=== PATIENT | female | born 1995 | race Caucasian/White ===

== ENCOUNTER 2018-02-01 21:25 | Inpatient (IN) | payer MEDICAID ==
[2018-02-01] MEDS ORDERED: SODIUM CHLORIDE 0.9% 1,000 ML IV ONE (21:48)
--- NOTE | 2018-02-01 22:15 | XRAY Report ---
EXAM: CHEST RADIOGRAPHY EXAM DATE: 02/01/2018 10:04 PM. CLINICAL HISTORY: Short of breath. COMPARISON: 05/05/2011. TECHNIQUE: 1 view. FINDINGS: Lungs/Pleura: Clear. No effusion or pneumothorax. Mediastinum: Within exam limitations, the cardiomediastinal contour is normal. Upper lobe vessels not distended. Other: Mild scoliosis. IMPRESSION: No acute disease. [facility] Referring Provider Line: [phone] SITE ID: [id number]
[2018-02-01] MEDS ORDERED: ELECTROLYTE-A SOLUTION 1,000 ML IV ONE (22:22)
[2018-02-01 22:26] LABS: ALBUMIN 5.6 g/dL (3.2-5.5); ALBUMIN/GLOBULIN RATIO 1.4 (1.0-2.2); ALKALINE PHOSPHATASE 99 IU/L (42-121); ALT ALANINE AMINOTRANSFERASE 18 IU/L (10-60); AST ASPARTATE AMINOTRANSFERASE 17 IU/L (10-42); BILIRUBIN,TOTAL 1.8 mg/dL (0.2-1.0); BUN - BLOOD UREA NITROGEN 11 mg/dL (6-20); CALCIUM 8.9 mg/dL (8.5-10.3); CARBON DIOXIDE - CO2 < 6 mmol/L (21-32); CHLORIDE 101 mmol/L (101-111); CK- CREATINE KINASE 25 IU/L (22-269); CREATININE 1.1 mg/dL (0.4-1.0); GFR - MDRD 62 (>89); GLUCOSE 490 mg/dL (70-100); LIPASE 11 U/L (22-51); MAGNESIUM 2.4 mg/dL (1.7-2.8); PHOSPHORUS 5.9 mg/dL (2.5-4.6); SODIUM 135 mmol/L (135-145); TOTAL PROTEIN 9.5 g/dL (6.7-8.2)
[2018-02-01] MEDS ORDERED: INSULIN REGULAR HUMAN 100 UNIT in SODIUM CHLORIDE 0.9% 100ML 99 ML IV STA (22:33)
[2018-02-01] MEDS ORDERED: POTASSIUM CHLOR 10 MEQ/100 ML 10 MEQ/100 ML BAG IV ONE (22:33)
[2018-02-01 22:34] LABS: KETONES, SERUM (ACETEST) SMALL (NEGATIVE)
[2018-02-01] MEDS ORDERED: ONDANSETRON 4 MG/2 ML VIAL IVP PRN (22:43)
[2018-02-01 22:44] LABS: MUDS CUTOFF CONCENTRATIONS CUTOFF CONC BELOW:
[2018-02-01 22:47] LABS: BILIRUBIN,URINE NEGATIVE (NEGATIVE); GLUCOSE, URINE (UA) 500 mg/dL (NEGATIVE); KETONES,URINE (UA) >=80 mg/dL (NEGATIVE); LEUKOCYTE ESTERASE, URINE NEGATIVE (NEGATIVE); NITRITE,URINE NEGATIVE (NEGATIVE); OCCULT BLOOD,URINE TRACE-INTA (NEGATIVE); PH,URINE 5.5 PH (5.0-7.5); PROTEIN,URINE 100 mg/dL (NEGATIVE); UROBILINOGEN,URINE 0.2 (NORMAL) E.U./dL (NORMAL)
[2018-02-01 22:48] LABS: CLARITY,URINE CLEAR (CLEAR)
[2018-02-01] MEDS ORDERED: INSULIN REGULAR HUMAN 100 UNIT in SODIUM CHLORIDE 0.9% 100ML 99 ML IV SCH (22:49)
--- NOTE | 2018-02-01 22:52 | ED Physician Documentation ---
History of Present Illness - Stated complaint Stated Complaint: SLURRING/RAPID HB ABD PX - Chief complaint Chief Complaint: General - History obtained from History obtained from: Patient, Family - Additonal information Additional information: Patient is a 22 year old female with a history of anxiety and depression who is presenting to the emergency department for elevated heart rate, dizziness and dry mouth. Patient and family report that is has been going on for the last couple of days and it getting progressively worse. Mother states that she has been noticing that the patient is always thirst and always has a dry mouth but denies any history of diabetes. Upon initial evaluation in the emergency department patient is ill appearing tachypneanic and smelled of ketones. Review of Systems Unable to obtain: Confused, Other (clinical condition) PD PAST MEDICAL HISTORY - Past Medical History Psych: Anxiety - Past Surgical History Past Surgical History: No - Present Medications Home Medications: Ambulatory Orders Medication Instructions Recorded Confirmed Sertraline [Zoloft] 25 mg PO DAILY 02/01/18 - Allergies Allergies/Adverse Reactions: Allergies Allergy/AdvReac Type Severity Reaction Status Date / Time No Known Drug Allergies Allergy Verified 02/01/18 21:42 - Social History Does the pt smoke?: No Smoking Status: Never smoker Does the pt drink ETOH?: No Does the pt have substance abuse?: No - Immunizations Immunizations are current?: Yes PD ED PE NORMAL - Vitals Vital signs reviewed: Yes - Neck Neck: No JVD - Abdomen Abdomen: Soft, Non distended - Derm Derm: Normal color, No rash - Extremities Extremities: No deformity - Neuro Eye Opening: Spontaneous Motor: Obeys Commands Verbal: Confused GCS Score: 14 PD ED PE EXPANDED - General General: Disheveled, poorly kept, Lethargic, Other (ill appearing, smelled of ketones ) - Cardiac Cardiac: Tachy - Respiratory Respiratory: Other (tachypeanic, kussmal) Results - Vitals Vitals: Vital Signs - 24 hr 02/01/18 02/01/18 21:38 22:31 Temperature 36.0 C L Heart Rate 132 H 125 H Respiratory 25 H 27 H Rate Blood Pressure 138/101 H 132/85 H O2 Saturation 100 99 Oxygen O2 Source Room air - Labs Labs: Laboratory Tests 02/01/18 02/01/18 02/01/18 21:53 21:55 21:55 Sodium 135 Potassium 4.0 Chloride 101 Carbon Dioxide < 6 L* Anion Gap 28.0 H BUN 11 Creatinine 1.1 H Estimated GFR (MDRD) 62 L Glucose 494 H 490 H Glycated Hemoglobin Estim Average Glucose Calcium 8.9 Phosphorus 5.9 H Magnesium 2.4 Total Bilirubin 1.8 H AST 17 ALT 18 Alkaline Phosphatase 99 Total Creatine Kinase 25 Troponin I < 0.04 Total Protein 9.5 H Albumin 5.6 H Globulin 3.9 Albumin/Globulin Ratio 1.4 Lipase 11 L TSH Urine Color Urine Clarity Urine pH Ur Specific Slater Urine Protein Urine Glucose (UA) Urine Ketones Urine Occult Blood Urine Nitrite Urine Bilirubin Urine Urobilinogen Ur Leukocyte Esterase Urine RBC Urine WBC Ur Epithelial Cells Ur Squamous Epith Cells Amorphous Sediment Urine Bacteria Urine Casts Ur Microscopic Review Urine Culture Comments Urine HCG, Qual Salicylates Urine Opiates Screen Ur Oxycodone Screen Urine Methadone Screen Ur Propoxyphene Screen Acetaminophen Ur Barbiturates Screen Ur Tricyclics Screen Ur Phencyclidine Scrn Ur Amphetamine Screen U Methamphetamines Scrn U Benzodiazepines Scrn Urine Cocaine Screen U Cannabinoids Screen Ethyl Alcohol < 5.0 Serum Ketones SMALL H 02/01/18 02/01/18 02/01/18 21:55 21:55 21:55 Sodium Potassium Chloride Carbon Dioxide Anion Gap BUN Creatinine Estimated GFR (MDRD) Glucose Glycated Hemoglobin 17.0 H Estim Average Glucose 441 H Calcium Phosphorus Magnesium Total Bilirubin AST ALT Alkaline Phosphatase Total Creatine Kinase Troponin I Total Protein Albumin Globulin Albumin/Globulin Ratio Lipase TSH 0.88 Urine Color Urine Clarity Urine pH Ur Specific Slater Urine Protein Urine Glucose (UA) Urine Ketones Urine Occult Blood Urine Nitrite Urine Bilirubin Urine Urobilinogen Ur Leukocyte Esterase Urine RBC Urine WBC Ur Epithelial Cells Ur Squamous Epith Cells Amorphous Sediment Urine Bacteria Urine Casts Ur Microscopic Review Urine Culture Comments Urine HCG, Qual Salicylates < 6.0 Urine Opiates Screen Ur Oxycodone Screen Urine Methadone Screen Ur Propoxyphene Screen Acetaminophen < 10 L Ur Barbiturates Screen Ur Tricyclics Screen Ur Phencyclidine Scrn Ur Amphetamine Screen U Methamphetamines Scrn U Benzodiazepines Scrn Urine Cocaine Screen U Cannabinoids Screen Ethyl Alcohol Serum Ketones 02/01/18 02/01/18 22:35 22:35 Sodium Potassium Chloride Carbon Dioxide Anion Gap BUN Creatinine Estimated GFR (MDRD) Glucose Glycated Hemoglobin Estim Average Glucose Calcium Phosphorus Magnesium Total Bilirubin AST ALT Alkaline Phosphatase Total Creatine Kinase Troponin I Total Protein Albumin Globulin Albumin/Globulin Ratio Lipase TSH Urine Color YELLOW Urine Clarity CLEAR Urine pH 5.5 Ur Specific Slater >=1.030 H >=1.030 H Urine Protein 100 H Urine Glucose (UA) 500 H Urine Ketones >=80 H Urine Occult Blood TRACE-INTA Urine Nitrite NEGATIVE Urine Bilirubin NEGATIVE Urine Urobilinogen 0.2 (NORMAL) Ur Leukocyte Esterase NEGATIVE Urine RBC 0-5 Urine WBC 0-3 Ur Epithelial Cells MOD Transitional H Ur Squamous Epith Cells FEW Squamous Amorphous Sediment Moderate Urine Bacteria None Seen Urine Casts 3-5 Hyaline Casts Ur Microscopic Review INDICATED Urine Culture Comments NOT INDICATED Urine HCG, Qual NEGATIVE Salicylates Urine Opiates Screen NEGATIVE Ur Oxycodone Screen NEGATIVE Urine Methadone Screen NEGATIVE Ur Propoxyphene Screen NEGATIVE Acetaminophen Ur Barbiturates Screen NEGATIVE Ur Tricyclics Screen NEGATIVE Ur Phencyclidine Scrn NEGATIVE Ur Amphetamine Screen NEGATIVE U Methamphetamines Scrn NEGATIVE U Benzodiazepines Scrn NEGATIVE Urine Cocaine Screen NEGATIVE U Cannabinoids Screen NEGATIVE Ethyl Alcohol Serum Ketones PD MEDICAL DECISION MAKING - ED course Complexity details: reviewed old records, reviewed results, re-evaluated patient , considered differential, d/w patient, d/w family, d/w it 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 ekg was performed and showed tachycardia with a lot of artifact. Patient was placed on a monitor. Bedside blood glucose was 475. IV access was gained and labs were drawn. Patient was started on a fluid bolus. When patient's labs came back dka was confirmed. patient treated with additional fluids and insulin drip at 4 units with supplemental potassium. Hospitalist was contacted and the case was discussed with her. patient was admitted to the icu for further evaluation and care. - Critical Care Time(min): 30 Time Includes: Direct patient care, Review records, Reassess patient, Document care Data interpretation: Labs, CXR, Cardiac output Departure - Departure Disposition: 66 [facility] DC/Xfer Clinical Impression: DKA (diabetic ketoacidoses) Condition: Critical Discharge Date/Time: 02/01/18 23:53
[2018-02-01 22:57] LABS: RBC,URINE 0-5 /HPF (0-5); SQUAMOUS EPITHELIAL CELL,UR FEW Squamous (<= Few)
[2018-02-01 22:58] LABS: AMORPHOUS SEDIMENT,UR Moderate /LPF; BACTERIA,URINE None Seen /HPF (None Seen); CASTS, URINE 3-5 Hyaline Casts /LPF; EPITHELIAL CELLS,UR MOD Transitional /HPF (<= Few)
[2018-02-01 22:59] LABS: AMPHETAMINE SCREEN,URINE NEGATIVE (NEGATIVE); BENZODIAZEPINES SCREEN, URINE NEGATIVE (NEGATIVE); COCAINE SCREEN URINE NEGATIVE (NEGATIVE); METHADONE SCREEN, URINE NEGATIVE (NEGATIVE); METHAMPHETAMINES SCREEN, URINE NEGATIVE (NEGATIVE); OPIATE SCREEN, URINE NEGATIVE (NEGATIVE); OXYCODONE SCREEN, URINE NEGATIVE (NEGATIVE); PROPOXYPHENE SCREEN, URINE NEGATIVE (NEGATIVE); TRICYCLIC ANTIDEPRESSANT,URINE NEGATIVE (NEGATIVE)
[2018-02-01] MEDS ORDERED: SODIUM CHLORIDE 0.9% 1,000 ML IV SCH ×2 (23:00→23:24)
[2018-02-01 23:01] LABS: ACETAMINOPHEN < 10 ug/mL (10-30); SALICYLATE < 6.0 mg/dL
[2018-02-01 23:06] LABS: HEMOGLOBIN A1C 2.92 g/dL
[2018-02-01] MEDS ORDERED: KETOROLAC 15 MG/ML VIAL IVP PRN (23:24)
[2018-02-01] MEDS ORDERED: MORPHINE 2 MG/ML SYRINGE IVP PRN (23:25)
[2018-02-01 23:47] LABS: HCG UR QUAL NEGATIVE
[2018-02-02] MEDS: AMPICILLIN/SULBACTAM 1.5 GM in SODIUM CHLORIDE 0.9% MINIBAG 100 ML IV SCH ×5 (00:25→17:44)
--- NOTE | 2018-02-02 00:47 | HISTORY & PHYSICAL EXAMINATION ---
DATE OF SERVICE: 02/01/2018 Physician: Oralia Jarvis MD CHIEF COMPLAINT: Altered mental status, nausea, vomiting and dizziness. SOURCE OF HISTORY: Most of the history was provided by the patient's mother at the bedside, the patient was somnolent and acutely ill, could not provide history. HISTORY OF PRESENT ILLNESS: The patient is a pleasant 22-year-old female with past medical history of anxiety and depression. No other prior medical problem. She saw the primary care physician, Dr. Villa remotely, but recently had no primary care followup. Sees a psychologist, Dr. Castillo, and takes Zoloft. No other medication. The patient has poor dentition and developed dental pain about a week ago; she was seen in a dental office during the daytime on 02/01/2018 at which time she was told that she had a complicated situation with the root of her tooth and required oral surgery. In addition, tooth infection was suspected and she was given penicillin. She also took some ibuprofen. Beside the tooth problem, her family noticed that she became somnolent and ill in general, about 4 days ago. She was nauseous and vomited a few times. She developed dry mouth, became anorexic, was not able to take much oral intake. After she went home from the dentist's office, patient became somnolent and confused, she appeared acutely ill, therefore her mother brought her to the ER. Family also noticed increased heart rate and the patient complained of generalized aches and pains including abdominal discomfort and pain at her ribcage. The patient's mother attributed most of the symptoms to the tooth problem/tooth infection. Notably, the patient or the family does not report any prior history of diabetes. Reviewing the medical record; however, the patient did have an ER visit in 2015, at which time she was seen for dizziness and she reported "blood sugar issues." When I asked the mother about this, she mentioned that several people in their family, in particular second degree relatives and grandparents, had diabetes. They felt dizzy and lightheaded in the setting of uncontrolled blood glucose and when the patient developed similar symptoms, she thought she had blood sugar issues. However, patient does not have prior history of diabetes and back then a few years ago, her symptoms of dizziness and lightheadedness were attributed to anxiety. Upon presentation to the ER, the patient was found acutely ill and confused. Her vital signs showed tachycardia with heart rate of 130, temperature was 36 Celsius, blood pressure 130/100, respiration rate 27, oxygen saturation 99% on room air. Laboratory workup showed severe anion gap metabolic acidosis, most consistent with diabetic ketoacidosis. CBC was not sent or not yet returned. There are several pending labs including venous pH; serum ketones returned as small. Urinalysis was negative. Toxicology screen was negative as well including salicylate and Tylenol level. Troponin was negative. Blood glucose was around 500. Sodium and potassium unremarkable. BUN was 11, creatinine 1.1. Notably, on prior lab work baseline creatinine was 0.7. At the ER, the patient was started on insulin drip and received 2 liters IV fluid. REVIEW OF SYMPTOMS: Please see pertinent positives listed above at history of present illness. On further review, patient and the mother denied excessive Tylenol or salicylate intake. They also denied prior history of diabetes. There was no fever. However, there was weight loss, about 5-10 pounds during the past week. Patient denied urinary complaints. I completed 12-point review, which was negative other than the positives dictated at history of present illness. FAMILY HISTORY: Negative for diabetes in first degree relatives, however, positive for diabetes in second degree relatives. Patient or mother could not provide further details. SOCIAL HISTORY: Patient does not smoke. She does not drink alcohol or use substances. PHYSICAL EXAMINATION VITAL SIGNS: See listed above at history of present illness. GENERAL: The patient is a well-developed, thin, acutely ill-appearing young female. Had acetone like smell. SKIN: With pallor, Dry skin. No jaundice. HEENT: Oral mucosa dry with cracked lips. Multiple teeth with decay, poor dentition. No abscess or fluid packet/collection. LYMPHATIC: No lymphedema. MUSCULOSKELETAL: Atraumatic, thin, decreased muscle mass. CARDIOVASCULAR: S1, S2. Regular tachycardia. I could not hear murmur, rub or gallop. RESPIRATORY: Increased work of breathing, but good air entry throughout. ABDOMEN: Nontender. Bowel tones hypoactive. NEUROLOGIC: The patient was somnolent, but easily arousable. She was confused , neurologically nonfocal. Appeared with global encephalopathy. PSYCHIATRIC: Cooperative. No agitation. PAST MEDICAL HISTORY: Anxiety and depression. No other chronic illness. OUTPATIENT MEDICATIONS: Included 1. Zoloft. 2. Recently the patient took some aspirin, penicillin, and ibuprofen for a tooth infection. ASSESSMENT AND PLAN ACTIVE ISSUES/DIAGNOSES 1. Diabetic ketoacidosis/severe. Other etiology for anion gap metabolic acidosis is unlikely and most possibilities were ruled out per history and initial lab work. 2. New diagnosis of diabetes, likely type 1. 3. Acute renal failure. Creatinine increasing by more than 30% from 0.7 to 1.1. This is in the setting of dehydration and diabetic ketoacidosis. 4. Tooth infection. Patient could have systemic infection. Currently lactic acid and CBC are pending. 5. Metabolic encephalopathy. Severe DKA. PLAN/ORDERS 1. Patient is getting admitted to the ICU and managed per DKA protocol. She is receiving deep venous thrombosis prophylaxis and gastrointestinal prophylaxis as well. 2. We will start antibiotics for tooth infection, I ordered Unasyn. We will use bowel prophylaxis with acidophilus/lactobacillus. 3. Check blood cultures and I am awaiting CBC. 4. Diabetic education and dietitian consult, given the new diagnosis of diabetes. 5. Patient will need outpatient followup and I discussed that with her mother and with the patient as well. Requested social work to facilitate close outpatient follow up , obtaining an appointment following discharge. Patient's primary care physician was Dr. Villa and we will refer her back to the PCP. 6. Regarding tooth infection, the patient already saw a dentist and was recommended to have oral surgery. However, prior to the procedure, she will need to take antibiotics. Currently, we are giving antibiotics IV and then we will refer her back to the dentist for further outpatient followup. 7. Regarding sinus tachycardia, TSH was checked, it was unremarkable. Most likely the reason for the tachycardia is DKA and dehydration. 8. Regarding the encephalopathy, it is most likely metabolic encephalopathy in the setting of acute illness and DKA. The patient is neurologically nonfocal. CODE STATUS: FULL CODE, which I discussed with the patient and with her mother at the bedside. ATTESTATION: I certify that this patient requires inpatient admission due to acute illness and diabetic ketoacidosis, requires IV drips and close monitoring in the ICU. She is getting admitted as inpatient and most likely will remain hospitalized for more than 48 hours; however, likely get discharged within 96 hours. CRITICAL CARE TIME: 55 minutes. cc: Osmany Villa MD TD: 02/02/2018 00:45 MTDD
[2018-02-02] MEDS: SODIUM CHLORIDE FLUSH 0.9% 10 ML SYRINGE IVP SCH ×3 (01:25→17:31)
[2018-02-02] MEDS: SACCHAROMYCES BOULARDII 250 MG CAPSULE PO SCH ×3 (02:30→17:31)
[2018-02-02] MEDS ORDERED: SODIUM CHLORIDE 0.9% 500 ML IV SCH (03:32)
[2018-02-02 04:11] LABS: BUN - BLOOD UREA NITROGEN 10 mg/dL (6-20); CALCIUM 8.2 mg/dL (8.5-10.3); CHLORIDE 112 mmol/L (101-111); CREATININE 0.9 mg/dL (0.4-1.0); GFR - MDRD 78 (>89); GLUCOSE 190 mg/dL (70-100); MAGNESIUM 1.7 mg/dL (1.7-2.8); SODIUM 136 mmol/L (135-145)
[2018-02-02 04:12] LABS: CARBON DIOXIDE - CO2 < 6 mmol/L (21-32)
[2018-02-02] MEDS: D5.45NS W/20 MEQ KCL 1,000 ML IV SCH ×2 (04:30→15:14)
[2018-02-02 05:57] LABS: BASOPHILS % (AUTO) 0.3 %; HGB - HEMOGLOBIN 12.8 g/dL (12.0-16.0); LYMPHOCYTES # (AUTO) 1.8 10^3/uL (1.5-3.5); LYMPHOCYTES % (AUTO) 12.6 %; MEAN CORPUSCULAR HEMOGLOBIN 30.7 pg (27.0-31.0); MEAN CORPUSCULAR HGB CONC 32.9 g/dL (32.0-36.0); MEAN CORPUSCULAR VOLUME 93.4 fL (81.0-99.0); MEAN PLATELET VOLUME 11.4 fL (7.9-10.8); MONOCYTES # (AUTO) 1.4 10^3/uL (0.0-1.0); MONOCYTES % (AUTO) 9.7 %; NEUTROPHILS % (AUTO) 77.4 %; PLT - PLATELET COUNT 118 10^3/uL (130-450); RED BLOOD COUNT 4.16 10^6/uL (4.20-5.40); RED CELL DISTRIBUTION WIDTH 13.7 % (12.0-15.0); WHITE BLOOD COUNT 14.2 x10^3/uL (4.8-10.8)
[2018-02-02 06:10] LABS: CALCIUM 7.4 mg/dL (8.5-10.3); CREATININE 0.8 mg/dL (0.4-1.0)
[2018-02-02] MEDS ORDERED: CALCIUM GLUCONATE 1,000 MG in SODIUM CHLORIDE 0.9% 50 ML IV SCH (06:13)
[2018-02-02] MEDS ORDERED: POTASSIUM CHLOR 20 MEQ/100 ML 20 MEQ/100 ML BAG IV SCH (07:00)
[2018-02-02] MEDS ORDERED: PANTOPRAZOLE 40 MG TABLET PO SCH (07:00)
[2018-02-02] MEDS ORDERED: MAGNESIUM SULFATE 2 GRAM 2 GM/50 ML BAG IV SCH (07:00)
[2018-02-02] MEDS: POLYETHYLENE GLYCOL 3350 17 GM PACKET PO SCH (10:27)
[2018-02-02 10:34] LABS: BASOPHILS % (AUTO) 0.4 %; LYMPHOCYTES # (AUTO) 1.2 10^3/uL (1.5-3.5); LYMPHOCYTES % (AUTO) 10.9 %; MEAN CORPUSCULAR HEMOGLOBIN 31.7 pg (27.0-31.0); MEAN CORPUSCULAR HGB CONC 34.9 g/dL (32.0-36.0); MEAN PLATELET VOLUME 11.4 fL (7.9-10.8); MONOCYTES # (AUTO) 1.4 10^3/uL (0.0-1.0); NEUTROPHILS # (AUTO) 8.2 10^3/uL (1.5-6.6); NEUTROPHILS % (AUTO) 75.7 %; PLT - PLATELET COUNT 111 10^3/uL (130-450); RED CELL DISTRIBUTION WIDTH 13.7 % (12.0-15.0); WHITE BLOOD COUNT 10.8 x10^3/uL (4.8-10.8)
[2018-02-02 10:56] LABS: KETONES, SERUM (ACETEST) SMALL (NEGATIVE)
[2018-02-02 11:05] LABS: MAGNESIUM 2.4 mg/dL (1.7-2.8)
[2018-02-02 11:16] LABS: VBG PCO2 16.1 mmHg (41-51); VBG PH 7.029 (7.31-7.41)
[2018-02-02 11:17] LABS: VBG BASE EXCESS -24.8 mmol/L (-2 - +2); VBG PO2 74.7 mmHg (25-47); VBG TOTAL CO2 4.6 mmol/L (24-29)
[2018-02-02] MEDS: PANTOPRAZOLE 40 MG VIAL IVP SCH (11:31)
[2018-02-02] MEDS: POTASSIUM CHLOR 10 MEQ/100 ML 10 MEQ/100 ML BAG IV SCH ×4 (11:32→17:18)
[2018-02-02] MEDS: SODIUM CHLORIDE FLUSH 0.9% 10 ML SYRINGE IVP PRN (11:32)
[2018-02-02] MEDS ORDERED: diphenhydrAMINE 25 MG CAPSULE PO STA (12:03)
[2018-02-02 12:14] LABS: ALBUMIN 3.5 g/dL (3.2-5.5); ALBUMIN/GLOBULIN RATIO 1.3 (1.0-2.2); ALKALINE PHOSPHATASE 53 IU/L (42-121); ALT ALANINE AMINOTRANSFERASE 12 IU/L (10-60); AST ASPARTATE AMINOTRANSFERASE 14 IU/L (10-42); BILIRUBIN,TOTAL 0.8 mg/dL (0.2-1.0); BUN - BLOOD UREA NITROGEN 9 mg/dL (6-20); CARBON DIOXIDE - CO2 13 mmol/L (21-32); CHLORIDE 117 mmol/L (101-111); CREATININE 0.5 mg/dL (0.4-1.0); GFR - MDRD 154 (>89); GLUCOSE 153 mg/dL (70-100); SODIUM 137 mmol/L (135-145); TOTAL PROTEIN 6.2 g/dL (6.7-8.2)
[2018-02-02] MEDS: MULTIVITAMIN 10 ML in SODIUM CHLORIDE 0.9% 1,000 ML IV SCH (12:15)
[2018-02-02] MEDS: THIAMINE INJ 100 MG, FOLIC ACID INJ 1 MG in SODIUM CHLORIDE 0.9% 100ML 100 ML IV SCH (12:16)
[2018-02-02 12:58] LABS: VBG PH 7.247 (7.31-7.41)
[2018-02-02] MEDS: INSULIN GLARGINE 300 UNIT/3 ML PEN SUBQ SCH (13:10)
[2018-02-02] MEDS ORDERED: POTASSIUM PHOSPHATE 21 MMOL in SODIUM CHLORIDE 0.9% 250 ML IV ONE (14:15)
--- NOTE | 2018-02-02 14:44 | PROVIDER PROGRESS NOTE ---
Assessment/Plan - Problem List (1) DKA (diabetic ketoacidoses) Qualifiers: Diabetes mellitus type: type 1 Diabetes mellitus complication detail: without coma Qualified Code(s): E10.10 - Type 1 diabetes mellitus with ketoacidosis without coma Assessment/Plan: Patient presented with DKA and new onset diabetes her pH was 7.02 with an anion gap of 26 She was recently diagnosed with a tooth infection which may have precipitated the event She was admitted to the ICU and is on an insulin drip Plan: Continue insulin drip till anion gap is closed and bicarb is greater than 10 Then start SubQ insulin 0.3 U/kg/day of lantus and SS insulin Nutrition consult Diabetic teaching for patient and her family (2) Tooth infection Assessment/Plan: Patient saw dentist and was told she has a tooth infection Patient has very poor dentation She was on penicillin Placed on IV unasyn will continue (3) Metabolic encephalopathy Assessment/Plan: Secondary to DKA Resolved (4) Hypokalemia Assessment/Plan: Replace K Monitor K (5) Hypophosphatemia Assessment/Plan: Replace Phos Monitor Phos (6) Protein calorie malnutrition Qualifiers: Protein-calorie malnutrition severity: mild Qualified Code(s): E44.1 - Mild protein-calorie malnutrition Assessment/Plan: Total protein is 6.2 and patient has a BMI of 13.5 Maybe secondary to diabetes but could also be due to anorexia Patient will be given a banana bag IV Will start daily MV Nutrition consult (7) NIKHIL (acute kidney injury) Assessment/Plan: Psychology Tech was 1.1 on presentation likely secondary to dehydration from DKA Psychology Tech improving with IVF Resolving (8) Thrombocytopenia Assessment/Plan: Plt count is 118 Etiology is not clear Monitor Only takes zoloft which does not cause thrombocytopenia - Current Meds Current Meds: Current Medications Generic Name Dose Route Start Last Admin Trade Name Freq PRN Reason Stop Dose Admin Ampicillin Sodium/Sulbactam 100 mls @ 200 mls/hr 02/01/18 23:45 02/02/18 13: 01 Sodium 1.5 gm/ Sodium Chloride IV Infused Q6HR SUZANNA Infusion Potassium Chloride/Dextrose/Sod Cl 1,000 mls @ 83.333 mls/hr 02/02/18 04:00 02/02/18 05:00 D5.45ns W/20 Meq Kcl IV 83.333 mls/hr .Q12H SUZANNA Infusion Potassium Chloride 10 meq in 100 mls @ 100 mls/hr 02/02/18 11:00 02/02/18 13: 33 Potassium Chloride IV 02/02/18 14:59 50 mls/hr Q1H SUZANNA Infusion Multivitamins 10 ml/ Sodium 1,010 mls @ 100 mls/hr 02/02/18 11:00 02/02/18 12 :15 Chloride IV 100 mls/hr DAILY SUZANNA Administration Thiamine HCl 100 mg/ Folic 101.2 mls @ 50.6 mls/hr 02/02/18 11:00 02/02/18 14 :16 Acid 1 mg/ Sodium Chloride IV Infused DAILY SUZANNA Infusion Insulin Glargine 14 unit 02/02/18 13:00 02/02/18 13:10 Lantus Solostar SUBQ 14 unit DAILY SUZANNA Administration Ondansetron HCl 4 mg 02/01/18 22:43 02/02/18 09:27 Zofran Inj IVP 4 mg Q6HR PRN Administration Nausea / Vomiting Pantoprazole Sodium 40 mg 02/02/18 11:00 02/02/18 11:31 Protonix IVP 40 mg QDAC SUZANNA Administration Polyethylene Glycol 17 gm 02/02/18 09:00 02/02/18 10:27 Miralax PO Not Given DAILY SUZANNA Saccharomyces Boulardii 250 mg 02/02/18 01:00 02/02/18 08:43 Florastor PO 250 mg BIDWM SUZANNA Administration Sodium Chloride 10 ml 02/01/18 22:43 02/02/18 11:32 Normal Saline Flush 0.9% IVP 20 ml PRN PRN Administration NEEDED PER PROVIDER ORDERS Sodium Chloride 10 ml 02/02/18 01:00 02/02/18 11:43 Normal Saline Flush 0.9% IVP Not Given 0100,0900,1700 SUZANNA - Lab Result Fish Bone Diagrams: 02/02/18 10:21 02/02/18 11:21 - Diagnostic Imaging Results Diagnostic Imaging Results: Final report reviewed - Additional Planning Condition/Complexity: Guarded My Orders: My Active Orders 02/02/18 11:00 Multivitamin [Infuvite] 10 ml Sodium Chloride 0.9% [Normal Saline 0.9%] 1,000 ml IV DAILY Pantoprazole [Protonix] 40 mg IVP QDAC Potassium Chlor 10 Meq/100 ml [Potassium Chloride] 10 meq in 100 ml IV Q1H Thiamine Inj [Vitamin B-1 Inj] 100 mg Folic Acid Inj 1 mg Sodium Chloride 0.9 % 100Ml [Normal Saline 0.9% 100Ml] 100 ml IV DAILY 02/02/18 11:51 Initiate ICU Electrolyte Prot. [RC] QSHIFT 02/02/18 12:24 Blood Glucose Checks - Eating [RC] 0800,1200,1700,2100 Initiate Hypoglycemia Protocol [RC] .protocol 02/02/18 13:00 Insulin Glargine [Lantus Solostar] 14 unit SUBQ DAILY 02/02/18 14:15 Potassium Phosphate 21 mmol Sodium Chloride 0.9% [Normal Saline 0.9%] 250 ml IV ONCE 02/02/18 17:00 Insulin Aspart [NovoLOG] 1 - 5 unit SUBQ 0800,1200,1700,2100 02/03/18 05:00 CBC - COMP BLD CT W/AUTO DIFF [HEME] DAILYLAB CMP, RFLX TO IONIZED CA IF [CHEM] DAILYLAB KETONES, SERUM (ACETEST) [CHEM] DAILYLAB MAGNESIUM [CHEM] DAILYLAB PHOSPHORUS [CHEM] DAILYLAB 02/04/18 05:00 CBC - COMP BLD CT W/AUTO DIFF [HEME] DAILYLAB CMP, RFLX TO IONIZED CA IF [CHEM] DAILYLAB KETONES, SERUM (ACETEST) [CHEM] DAILYLAB MAGNESIUM [CHEM] DAILYLAB PHOSPHORUS [CHEM] DAILYLAB Plan Discussed with:: Patient, Family Time Spent: 31-60 minutes Subjective - Subjective Patient Reports: Abdominal Pain (States she has burning in her abdomen and poor appetite), Fatigue, Other (Feels weak) Nursing Reports: No Complaints Objective Vital Signs: Vital Signs - 24 hr 02/01/18 02/02/18 02/02/18 23:39 00:00 01:00 Temperature Heart Rate 121 H Heart Rate [ 127 H 132 H Apical] Heart Rate [ Monitoring electrodes] Respiratory 27 H 27 H 26 H Rate Blood Pressure 137/89 H Blood Pressure 131/79 H 128/81 H [Right Brachial artery] O2 Saturation 100 100 100 02/02/18 02/02/18 02/02/18 02:00 03:00 04:00 Temperature 36.7 C Heart Rate Heart Rate [ 126 H Apical] Heart Rate [ 126 H 125 H 124 H Monitoring electrodes] Respiratory 20 27 H 24 Rate Blood Pressure Blood Pressure 123/86 H 125/83 H 120/77 [Right Brachial artery] O2 Saturation 100 100 100 02/02/18 02/02/18 02/02/18 05:00 06:00 07:59 Temperature 37.6 C H Heart Rate Heart Rate [ Apical] Heart Rate [ 116 H 114 H 109 H Monitoring electrodes] Respiratory 21 18 18 Rate Blood Pressure Blood Pressure 116/77 100/64 107/70 [Right Brachial artery] O2 Saturation 100 99 100 02/02/18 02/02/18 10:12 11:21 Temperature Heart Rate Heart Rate [ Apical] Heart Rate [ 109 H 104 H Monitoring electrodes] Respiratory 18 18 Rate Blood Pressure Blood Pressure 104/60 105/62 [Right Brachial artery] O2 Saturation 99 98 Oxygen O2 Source Room air I&O (Last 24 Hrs): Intake and Output Totals x24h 01/31/18 02/01/18 02/02/18 23:59 23:59 23:59 Intake Total 1000 2460.534 Output Total 940 Balance 1000 1520.534 General: Alert, Oriented x3, Other (Cachectic appearing young woman) HEENT: PERRLA, EOMI, Other (Dry mucus membranes, dried up blood on front teeth, poor dentation) Neck: Supple, No JVD, No thyromegaly, +2 carotid pulse wo bruit, No LAD Lymphatic: no adenopathy Neuro: Alert, Non Focal, CN 2-12 Grossly Intact, Oriented Times 3 Cardiovascular: No murmurs, Other (Tachycardic) Respiratory: Chest non-tender, No respiratory distress, Breath sounds nml Abdomen: Normal bowel sounds, Soft, No tenderness, No hepatospenomegaly Extremities: No clubbing, No cyanosis, No edema, Normal pulses Skin: No rashes, No breakdown - Results Results: Laboratory Results WBC 10.8 x10^3/uL (4.8-10.8) 02/02/18 10:21 RBC 4.10 10^6/uL (4.20-5.40) L 02/02/18 10:21 Hgb 13.0 g/dL (12.0-16.0) 02/02/18 10:21 Hct 37.3 % (37.0-47.0) 02/02/18 10:21 MCV 91.0 fL (81.0-99.0) 02/02/18 10:21 MCH 31.7 pg (27.0-31.0) H 02/02/18 10:21 MCHC 34.9 g/dL (32.0-36.0) 02/02/18 10:21 RDW 13.7 % (12.0-15.0) 02/02/18 10:21 Plt Count 111 10^3/uL (130-450) L 02/02/18 10:21 MPV 11.4 fL (7.9-10.8) H 02/02/18 10:21 Neut # 8.2 10^3/uL (1.5-6.6) H 02/02/18 10:21 Lymph # 1.2 10^3/uL (1.5-3.5) L 02/02/18 10:21 [place] # 1.4 10^3/uL (0.0-1.0) H 02/02/18 10:21 Eos # 0.0 10^3/uL (0.0-0.7) 02/02/18 10:21 Baso # 0.0 10^3/uL (0.0-0.1) 02/02/18 10:21 Absolute Nucleated RBC 0.00 x10^3/uL 02/02/18 10:21 Nucleated RBC % 0.0 /100WBC 02/02/18 10:21 VBG pH 7.247 (7.31-7.41) L 02/02/18 12:45 VBG pCO2 16.1 mmHg (41-51) L 02/02/18 03:45 VBG pO2 74.7 mmHg (25-47) H 02/02/18 03:45 VBG HCO3 4.1 mmol/L (23-28) L 02/02/18 03:45 VBG Total CO2 4.6 mmol/L (24-29) L 02/02/18 03:45 VBG O2 Saturation 94.9 % (60-80) H 02/02/18 03:45 VBG Base Excess -24.8 mmol/L (-2 - +2) L 02/02/18 03:45 Ionized Calcium 1.18 mmol/L (1.15-1.33) 02/02/18 12:45 Sodium 137 mmol/L (135-145) 02/02/18 11:21 Potassium 3.1 mmol/L (3.5-5.0) L 02/02/18 11:21 Chloride 117 mmol/L (101-111) H 02/02/18 11:21 Carbon Dioxide 13 mmol/L (21-32) L 02/02/18 11:21 Anion Gap 7.0 (6-13) 02/02/18 11:21 BUN 9 mg/dL (6-20) 02/02/18 11:21 Creatinine 0.5 mg/dL (0.4-1.0) 02/02/18 11:21 Estimated GFR (MDRD) 154 (>89) 02/02/18 11:21 Glucose 153 mg/dL (70-100) H 02/02/18 11:21 POC Whole Bld Glucose 151 mg/dL (70 - 100) H 02/02/18 12:04 Glycated Hemoglobin 17.0 % (4.6-6.2) H 02/01/18 21:55 Estim Average Glucose 441 (70-100) H 02/01/18 21:55 Lactic Acid 1.2 mmol/L (0.5-2.2) 02/01/18 03:45 Calcium 8.0 mg/dL (8.5-10.3) L 02/02/18 11:21 Ionized Calcium YES 02/02/18 11:21 Phosphorus < 1.0 mg/dL (2.5-4.6) L* 02/02/18 11:21 Magnesium 2.4 mg/dL (1.7-2.8) 02/02/18 10:21 Total Bilirubin 0.8 mg/dL (0.2-1.0) 02/02/18 11:21 AST 14 IU/L (10-42) 02/02/18 11:21 ALT 12 IU/L (10-60) 02/02/18 11:21 Alkaline Phosphatase 53 IU/L (42-121) 02/02/18 11:21 Total Creatine Kinase 25 IU/L (22-269) 02/01/18 21:55 Troponin I < 0.04 ng/mL (<0.49) 02/01/18 21:55 Total Protein 6.2 g/dL (6.7-8.2) L 02/02/18 11:21 Albumin 3.5 g/dL (3.2-5.5) 02/02/18 11:21 Globulin 2.7 g/dL (2.1-4.2) 02/02/18 11:21 Albumin/Globulin Ratio 1.3 (1.0-2.2) 02/02/18 11:21 Lipase 11 U/L (22-51) L 02/01/18 21:55 TSH 0.88 uIU/mL (0.34-5.60) 02/01/18 21:55 Urine Color YELLOW 02/01/18 22:35 Urine Clarity CLEAR (CLEAR) 02/01/18 22:35 Urine pH 5.5 PH (5.0-7.5) 02/01/18 22:35 Ur Specific [place] >=1.030 (1.002-1.030) H 02/01/18 22:35 Urine Protein 100 mg/dL (NEGATIVE) H 02/01/18 22:35 Urine Glucose (UA) 500 mg/dL (NEGATIVE) H 02/01/18 22:35 Urine Ketones >=80 mg/dL (NEGATIVE) H 02/01/18 22:35 Urine Occult Blood TRACE-INTA (NEGATIVE) 02/01/18 22:35 Urine Nitrite NEGATIVE (NEGATIVE) 02/01/18 22:35 Urine Bilirubin NEGATIVE (NEGATIVE) 02/01/18 22:35 Urine Urobilinogen 0.2 (NORMAL) E.U./dL (NORMAL) 02/01/18 22:35 Ur Leukocyte Esterase NEGATIVE (NEGATIVE) 02/01/18 22:35 Urine RBC 0-5 /HPF (0-5) 02/01/18 22:35 Urine WBC 0-3 /HPF (0-5) 02/01/18 22:35 Ur Epithelial Cells MOD Transitional /HPF (<= Few) H 02/01/18 22:35 Ur Squamous Epith Cells FEW Squamous (<= Few) 02/01/18 22:35 Amorphous Sediment Moderate /LPF 02/01/18 22:35 Urine Bacteria None Seen /HPF (None Seen) 02/01/18 22:35 Urine Casts 3-5 Hyaline Casts /LPF 02/01/18 22:35 Ur Microscopic Review INDICATED 02/01/18 22:35 Urine Culture Comments NOT INDICATED 03/22/18 22:35 Urine HCG, Qual NEGATIVE 02/01/18 22:35 Salicylates < 6.0 mg/dL 02/01/18 21:55 Urine Opiates Screen NEGATIVE (NEGATIVE) 02/01/18 22:35 Ur Oxycodone Screen NEGATIVE (NEGATIVE) 02/01/18 22:35 Urine Methadone Screen NEGATIVE (NEGATIVE) 02/01/18 22:35 Ur Propoxyphene Screen NEGATIVE (NEGATIVE) 02/01/18 22:35 Acetaminophen < 10 ug/mL (10-30) L 02/01/18 21:55 Ur Barbiturates Screen NEGATIVE (NEGATIVE) 02/01/18 22:35 Ur Tricyclics Screen NEGATIVE (NEGATIVE) 02/01/18 22:35 Ur Phencyclidine Scrn NEGATIVE (NEGATIVE) 02/01/18 22:35 Ur Amphetamine Screen NEGATIVE (NEGATIVE) 02/01/18 22:35 U Methamphetamines Scrn NEGATIVE (NEGATIVE) 02/01/18 22:35 U Benzodiazepines Scrn NEGATIVE (NEGATIVE) 02/01/18 22:35 Urine Cocaine Screen NEGATIVE (NEGATIVE) 02/01/18 22:35 U Cannabinoids Screen NEGATIVE (NEGATIVE) 02/01/18 22:35 Ethyl Alcohol < 5.0 mg/dL 02/01/18 21:55 Serum Ketones SMALL (NEGATIVE) H 02/02/18 10:21
[2018-02-02] MEDS: SERTRALINE 50 MG TABLET PO SCH (15:15)
[2018-02-02] MEDS: INSULIN ASPART 300 UNIT/3 ML PEN SUBQ SCH ×2 (17:21→21:04)
[2018-02-03] MEDS: AMPICILLIN/SULBACTAM 1.5 GM in SODIUM CHLORIDE 0.9% MINIBAG 100 ML IV SCH ×3 (00:16→11:27)
[2018-02-03] MEDS: D5.45NS W/20 MEQ KCL 1,000 ML IV SCH (04:26)
[2018-02-03] MEDS: SODIUM CHLORIDE FLUSH 0.9% 10 ML SYRINGE IVP SCH ×3 (04:40→18:04)
[2018-02-03 05:20] LABS: BASOPHILS % (AUTO) 0.4 %; EOSINOPHILS % (AUTO) 0.2 %; HGB - HEMOGLOBIN 10.3 g/dL (12.0-16.0); LYMPHOCYTES # (AUTO) 1.7 10^3/uL (1.5-3.5); LYMPHOCYTES % (AUTO) 28.1 %; MEAN CORPUSCULAR HEMOGLOBIN 30.6 pg (27.0-31.0); MEAN CORPUSCULAR VOLUME 92.6 fL (81.0-99.0); MEAN PLATELET VOLUME 11.9 fL (7.9-10.8); MONOCYTES # (AUTO) 0.6 10^3/uL (0.0-1.0); MONOCYTES % (AUTO) 10.5 %; NEUTROPHILS # (AUTO) 3.7 10^3/uL (1.5-6.6); NEUTROPHILS % (AUTO) 60.8 %; PLT - PLATELET COUNT 90 10^3/uL (130-450); RED BLOOD COUNT 3.38 10^6/uL (4.20-5.40); RED CELL DISTRIBUTION WIDTH 13.6 % (12.0-15.0); WHITE BLOOD COUNT 6.1 x10^3/uL (4.8-10.8)
[2018-02-03 05:24] LABS: INR 1.2 (0.8-1.2); PT - PROTHROMBIN TIME 13.1 secs (9.9-12.6)
[2018-02-03 05:30] LABS: ALBUMIN 2.8 g/dL (3.2-5.5); ALBUMIN/GLOBULIN RATIO 1.3 (1.0-2.2); ALKALINE PHOSPHATASE 39 IU/L (42-121); ALT ALANINE AMINOTRANSFERASE 11 IU/L (10-60); AST ASPARTATE AMINOTRANSFERASE 14 IU/L (10-42); BUN - BLOOD UREA NITROGEN 5 mg/dL (6-20); CALCIUM 7.4 mg/dL (8.5-10.3); CARBON DIOXIDE - CO2 14 mmol/L (21-32); CHLORIDE 108 mmol/L (101-111); CREATININE 0.5 mg/dL (0.4-1.0); GFR - MDRD 154 (>89); GLUCOSE 275 mg/dL (70-100); MAGNESIUM 1.6 mg/dL (1.7-2.8); PHOSPHORUS 1.5 mg/dL (2.5-4.6); SODIUM 133 mmol/L (135-145)
[2018-02-03 05:45] LABS: VBG PH 7.309 (7.31-7.41)
[2018-02-03 05:54] LABS: KETONES, SERUM (ACETEST) SMALL (NEGATIVE)
[2018-02-03] MEDS ORDERED: MAGNESIUM SULFATE 2 GRAM 2 GM/50 ML BAG IV SCH (06:00)
[2018-02-03] MEDS: POTASSIUM CHLORIDE 20 MEQ TABLET PO SCH ×2 (06:23→10:09)
[2018-02-03] MEDS ORDERED: POTASSIUM PHOSPHATE 21 MMOL in SODIUM CHLORIDE 0.9% 250 ML IV SCH (07:00)
[2018-02-03] MEDS: PANTOPRAZOLE 40 MG VIAL IVP SCH (07:57)
[2018-02-03] MEDS: SODIUM CHLORIDE FLUSH 0.9% 10 ML SYRINGE IVP PRN ×3 (07:58→18:36)
[2018-02-03] MEDS: THIAMINE INJ 100 MG, FOLIC ACID INJ 1 MG in SODIUM CHLORIDE 0.9% 100ML 100 ML IV SCH (08:17)
[2018-02-03] MEDS: MULTIVITAMIN 10 ML in SODIUM CHLORIDE 0.9% 1,000 ML IV SCH (08:17)
[2018-02-03] MEDS: SERTRALINE 50 MG TABLET PO SCH (08:47)
[2018-02-03] MEDS: POLYETHYLENE GLYCOL 3350 17 GM PACKET PO SCH (08:47)
[2018-02-03] MEDS: SACCHAROMYCES BOULARDII 250 MG CAPSULE PO SCH ×2 (08:47→17:08)
[2018-02-03] MEDS: INSULIN ASPART 300 UNIT/3 ML PEN SUBQ SCH ×4 (08:49→21:38)
[2018-02-03] MEDS: INSULIN GLARGINE 300 UNIT/3 ML PEN SUBQ SCH (08:50)
[2018-02-03] MEDS ORDERED: THIAMINE INJ 100 MG, FOLIC ACID INJ 1 MG in SODIUM CHLORIDE 0.9% 100ML 100 ML IV SCH (09:00)
[2018-02-03 11:56] LABS: MAGNESIUM 1.8 mg/dL (1.7-2.8); PHOSPHORUS 3.2 mg/dL (2.5-4.6)
[2018-02-03] MEDS: AMOX/CLAV 875 MG/125 MG TABLET PO SCH (17:08)
--- NOTE | 2018-02-03 17:53 | PROVIDER PROGRESS NOTE ---
Assessment/Plan - Problem List (1) DKA (diabetic ketoacidoses) Qualifiers: Diabetes mellitus type: type 1 Diabetes mellitus complication detail: without coma Qualified Code(s): E10.10 - Type 1 diabetes mellitus with ketoacidosis without coma Assessment/Plan: Patient presented with DKA and new onset diabetes her pH was 7.02 with an anion gap of 26 She was recently diagnosed with a tooth infection which may have precipitated the event She was admitted to the ICU and is on an insulin drip Resolved Started on Lantus 14 units and SS insulin BG is elevated this am will stop D5 Monitor BG and adjust lantus if needed in the am Patients mother and patient learning how to do insulin injections Patient and mother given education on diabetes (2) Tooth infection Assessment/Plan: Patient saw dentist and was told she has a tooth infection Patient has very poor dentation Change unasyn to augmentin as patient is eating (3) Metabolic encephalopathy Assessment/Plan: Secondary to DKA Resolved (4) Hypokalemia Assessment/Plan: Replace K Monitor K (5) Hypophosphatemia Assessment/Plan: Replace Phos Monitor Phos (6) Protein calorie malnutrition Qualifiers: Protein-calorie malnutrition severity: mild Qualified Code(s): E44.1 - Mild protein-calorie malnutrition Assessment/Plan: Total protein is 6.2 and patient has a BMI of 13.5 Maybe secondary to diabetes but could also be due to anorexia Patient being given banana bag IV Continue daily MV Nutrition consult (7) NIKHIL (acute kidney injury) Assessment/Plan: Resolved (8) Thrombocytopenia Assessment/Plan: Plt count is 90 Etiology is not clear Monitor Only takes zoloft which does not cause thrombocytopenia (9) Hypomagnesemia Assessment/Plan: Replace Mg Monitor - Current Meds Current Meds: Current Medications Generic Name Dose Route Start Last Admin Trade Name Freq PRN Reason Stop Dose Admin Amoxicillin/Clavulanate Potassium 1 tab 02/03/18 16:30 02/03/18 17:08 Augmentin 875/125 PO 1 tab BIDWM SUZANNA Administration Multivitamins 10 ml/ Sodium 1,010 mls @ 100 mls/hr 02/02/18 11:00 02/03/18 11 :00 Chloride IV 100 mls/hr DAILY SUZANNA Infusion Thiamine HCl 100 mg/ Folic 101.2 mls @ 50.6 mls/hr 02/02/18 11:00 02/03/18 10 :18 Acid 1 mg/ Sodium Chloride IV Infused DAILY SUZANNA Infusion Insulin Aspart 1 - 5 unit 02/02/18 17:00 02/03/18 17:17 Novolog SUBQ 1 unit 0800,1200,1700,2100 SUZANNA Administration Protocol Insulin Glargine 14 unit 02/02/18 13:00 02/03/18 08:50 Lantus Solostar SUBQ 14 unit DAILY SUZANNA Administration Ondansetron HCl 4 mg 02/01/18 22:43 02/02/18 09:27 Zofran Inj IVP 4 mg Q6HR PRN Administration Nausea / Vomiting Pantoprazole Sodium 40 mg 02/02/18 11:00 02/03/18 07:57 Protonix IVP 40 mg QDAC SUZANNA Administration Polyethylene Glycol 17 gm 02/02/18 09:00 02/03/18 08:47 Miralax PO 17 gm DAILY SUZANNA Administration Saccharomyces Boulardii 250 mg 02/02/18 01:00 02/03/18 17:08 Florastor PO 250 mg BIDWM SUZANNA Administration Sertraline HCl 50 mg 02/02/18 14:40 02/03/18 08:47 Zoloft PO 50 mg DAILY SUZANNA Administration Sodium Chloride 10 ml 02/01/18 22:43 02/03/18 13:21 Normal Saline Flush 0.9% IVP 10 ml PRN PRN Administration NEEDED PER PROVIDER ORDERS Sodium Chloride 10 ml 02/02/18 01:00 02/03/18 10:16 Normal Saline Flush 0.9% IVP Not Given 0100,0900,1700 SUZANNA - Lab Result Lab results reviewed: Yes Fish Bone Diagrams: 02/03/18 04:45 02/03/18 11:34 - Diagnostic Imaging Results Diagnostic Imaging Results: Final report reviewed - Additional Planning Condition/Complexity: Improved My Orders: My Active Orders 02/02/18 17:00 Insulin Aspart [NovoLOG] 1 - 5 unit SUBQ 0800,1200,1700,2100 02/03/18 15:43 Admit [Admit \ Transfer \ Status] [RC] .ONCE 02/03/18 16:30 Amox/Clav 875/125 [Augmentin 875/125] 1 tab PO BIDWM 02/03/18 Dinner Carb-controlled Diet [DIET] 02/04/18 05:00 CBC - COMP BLD CT W/AUTO DIFF [HEME] DAILYLAB CMP, RFLX TO IONIZED CA IF [CHEM] DAILYLAB KETONES, SERUM (ACETEST) [CHEM] DAILYLAB MAGNESIUM [CHEM] DAILYLAB PHOSPHORUS [CHEM] DAILYLAB Plan Discussed with:: Patient, Mother Time Spent: Greater than 60 minutes Subjective - Subjective Patient Reports: Feeling Better (Feels stronger and much better today.), Abdominal Pain (Improved), Nausea (Improved) Nursing Reports: No Complaints Objective Vital Signs: Vital Signs - 24 hr 02/02/18 02/02/18 02/02/18 18:20 19:00 20:00 Temperature Heart Rate [ 92 92 92 Monitoring electrodes] Respiratory 16 22 22 Rate Blood Pressure 102/76 108/78 107/78 [Right Brachial artery] O2 Saturation 100 100 100 02/03/18 02/03/18 02/03/18 00:00 01:00 02:00 Temperature 37.0 C Heart Rate [ 96 87 85 Monitoring electrodes] Respiratory 16 21 19 Rate Blood Pressure 105/66 105/72 107/76 [Right Brachial artery] O2 Saturation 100 100 100 02/03/18 02/03/18 02/03/18 03:00 08:00 08:02 Temperature 36.9 C Heart Rate [ 88 91 Monitoring electrodes] Respiratory 18 18 Rate Blood Pressure 106/62 112/73 [Right Brachial artery] O2 Saturation 100 98 02/03/18 02/03/18 02/03/18 09:03 14:09 16:53 Temperature 36.7 C 36.7 C Heart Rate [ 80 86 88 Monitoring electrodes] Respiratory 23 20 14 Rate Blood Pressure 99/67 106/69 106/66 [Right Brachial artery] O2 Saturation 100 99 99 Oxygen O2 Source Room air I&O (Last 24 Hrs): Intake and Output Totals x24h 02/01/18 02/02/18 02/03/18 23:59 23:59 23:59 Intake Total 1000 7028.718 3410.690 Output Total 1840 1 Balance 1000 5188.718 3409.690 General: Alert, Oriented x3, Cooperative, No acute distress, Other (Cachectic) HEENT: Atraumatic, PERRLA, EOMI, Mucous membr. moist/pink Neck: Supple, No JVD, No thyromegaly, +2 carotid pulse wo bruit, No LAD Lymphatic: no adenopathy Neuro: Alert, Non Focal, CN 2-12 Grossly Intact, Oriented Times 3 Cardiovascular: Normal S1, Normal S2, Other (Tachycardic) Respiratory: Chest non-tender, No respiratory distress, Breath sounds nml Abdomen: Normal bowel sounds, Soft, No tenderness, No hepatospenomegaly Extremities: No clubbing, No cyanosis, No edema, Normal pulses Skin: No rashes, No breakdown - Results Results: Laboratory Results WBC 6.1 x10^3/uL (4.8-10.8) 02/03/18 04:45 RBC 3.38 10^6/uL (4.20-5.40) L 02/03/18 04:45 Hgb 10.3 g/dL (12.0-16.0) L 02/03/18 04:45 Hct 31.3 % (37.0-47.0) L 02/03/18 04:45 MCV 92.6 fL (81.0-99.0) 02/03/18 04:45 MCH 30.6 pg (27.0-31.0) 02/03/18 04:45 MCHC 33.0 g/dL (32.0-36.0) 02/03/18 04:45 RDW 13.6 % (12.0-15.0) 02/03/18 04:45 Plt Count 90 10^3/uL (130-450) L 02/03/18 04:45 MPV 11.9 fL (7.9-10.8) H 02/03/18 04:45 Neut # 3.7 10^3/uL (1.5-6.6) 02/03/18 04:45 Lymph # 1.7 10^3/uL (1.5-3.5) 02/03/18 04:45 [place] # 0.6 10^3/uL (0.0-1.0) 02/03/18 04:45 Eos # 0.0 10^3/uL (0.0-0.7) 02/03/18 04:45 Baso # 0.0 10^3/uL (0.0-0.1) 02/03/18 04:45 Absolute Nucleated RBC 0.00 x10^3/uL 02/03/18 04:45 Nucleated RBC % 0.0 /100WBC 02/03/18 04:45 PT 13.1 secs (9.9-12.6) H 02/03/18 04:45 INR 1.2 (0.8-1.2) 02/03/18 04:45 VBG pH 7.309 (7.31-7.41) L 02/03/18 04:45 VBG pCO2 16.1 mmHg (41-51) L 02/02/18 03:45 VBG pO2 74.7 mmHg (25-47) H 02/02/18 03:45 VBG HCO3 4.1 mmol/L (23-28) L 02/02/18 03:45 VBG Total CO2 4.6 mmol/L (24-29) L 02/02/18 03:45 VBG O2 Saturation 94.9 % (60-80) H 02/02/18 03:45 VBG Base Excess -24.8 mmol/L (-2 - +2) L 02/02/18 03:45 Ionized Calcium 1.13 mmol/L (1.15-1.33) L 02/03/18 04:45 Sodium 133 mmol/L (135-145) L 02/03/18 04:45 Potassium 3.9 mmol/L (3.5-5.0) 02/03/18 11:34 Chloride 108 mmol/L (101-111) 02/03/18 04:45 Carbon Dioxide 14 mmol/L (21-32) L 02/03/18 04:45 Anion Gap 11.0 (6-13) 02/03/18 04:45 BUN 5 mg/dL (6-20) L 02/03/18 04:45 Creatinine 0.5 mg/dL (0.4-1.0) 02/03/18 04:45 Estimated GFR (MDRD) 154 (>89) 02/03/18 04:45 Glucose 275 mg/dL (70-100) H 02/03/18 04:45 POC Whole Bld Glucose 171 mg/dL (70 - 100) H 02/03/18 16:53 Glycated Hemoglobin 17.0 % (4.6-6.2) H 02/01/18 21:55 Estim Average Glucose 441 (70-100) H 02/01/18 21:55 Lactic Acid 1.2 mmol/L (0.5-2.2) 02/01/18 03:45 Calcium 7.4 mg/dL (8.5-10.3) L 02/03/18 04:45 Ionized Calcium YES 02/03/18 04:45 Phosphorus 3.2 mg/dL (2.5-4.6) 02/03/18 11:34 Magnesium 1.8 mg/dL (1.7-2.8) 02/03/18 11:34 Total Bilirubin 1.0 mg/dL (0.2-1.0) 02/03/18 04:45 AST 14 IU/L (10-42) 02/03/18 04:45 ALT 11 IU/L (10-60) 02/03/18 04:45 Alkaline Phosphatase 39 IU/L (42-121) L 02/03/18 04:45 Total Creatine Kinase 25 IU/L (22-269) 02/01/18 21:55 Troponin I < 0.04 ng/mL (<0.49) 02/01/18 21:55 Total Protein 5.0 g/dL (6.7-8.2) L 02/03/18 04:45 Albumin 2.8 g/dL (3.2-5.5) L 02/03/18 04:45 Globulin 2.2 g/dL (2.1-4.2) 02/03/18 04:45 Albumin/Globulin Ratio 1.3 (1.0-2.2) 02/03/18 04:45 Lipase 11 U/L (22-51) L 02/01/18 21:55 TSH 0.88 uIU/mL (0.34-5.60) 02/01/18 21:55 Urine Color YELLOW 02/01/18 22:35 Urine Clarity CLEAR (CLEAR) 02/01/18 22:35 Urine pH 5.5 PH (5.0-7.5) 02/01/18 22:35 Ur Specific [place] >=1.030 (1.002-1.030) H 02/01/18 22:35 Urine Protein 100 mg/dL (NEGATIVE) H 02/01/18 22:35 Urine Glucose (UA) 500 mg/dL (NEGATIVE) H 02/01/18 22:35 Urine Ketones >=80 mg/dL (NEGATIVE) H 02/01/18 22:35 Urine Occult Blood TRACE-INTA (NEGATIVE) 02/01/18 22:35 Urine Nitrite NEGATIVE (NEGATIVE) 02/01/18 22:35 Urine Bilirubin NEGATIVE (NEGATIVE) 02/01/18 22:35 Urine Urobilinogen 0.2 (NORMAL) E.U./dL (NORMAL) 02/01/18 22:35 Ur Leukocyte Esterase NEGATIVE (NEGATIVE) 02/01/18 22:35 Urine RBC 0-5 /HPF (0-5) 03 22:35 Urine WBC 0-3 /HPF (0-5) 02/01/18 22:35 Ur Epithelial Cells MOD Transitional /HPF (<= Few) H 02/01/18 22:35 Ur Squamous Epith Cells FEW Squamous (<= Few) 02/01/18 22:35 Amorphous Sediment Moderate /LPF 02/01/18 22:35 Urine Bacteria None Seen /HPF (None Seen) 02/01/18 22:35 Urine Casts 3-5 Hyaline Casts /LPF 02/01/18 22:35 Ur Microscopic Review INDICATED 02/01/18 22:35 Urine Culture Comments NOT INDICATED 02/01/18 22:35 Urine HCG, Qual NEGATIVE 02/01/18 22:35 Salicylates < 6.0 mg/dL 02/01/18 21:55 Urine Opiates Screen NEGATIVE (NEGATIVE) 02/01/18 22:35 Ur Oxycodone Screen NEGATIVE (NEGATIVE) 02/01/18 22:35 Urine Methadone Screen NEGATIVE (NEGATIVE) 02/01/18 22:35 Ur Propoxyphene Screen NEGATIVE (NEGATIVE) 02/01/18 22:35 Acetaminophen < 10 ug/mL (10-30) L 02/01/18 21:55 Ur Barbiturates Screen NEGATIVE (NEGATIVE) 02/01/18 22:35 Ur Tricyclics Screen NEGATIVE (NEGATIVE) 02/01/18 22:35 Ur Phencyclidine Scrn NEGATIVE (NEGATIVE) 02/01/18 22:35 Ur Amphetamine Screen NEGATIVE (NEGATIVE) 02/01/18 22:35 U Methamphetamines Scrn NEGATIVE (NEGATIVE) 02/01/18 22:35 U Benzodiazepines Scrn NEGATIVE (NEGATIVE) 02/01/18 22:35 Urine Cocaine Screen NEGATIVE (NEGATIVE) 02/01/18 22:35 U Cannabinoids Screen NEGATIVE (NEGATIVE) 02/01/18 22:35 Ethyl Alcohol < 5.0 mg/dL 02/01/18 21:55 Serum Ketones SMALL (NEGATIVE) H 02/03/18 04:45
[2018-02-04 05:54] LABS: ALBUMIN 3.1 g/dL (3.2-5.5); ALBUMIN/GLOBULIN RATIO 1.3 (1.0-2.2); ALKALINE PHOSPHATASE 40 IU/L (42-121); ALT ALANINE AMINOTRANSFERASE 12 IU/L (10-60); AST ASPARTATE AMINOTRANSFERASE 18 IU/L (10-42); BILIRUBIN,TOTAL 0.7 mg/dL (0.2-1.0); BUN - BLOOD UREA NITROGEN 8 mg/dL (6-20); CALCIUM 8.2 mg/dL (8.5-10.3); CARBON DIOXIDE - CO2 26 mmol/L (21-32); CHLORIDE 105 mmol/L (101-111); CREATININE 0.4 mg/dL (0.4-1.0); GFR - MDRD 200 (>89); GLUCOSE 193 mg/dL (70-100); MAGNESIUM 1.8 mg/dL (1.7-2.8); PHOSPHORUS 3.4 mg/dL (2.5-4.6); SODIUM 139 mmol/L (135-145); TOTAL PROTEIN 5.5 g/dL (6.7-8.2)
[2018-02-04 06:03] LABS: BASOPHILS % (AUTO) 0.7 %; EOSINOPHILS % (AUTO) 0.5 %; LYMPHOCYTES # (AUTO) 1.4 10^3/uL (1.5-3.5); LYMPHOCYTES % (AUTO) 33.7 %; MEAN CORPUSCULAR HEMOGLOBIN 31.1 pg (27.0-31.0); MEAN CORPUSCULAR HGB CONC 34.2 g/dL (32.0-36.0); MEAN CORPUSCULAR VOLUME 90.9 fL (81.0-99.0); MEAN PLATELET VOLUME 9.6 fL (7.9-10.8); MONOCYTES # (AUTO) 0.4 10^3/uL (0.0-1.0); MONOCYTES % (AUTO) 9.8 %; NEUTROPHILS # (AUTO) 2.3 10^3/uL (1.5-6.6); NEUTROPHILS % (AUTO) 55.3 %; PLT - PLATELET COUNT 74 10^3/uL (130-450); RED BLOOD COUNT 3.54 10^6/uL (4.20-5.40); WHITE BLOOD COUNT 4.1 x10^3/uL (4.8-10.8)
[2018-02-04 06:20] LABS: VBG PH 7.341 (7.31-7.41)
[2018-02-04 06:23] LABS: KETONES, SERUM (ACETEST) SMALL (NEGATIVE)
[2018-02-04 07:04] LABS: PLATELET ESTIMATE, MANUAL DECREASED (<130,000) (NORMAL); PLATELET MORPHOLOGY 1+ LARGE PLATELETS (NORMAL); RBC MORPHOLOGY (MULTIPLE) NORMAL APPEARANCE (NORMAL)
[2018-02-04] MEDS: SODIUM CHLORIDE FLUSH 0.9% 10 ML SYRINGE IVP SCH ×2 (07:17→11:59)
[2018-02-04] MEDS: PANTOPRAZOLE 40 MG VIAL IVP SCH (07:17)
[2018-02-04] MEDS: AMOX/CLAV 875 MG/125 MG TABLET PO SCH (07:43)
[2018-02-04] MEDS: SACCHAROMYCES BOULARDII 250 MG CAPSULE PO SCH (07:43)
[2018-02-04] MEDS: INSULIN ASPART 300 UNIT/3 ML PEN SUBQ SCH (08:08)
[2018-02-04] MEDS ORDERED: INSULIN GLARGINE 300 UNIT/3 ML PEN SUBQ SCH (09:00)
[2018-02-04] MEDS: POLYETHYLENE GLYCOL 3350 17 GM PACKET PO SCH (09:14)
[2018-02-04] MEDS: SERTRALINE 50 MG TABLET PO SCH (09:15)
--- NOTE | 2018-02-04 11:48 | Discharge Plan ---
Discharge Plan Disposition: Home, Self Care Condition: Fair Prescriptions: Blood Sugar Diagnostic [Glucometer Strips] 1 each QID #120 strip Blood-Glucose Meter [Glucometer] 1 each QID #1 each Insulin Glargine,Hum.rec.anlog [Basaglar Maria Isabelikpen U-100] 20 unit SUBQ DAILY #2 each Pen Needle, Diabetic [Insulin Pen Needle] 1 each MC DAILY #30 dis.needle Diet: Diabetic Activity Restrictions: No Restrictions Shower Restrictions: No Driving Restrictions: No Additional Instructions or Follow Up instructions: You presented to the hospital with diabetic ketoacidosis and have a new diagnosis of diabetes type 1. You have recovered from DKA and now are well enough to go home. I have prescribed you a long acting insulin that you will need to inject once a day. You will be starting with 20 units and may need to have this adjusted by your primary care doctor. You will also be prescribed a glucometer with which you can check your blood sugars. You should be checking your blood sugar in the morning, prior to meals and at bedtime. You also need to continue your antibiotic for you infected tooth and follow up with an oral surgeon. You will be enrolled in a diabetic teaching class here at the hospital. Please follow up with your PCP in the next 2-3 days and take with you your blood sugar readings to his office. You should also get a referral to an cable technician. Follow-Up Care: [facility] - Diabetes Ed No Smoking: If you smoke, Please STOP! Call for help. Follow-up with: Osmany Villa MD [Primary Care Provider] -
[2018-02-04] MEDS: MULTIVITAMIN 10 ML in SODIUM CHLORIDE 0.9% 1,000 ML IV SCH (11:58)
[2018-02-04] MEDS: THIAMINE INJ 100 MG, FOLIC ACID INJ 1 MG in SODIUM CHLORIDE 0.9% 100ML 100 ML IV SCH (12:00)
[2018-02-04 12:58] VITALS: BP 102/83
--- NOTE | 2018-02-04 17:51 | DISCHARGE SUMMARY ---
Discharge Summary Admit Date: 02/01/18 Discharge Date: 02/04/18 Discharging Provider: Gene Allison MD Primary Care Provider: Osmany Villa MD Code Status: Attempt Resuscitation Condition at Discharge: Fair Discharge Disposition: 01 Home, Self Care - DIAGNOSES Admission Diagnoses: 1. Diabetic ketoacidosis 2. New diagnosis of diabetes likely type I 3. Acute renal failure 4. Tooth infection 5. Metabolic encephalopathy Discharge Diagnoses with Status of Each Condition: 1. Type 1 diabetes mellitus with ketoacidosis without coma: Resolved 2. Tooth infection: Stable 3. Metabolic encephalopathy: Resolved 4. Hypokalemia: Resolved 5. Hypophosphatemia: Resolved 6. Protein calorie malnutrition: Stable 7. Acute kidney injury: Resolved 8. Thrombocytopenia: Stable 9. Hypomagnesemia: Resolved - HPI History of Present Illness: Patient is a 22-year-old female with a past medical history of anxiety and depression with no other prior medical problems presents to the emergency department with altered mental status, nausea, vomiting and dizziness. The patient has poor dentition and developed dental pain about a week before admission she was seen at the dental office during the daytime on 02/01/2018 at which time she was told that she had a complicated situation with the root of her tooth and required oral surgery. In addition a tooth infection was suspected and the patient was started on penicillin. The patient's family noted that during that day the patient was very somnolent and ill appearing. The patient also was having nausea and vomited a few times. The patient complained that her mouth was dry and she has had no appetite for the last several days. After she went home from the dentist office patient became increasingly somnolent and confused and appeared acutely ill therefore her mother brought her to the emergency department. Upon presentation to the emergency department the patient was found to be acutely ill and confused. Her vital signs showed tachycardia with a heart rate of 130, temperature 36C, blood pressure 130/100, respiration rate of 27 with a normal O2 saturation on room air. The patient's laboratory workup showed severe anion gap metabolic acidosis, most consistent with diabetic ketoacidosis. The patient's blood glucose was around 500 her anion gap was 28 and pH was 7.02. The patient was admitted to the intensive care unit for diabetic ketoacidosis and placed on an insulin drip and IV fluids. - HOSPITAL COURSE Hospital Course: During the hospitalization patient was treated with insulin drip and IV fluids. The patient's DKA resolved within 24 hours. The patient was started on a diabetic diet and 14 units of Lantus daily. The patient was monitored over the next day in the hospital and blood sugars did range anywhere from 172-70. The patient's Lantus dose was adjusted up to 20 units. The patient was given teaching on diabetes along with her mother. The patient and her mother both felt comfortable with injecting insulin. They were also given materials and counseling on diabetes. The patient had a fair number of electrolyte abnormalities and required replacement of potassium, magnesium and phosphorus throughout the hospitalization. The patient also appeared to have poor nutrition and was given multivitamins. The patient was continued on antibiotics for her tooth infection. By the time of discharge the patient was feeling significantly better her blood glucose was still elevated but controlled. The patient was discharged home. Patient was given prescriptions for glucometer, glucometer strips, Lantus pen and needles. Patient was instructed on how to use her insulin. She was also instructed to write down her blood glucose values and take them with her to her next PCP appointment. The patient was not started on any mealtime insulin at this time as she was overwhelmed by the diagnosis and starting insulin just once a day. It was felt that her blood sugars could be controlled well enough on the Lantus for now until she sees her primary care physician and get referral for endocrinology. (1) DKA (diabetic ketoacidoses) Qualifiers: Diabetes mellitus type: type 1 Diabetes mellitus complication detail: without coma Qualified Code(s): E10.10 - Type 1 diabetes mellitus with ketoacidosis without coma Assessment/Plan: Resolved Discharged home with lantus 20 units daily Will follow up with her PCP Needs referral for Endocrine (2) Tooth infection Assessment/Plan: Patient saw dentist and was told she has a tooth infection Patient will make appointment to see oral surgeon and in meantime will continue penicillin (3) Metabolic encephalopathy Assessment/Plan: Secondary to DKA Resolved (4) Hypokalemia Assessment/Plan: Replaced K Resolved (5) Hypophosphatemia Assessment/Plan: Replaced Phos REsolved (6) Protein calorie malnutrition Qualifiers: Protein-calorie malnutrition severity: mild Qualified Code(s): E44.1 - Mild protein-calorie malnutrition Assessment/Plan: Total protein is 6.2 and patient has a BMI of 13.5 Maybe secondary to diabetes but could also be due to anorexia Given banana bag and MVs while hospitalized (7) NIKHIL (acute kidney injury) Assessment/Plan: Resolved (8) Thrombocytopenia Assessment/Plan: Plt count is 74 Etiology is not clear Monitor Only takes zoloft which does not cause thrombocytopenia Needs further work up (9) Hypomagnesemia Assessment/Plan: Replaced Mg Resolved - ALLERGIES Allergies/Adverse Reactions: Allergies Allergy/AdvReac Type Severity Reaction Status Date / Time No Known Drug Allergies Allergy Verified 02/01/18 21:42 - MEDICATIONS Home Medications: Ambulatory Orders Medication Instructions Recorded Confirmed Sertraline [Zoloft] 50 mg PO DAILY 02/02/18 02/02/18 Blood Sugar Diagnostic [Glucometer 1 each QID #120 strip 02/04/18 Strips] Blood-Glucose Meter [Glucometer] 1 each QID #1 each 02/04/18 Insulin Glargine,Hum.rec.anlog 20 unit SUBQ DAILY #2 each 02/04/18 [Basaglar Kwikpen U-100] Pen Needle, Diabetic [Insulin Pen 1 each DAILY #30 dis.needle 02/04/18 Needle] - PHYSICAL EXAM AT DISCHARGE General Appearance: positive: No acute distress, Alert, Other (cachectic) Eyes Bilateral: positive: Normal inspection, PERRL, EOMI, No lid inflammation, Conjunctivae nml, No scleral icterus ENT: positive: ENT inspection nml, Pharynx nml, No signs of dehydration. negative: Purulent nasal drainage, Pharyngeal erythema, Oral lesions Neck: positive: Nml inspection, Thyroid nml, No JVD, Trachea midline. negative : Thyromegaly, Lymphadenopathy (R), Lymphadenopathy (L), Carotid bruit, Tracheal deviation Respiratory: positive: Chest non-tender, No respiratory distress, Breath sounds nml. negative: Wheezes, Rales, Rhonchi Cardiovascular: positive: Regular rate & rhythm, No murmur, No gallop Peripheral Pulses: positive: 2+ Abdomen: positive: Non-tender, No organomegaly, Nml bowel sounds, No distention. negative: Guarding, Rebound, Hepatomegaly Back: positive: Nml inspection. negative: CVA tenderness (R), CVA tenderness (L ) Skin: positive: Color nml, No rash, Warm. negative: Cyanosis, Diaphoresis, Pallor Extremities: positive: Non-tender, Full ROM, Nml appearance, No pedal edema Neurologic/Psychiatric: positive: Oriented x3, CN's nml (2-12), Motor nml, Sensation nml, Mood/affect nml - LABS Result Diagrams: 02/04/18 05:07 02/04/18 05:07 Other Lab Results: Laboratory Results WBC 4.1 x10^3/uL (4.8-10.8) L 02/04/18 05:07 RBC 3.54 10^6/uL (4.20-5.40) L 02/04/18 05:07 Hgb 11.0 g/dL (12.0-16.0) L 02/04/18 05:07 Hct 32.2 % (37.0-47.0) L 02/04/18 05:07 MCV 90.9 fL (81.0-99.0) 02/04/18 05:07 MCH 31.1 pg (27.0-31.0) H 02/04/18 05:07 MCHC 34.2 g/dL (32.0-36.0) 02/04/18 05:07 RDW 14.0 % (12.0-15.0) 02/04/18 05:07 Plt Count 74 10^3/uL (130-450) L 02/04/18 05:07 MPV 9.6 fL (7.9-10.8) 02/04/18 05:07 Neut # 2.3 10^3/uL (1.5-6.6) 02/04/18 05:07 Lymph # 1.4 10^3/uL (1.5-3.5) L 02/04/18 05:07 [place] # 0.4 10^3/uL (0.0-1.0) 02/04/18 05:07 Eos # 0.0 10^3/uL (0.0-0.7) 02/04/18 05:07 Baso # 0.0 10^3/uL (0.0-0.1) 02/04/18 05:07 Absolute Nucleated RBC 0.00 x10^3/uL 02/04/18 05:07 Nucleated RBC % 0.1 /100WBC 02/04/18 05:07 Manual Slide Review Indicated 02/04/18 05:07 Platelet Estimate DECREASED (<130,000) (NORMAL) 02/04/18 05:07 Platelet Morphology 1+ LARGE PLATELETS (NORMAL) 02/04/18 05:07 RBC Morph Micro Appear NORMAL APPEARANCE (NORMAL) 02/04/18 05:07 PT 13.1 secs (9.9-12.6) H 02/03/18 04:45 INR 1.2 (0.8-1.2) 02/03/18 04:45 VBG pH 7.341 (7.31-7.41) 02/04/18 05:07 VBG pCO2 16.1 mmHg (41-51) L 02/02/18 03:45 VBG pO2 74.7 mmHg (25-47) H 02/02/18 03:45 VBG HCO3 4.1 mmol/L (23-28) L 02/02/18 03:45 VBG Total CO2 4.6 mmol/L (24-29) L 02/02/18 03:45 VBG O2 Saturation 94.9 % (60-80) H 02/02/18 03:45 VBG Base Excess -24.8 mmol/L (-2 - +2) L 02/02/18 03:45 Ionized Calcium 1.13 mmol/L (1.15-1.33) L 02/04/18 05:07 Sodium 139 mmol/L (135-145) 02/04/18 05:07 Potassium 3.5 mmol/L (3.5-5.0) 02/04/18 05:07 Chloride 105 mmol/L (101-111) 02/04/18 05:07 Carbon Dioxide 26 mmol/L (21-32) 02/04/18 05:07 Anion Gap 8.0 (6-13) 02/04/18 05:07 BUN 8 mg/dL (6-20) 02/04/18 05:07 Creatinine 0.4 mg/dL (0.4-1.0) 02/04/18 05:07 Estimated GFR (MDRD) 200 (>89) 02/04/18 05:07 Glucose 193 mg/dL (70-100) H 02/04/18 05:07 POC Whole Bld Glucose 276 mg/dL (70 - 100) H 02/04/18 11:54 Glycated Hemoglobin 17.0 % (4.6-6.2) H 02/01/18 21:55 Estim Average Glucose 441 (70-100) H 02/01/18 21:55 Lactic Acid 1.2 mmol/L (0.5-2.2) 02/01/18 03:45 Calcium 8.2 mg/dL (8.5-10.3) L 02/04/18 05:07 Ionized Calcium YES 02/04/18 05:07 Phosphorus 3.4 mg/dL (2.5-4.6) 02/04/18 05:07 Magnesium 1.8 mg/dL (1.7-2.8) 02/04/18 05:07 Total Bilirubin 0.7 mg/dL (0.2-1.0) 02/04/18 05:07 AST 18 IU/L (10-42) 02/04/18 05:07 ALT 12 IU/L (10-60) 02/04/18 05:07 Alkaline Phosphatase 40 IU/L (42-121) L 02/04/18 05:07 Total Creatine Kinase 25 IU/L (22-269) 02/01/18 21:55 Troponin I < 0.04 ng/mL (<0.49) 02/01/18 21:55 Total Protein 5.5 g/dL (6.7-8.2) L 02/04/18 05:07 Albumin 3.1 g/dL (3.2-5.5) L 02/04/18 05:07 Globulin 2.4 g/dL (2.1-4.2) 02/04/18 05:07 Albumin/Globulin Ratio 1.3 (1.0-2.2) 02/04/18 05:07 Lipase 11 U/L (22-51) L 02/01/18 21:55 TSH 0.88 uIU/mL (0.34-5.60) 02/01/18 21:55 Urine Color YELLOW 02/01/18 22:35 Urine Clarity CLEAR (CLEAR) 02/01/18 22:35 Urine pH 5.5 PH (5.0-7.5) 02/01/18 22:35 Ur Specific [place] >=1.030 (1.002-1.030) H 02/01/18 22:35 Urine Protein 100 mg/dL (NEGATIVE) H 02/01/18 22:35 Urine Glucose (UA) 500 mg/dL (NEGATIVE) H 02/01/18 22:35 Urine Ketones >=80 mg/dL (NEGATIVE) H 02/01/18 22:35 Urine Occult Blood TRACE-INTA (NEGATIVE) 02/01/18 22:35 Urine Nitrite NEGATIVE (NEGATIVE) 02/01/18 22:35 Urine Bilirubin NEGATIVE (NEGATIVE) 02/01/18 22:35 Urine Urobilinogen 0.2 (NORMAL) E.U./dL (NORMAL) 02/01/18 22:35 Ur Leukocyte Esterase NEGATIVE (NEGATIVE) 02/01/18 22:35 Urine RBC 0-5 /HPF (0-5) 02/01/18 22:35 Urine WBC 0-3 /HPF (0-5) 02/01/18 22:35 Ur Epithelial Cells MOD Transitional /HPF (<= Few) H 02/01/18 22:35 Ur Squamous Epith Cells FEW Squamous (<= Few) 02/01/18 22:35 Amorphous Sediment Moderate /LPF 02/01/18 22:35 Urine Bacteria None Seen /HPF (None Seen) 02/01/18 22:35 Urine Casts 3-5 Hyaline Casts /LPF 02/01/18 22:35 Ur Microscopic Review INDICATED 02/01/18 22:35 Urine Culture Comments NOT INDICATED 02/01/18 22:35 Urine HCG, Qual NEGATIVE 02/01/18 22:35 Salicylates < 6.0 mg/dL 02/01/18 21:55 Urine Opiates Screen NEGATIVE (NEGATIVE) 02/01/18 22:35 Ur Oxycodone Screen NEGATIVE (NEGATIVE) 02/01/18 22:35 Urine Methadone Screen NEGATIVE (NEGATIVE) 02/01/18 22:35 Ur Propoxyphene Screen NEGATIVE (NEGATIVE) 02/01/18 22:35 Acetaminophen < 10 ug/mL (10-30) L 02/01/18 21:55 Ur Barbiturates Screen NEGATIVE (NEGATIVE) 02/01/18 22:35 Ur Tricyclics Screen NEGATIVE (NEGATIVE) 02/01/18 22:35 Ur Phencyclidine Scrn NEGATIVE (NEGATIVE) 02/01/18 22:35 Ur Amphetamine Screen NEGATIVE (NEGATIVE) 02/01/18 22:35 U Methamphetamines Scrn NEGATIVE (NEGATIVE) 02/01/18 22:35 U Benzodiazepines Scrn NEGATIVE (NEGATIVE) 02/01/18 22:35 Urine Cocaine Screen NEGATIVE (NEGATIVE) 02/01/18 22:35 U Cannabinoids Screen NEGATIVE (NEGATIVE) 02/01/18 22:35 Ethyl Alcohol < 5.0 mg/dL 02/01/18 21:55 Serum Ketones SMALL (NEGATIVE) H 02/04/18 05:07 - DIAGNOSTIC IMAGING Diagnostic Imaging Results: Final report reviewed Diagnostic Imaging Results Comments: Chest x-ray Impression: No active disease - FOLLOW UP Follow Up: Patient will follow up with her primary care physician. She was discharged on 20 units of Lantus and prescribed a glucometer with which she will check her blood glucose and report to her PCP. Patient will likely need to have nutritional insulin added to her regimen. Patient will likely need a referral for endocrinology. Patient also needs further workup for her thrombocytopenia. - TIME SPENT Time Spent in Discharge (Minutes): 45
== END 2018-02-04 13:10 | disposition home or self-care (01) | DRG 637 ==
LOC: ED 21:25 → ICU 22:44
PROVIDERS: ADMIT Internal Medicine; ATTEND Internal Medicine
DX: E10.10 Type 1 diabetes mellitus with ketoacidosis without coma (principal); G93.41 Metabolic encephalopathy; Z68.1 Body mass index [BMI] 19.9 or less, adult; N17.9 Acute kidney failure, unspecified; E44.1 Mild protein-calorie malnutrition; K04.7 Periapical abscess without sinus; E87.6 Hypokalemia; D69.6 Thrombocytopenia, unspecified; E83.42 Hypomagnesemia; E83.39 Other disorders of phosphorus metabolism; E86.0 Dehydration; F32.9 Major depressive disorder, single episode, unspecified; F41.9 Anxiety disorder, unspecified; Z79.899 Other long term (current) drug therapy
CPT/HCPCS: 36415; 71045; 80048; 80053; 80306; 80307; 80320; 80329; 81001; 81003; 81025; 82009; 82330; 82550; 82803; 82947; 83036; 83605; 83690; 83735; 84100; 84132; 84443; 84484; 85025; 85610; 87040; 87086; 87150; 93005; 96360; 99284; 99291

== ENCOUNTER 2018-03-21 09:51 | Outpatient (CLI) | payer MEDICAID ==
[2018-03-21 13:10] LABS: HGB - HEMOGLOBIN 12.4 g/dL (12.0-16.0); LYMPHOCYTES # (AUTO) 1.2 10^3/uL (1.5-3.5); LYMPHOCYTES % (AUTO) 30.8 %; MEAN CORPUSCULAR HGB CONC 33.4 g/dL (32.0-36.0); MEAN PLATELET VOLUME 13.7 fL (7.9-10.8); MEAN RETIC VALUE 120.2; MONOCYTES # (AUTO) 0.4 10^3/uL (0.0-1.0); MONOCYTES % (AUTO) 10.6 %; NEUTROPHILS # (AUTO) 2.3 10^3/uL (1.5-6.6); NEUTROPHILS % (AUTO) 56.6 %; PLT - PLATELET COUNT 87 10^3/uL (130-450); RED CELL DISTRIBUTION WIDTH 12.5 % (12.0-15.0)
[2018-03-21 13:18] LABS: % IRON SATURATION 16 % (20-50); ALBUMIN 3.8 g/dL (3.2-5.5); ALBUMIN/GLOBULIN RATIO 1.2 (1.0-2.2); ALKALINE PHOSPHATASE 59 IU/L (42-121); ALT ALANINE AMINOTRANSFERASE 30 IU/L (10-60); AST ASPARTATE AMINOTRANSFERASE 27 IU/L (10-42); BILIRUBIN,TOTAL 0.4 mg/dL (0.2-1.0); BUN - BLOOD UREA NITROGEN 24 mg/dL (6-20); CALCIUM 9.2 mg/dL (8.5-10.3); CARBON DIOXIDE - CO2 29 mmol/L (21-32); CHLORIDE 102 mmol/L (101-111); CREATININE 0.4 mg/dL (0.4-1.0); GFR - MDRD 200 (>89); GLUCOSE 100 mg/dL (70-100); IRON 54 ug/dL (28-170); SODIUM 138 mmol/L (135-145); TOTAL IRON BINDING CAPACITY 337 ug/dL (250-450); TOTAL PROTEIN 7.1 g/dL (6.7-8.2); TRANSFERRIN 241 mg/dL (192-382)
[2018-03-21 13:23] LABS: THYROID STIMULATING HORMONE 1.18 uIU/mL (0.34-5.60)
[2018-03-21 13:30] LABS: FERRITIN 7.7 ng/mL (11.0-306.8)
== END 2018-03-21 09:52 | disposition home or self-care (01) ==
LOC: LAB.N 09:51
PROVIDERS: ATTEND Family Medicine
DX: E10.9 Type 1 diabetes mellitus without complications (principal); D61.818 Other pancytopenia; F41.1 Generalized anxiety disorder
CPT/HCPCS: 36415; 80053; 82607; 82728; 82746; 83540; 84443; 84466; 85025; 85044

== ENCOUNTER 2018-05-25 07:48 | Outpatient (CLI) | payer MEDICAID ==
[2018-05-25 12:34] LABS: CALCIUM 8.8 mg/dL (8.5-10.3); CREATININE 0.6 mg/dL (0.4-1.0)
[2018-05-25 12:54] LABS: HB2 TOTAL 14.8 g/dL; HEMOGLOBIN A1C 1.01 g/dL; HEMOGLOBIN A1C % 8.4 % (4.6-6.2)
== END 2018-05-25 07:49 | disposition home or self-care (01) ==
LOC: LAB.N 07:48
PROVIDERS: ATTEND Family Medicine
DX: E10.9 Type 1 diabetes mellitus without complications (principal)
CPT/HCPCS: 36415; 80048; 81599; 83036

== ENCOUNTER 2018-08-27 08:09 | Outpatient (CLI) | payer MEDICAID ==
[2018-08-27 12:55] LABS: CREATININE 0.7 mg/dL (0.4-1.0)
[2018-08-27 13:11] LABS: HB2 TOTAL 15.3 g/dL; HEMOGLOBIN A1C 0.99 g/dL; HEMOGLOBIN A1C % 8.1 % (4.6-6.2)
== END 2018-08-27 08:10 | disposition home or self-care (01) ==
LOC: LAB.N 08:09
PROVIDERS: ATTEND Family Medicine
DX: E10.9 Type 1 diabetes mellitus without complications (principal)
CPT/HCPCS: 36415; 80048; 80053; 81599; 83036

== ENCOUNTER 2018-12-03 11:20 | Outpatient (CLI) | payer MEDICAID ==
[2018-12-03 19:23] LABS: CREATININE 0.6 mg/dL (0.4-1.0)
[2018-12-03 20:03] LABS: HB2 TOTAL 15.3 g/dL; HEMOGLOBIN A1C 0.83 g/dL; HEMOGLOBIN A1C % 7.1 % (4.6-6.2)
== END 2018-12-03 23:59 | disposition home or self-care (01) ==
LOC: LAB.N 11:20
PROVIDERS: ATTEND Physician Assistant Medical
DX: E10.9 Type 1 diabetes mellitus without complications (principal)
CPT/HCPCS: 36415; 80048; 83036

== ENCOUNTER 2019-03-08 08:00 | Outpatient (CLI) | payer MEDICAID ==
[2019-03-08 13:40] LABS: HB2 TOTAL 15.3 g/dL; HEMOGLOBIN A1C 1.09 g/dL; HEMOGLOBIN A1C % 8.7 % (4.6-6.2)
== END 2019-03-08 23:59 | disposition home or self-care (01) ==
LOC: LAB.N 08:00
PROVIDERS: ATTEND Physician Assistant Medical
DX: E10.9 Type 1 diabetes mellitus without complications (principal)
CPT/HCPCS: 36415; 83036

== ENCOUNTER 2019-12-17 09:58 | Outpatient (CLI) | payer MEDICAID ==
[2019-12-17 12:57] LABS: CREATININE 0.7 mg/dL (0.4-1.0)
[2019-12-17 14:23] LABS: HB2 TOTAL 14.6 g/dL; HEMOGLOBIN A1C 1.14 g/dL; HEMOGLOBIN A1C % 9.3 % (4.6-6.2)
== END 2019-12-17 23:59 | disposition home or self-care (01) ==
LOC: LAB.N 09:58
PROVIDERS: ATTEND Physician Assistant Medical
DX: E10.9 Type 1 diabetes mellitus without complications (principal)
CPT/HCPCS: 36415; 80048; 83036

== ENCOUNTER 2020-04-24 08:00 | Outpatient (CLI) | payer MEDICAID ==
[2020-04-24 19:11] LABS: CALCIUM 9.2 mg/dL (8.5-10.3); CREATININE 0.7 mg/dL (0.4-1.0)
[2020-04-24 19:31] LABS: HB2 TOTAL 14.4 g/dL; HEMOGLOBIN A1C 1.08 g/dL
== END 2020-04-24 23:59 | disposition home or self-care (01) ==
LOC: LAB.WCP 08:00
PROVIDERS: ATTEND Nurse Practitioner Family
DX: E10.9 Type 1 diabetes mellitus without complications (principal)
CPT/HCPCS: 36415; 80048; 83036

== ENCOUNTER 2021-02-08 08:00 | Outpatient (CLI) | payer MEDICAID ==
[2021-02-08 18:37] LABS: BASOPHILS % (AUTO) 0.4 %; EOSINOPHILS % (AUTO) 0.4 %; HCT - HEMATOCRIT 43.3 % (37.0-47.0); HGB - HEMOGLOBIN 14.3 g/dL (12.0-16.0); LYMPHOCYTES # (AUTO) 1.2 10^3/uL (1.5-3.5); LYMPHOCYTES % (AUTO) 17.4 %; MEAN CORPUSCULAR HEMOGLOBIN 30.2 pg (27.0-31.0); MEAN CORPUSCULAR VOLUME 91.5 fL (81.0-99.0); MONOCYTES # (AUTO) 0.4 10^3/uL (0.0-1.0); MONOCYTES % (AUTO) 6.1 %; NEUTROPHILS # (AUTO) 5.4 10^3/uL (1.5-6.6); NEUTROPHILS % (AUTO) 75.6 %; PLT - PLATELET COUNT 137 10^3/uL (130-450); RED BLOOD COUNT 4.73 10^6/uL (4.20-5.40); RED CELL DISTRIBUTION WIDTH 11.8 % (12.0-15.0); WHITE BLOOD COUNT 7.1 x10^3/uL (4.8-10.8)
[2021-02-08 19:22] LABS: THYROID STIMULATING HORMONE 0.99 uIU/mL (0.34-5.60)
[2021-02-08 19:29] LABS: FERRITIN 6.1 ng/mL (11.0-306.8)
[2021-02-08 20:15] LABS: ESTIMATED AVERAGE GLUCOSE 263 mg/dL (70-100); HEMOGLOBIN A1c% 10.8 % (4.27-6.07)
[2021-02-08 20:26] LABS: % IRON SATURATION 17 % (20-50); ALBUMIN 4.4 g/dL (3.2-5.5); ALBUMIN/GLOBULIN RATIO 1.2 (1.0-2.2); ALKALINE PHOSPHATASE 59 IU/L (42-121); ALT ALANINE AMINOTRANSFERASE 20 IU/L (10-60); AST ASPARTATE AMINOTRANSFERASE 20 IU/L (10-42); BUN - BLOOD UREA NITROGEN 16 mg/dL (6-20); CALCIUM 9.8 mg/dL (8.5-10.3); CARBON DIOXIDE - CO2 24 mmol/L (21-32); CHLORIDE 97 mmol/L (101-111); CHOL/HDL RATIO 2.8 (<4.4); CHOLESTEROL 172 mg/dL; CREATININE 0.7 mg/dL (0.4-1.0); GFR - MDRD 102 (>89); GLUCOSE 386 mg/dL (70-100); HDL CHOLESTEROL 62 mg/dL; IRON 59 ug/dL (28-170); LDL CHOLESTEROL,CALCULATED 68 mg/dL; LDL/HDL RATIO 1.1 (<4.4); POTASSIUM 5.1 mmol/L (3.5-5.0); SODIUM 131 mmol/L (135-145); TOTAL IRON BINDING CAPACITY 346 ug/dL (250-450); TOTAL PROTEIN 8.2 g/dL (6.7-8.2); TRANSFERRIN 247 mg/dL (192-382); TRIGLYCERIDES 212 mg/dL; VLDL CHOLESTEROL 42 mg/dL
[2021-02-08 21:27] LABS: DIFFERENTIAL COMMENT MANUAL=AUTO DIFF
== END 2021-02-08 23:59 | disposition home or self-care (01) ==
LOC: LAB.WCP 08:00
PROVIDERS: ATTEND Family Medicine
DX: E10.9 Type 1 diabetes mellitus without complications (principal); D50.9 Iron deficiency anemia, unspecified; D61.818 Other pancytopenia
CPT/HCPCS: 36415; 80053; 80061; 82043; 82570; 82607; 82728; 83036; 83540; 83721; 84443; 84466; 85025

== ENCOUNTER 2022-02-14 10:40 | Outpatient (CLI) | payer MEDICAID ==
[2022-02-14 12:21] LABS: ABSOLUTE RETICS # AUTO 0.059 10^6/uL (0.020-0.110); BASOPHILS % (AUTO) 0.7 %; EOSINOPHILS % (AUTO) 0.3 %; HCT - HEMATOCRIT 36.9 % (37.0-47.0); HGB - HEMOGLOBIN 11.9 g/dL (12.0-16.0); LYMPHOCYTES # (AUTO) 1.6 10^3/uL (1.5-3.5); LYMPHOCYTES % (AUTO) 27.5 %; MEAN CORPUSCULAR HGB CONC 32.2 g/dL (32.0-36.0); MEAN CORPUSCULAR VOLUME 83.7 fL (81.0-99.0); MONOCYTES # (AUTO) 0.4 10^3/uL (0.0-1.0); MONOCYTES % (AUTO) 6.9 %; NEUTROPHILS # (AUTO) 3.8 10^3/uL (1.5-6.6); NEUTROPHILS % (AUTO) 64.4 %; PLT - PLATELET COUNT 144 10^3/uL (130-450); RED BLOOD COUNT 4.41 10^6/uL (4.20-5.40); RED CELL DISTRIBUTION WIDTH 12.2 % (12.0-15.0); RETICULOCYTE COUNT % (AUTO) 1.33 % (0.5-2.3); WHITE BLOOD COUNT 5.9 x10^3/uL (4.8-10.8)
[2022-02-14 12:43] LABS: ESTIMATED AVERAGE GLUCOSE 315 mg/dL (70-100); HEMOGLOBIN A1c% 12.6 % (4.27-6.07)
[2022-02-14 12:48] LABS: THYROID STIMULATING HORMONE 1.62 uIU/mL (0.34-5.60)
[2022-02-14 13:03] LABS: % IRON SATURATION 8 % (20-50); ALBUMIN 4.3 g/dL (3.2-5.5); ALBUMIN/GLOBULIN RATIO 1.2 (1.0-2.2); ALKALINE PHOSPHATASE 58 IU/L (42-121); ALT ALANINE AMINOTRANSFERASE 16 IU/L (10-60); AST ASPARTATE AMINOTRANSFERASE 23 IU/L (10-42); BILIRUBIN,TOTAL 0.6 mg/dL (0.2-1.0); BUN - BLOOD UREA NITROGEN 11 mg/dL (6-20); CARBON DIOXIDE - CO2 25 mmol/L (21-32); CHLORIDE 95 mmol/L (101-111); CHOL/HDL RATIO 2.7 (<4.4); CHOLESTEROL 167 mg/dL; CREATININE 0.7 mg/dL (0.4-1.0); GFR - MDRD 101 (>89); GLUCOSE 458 mg/dL (70-100); HDL CHOLESTEROL 63 mg/dL; IRON 33 ug/dL (28-170); LDL CHOLESTEROL,CALCULATED 76 mg/dL; LDL/HDL RATIO 1.2 (<4.4); POTASSIUM 4.1 mmol/L (3.5-5.0); SODIUM 130 mmol/L (135-145); TOTAL IRON BINDING CAPACITY 393 ug/dL (250-450); TOTAL PROTEIN 7.9 g/dL (6.7-8.2); TRANSFERRIN 281 mg/dL (192-382); TRIGLYCERIDES 138 mg/dL; VLDL CHOLESTEROL 28 mg/dL
[2022-02-14 13:58] LABS: CREATININE,URINE 53.5 mg/dL; MICROALBUM/CREATININE RATIO,UR 9.3 ug/mg (<30.0); MICROALBUMIN,URINE 0.5 mg/dL (0-300.0)
== END 2022-02-14 10:41 | disposition home or self-care (01) ==
LOC: LAB.N 10:40
PROVIDERS: ATTEND Nurse Practitioner
DX: E10.9 Type 1 diabetes mellitus without complications (principal); Z13.220 Encounter for screening for lipoid disorders; D61.818 Other pancytopenia; F33.1 Major depressive disorder, recurrent, moderate; D50.9 Iron deficiency anemia, unspecified
CPT/HCPCS: 36415; 80053; 80061; 82043; 82570; 82607; 82728; 82746; 83036; 83540; 83721; 84443; 84466; 85025; 85045

== ENCOUNTER 2023-05-03 17:47 | Inpatient (IN) | payer MEDICAID ==
[2023-05-03] MEDS ORDERED: SODIUM CHLORIDE 0.9% 2,000 ML IV STA (18:03)
--- NOTE | 2023-05-03 18:05 | ED Physician Documentation ---
History of Present Illness - Stated complaint Stated Complaint: LOW BLOOD SUGAR - Chief complaint Chief Complaint: General - History obtained from History obtained from: Patient - Additonal information Additional information: This is a 27-year-old female who has a past medical history of type 1 diabetes, diagnosed in 2014 who presents stating she thinks she is in DKA. Her blood sugars have been reading high at home on her monitor for the last couple of days. She does feel nauseous and has had some vomiting, is able to tolerate water but she has been drinking, she has felt thirsty and has been voiding frequently. She has not had any cough or URI symptoms, no fever to her knowledge, no chest pain or difficulty breathing, no diarrhea or constipation. She does have some mild generalized tenderness, more so in the right lower quadrant which she believes started today. She has been taking her insulin and denies any changes in her regimen recently. Review of Systems Constitutional: reports: Reviewed and negative Eyes: reports: Other (Blurry vision) Ears: reports: Reviewed and negative Nose: reports: Reviewed and negative Throat: reports: Reviewed and negative Cardiac: reports: Reviewed and negative Respiratory: reports: Reviewed and negative GI: reports: Abdominal Pain, Nausea, Vomiting. denies: Abdominal Swelling, Constipation, Diarrhea, Hematemesis, Bloody / black stool : reports: Frequency. denies: Dysuria, Hesitancy, Unable to Void, Incontinent, Hematuria, Discharge, LMP, Vaginal bleeding, Irregular menses, Missed period, Now EGA, Control, Hysterectomy, Testicular pain, Testicular mass, Hendrix Problem, Reviewed and negative, Other Skin: denies: Rash, Lesions, Abrasion (s), Laceration (s), Bite / sting, Reviewed and negative, Other Musculoskeletal: reports: Reviewed and negative Neurologic: reports: Generalized weakness. denies: Focal weakness, Numbness, Difficulty speaking, Near syncope, Syncope, Seizure, Confused, Altered mental status, Unresponsive, Headache, Head injury, LOC, Reviewed and negative, Other Endocrine: reports: Polydypsia, Polyuria PD PAST MEDICAL HISTORY - Past Medical History Past Medical History: Yes Endocrine/Autoimmune: Type 1 diabetes Psych: Anxiety - Past Surgical History Past Surgical History: No - Present Medications Home Medications: Ambulatory Orders Medication Instructions Recorded Confirmed Sertraline [Zoloft] 50 mg PO DAILY 02/02/18 02/02/18 Blood Sugar Diagnostic [Glucometer 1 each QID #120 strip 02/04/18 Strips] Blood-Glucose Meter [Glucometer] 1 each QID #1 each 02/04/18 Insulin Glargine,Hum.rec.anlog 20 unit SUBQ DAILY #2 each 02/04/18 [Basaglar Kwikpen U-100] Pen Needle, Diabetic [Insulin Pen 1 each DAILY #30 dis.needle 02/04/18 Needle] - Allergies Allergies/Adverse Reactions: Allergies Allergy/AdvReac Type Severity Reaction Status Date / Time No Known Drug Allergies Allergy Verified 05/03/23 17:54 - Social History Does the pt smoke?: No Smoking Status: Never smoker Does the pt drink ETOH?: No Does the pt have substance abuse?: No - Immunizations Immunizations are current?: Yes PD ED PE NORMAL - Vitals Vital signs reviewed: Yes - General General: Alert and oriented X 3, Well developed/nourished, Other (Tachypneic, appears in mild distress.) - HEENT HEENT: Atraumatic, PERRL, EOMI, Ears normal, Moist mucous membranes, Pharynx benign - Neck Neck: Supple, no meningeal sign, No JVD - Cardiac Cardiac: No murmur, No gallop, No rub, Strong equal pulses, Other (Tachycardic) - Respiratory Respiratory: Clear bilaterally, Other (Tachypneic) - Abdomen Abdomen: Normal bowel sounds, Non distended, Other (Mild tenderness to the right lower quadrant without guarding) - Back Back: No CVA TTP, No spinal TTP - Derm Derm: Normal color, Warm and dry, No rash - Extremities Extremities: No deformity, No edema - Neuro Neuro: Alert and oriented X 3, quality systems manager 2-12 intact, No motor deficit, No sensory deficit, Normal speech Eye Opening: Spontaneous Motor: Obeys Commands Verbal: Oriented GCS Score: 15 - Psych Psych: Normal mood, Normal affect Results - Vitals Vitals: Vital Signs - 24 hr 05/03/23 05/03/23 17:54 19:00 Temperature 36.5 C Heart Rate 132 H 124 H Respiratory 30 H Rate Blood Pressure 150/90 H 115/99 H O2 Saturation 100 100 Oxygen O2 Source Room air - Labs Labs: Laboratory Tests 05/03/23 05/03/23 05/03/23 18:01 18:22 18:22 WBC 31.1 H RBC 5.68 H Hgb 13.0 Hct 45.6 MCV 80.3 L MCH 22.9 L MCHC 28.5 L RDW 17.7 H Neut # (Auto) Not Reportable Lymph # (Auto) Not Reportable [place] # (Auto) Not Reportable Eos # (Auto) Not Reportable Baso # (Auto) Not Reportable Absolute Nucleated RBC Not Reportable Total Counted 100 Band Neuts % (Manual) 1 Abnorm Lymph % (Manual) 0 Metamyelocytes % 1 H Nucleated RBC % Not Reportable Neutrophils # (Manual) 27.7 H Lymphocytes # (Manual) 1.6 Monocytes # (Manual) 1.6 H Eosinophils # (Manual) 0.0 Basophils # (Manual) 0.0 Differential Comment MANUAL DIFFERENTIAL Platelet Estimate NORMAL (130-450,000) Platelet Morphology 1+ GIANT PLATELETS RBC Morph Micro Appear 1+ POLYCHROMASIA VBG pH VBG pCO2 VBG pO2 VBG HCO3 VBG Total CO2 VBG O2 Saturation VBG Base Excess Sodium 126 L Potassium 4.8 Chloride 99 L Carbon Dioxide < 6 L* Anion Gap 21.0 H BUN 12 Creatinine 1.0 Estimated GFR (MDRD) 67 L Glucose 479 H POC Whole Bld Glucose 520 H* Lactic Acid Calcium 8.5 Total Bilirubin 1.1 H AST 16 ALT 13 Alkaline Phosphatase 95 Total Protein 9.8 H Albumin 4.7 Globulin 5.1 H Albumin/Globulin Ratio 0.9 L Lipase 23 Serum Ketones MODERATE H 05/03/23 05/03/23 18:22 18:22 WBC RBC Hgb Hct MCV MCH MCHC RDW Neut # (Auto) Lymph # (Auto) [place] # (Auto) Eos # (Auto) Baso # (Auto) Absolute Nucleated RBC Total Counted Band Neuts % (Manual) Abnorm Lymph % (Manual) Metamyelocytes % Nucleated RBC % Neutrophils # (Manual) Lymphocytes # (Manual) Monocytes # (Manual) Eosinophils # (Manual) Basophils # (Manual) Differential Comment Platelet Estimate Platelet Morphology RBC Morph Micro Appear VBG pH 6.778 L VBG pCO2 22.0 L VBG pO2 38.5 VBG HCO3 3.2 L VBG Total CO2 3.9 L VBG O2 Saturation 57.6 L VBG Base Excess -31.2 L Sodium Potassium Chloride Carbon Dioxide Anion Gap BUN Creatinine Estimated GFR (MDRD) Glucose POC Whole Bld Glucose Lactic Acid 4.0 H* Calcium Total Bilirubin AST ALT Alkaline Phosphatase Total Protein Albumin Globulin Albumin/Globulin Ratio Lipase Serum Ketones PD Medical Decision Making - ED course Complexity details: reviewed results, re-evaluated patient, considered differential, d/w patient, d/w family ED course: This is a 27-year-old female with a history of type 1 diabetes who presents with elevated blood glucose at home as well as just generally not feeling well. She was concerned for possible DKA. On arrival here, her glucose was checked at the bedside and it was 520. The patient was tachypneic and DKA was suspected. She was started on 2 L of IV normal saline and labs were obtained which significant for lactate of 4, pH of 6.7, glucose at 479, her potassium was 4.8, Renal function stable. Her her white blood cell count was 30,000. Her anion gap is 21, and she had moderate ketones in the serum. Blood cultures were obtained, urinalysis is pending, chest x-ray is negative. Patient does have some right lower quadrant abdominal pain therefore I am going to get a CT of her abdomen to ensure there is no infection causing her symptoms. She was started on ceftriaxone empirically. She will be given 1/3 L of IV normal saline and an insulin drip has been initiated. She was given 10 medical months of potassium IV here and we will recheck her BMP now. She will need admission to the hospital for DKA. Departure - Departure Disposition: [facility] DC/Xfer Clinical Impression: DKA (diabetic ketoacidoses) Qualifiers: Diabetes mellitus type: type 1 Diabetes mellitus complication detail: without coma Qualified Code(s): E10.10 - Type 1 diabetes mellitus with ketoacidosis without coma Condition: Critical
[2023-05-03 18:31] LABS: BASOPHILS % (AUTO) 0.3 %; HCT - HEMATOCRIT 45.6 % (37.0-47.0); LYMPHOCYTES % (AUTO) 3.4 %; MEAN CORPUSCULAR HEMOGLOBIN 22.9 pg (27.0-31.0); MEAN CORPUSCULAR HGB CONC 28.5 g/dL (32.0-36.0); MEAN CORPUSCULAR VOLUME 80.3 fL (81.0-99.0); MONOCYTES % (AUTO) 6.3 %; NEUTROPHILS % (AUTO) 88.9 %; RED BLOOD COUNT 5.68 10^6/uL (4.20-5.40); RED CELL DISTRIBUTION WIDTH 17.7 % (12.0-15.0); WHITE BLOOD COUNT 31.1 x10^3/uL (4.8-10.8)
[2023-05-03 18:35] LABS: ABNORMAL LYMPHS % (MANUAL) 0 %
[2023-05-03 18:37] LABS: VBG BASE EXCESS -31.2 mmol/L (-2 - +2); VBG HCO3 3.2 mmol/L (23-28); VBG OXYGEN SATURATION 57.6 % (60-80); VBG PO2 38.5 mmHg (25-47); VBG TOTAL CO2 3.9 mmol/L (24-29)
[2023-05-03 18:41] LABS: VBG PH 6.778 (7.31-7.41)
[2023-05-03 18:42] LABS: KETONES, SERUM (ACETEST) MODERATE (NEGATIVE)
[2023-05-03] MEDS ORDERED: INSULIN REGULAR IN 0.9 % NS 100 UNIT/100 ML BAG IV STA (18:43)
--- NOTE | 2023-05-03 18:43 | XRAY Report ---
PROCEDURE: Chest 1 View X-Ray INDICATIONS: chest pain TECHNIQUE: One view of the chest was acquired. COMPARISON: None. FINDINGS: Surgical changes and devices: None. Lungs and pleura: No pleural effusions or pneumothorax. Lungs are clear. Mediastinum: Mediastinal contours appear normal. Heart size is normal. Bones and chest wall: No suspicious bony lesions. Overlying soft tissues appear unremarkable. IMPRESSION: No acute process. Reviewed by: Ashlee Huang MD on 05/03/2023 6:41 PM PDT Approved by: Ashlee Huang MD on 05/03/2023 6:41 PM PDT Station ID: [id number]
[2023-05-03] MEDS ORDERED: cefTRIAXone 2 GM in SODIUM CHLORIDE 0.9% MINIBAG 100 ML IV STA (18:48)
[2023-05-03] MEDS ORDERED: POTASSIUM CHLOR 10 MEQ/100 ML 10 MEQ/100 ML BAG IV STA (18:51)
[2023-05-03 18:54] LABS: ALBUMIN 4.7 g/dL (3.2-5.5); ALBUMIN/GLOBULIN RATIO 0.9 (1.0-2.2); ALKALINE PHOSPHATASE 95 IU/L (42-121); ALT ALANINE AMINOTRANSFERASE 13 IU/L (10-60); AST ASPARTATE AMINOTRANSFERASE 16 IU/L (10-42); BILIRUBIN,TOTAL 1.1 mg/dL (0.2-1.0); BUN - BLOOD UREA NITROGEN 12 mg/dL (6-20); CALCIUM 8.5 mg/dL (8.5-10.3); CHLORIDE 99 mmol/L (101-111); GFR - MDRD 67 (>89); GLUCOSE 479 mg/dL (70-100); LIPASE 23 U/L (22-51); POTASSIUM 4.8 mmol/L (3.5-5.0); SODIUM 126 mmol/L (135-145); TOTAL PROTEIN 9.8 g/dL (6.7-8.2)
[2023-05-03 18:56] LABS: CARBON DIOXIDE - CO2 < 6 mmol/L (21-32)
[2023-05-03] MEDS ORDERED: cefTRIAXone 2 GM VIAL ONE (19:05)
[2023-05-03 19:20] LABS: BAND NEUTROPHILS % (MANUAL) 1 %; LYMPHOCYTES # (MANUAL) 1.6 10^3/uL (1.5-3.5); LYMPHOCYTES % (MANUAL) 5 %; METAMYELOCYTES % (MANUAL) 1 %; MONOCYTES # (MANUAL) 1.6 10^3/uL (0.0-1.0); NEUTROPHILS # (MANUAL) 27.7 10^3/uL (1.5-6.6)
[2023-05-03 19:21] LABS: DIFFERENTIAL COMMENT MANUAL DIFFERENTIAL; PLATELET ESTIMATE, MANUAL NORMAL (130-450,000) (NORMAL); PLATELET MORPHOLOGY 1+ GIANT PLATELETS (NORMAL)
[2023-05-03] MEDS ORDERED: iohexoL-300 100 ML VIAL ONE (19:29)
[2023-05-03] MEDS ORDERED: SODIUM CHLORIDE 0.9% 1,000 ML IV STA (19:33)
[2023-05-03 19:38] LABS: BILIRUBIN,URINE NEGATIVE (NEGATIVE); GLUCOSE, URINE (UA) 500 mg/dL (NEGATIVE); KETONES,URINE (UA) >=80 mg/dL (NEGATIVE); LEUKOCYTE ESTERASE, URINE NEGATIVE (NEGATIVE); NITRITE,URINE NEGATIVE (NEGATIVE); OCCULT BLOOD,URINE SMALL (NEGATIVE); PH,URINE 5.5 PH (5.0-7.5); PROTEIN,URINE 100 mg/dL (NEGATIVE); UROBILINOGEN,URINE 0.2 (NORMAL) E.U./dL (NORMAL)
[2023-05-03 19:43] LABS: CLARITY,URINE HAZY (CLEAR)
[2023-05-03 19:47] LABS: AMORPHOUS SEDIMENT,UR Few /LPF; BACTERIA,URINE Rare /HPF (None Seen); SQUAMOUS EPITHELIAL CELL,UR MOD Squamous (<= Few)
[2023-05-03 19:48] LABS: PLT - PLATELET COUNT 307 10^3/uL (130-450)
[2023-05-03 20:18] LABS: HCG UR QUAL NEGATIVE
[2023-05-03 20:23] LABS: MUDS CUTOFF CONCENTRATIONS CUTOFF CONC BELOW:
[2023-05-03 20:31] LABS: BUN - BLOOD UREA NITROGEN 11 mg/dL (6-20); CHLORIDE 106 mmol/L (101-111); CREATININE 0.9 mg/dL (0.4-1.0); GFR - MDRD 75 (>89); GLUCOSE 380 mg/dL (70-100); MAGNESIUM 2.2 mg/dL (1.7-2.8); PHOSPHORUS 4.5 mg/dL (2.5-4.6); POTASSIUM 5.8 mmol/L (3.5-5.0); SODIUM 129 mmol/L (135-145)
--- NOTE | 2023-05-03 20:33 | CT Report ---
PROCEDURE: ABDOMEN/PELVIS W INDICATIONS: sepsis, rlq pain, dka CONTRAST: 100mL Omni 300 TECHNIQUE: After the administration of intravenous contrast, 5 mm thick sections acquired from the diaphragms to the symphysis. 5 mm thick coronal and sagittal reformats were acquired. For radiation dose reducti on, the following was used: automated exposure control, adjustment of mA and/or kV according to deshawn ent size. COMPARISON: None. FINDINGS: Image quality: There is motion artifact limiting evaluation. Lung bases: Unremarkable. Heart: Heart is normal in size. ABDOMEN: Liver: No mass lesion. Gallbladder: Within normal limits without calcified gallstones. Biliary ducts: No biliary ductal dilatation. Pancreas: Unremarkable. Spleen: Normal in size. Adrenal Glands: No adrenal nodules. Kidneys and Ureters: No hydronephrosis. Stomach and Bowel: Stomach, small bowel loops, and colon are normal in caliber and wall thickness. T he appendix is normal. The Peritoneum: No abnormal intraperitoneal fluid. No free air. Ventral Wall: No hernia. Abdominal Nodes: No retroperitoneal or mesenteric adenopathy by size criteria. Vessels: Aorta and inferior vena cava are normal in size. PELVIS: Pelvic Organs: Unremarkable. Bladder: Unremarkable. Pelvic Nodes: No enlarged lymph nodes. Miscellaneous: No inguinal hernias. Bones: Visualized osseous structures demonstrate no suspicious lesions. IMPRESSION: 1. No definite acute intra-abdominal abnormality. Specifically, no evidence appendicitis. Reviewed by: Quoc Dominguez MD on 05/03/2023 8:31 PM PDT Approved by: Quoc Dominguez MD on 05/03/2023 8:31 PM PDT Station ID: [id number]
[2023-05-03 20:34] LABS: CARBON DIOXIDE - CO2 < 6 mmol/L (21-32)
[2023-05-03 20:35] LABS: AMPHETAMINE SCREEN,URINE NEGATIVE (NEGATIVE); COCAINE SCREEN URINE NEGATIVE (NEGATIVE); METHAMPHETAMINES SCREEN, URINE NEGATIVE (NEGATIVE); OPIATE SCREEN, URINE NEGATIVE (NEGATIVE); THC CANNABINOID SCREEN, URINE NEGATIVE (NEGATIVE)
[2023-05-03 20:36] LABS: BARBITURATE SCREEN,UR NEGATIVE (NEGATIVE); BENZODIAZEPINES SCREEN, URINE NEGATIVE (NEGATIVE); METHADONE SCREEN, URINE NEGATIVE (NEGATIVE); OXYCODONE SCREEN, URINE NEGATIVE (NEGATIVE); PROPOXYPHENE SCREEN, URINE NEGATIVE (NEGATIVE); TRICYCLIC ANTIDEPRESSANT,URINE NEGATIVE (NEGATIVE)
[2023-05-03] MEDS ORDERED: iohexoL-300 100 ML VIAL IVP ONE (21:03)
[2023-05-03] MEDS ORDERED: SODIUM CHLORIDE FLUSH 0.9% 10 ML SYRINGE IVP PRN (21:08)
[2023-05-03] MEDS ORDERED: ALBUTEROL NEB 2.5 MG/3 ML INH PRN (21:10)
[2023-05-03] MEDS ORDERED: ACETAMINOPHEN 325 MG TABLET PO PRN (21:10)
[2023-05-03] MEDS ORDERED: ONDANSETRON 4 MG/2 ML VIAL IVP PRN (21:10)
[2023-05-03] MEDS ORDERED: PROCHLORPERAZINE 10 MG/2 ML VIAL IVP PRN (21:10)
--- NOTE | 2023-05-03 21:24 | HISTORY & PHYSICAL EXAMINATION ---
Chief Complaint - Chief Complaint Chief Complaint: feverish. n/v. History of Present Illness - Admitted From Admitted From:: ED - History Obtained From Records Reviewed: EMR History obtained from: Patient and ED staff Exam Limitations: Telemedicine - History of Present Illness HPI Comment/Other: 27YOF c IDDM type 1 present to the ED complaining of high blood sugar reading at home, feeling feverish, nausea, and vomiting for the past 2 days. Patient reports polydipsia and polyuria. She denies cough or sore throat. No overt chest pain. No SOB. No diarrhea. No dysuria. No rash. No travel or sick contact. She states she has been under stress. She has been compliant with her insulin. No other medications or drugs. History - Past Medical History Endocrine/Autoimmune: reports: Type 1 diabetes Psych: reports: Anxiety Meds/Allgy - Home Medications Home Medications: Ambulatory Orders Medication Instructions Recorded Confirmed Sertraline [Zoloft] 50 mg PO DAILY 02/02/18 02/02/18 Blood Sugar Diagnostic [Glucometer 1 each QID #120 strip 02/04/18 Strips] Blood-Glucose Meter [Glucometer] 1 each QID #1 each 02/04/18 Insulin Glargine,Hum.rec.anlog 20 unit SUBQ DAILY #2 each 02/04/18 [Basaglar Kwikpen U-100] Pen Needle, Diabetic [Insulin Pen 1 each MC DAILY #30 dis.needle 02/04/18 Needle] - Allergies Allergies/Adverse Reactions: Allergies Allergy/AdvReac Type Severity Reaction Status Date / Time No Known Drug Allergies Allergy Verified 05/03/23 17:54 Review of Systems - Constitutional Constitutional: reports: Fatigue, Fever - Respiratory Respiratory: denies: Cough, Wheezing, SOB at rest - Gastrointestinal Gastrointestinal: reports: Nausea, Vomiting. denies: Abdominal pain, Diarrhea - Genitourinary Genitourinary: denies: Dysuria - Integumentary Integumentary: denies: Rash Exam - Vital Signs Reviewed Vital Signs: Yes Vital Signs: Vital Signs x48h Temp Pulse Resp BP Pulse Ox 05/03/23 19:30 121 H 22 137/85 H 100 05/03/23 19:00 124 H 115/99 H 100 05/03/23 17:54 36.5 C 132 H 30 H 150/90 H 100 - Physical Exam General Appearance: positive: No acute distress Eyes Bilateral: positive: Normal inspection ENT: positive: ENT inspection nml Neck: positive: Nml inspection Respiratory: positive: Breath sounds nml, Other (tachypnea). negative: Wheezes, Rales, Rhonchi Cardiovascular: positive: Other (tachycardia) Abdomen: positive: Nml bowel sounds. negative: Non-tender, No distention Skin: positive: No rash Extremities: positive: Non-tender, Full ROM Neurologic/Psychiatric: positive: Oriented x3, CN's nml (2-12), Motor nml Conclusion/Plan - Problem List (1) DKA (diabetic ketoacidoses) Conclusion/Plan: noted acidosis and ketones to support DKA. started on DKA protocol with insulin gtt and fluid. q1 hr glucose check. q4 hour BMP. no signs of infection. UA and CT negative. monitor and low threshold to treat. ED did give one dose of ceftriaxone but will hold on continuing. Qualifiers: Diabetes mellitus type: type 1 Diabetes mellitus complication detail: without coma Qualified Code(s): E10.10 - Type 1 diabetes mellitus with ketoacidosis without coma (2) SIRS (systemic inflammatory response syndrome) Conclusion/Plan: tachycardia and tachypnea and leukocytosis 2/2 DKA. no signs of infection. treat DKA per protocol. (3) Metabolic acidosis due to diabetes mellitus Conclusion/Plan: noted pH<7 on blood gas 2/2 DKA. will transient assist with resp status with D5 sodium bicarb gtt. recheck blood gas in am. continue DKA protocol (4) Hyperkalemia Conclusion/Plan: elevated 2/2 DKA and intracellular shifting. starting DKA protocol and as DKA correct, hyperK should resolve. monitor BMP q4 - Lab Results Lab results reviewed: Yes Fish Bones: 05/03/23 18:22 05/03/23 20:10 - Diagnostic Imaging Results Diagnostic Imaging Results: positive: Prelim report reviewed Core Measures - Anticipated LOS I expect patient to be DC'd or transferred within 96 hours.: No - Issues Hospital Issues and Management Plan: The patient consented to receive this telemedicine service, which I performed via live two-way audiovisual equipment. The patient is at ([facility]) and I am physically in [facility]. A nurse assisted me in the visit. Christiano Obrien DO Internal Medicine [employer] - DVT/VTE - Prophylaxis VTE/DVT Device ordered at admit?: Yes Telemedicine Consult Details - Provider Location & Consult Time Telemedicine consultation conducted via videoconferencing?: Yes List names and roles of persons who participated in consult:: RN and patient and ED staff Telemedicine provider location:: [facility] Time Telemedicine consult began:: 20:51 Time Telemedicine consult completed:: 21:51
[2023-05-03] MEDS ORDERED: NS W/20 MEQ KCL 1,000 ML IV SCH (22:00)
[2023-05-03] MEDS: SODIUM BICARBONATE 150 MEQ in DEXTROSE 5% 1,000 ML IV SCH (22:28)
[2023-05-04 01:19] LABS: CALCIUM 7.9 mg/dL (8.5-10.3); CREATININE 0.7 mg/dL (0.4-1.0); POTASSIUM 4.6 mmol/L (3.5-5.0)
[2023-05-04 02:27] LABS: CALCIUM, IONIZED 1.13 mmol/L (1.15-1.33)
[2023-05-04 02:29] LABS: VBG PH 7.04 (7.31-7.41)
[2023-05-04 02:39] LABS: CALCIUM 7.9 mg/dL (8.5-10.3); CREATININE 0.7 mg/dL (0.4-1.0); POTASSIUM 4.2 mmol/L (3.5-5.0)
[2023-05-04] MEDS ORDERED: DEXTROSE 25% ABBOJECT 2.5 GM/10 ML SYRINGE IVP ONE (03:02)
[2023-05-04] MEDS: D5NS W/20 MEQ KCL 1,000 ML IV SCH ×3 (03:11→21:18)
[2023-05-04] MEDS: SODIUM CHLORIDE FLUSH 0.9% 10 ML SYRINGE IVP SCH ×3 (03:12→17:21)
[2023-05-04 05:58] LABS: ABG PH 7.29 (7.35-7.45)
[2023-05-04 05:59] LABS: ABG BASE EXCESS -16.5 mmol/L (-2.0-3.0); ABG HCO3 7.9 mmol/L (22.0-26.0); ABG OXYGEN SATURATION 99 % (94-98); ABG PCO2 17 mmHg (34-45); ABG PO2 116 mmHg (80-100)
[2023-05-04 06:00] LABS: ABG TCO2 8.4 MMOL/L (21.0-29.0); ALLEN TEST POSITIVE
[2023-05-04 06:09] LABS: BASOPHILS % (AUTO) 0.2 %; HCT - HEMATOCRIT 34.7 % (37.0-47.0); HGB - HEMOGLOBIN 10.1 g/dL (12.0-16.0); LYMPHOCYTES # (AUTO) 1.1 10^3/uL (1.5-3.5); LYMPHOCYTES % (AUTO) 6.6 %; MEAN CORPUSCULAR HEMOGLOBIN 22.7 pg (27.0-31.0); MEAN CORPUSCULAR HGB CONC 29.1 g/dL (32.0-36.0); MEAN CORPUSCULAR VOLUME 78.2 fL (81.0-99.0); MONOCYTES % (AUTO) 5.7 %; NEUTROPHILS # (AUTO) 14.7 10^3/uL (1.5-6.6); NEUTROPHILS % (AUTO) 86.8 %; PLT - PLATELET COUNT 138 10^3/uL (130-450); RED BLOOD COUNT 4.44 10^6/uL (4.20-5.40); RED CELL DISTRIBUTION WIDTH 17.1 % (12.0-15.0); WHITE BLOOD COUNT 16.9 x10^3/uL (4.8-10.8)
[2023-05-04 06:22] LABS: CALCIUM 7.9 mg/dL (8.5-10.3); CREATININE 0.7 mg/dL (0.4-1.0); MAGNESIUM 1.7 mg/dL (1.7-2.8); PHOSPHORUS 1.2 mg/dL (2.5-4.6); POTASSIUM 4.2 mmol/L (3.5-5.0)
[2023-05-04 06:39] LABS: CALCIUM, IONIZED 1.12 mmol/L (1.15-1.33)
[2023-05-04 06:41] LABS: VBG PH 7.152 (7.31-7.41)
[2023-05-04] MEDS ORDERED: MAGNESIUM SULFATE 2 GRAM 2 GM/50 ML BAG IV ONE (07:00)
[2023-05-04] MEDS ORDERED: SODIUM PHOSPHATE 21 MMOL in SODIUM CHLORIDE 0.9% 250 ML IV ONE (08:00)
[2023-05-04] MEDS: HEPARIN 5,000 UNIT/ML VIAL SUBQ SCH ×2 (08:46→21:18)
[2023-05-04] MEDS: ethyl alcohoL 62% SWAB AMPULE NAS SCH ×2 (08:47→20:47)
[2023-05-04] MEDS: SODIUM BICARBONATE 150 MEQ in DEXTROSE 5% 1,000 ML IV SCH (09:09)
[2023-05-04 09:43] LABS: CALCIUM 7.8 mg/dL (8.5-10.3); CREATININE 0.5 mg/dL (0.4-1.0); POTASSIUM 2.9 mmol/L (3.5-5.0)
[2023-05-04] MEDS: POTASSIUM CHLOR 10 MEQ/100 ML 10 MEQ/100 ML BAG IV SCH ×9 (10:22→17:33)
[2023-05-04] MEDS ORDERED: INSULIN REGULAR HUMAN 100 UNIT in SODIUM CHLORIDE 0.9% 100ML 99 ML IV SCH ×2 (11:00→14:30)
--- NOTE | 2023-05-04 11:16 | PHARMACY PROGRESS NOTE ---
- Best Possible Medication History Admit Date and Time: 05/03/232107 Processed by: Pharmacy Medication History completed: Yes Patient Interview: Completed Secondary Source(s): Pharmacy records, Insurance records As the person ultimately responsible for medication therapy, providers are able to order a medication from an existing home medication list in [facility] via the "Reconcile Routine" prior to Confirmation of that medication by medical support specialist. Such practice is discouraged except when the physician, in their clinical judgment, deems that a medical need exists for a medication without regard to previous use.
[2023-05-04 13:23] LABS: CALCIUM 7.3 mg/dL (8.5-10.3); CREATININE 0.5 mg/dL (0.4-1.0); POTASSIUM 2.8 mmol/L (3.5-5.0)
[2023-05-04] MEDS ORDERED: INSULIN GLARGINE-YFGN 300 UNIT/3 ML PEN SUBQ ONE (14:16)
--- NOTE | 2023-05-04 14:35 | PROVIDER PROGRESS NOTE ---
Progress Note May 04, 2023 2:30 PM Glucose has been steadily coming down. 11 AM 152, 12 PM 157, 1 PM 142, 2 PM 108. Insulin drip has gone from 6.5 units an hour starting at 10 AM to 3.25 units an hour with his most recent glucose. I been watching her labs and her anion gap is closed and she is 7 this morning. Ketones are small amount with this afternoon's labs. The patient is requesting food. She has no nausea or vomiting. She tells us that she has diabetic pump supplies at home but has never received instruction. She says that she has boxes of equipment and does not know how to use it. So she has been using Lantus and sliding scale (depending on her carbs) to control her sugar. She is not able to share with me any insight as to why she went into DKA. She just knows that her sugar started getting high on the evening of May 02 and became progressively higher until she brought her self to the emergency room because her glucometer could not tell her what her sugar was. She denies noncompliance. Urine tox screen is negative for substance abuse. Urine does not have infection. Abdomen pelvis CT has no acute intra-abdominal abnormality. Chest x-ray is without infiltrate. So I am not seeing anything that would indicate silent infection. Exam: Temperature 37.1. Heart rate 102. Blood pressure 116/60. Respirations 26. 100% on room air. Part of her presentation in the ER was tachypnea to 30. 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 By this morning her respiration rate dropped down to 21. 20. But at 2:00 this afternoon she is back up to 26. Thin, cachectic appearing female at 5 foot 7 inches tall, 53 kg. BMI is 18.3. Disheveled, tattooed, dyed pink hair. Shotty neck adenopathy but she is supple. Lungs are clear without crackles rhonchi wheezing Tachycardic regular rate and rhythm Abdomen is soft, nontender, normal bowel sounds Extremities have full range of motion and there is no effusions, no edema Alert, oriented to person place and time, able to follow cues and prompts, without evidence of lethargy or cognitive deficit. Lab: Continued hypokalemia which is required 40 mEq potassium this morning, and then another 40 mEq will be given again since repeat potassium is 2.8. Sodium is now normal at 136 Leukocytosis evident on admission with a white cell count of 31,000. She is now 16.9. Platelets 138. Right radial blood gas this morning at 6 in the morning shows a pH of 7.29, PCO2 17, PO2 116, bicarb 7.9, base excess -16.5. Assessment/plan 1. DKA, type I, without coma, with ketosis While she has improved and I am going to be able to come off insulin drip, she still indicates that she has significant acid load and that her carbon dioxide is 17. pH this morning was still quite low. Plan: I will be resuming her home Lantus dose of 25 units at this point in time. 1 hour later stop the insulin drip. Start 5 units of Humalog with each meal. Also add low-dose sliding scale to each meal. She will also be started on a 3 g carb choice diet. Continue to monitor glucose before meals. Increase or decrease insulin on the basis of the results. She is seen in the Clinic, and I will will see if primary care provider could refer her to the community nutrition educator who has regular office hours in that clinic. Patient wants to learn how to use the pump supplies that she has at home. 2. SIRS criteria. On admission she was tachycardic, tachypneic, with leukocytosis. But no source of infection. This may be all as a result of DKA. She has improved and that her tachypnea is waxing and waning but better. Tachycardia has improved. And leukocytosis has improved. This is all without treatment of antibiotics. Continue to treat with aggressive fluids. 3. Hypokalemia (on admit she had hyperkalemia which came down with insulin driving K intracellularly) Continue to supplement with potassium chloride riders. Recheck in 4 to 6 hours. 4. Cognitive deficits. This young white female is alert, oriented. Understands why she is here. But there are basic gaps in knowledge that I cannot tell if it is due to lack of education, work to actual cognition problems. I am hoping that her primary care provider can do some evaluation in the outpatient setting to reduce her risk of accidental insulin overdose, or the opposite.
[2023-05-04] MEDS: INSULIN LISPRO 300 UNIT/3 ML PEN SUBQ SCH ×3 (17:17→20:47)
[2023-05-04 18:35] LABS: CALCIUM 7.4 mg/dL (8.5-10.3); CREATININE 0.5 mg/dL (0.4-1.0); POTASSIUM 3.4 mmol/L (3.5-5.0)
[2023-05-04] MEDS: POTASSIUM CHLORIDE 20 MEQ/15 ML UDC PO SCH ×2 (20:47→21:54)
[2023-05-04 21:29] LABS: CALCIUM 7.9 mg/dL (8.5-10.3); CREATININE 0.5 mg/dL (0.4-1.0); POTASSIUM 3.3 mmol/L (3.5-5.0)
[2023-05-05 01:19] LABS: CALCIUM 7.5 mg/dL (8.5-10.3); CREATININE 0.4 mg/dL (0.4-1.0); POTASSIUM 3.3 mmol/L (3.5-5.0)
[2023-05-05] MEDS: SODIUM CHLORIDE FLUSH 0.9% 10 ML SYRINGE IVP SCH ×2 (01:44→08:21)
[2023-05-05] MEDS: POTASSIUM CHLORIDE 20 MEQ TABLET PO SCH ×2 (01:44→03:43)
[2023-05-05] MEDS: D5NS W/20 MEQ KCL 1,000 ML IV SCH ×2 (05:00→12:05)
[2023-05-05 05:17] LABS: CALCIUM, IONIZED 1.02 mmol/L (1.15-1.33); VBG PH 7.451 (7.31-7.41)
[2023-05-05 05:28] LABS: MAGNESIUM 1.8 mg/dL (1.7-2.8); PHOSPHORUS 1.5 mg/dL (2.5-4.6)
[2023-05-05] MEDS: CALCIUM CARBONATE CHEW 500 MG TABLET PO SCH ×2 (06:54→12:09)
[2023-05-05] MEDS ORDERED: NEUTRA-PHOS 250 MG TABLET PO SCH (08:00)
[2023-05-05] MEDS ORDERED: INSULIN GLARGINE-YFGN 300 UNIT/3 ML PEN SUBQ SCH (08:00)
[2023-05-05] MEDS ORDERED: MAGNESIUM OXIDE 400 MG TABLET PO ONE (08:00)
--- NOTE | 2023-05-05 08:06 | PROVIDER PROGRESS NOTE ---
Progress Note May 05, 2023 8:04 AM Taken off insulin drip early yesterday afternoon. I gave her her 25 of Lantus that she usually takes on a daily basis. I then gave her 5 units of Humalog with each meal. Plus sliding scale. Yesterday's glucoses were 108 when I stopped the drip. Initially her glucose went to 60 but she was on a D5 with bicarb 1 L bag drip. She also had juice and applesauce and did well. subsequent glucoses have been 90, 65 and up to 124 at 8:45 last night. This morning her fasting glucose is 154. When I talked her about her diabetes, the patient has not completed high school. She says that she may be finished ninth grade. She stopped because of personal reasons which included bullying. She feels like she can read and write. They have been trying to get into a clinical trial educator at the [facility]. She is unaware that there is a clinical trial educator in the local clinics. She takes her Lantus every day, says that she checks her sugar every day, but sometimes skips meals. She is very interested in getting an insulin pump. Exam: Temperature 37.2, heart rate 94, blood pressure 118/78, respirations 17, 100% on room air Disheveled very slender white female, alert, oriented, no acute distress. Flat affect. Stares straight ahead or looks at floor when we are talking. Shotty neck adenopathy Lungs are clear, and there is no respiratory distress. Regular rate and rhythm Abdomen is soft, nontender and normal bowel sounds Extremities are without edema. Neurologically she is alert and oriented to person place and time. Follows commands. Has no focal deficits. Unclear if there are cognitive deficits.
[2023-05-05] MEDS: HEPARIN 5,000 UNIT/ML VIAL SUBQ SCH (08:17)
[2023-05-05] MEDS: ethyl alcohoL 62% SWAB AMPULE NAS SCH (08:17)
[2023-05-05] MEDS ORDERED: SODIUM CHLORIDE 0.9% 250 ML IV ONE (08:18)
[2023-05-05] MEDS: INSULIN LISPRO 300 UNIT/3 ML PEN SUBQ SCH ×5 (08:20→12:57)
[2023-05-05] MEDS ORDERED: POTASSIUM PHOSPHATE 21 MMOL in SODIUM CHLORIDE 0.9% 250 ML IV ONE (09:00)
[2023-05-05 09:53] LABS: ESTIMATED AVERAGE GLUCOSE 352 mg/dL (70-100); HEMOGLOBIN A1c% 13.9 % (4.27-6.07)
[2023-05-05 13:19] VITALS: BP 123/80
--- NOTE | 2023-05-05 15:12 | Discharge Plan ---
Discharge Plan Problem Reviewed?: Yes Disposition: Home, Self Care Condition: Fair Diet: Diabetic Activity Restrictions: Activity as Tolerated Shower Restrictions: No Driving Restrictions: No Health Concerns: You came to the emergency room because you had high blood sugar readings at home on your glucometer, and you are feeling feverish, nauseated, and has been having vomiting for 2 days. We found you to be in diabetic ketoacidosis. In checking your glycosylated hemoglobin, your sugars have been uncontrolled from minimally 3 months. You tell us that you sometimes skip meals. You are not always compliant with taking your Lantus and short acting insulin. Most likely the erratic diet and erratic taking of medication has resulted in the DKA and uncontrolled sugars. We put you in the ICU to monitor your glucose with an insulin drip. You also had a large IV called a central line put in your clavicle to control your sugars with the insulin drip. You received quite a bit of IV fluids to hydrate you. You received a lot of calcium, magnesium, potassium and phosphorus. Your glucose is now under control. You still have a tendency to skip meals. You absolutely cannot do that. Plan of Treatment: Your mom was in to talk to the nurse taking care of you. There is a diabetic nurse who can teach you about an insulin pump and insulin management. The diabetic nurse has office hours here in the hospital and [facility] Her name is Georgina Rey. Please have your primary care provider refer you to her. Check your sugars before every meal. If you are going to skip a meal, do not take insulin. When someone has diabetes, the goal of glycosylated hemoglobin is to be below 7%. When people have diabetes for a long time, and that the A1c is greater than 7% for a long time, that is when they start to have end-stage manifestation of the disease which include blindness, loss of sensation in the hands and feet, renal failure, lack of blood supply to limbs. This starts happening 15 years from the onset of diabetes. To avoid all of this, aim for an A1c below 7% on a regular basis Care Goals: To have your diabetes controlled To learn how to use an insulin pump Assessment: Patient is alert, oriented to person place and time. Follow-Up Care: [facility] - Diabetes Ed No Smoking: If you smoke, Please STOP! Call for help.
--- NOTE | 2023-05-05 15:23 | DISCHARGE SUMMARY ---
"Discharge Summary Admit Date: 05/03/23 Discharge Date: 05/05/23 Discharging Provider: Ashlie Lenz MD Primary Care Provider: Isabelle Cochran Code Status: Attempt Resuscitation Condition at Discharge: Fair Discharge Disposition: 01 Home, Self Care - DIAGNOSES Discharge Diagnoses with Status of Each Condition: 1. DKA, type I, without coma, with ketosis 2. SIRS criteria With leukocytosis to 31,000. 3. Hypokalemia 4. Cognitive deficits with subsequent noncompliance with medical treatment - HPI History of Present Illness: 27YOF c IDDM type 1 present to the ED complaining of high blood sugar reading at home, feeling feverish, nausea, and vomiting for the past 2 days. Patient reports polydipsia and polyuria. She denies cough or sore throat. No overt chest pain. No SOB. No diarrhea. No dysuria. No rash. No travel or sick contact. She states she has been under stress. She has been compliant with her insulin. No other medications or drugs. History - Past Medical History Endocrine/Autoimmune: reports: Type 1 diabetes Psych: reports: Anxiety - CONSULTS | PROCEDURES Procedures: 1. Chest x-ray without acute process 2. Abdomen/pelvis CT without any definite acute intra-abdominal abnormality. Specifically no appendicitis. 3. Blood cultures without growth - HOSPITAL COURSE Hospital Course: She was started on an insulin drip her central line was placed. She was put in the ICU. An insulin drip resulted in adequate glucose control by the afternoon of May 04. She was then started on Lantus, 5 units of short acting insulin before meals, and sliding scale insulin. Her glucose remained controlled over the next 24 hours. Patient skipped lunch on the day of discharge. We warned her that she cannot be skipping meals if she is going to be taking long-acting insulin. Her A1c was close to 14% and we explained to her that her glucose has been uncontrolled for possibly up to 120 maybe even 150 days. On admission she had severe leukocytosis, and met criteria for SIRS without any source of organ or organism infection. With treatment, white cell count did start coming down. She never had fever. On exam and review of systems she never had cough, fever, chest congestion, abdominal pain, urgency, frequency or dysuria. In other words we did not find any source of infection.White cell count was normal on the day of discharge. When I talked her about her diabetes, the patient has not completed high school. She says that she may be finished ninth grade. She stopped because of personal reasons which included bullying. She feels like she can read and write. They have been trying to get into a personal development educator at the [facility]. She is unaware that there is a personal development educator in the local clinics. She takes her Lantus every day, says that she checks her sugar every day, but sometimes skips meals. She is very interested in getting an insulin pump. She is discharged on her usual home medications. Nursing is spoken to her mom and the patient about the personal development educator here at our clinics. She is discharged in stable condition. On examination temperature is 36.8. Heart rate 115. Blood pressure 123/80. Respirations 19. 100% on room air. She is a very slender malnourished appearing young white female with dyed pink hair, piercings, tattoos. Flat affect, may have cognitive deficits. Monotonic speech pattern. Looks at the floor or looks into space when speaking to someone. She is 5 foot 7 inches tall, 56 kg. Supple neck. Lungs are clear. Regular rate and rhythm. Benign abdomen that is soft, nontender, normal bowel sounds. Extremities without edema. Greater than 30 minutes was spent coordinating discharge This document was made in part using voice recognition software. While efforts are made to proofread this document, sound alike and grammatical errors may o ccur. - ALLERGIES Allergies/Adverse Reactions: Allergies Allergy/AdvReac Type Severity Reaction Status Date / Time No Known Drug Allergies Allergy Verified 05/03/23 17:54 - MEDICATIONS Home Medications: Ambulatory Orders Medication Instructions Recorded Confirmed Insulin Aspart [NovoLOG] 2 - 3 unit SUBQ TIDWM 05/04/23 05/04/23 Insulin Glargine,Hum.rec.anlog 30 unit SUBQ DAILY 05/04/23 05/04/23 [Juanaglkash Venegas U-100] - LABS Result Diagrams: 05/05/23 15:15 05/05/23 15:15"
[2023-05-05 15:31] LABS: BUN - BLOOD UREA NITROGEN < 5 mg/dL (6-20); CALCIUM 8.5 mg/dL (8.5-10.3); CARBON DIOXIDE - CO2 23 mmol/L (21-32); CHLORIDE 104 mmol/L (101-111); CREATININE 0.5 mg/dL (0.4-1.0); GFR - MDRD 148 (>89); GLUCOSE 195 mg/dL (70-100); POTASSIUM 3.4 mmol/L (3.5-5.0); SODIUM 136 mmol/L (135-145)
[2023-05-05 15:42] LABS: BASOPHILS % (AUTO) 0.3 %; EOSINOPHILS % (AUTO) 0.2 %; HCT - HEMATOCRIT 29.9 % (37.0-47.0); HGB - HEMOGLOBIN 9.5 g/dL (12.0-16.0); LYMPHOCYTES % (AUTO) 26.9 %; MEAN CORPUSCULAR HEMOGLOBIN 23.5 pg (27.0-31.0); MEAN CORPUSCULAR HGB CONC 31.8 g/dL (32.0-36.0); MONOCYTES % (AUTO) 9.6 %; NEUTROPHILS % (AUTO) 62.7 %; RED BLOOD COUNT 4.04 10^6/uL (4.20-5.40); RED CELL DISTRIBUTION WIDTH 17.9 % (12.0-15.0); WHITE BLOOD COUNT 6.1 x10^3/uL (4.8-10.8)
[2023-05-05 15:43] LABS: ABNORMAL LYMPHS % (MANUAL) 0 %; BAND NEUTROPHILS % (MANUAL) 0 %
[2023-05-05 16:02] LABS: LYMPHOCYTES # (MANUAL) 1.5 10^3/uL (1.5-3.5); LYMPHOCYTES % (MANUAL) 23 %; MONOCYTES # (MANUAL) 0.5 10^3/uL (0.0-1.0); REACTIVE LYMPHS % (MANUAL) 2 %
[2023-05-05 16:04] LABS: PLATELET ESTIMATE, MANUAL NORMAL (130-450,000) (NORMAL); PLATELET MORPHOLOGY 2+ GIANT PLATELETS (NORMAL); RBC MORPHOLOGY (MULTIPLE) 2+ ANISOCYTOSIS (NORMAL)
[2023-05-05 16:10] LABS: DIFFERENTIAL COMMENT MANUAL DIFFERENTIAL
[2023-05-05 16:11] LABS: PLT - PLATELET COUNT 141 10^3/uL (130-450)
== END 2023-05-05 17:28 | disposition home or self-care (01) | DRG 638 ==
LOC: ED 17:47 → ICU 21:08
PROVIDERS: ADMIT Internal Medicine; ATTEND Specialist
DX: E10.10 Type 1 diabetes mellitus with ketoacidosis without coma (principal); R65.10 Systemic inflammatory response syndrome (SIRS) of non-infectious origin without acute organ dysfunction; E87.6 Hypokalemia; F41.9 Anxiety disorder, unspecified; R41.89 Other symptoms and signs involving cognitive functions and awareness; Z32.02 Encounter for pregnancy test, result negative; Z55.5 Less than a high school diploma; Z62.811 Personal history of psychological abuse in childhood; Z79.4 Long term (current) use of insulin; Z79.899 Other long term (current) drug therapy; Z91.199 Patient's noncompliance with other medical treatment and regimen due to unspecified reason
CPT/HCPCS: 36415; 36600; 71045; 74177; 80048; 80053; 80306; 80307; 80329; 81001; 81025; 82009; 82330; 82803; 82947; 83036; 83605; 83690; 83735; 84100; 84132; 85025; 87040; 87150; 96365; 96366; 99285; A9270; J1815; Q9967; 81003; 87086

== ENCOUNTER 2023-10-10 15:20 | Outpatient (CLI) | payer MEDICAID | END 2023-10-10 15:21 | disposition critical access hospital (66) | LOC: EMS 15:20 | DX: E10.65 Type 1 diabetes mellitus with hyperglycemia (principal); R19.7 Diarrhea, unspecified; R11.10 Vomiting, unspecified; R53.81 Other malaise | CPT/HCPCS: A0425; A0429; A0999 ==

== ENCOUNTER 2023-10-10 15:50 | Inpatient (IN) | payer MEDICAID ==
--- NOTE | 2023-10-10 16:20 | ED Physician Documentation ---
History of Present Illness - Stated complaint Stated Complaint: N/V/D - Chief complaint Chief Complaint: General - History obtained from History obtained from: Patient - Additonal information Additional information: 27-year-old woman with type 1 diabetes diagnosed about 5 years ago on an insulin pump, she was changed from NovoLog to Humalog about 2 months ago and has been feeling not so great since then. Basal rate of 2 units/h. Yesterday started vomiting and feeling ill. Higher blood sugars. PD PAST MEDICAL HISTORY - Past Medical History Past Medical History: Yes Cardiovascular: None Respiratory: None Neuro: None Endocrine/Autoimmune: Type 1 diabetes GI: None : None Psych: Anxiety Musculoskeletal: None Derm: None - Past Surgical History Past Surgical History: No - Present Medications Home Medications: Ambulatory Orders Medication Instructions Recorded Confirmed Insulin Aspart [NovoLOG] 2 - 3 unit SUBQ TIDWM 05/04/23 05/04/23 Insulin Glargine,Hum.rec.anlog 30 unit SUBQ DAILY 05/04/23 05/04/23 [Basaglar Kwikpen U-100] - Allergies Allergies/Adverse Reactions: Allergies Allergy/AdvReac Type Severity Reaction Status Date / Time No Known Drug Allergies Allergy Verified 10/10/23 15:56 - Social History Does the pt smoke?: No Smoking Status: Never smoker Does the pt drink ETOH?: No Does the pt have substance abuse?: No - Immunizations Immunizations are current?: Yes PD ED PE NORMAL - Vitals Vital signs reviewed: Yes - General General: Alert and oriented X 3, No acute distress - Neuro Neuro: Alert and oriented X 3, Normal speech - Psych Psych: Normal mood, Normal affect Results - Vitals Vitals: Vital Signs - 24 hr 10/10/23 10/10/23 10/10/23 15:56 17:15 19:00 Temperature 36.8 C 36.5 C Heart Rate 100 111 H 105 H Respiratory 16 15 Rate Blood Pressure 140/85 H 126/72 116/85 H O2 Saturation 100 100 100 Oxygen O2 Source Room air - Labs Labs: Laboratory Tests 10/10/23 10/10/23 10/10/23 16:14 16:14 16:14 WBC 17.5 H RBC 5.09 Hgb 11.1 L Hct 39.0 MCV 76.6 L MCH 21.8 L MCHC 28.5 L RDW 15.9 H Plt Count 251 Neut # (Auto) Not Reportable Lymph # (Auto) Not Reportable [place] # (Auto) Not Reportable Eos # (Auto) Not Reportable Baso # (Auto) Not Reportable Absolute Nucleated RBC Not Reportable Total Counted 100 Band Neuts % (Manual) 1 Abnorm Lymph % (Manual) 0 Nucleated RBC % Not Reportable Neutrophils # (Manual) 15.4 H Lymphocytes # (Manual) 1.2 L Monocytes # (Manual) 0.9 Eosinophils # (Manual) 0.0 Basophils # (Manual) 0.0 Differential Comment MANUAL DIFFERENTIAL Platelet Estimate NORMAL (130-450,000) Platelet Morphology 2+ GIANT PLATELETS RBC Morph Micro Appear 1+ HYPOCHROMASIA VBG pH VBG pCO2 VBG pO2 VBG HCO3 VBG Total CO2 VBG O2 Saturation VBG Base Excess Sodium 126 L Potassium 5.1 H Chloride 96 L Carbon Dioxide 11 L* Anion Gap 19.0 H BUN 16 Creatinine 0.8 Estimated GFR (MDRD) 86 L Glucose 359 H Lactic Acid 2.6 H Calcium 9.6 Total Bilirubin 0.6 AST 12 ALT 7 L Alkaline Phosphatase 84 Total Protein 8.9 Albumin 5.1 Globulin 3.8 Albumin/Globulin Ratio 1.3 Lipase < 10 L Urine Color Urine Clarity Urine pH Ur Specific [place] Urine Protein Urine Glucose (UA) Urine Ketones Urine Occult Blood Urine Nitrite Urine Bilirubin Urine Urobilinogen Ur Leukocyte Esterase Ur Microscopic Review Urine Culture Comments Urine HCG, Qual Serum Ketones SMALL H 10/10/23 10/10/23 16:14 17:00 WBC RBC Hgb Hct MCV MCH MCHC RDW Plt Count Neut # (Auto) Lymph # (Auto) [place] # (Auto) Eos # (Auto) Baso # (Auto) Absolute Nucleated RBC Total Counted Band Neuts % (Manual) Abnorm Lymph % (Manual) Nucleated RBC % Neutrophils # (Manual) Lymphocytes # (Manual) Monocytes # (Manual) Eosinophils # (Manual) Basophils # (Manual) Differential Comment Platelet Estimate Platelet Morphology RBC Morph Micro Appear VBG pH 7.129 L* VBG pCO2 33.2 L VBG pO2 22.2 L VBG HCO3 10.8 L VBG Total CO2 11.8 L VBG O2 Saturation 27.3 L VBG Base Excess -17.3 L Sodium Potassium Chloride Carbon Dioxide Anion Gap BUN Creatinine Estimated GFR (MDRD) Glucose Lactic Acid Calcium Total Bilirubin AST ALT Alkaline Phosphatase Total Protein Albumin Globulin Albumin/Globulin Ratio Lipase Urine Color YELLOW Urine Clarity CLEAR Urine pH 6.0 Ur Specific [place] >=1.030 H Urine Protein TRACE Urine Glucose (UA) 500 H Urine Ketones >=80 H Urine Occult Blood NEGATIVE Urine Nitrite NEGATIVE Urine Bilirubin NEGATIVE Urine Urobilinogen 0.2 (NORMAL) Ur Leukocyte Esterase NEGATIVE Ur Microscopic Review NOT INDICATED Urine Culture Comments NOT INDICATED Urine HCG, Qual NEGATIVE Serum Ketones Procedures - General procedure General procedure: She was difficult for IV access, the paramedics had tried and failed. I personally placed a long 22-gauge IV in the right cephalic vein using real-time ultrasound guidance after ChloraPrep which flushed and mary ann well. PD Medical Decision Making - ED course ED course: 27-year-old woman with type 1 diabetes presents with vomiting and is found to be in modest DKA with pH of 7.1 and a bicarb of 11 with a gap of 19. IV was placed and she was given fluid resuscitation and started on an insulin drip. Decision to admit was made at 4:45 PM on October 10 but I am notified there are no beds and she will be boarding in the emergency department for now. ICU staffing improved after 7 PM shift change and at that time she was presented to Dr. Shanelle Ware for admission. - Critical Care Time(min): 42 Time Includes: Direct patient care, Review records, Reassess patient, Document care, Coordinate care, Medical consult, Family consult for [facility] Data interpretation: Labs, Pulse ox Procedures included in critical care time: Peripheral IV Departure - Departure Disposition: 66 [facility] DC/Xfer Clinical Impression: DKA (diabetic ketoacidoses) Condition: Serious Discharge Date/Time: 10/10/23 19:54
[2023-10-10 16:23] LABS: BASOPHILS % (AUTO) 0.3 %; HGB - HEMOGLOBIN 11.1 g/dL (12.0-16.0); LYMPHOCYTES % (AUTO) 4.6 %; MEAN CORPUSCULAR HEMOGLOBIN 21.8 pg (27.0-31.0); MEAN CORPUSCULAR HGB CONC 28.5 g/dL (32.0-36.0); MEAN CORPUSCULAR VOLUME 76.6 fL (81.0-99.0); MONOCYTES % (AUTO) 2.6 %; NEUTROPHILS % (AUTO) 92.2 %; PLT - PLATELET COUNT 251 10^3/uL (130-450); RED BLOOD COUNT 5.09 10^6/uL (4.20-5.40); RED CELL DISTRIBUTION WIDTH 15.9 % (12.0-15.0); WHITE BLOOD COUNT 17.5 x10^3/uL (4.8-10.8)
[2023-10-10 16:26] LABS: VBG BASE EXCESS -17.3 mmol/L (-2 - +2); VBG HCO3 10.8 mmol/L (23-28); VBG OXYGEN SATURATION 27.3 % (60-80); VBG PCO2 33.2 mmHg (41-51); VBG PO2 22.2 mmHg (25-47); VBG TOTAL CO2 11.8 mmol/L (24-29)
[2023-10-10 16:28] LABS: ABNORMAL LYMPHS % (MANUAL) 0 %
[2023-10-10 16:29] LABS: VBG PH 7.129 (7.31-7.41)
[2023-10-10 16:35] LABS: KETONES, SERUM (ACETEST) SMALL (NEGATIVE)
[2023-10-10 16:39] LABS: ALBUMIN 5.1 g/dL (3.2-5.5)
[2023-10-10 16:41] LABS: ALBUMIN/GLOBULIN RATIO 1.3 (1.0-2.2); ALKALINE PHOSPHATASE 84 IU/L (42-121); ALT ALANINE AMINOTRANSFERASE 7 IU/L (10-60); AST ASPARTATE AMINOTRANSFERASE 12 IU/L (10-42); BILIRUBIN,TOTAL 0.6 mg/dL (0.2-1.0); BUN - BLOOD UREA NITROGEN 16 mg/dL (6-20); CALCIUM 9.6 mg/dL (8.5-10.3); CARBON DIOXIDE - CO2 11 mmol/L (21-32); CHLORIDE 96 mmol/L (101-111); CREATININE 0.8 mg/dL (0.6-1.3); GFR - MDRD 86 (>89); GLUCOSE 359 mg/dL (74-104); LIPASE < 10 U/L (11-82); POTASSIUM 5.1 mmol/L (3.5-4.5); SODIUM 126 mmol/L (135-145); TOTAL PROTEIN 8.9 g/dL (6.4-8.9)
[2023-10-10] MEDS ORDERED: INSULIN REGULAR HUMAN 300 UNIT/3 ML VIAL IVP STA (16:46)
[2023-10-10] MEDS ORDERED: NS W/20 MEQ KCL 1,000 ML IV STA (16:46)
[2023-10-10] MEDS ORDERED: INSULIN REGULAR IN 0.9 % NS 100 UNIT/100 ML BAG IV STA (16:46)
[2023-10-10 17:01] LABS: BAND NEUTROPHILS % (MANUAL) 1 %; LYMPHOCYTES # (MANUAL) 1.2 10^3/uL (1.5-3.5); LYMPHOCYTES % (MANUAL) 7 %; MONOCYTES # (MANUAL) 0.9 10^3/uL (0.0-1.0); NEUTROPHILS # (MANUAL) 15.4 10^3/uL (1.5-6.6)
[2023-10-10 17:03] LABS: DIFFERENTIAL COMMENT MANUAL DIFFERENTIAL; PLATELET ESTIMATE, MANUAL NORMAL (130-450,000) (NORMAL); PLATELET MORPHOLOGY 2+ GIANT PLATELETS (NORMAL)
[2023-10-10 17:05] LABS: BILIRUBIN,URINE NEGATIVE (NEGATIVE); GLUCOSE, URINE (UA) 500 mg/dL (NEGATIVE); KETONES,URINE (UA) >=80 mg/dL (NEGATIVE); LEUKOCYTE ESTERASE, URINE NEGATIVE (NEGATIVE); NITRITE,URINE NEGATIVE (NEGATIVE); OCCULT BLOOD,URINE NEGATIVE (NEGATIVE); PROTEIN,URINE TRACE mg/dL (NEGATIVE); UROBILINOGEN,URINE 0.2 (NORMAL) E.U./dL (NORMAL)
[2023-10-10 17:11] LABS: CLARITY,URINE CLEAR (CLEAR); HCG UR QUAL NEGATIVE
--- NOTE | 2023-10-10 19:09 | HISTORY & PHYSICAL EXAMINATION ---
Chief Complaint - Chief Complaint Chief Complaint: Nausea/vomiting History of Present Illness - Admitted From Admitted From:: ER - History Obtained From Records Reviewed: Yes History obtained from: Patient, staff, chart Exam Limitations: Virtual exam - History of Present Illness HPI Comment/Other: 27 yo F with PMH of DM type 1 on insulin pump, multiple admits for DKA, Anxiety presented to the ER with c/o 1 day h/o N/V. Pt was first dx'd with DM type 1 after going into DKA in 2018. Her last hospitalization for DKA was in 04/2023. She has been seeing an Sql Application Developer. She did not do well on long-acting insulin previously, so has been managed on short-acting insulin alone via insulin pump. She was doing well on Novolog insulin and her Hgba1c was improving. About 2 months ago, her insurance changed her Novolog to Humalog. Since then, her BS have been up and down and difficult to control. Her Sql Application Developer has submitted a pre-auth for the Humalog, it has been approved and should be available at her pharmacy soon. About 2 weeks ago, pt began to have URI symptoms: coryza, H/A, Shortness of breath, wheezing. No cough/CP. About 1 week ago, she began to have intermittent loose stools with abdominal cramping, around 4x/day: no black or bloody stool. Then, last night, she began to have nausea and had vomiting every time she tried to eat or drink somethinx: non-bloody, not black. +Abdo cramps with vomiting. +Subj F/C. Her loose stools have resolved. Her abdo pain has resolved. In the ER, HR 105, WBC 17, CO2 11, AG 19, pH 7.12, BS 359-234, HCG neg. Pt was given IVF and started on Insulin gtt in the ER. History - Past Medical History Cardiovascular: reports: None Respiratory: reports: None Neuro: reports: None Endocrine/Autoimmune: reports: Type 1 diabetes GI: reports: None : reports: None Psych: reports: Anxiety Musculoskeletal: reports: None Derm: reports: None MRSA Hx?: Yes Meds/Allgy - Home Medications Home Medications: Ambulatory Orders Medication Instructions Recorded Confirmed Insulin Aspart [NovoLOG] 2 - 3 unit SUBQ TIDWM 05/04/23 05/04/23 Insulin Glargine,Hum.rec.anlog 30 unit SUBQ DAILY 05/04/23 05/04/23 [Deb Venegas U-100] - Allergies Allergies/Adverse Reactions: Allergies Allergy/AdvReac Type Severity Reaction Status Date / Time No Known Drug Allergies Allergy Verified 10/10/23 15:56 Review of Systems - All Other Systems All Other Systems: reports: Reviewed and negative Exam - Vital Signs Reviewed Vital Signs: Yes Vital Signs: Vital Signs x48h Temp Pulse Resp BP Pulse Ox 10/10/23 17:15 111 H 126/72 100 10/10/23 15:56 36.8 C 100 16 140/85 H 100 - Physical Exam General Appearance: positive: No acute distress, Alert Eyes Bilateral: positive: EOMI, No scleral icterus ENT: positive: Dry mucous membranes Respiratory: positive: Other (Access cart stethoscope not working; per ER Provider: CTA B/L) Cardiovascular: positive: Other (Access cart stethoscope not working; per ER Provider: RR, Tachycardia, no murmurs) Abdomen: positive: Other (per ER Provider: non-distended, NT, Soft) Extremities: positive: Full ROM, Other (per ER Provider: moves all extrem, no edema) Neurologic/Psychiatric: positive: Oriented x3, Mood/affect nml Conclusion/Plan - Problem List (1) DKA (diabetic ketoacidoses) Conclusion/Plan: DKA DM type 1, on Insulin pump Hyponatremia -CO2 11, AG 19, pH 7.12, BS 359-234, s.ketones + -Pt was given IVF and started on Insulin gtt in the ER. -admit to ICU -continue IVF -DKA protocol -continue Insulin drip -check BMPs q4h until AG clears -anti-emetics PRN -hold home medications: Insulin -check Hgba1c -NPO for now -pt sees Sql Application Developer, outpt. URI symptoms Shortness of breath Nausea/vomiting Diarrhea, resolved Abdominal Pain, resolved Leukocytosis Lactic Acidosis Tachycardia -WBC 17, LA 2.6, HR 105, HCG neg, U/A neg. -IVF -anti-emetics PRN -diarrhea resolved; check stool culture and CDiff if returns -CXR ordered -BC ordered -Resp Viral panel ordered Anemia, microcytic -check iron studies VTE Prophylaxis: Lovenox SQ Code Status: Full Code ~Shanelle Jeanie, MD Hospitalist Qualifiers: - Lab Results Fish Bones: 10/10/23 16:14 10/10/23 16:14
[2023-10-10] MEDS ORDERED: ONDANSETRON 4 MG/2 ML VIAL IVP PRN (19:28)
[2023-10-10] MEDS ORDERED: ONDANSETRON ODT 4 MG TABLET TL PRN (19:28)
[2023-10-10] MEDS ORDERED: PROCHLORPERAZINE 10 MG/2 ML VIAL IVP PRN (19:28)
[2023-10-10] MEDS ORDERED: ACETAMINOPHEN 325 MG TABLET PO PRN (19:28)
[2023-10-10] MEDS ORDERED: SODIUM CHLORIDE FLUSH 0.9% 10 ML SYRINGE IVP PRN (19:28)
[2023-10-10] MEDS ORDERED: DICYCLOMINE 10 MG CAPSULE PO PRN (19:32)
--- NOTE | 2023-10-10 19:47 | XRAY Report ---
PROCEDURE: Chest 1 View X-Ray INDICATIONS: Shortness of breath TECHNIQUE: One view of the chest was acquired. COMPARISON: Chest x-ray 05/03/2023 FINDINGS: Surgical changes and devices: None. Lungs and pleura: No pleural effusions or pneumothorax. Lungs are clear. Mediastinum: Mediastinal contours appear normal. Heart size is normal. Bones and chest wall: No suspicious bony lesions. Overlying soft tissues appear unremarkable. IMPRESSION: No acute cardiopulmonary process. Reviewed by: Michelle Kingsley MD on 10/10/2023 7:46 PM PST Approved by: Michelle Kingsley MD on 10/10/2023 7:46 PM PST Station ID: [id number]
[2023-10-10 19:59] LABS: MAGNESIUM 1.7 mg/dL (1.7-2.3)
[2023-10-10] MEDS ORDERED: SODIUM CHLORIDE 0.9% 1,000 ML IV SCH (20:00)
[2023-10-10 20:01] LABS: CALCIUM 9.4 mg/dL (8.5-10.3); CREATININE 0.7 mg/dL (0.6-1.3); POTASSIUM 4.4 mmol/L (3.5-4.5)
[2023-10-10] MEDS: INSULIN REGULAR IN 0.9 % NS 100 UNIT/100 ML BAG IV SCH (20:18)
[2023-10-10] MEDS ORDERED: POTASSIUM CHLORIDE INJ 20 MEQ in DEXTROSE 5%-0.45% NACL 1,000 ML IV SCH (21:00)
[2023-10-10] MEDS: D5.45NS W/20 MEQ KCL 1,000 ML IV SCH (21:20)
[2023-10-10] MEDS: SODIUM CHLORIDE FLUSH 0.9% 10 ML SYRINGE IVP SCH (21:20)
[2023-10-10] MEDS: FAMOTIDINE 20 MG/2 ML VIAL IVP SCH (21:23)
[2023-10-10] MEDS ORDERED: D5.45NS W/20 MEQ KCL 1,000 ML IV ONE (21:27)
[2023-10-10 21:45] LABS: MAGNESIUM 1.6 mg/dL (1.7-2.3)
[2023-10-10 21:48] LABS: CALCIUM 9.4 mg/dL (8.5-10.3); CREATININE 0.6 mg/dL (0.6-1.3); POTASSIUM 4.3 mmol/L (3.5-4.5)
[2023-10-10] MEDS ORDERED: MAGNESIUM SULFATE 2 GRAM 2 GM/50 ML BAG IV ONE (22:24)
[2023-10-10] MEDS ORDERED: SODIUM CHLORIDE 0.9% 1,000 ML IV ONE (22:37)
[2023-10-10] MEDS ORDERED: BENZOCAINE/MENTHOL LOZENGE MM PRN (23:25)
[2023-10-10] MEDS: ethyl alcohoL 62% SWAB AMPULE NAS SCH (23:47)
[2023-10-11 00:05] LABS: CALCIUM 8.8 mg/dL (8.5-10.3); CREATININE 0.5 mg/dL (0.6-1.3); MAGNESIUM 1.5 mg/dL (1.7-2.3); POTASSIUM 4.5 mmol/L (3.5-4.5)
[2023-10-11] MEDS ORDERED: MAGNESIUM SULFATE 2 GRAM 2 GM/50 ML BAG IV ONE (01:11)
[2023-10-11 02:50] LABS: POTASSIUM 4.4 mmol/L (3.5-4.5)
[2023-10-11 03:05] LABS: MAGNESIUM 2.7 mg/dL (1.7-2.3)
[2023-10-11 06:03] LABS: BASOPHILS # (AUTO) 0.1 10^3/uL (0.0-0.1); BASOPHILS % (AUTO) 0.5 %; EOSINOPHILS % (AUTO) 0.1 %; HCT - HEMATOCRIT 31.1 % (37.0-47.0); HGB - HEMOGLOBIN 9.1 g/dL (12.0-16.0); LYMPHOCYTES # (AUTO) 1.7 10^3/uL (1.5-3.5); LYMPHOCYTES % (AUTO) 18.8 %; MEAN CORPUSCULAR HEMOGLOBIN 21.7 pg (27.0-31.0); MEAN CORPUSCULAR HGB CONC 29.3 g/dL (32.0-36.0); MEAN CORPUSCULAR VOLUME 74.2 fL (81.0-99.0); MONOCYTES % (AUTO) 10.5 %; NEUTROPHILS # (AUTO) 6.4 10^3/uL (1.5-6.6); NEUTROPHILS % (AUTO) 69.9 %; PLT - PLATELET COUNT 198 10^3/uL (130-450); RED BLOOD COUNT 4.19 10^6/uL (4.20-5.40); RED CELL DISTRIBUTION WIDTH 15.9 % (12.0-15.0); WHITE BLOOD COUNT 9.2 x10^3/uL (4.8-10.8)
[2023-10-11 06:23] LABS: CALCIUM 8.5 mg/dL (8.5-10.3); CREATININE 0.6 mg/dL (0.6-1.3); MAGNESIUM 2.4 mg/dL (1.7-2.3); PHOSPHORUS 2.8 mg/dL (2.5-5.0); POTASSIUM 4.2 mmol/L (3.5-4.5)
[2023-10-11 06:39] LABS: CALCIUM, IONIZED 1.14 mmol/L (1.15-1.33); VBG PH 7.272 (7.31-7.41)
--- NOTE | 2023-10-11 07:41 | PROVIDER PROGRESS NOTE ---
Subjective - Subjective Pt reports feeling: Improved (Not nauseated, has not thrown up drinking water sips) Objective - Vital Signs/Intake & Output Vital Signs: Vital Signs Temp Pulse Resp BP Pulse Ox 10/11/23 07:00 98 17 106/57 L 100 10/11/23 06:00 37.4 C 107 H 30 H 106/55 L 99 10/11/23 05:00 103 H 17 98/64 100 10/11/23 04:00 36.8 C 105 H 21 109/62 99 Intake & Output: Intake & Output 10/08/23 10/09/23 10/10/23 10/11/23 23:59 23:59 23:59 23:59 Intake Total 8806.628 7528.757 Output Total 0 1500 Balance 1014.754 441.757 - Objective General Appearance: positive: No acute distress, Alert Eyes Bilateral: positive: No lid inflammation ENT: positive: ENT inspection nml Neck: positive: Nml inspection Respiratory: positive: No respiratory distress Cardiovascular: positive: Regular rate & rhythm Abdomen: positive: No distention Skin: positive: Warm, Dry Extremities: positive: Non-tender, No pedal edema Neurologic/Psychiatric: positive: Oriented x3, Motor nml - Lab Results Fish Bones: 10/11/23 05:15 10/11/23 10:31 Other Labs: Lab Results x24hrs 10/11/23 10/11/23 10/11/23 Range/Units 05:15 05:15 05:15 WBC (4.8-10.8) x10^3/uL RBC (4.20-5.40) 10^6/uL Hgb (12.0-16.0) g/dL Hct (37.0-47.0) % MCV (81.0-99.0) fL MCH (27.0-31.0) pg MCHC (32.0-36.0) g/dL RDW (12.0-15.0) % Plt Count (130-450) 10^3/uL Neut # (Auto) Lymph # (Auto) [place] # (Auto) Eos # (Auto) Baso # (Auto) Absolute Nucleated RBC Total Counted Band Neuts % (Manual) (0 - 10) % Abnorm Lymph % (Manual) % Nucleated RBC % Neutrophils # (Manual) (1.5-6.6) 10^3/uL Lymphocytes # (Manual) (1.5-3.5) 10^3/uL Monocytes # (Manual) (0.0-1.0) 10^3/uL Eosinophils # (Manual) (0-0.7) 10^3/uL Basophils # (Manual) (0-0.1) 10^3/uL Differential Comment Platelet Estimate (NORMAL) Platelet Morphology (NORMAL) RBC Morph Micro Appear (NORMAL) VBG pH 7.272 L (7.31-7.41) VBG pCO2 (41-51) mmHg VBG pO2 (25-47) mmHg VBG HCO3 (23-28) mmol/L VBG Total CO2 (24-29) mmol/L VBG O2 Saturation (60-80) % VBG Base Excess (-2 - +2) mmol/L Ionized Calcium 1.14 L (1.15-1.33) mmol/L Sodium (135-145) mmol/L Potassium (3.5-4.5) mmol/L Chloride (101-111) mmol/L Carbon Dioxide (21-32) mmol/L Anion Gap (6-13) BUN (6-20) mg/dL Creatinine (0.6-1.3) mg/dL Estimated GFR (MDRD) (>89) Glucose (74-104) mg/dL Lactic Acid (0.5-2.2) mmol/L Calcium (8.5-10.3) mg/dL Phosphorus 2.8 (2.5-5.0) mg/dL Magnesium 2.4 H (1.7-2.3) mg/dL Iron (50-212) ug/dL TIBC (250-450) ug/dL % Saturation (20-50) % Transferrin (203-362) mg/dL Total Bilirubin (0.2-1.0) mg/dL AST (10-42) IU/L ALT (10-60) IU/L Alkaline Phosphatase (42-121) IU/L Total Protein (6.4-8.9) g/dL Albumin (3.2-5.5) g/dL Globulin (2.1-4.2) g/dL Albumin/Globulin Ratio (1.0-2.2) Lipase (11-82) U/L Urine Color Urine Clarity (CLEAR) Urine pH (5.0-7.5) PH Ur Specific [place] (1.002-1.030) Urine Protein (NEGATIVE) mg/dL Urine Glucose (UA) (NEGATIVE) mg/dL Urine Ketones (NEGATIVE) mg/dL Urine Occult Blood (NEGATIVE) Urine Nitrite (NEGATIVE) Urine Bilirubin (NEGATIVE) Urine Urobilinogen (NORMAL) E.U./dL Ur Leukocyte Esterase (NEGATIVE) Ur Microscopic Review Urine Culture Comments Urine HCG, Qual Nasal Screen MRSA (PCR) (NEGATIVE) Serum Ketones SMALL H (NEGATIVE) 10/11/23 10/11/23 10/11/23 Range/Units 05:15 05:15 01:43 WBC 9.2 (4.8-10.8) x10^3/uL RBC 4.19 L (4.20-5.40) 10^6/uL Hgb 9.1 L (12.0-16.0) g/dL Hct 31.1 L (37.0-47.0) % MCV 74.2 L (81.0-99.0) fL MCH 21.7 L (27.0-31.0) pg MCHC 29.3 L (32.0-36.0) g/dL RDW 15.9 H (12.0-15.0) % Plt Count 198 (130-450) 10^3/uL Neut # (Auto) 6.4 Lymph # (Auto) 1.7 [place] # (Auto) 1.0 Eos # (Auto) 0.0 Baso # (Auto) 0.1 Absolute Nucleated RBC 0.00 Total Counted Band Neuts % (Manual) (0 - 10) % Abnorm Lymph % (Manual) % Nucleated RBC % 0.0 Neutrophils # (Manual) (1.5-6.6) 10^3/uL Lymphocytes # (Manual) (1.5-3.5) 10^3/uL Monocytes # (Manual) (0.0-1.0) 10^3/uL Eosinophils # (Manual) (0-0.7) 10^3/uL Basophils # (Manual) (0-0.1) 10^3/uL Differential Comment Platelet Estimate (NORMAL) Platelet Morphology (NORMAL) RBC Morph Micro Appear (NORMAL) VBG pH (7.31-7.41) VBG pCO2 (41-51) mmHg VBG pO2 (25-47) mmHg VBG HCO3 (23-28) mmol/L VBG Total CO2 (24-29) mmol/L VBG O2 Saturation (60-80) % VBG Base Excess (-2 - +2) mmol/L Ionized Calcium (1.15-1.33) mmol/L Sodium 131 L (135-145) mmol/L Potassium 4.2 (3.5-4.5) mmol/L Chloride 105 (101-111) mmol/L Carbon Dioxide 14 L (21-32) mmol/L Anion Gap 12.0 (6-13) BUN 10 (6-20) mg/dL Creatinine 0.6 (0.6-1.3) mg/dL Estimated GFR (MDRD) 120 (>89) Glucose 206 H (74-104) mg/dL Lactic Acid (0.5-2.2) mmol/L Calcium 8.5 (8.5-10.3) mg/dL Phosphorus 3.0 (2.5-5.0) mg/dL Magnesium 2.7 H (1.7-2.3) mg/dL Iron (50-212) ug/dL TIBC (250-450) ug/dL % Saturation (20-50) % Transferrin (203-362) mg/dL Total Bilirubin (0.2-1.0) mg/dL AST (10-42) IU/L ALT (10-60) IU/L Alkaline Phosphatase (42-121) IU/L Total Protein (6.4-8.9) g/dL Albumin (3.2-5.5) g/dL Globulin (2.1-4.2) g/dL Albumin/Globulin Ratio (1.0-2.2) Lipase (11-82) U/L Urine Color Urine Clarity (CLEAR) Urine pH (5.0-7.5) PH Ur Specific [place] (1.002-1.030) Urine Protein (NEGATIVE) mg/dL Urine Glucose (UA) (NEGATIVE) mg/dL Urine Ketones (NEGATIVE) mg/dL Urine Occult Blood (NEGATIVE) Urine Nitrite (NEGATIVE) Urine Bilirubin (NEGATIVE) Urine Urobilinogen (NORMAL) E.U./dL Ur Leukocyte Esterase (NEGATIVE) Ur Microscopic Review Urine Culture Comments Urine HCG, Qual Nasal Screen MRSA (PCR) (NEGATIVE) Serum Ketones (NEGATIVE) 10/11/23 10/10/2310/10/23 Range/Units 01:43 23:43 23:43 WBC (4.8-10.8) x10^3/uL RBC (4.20-5.40) 10^6/uL Hgb (12.0-16.0) g/dL Hct (37.0-47.0) % MCV (81.0-99.0) fL MCH (27.0-31.0) pg MCHC (32.0-36.0) g/dL RDW (12.0-15.0) % Plt Count (130-450) 10^3/uL Neut # (Auto) Lymph # (Auto) [place] # (Auto) Eos # (Auto) Baso # (Auto) Absolute Nucleated RBC Total Counted Band Neuts % (Manual) (0 - 10) % Abnorm Lymph % (Manual) % Nucleated RBC % Neutrophils # (Manual) (1.5-6.6) 10^3/uL Lymphocytes # (Manual) (1.5-3.5) 10^3/uL Monocytes # (Manual) (0.0-1.0) 10^3/uL Eosinophils # (Manual) (0-0.7) 10^3/uL Basophils # (Manual) (0-0.1) 10^3/uL Differential Comment Platelet Estimate (NORMAL) Platelet Morphology (NORMAL) RBC Morph Micro Appear (NORMAL) VBG pH (7.31-7.41) VBG pCO2 (41-51) mmHg VBG pO2 (25-47) mmHg VBG HCO3 (23-28) mmol/L VBG Total CO2 (24-29) mmol/L VBG O2 Saturation (60-80) % VBG Base Excess (-2 - +2) mmol/L Ionized Calcium (1.15-1.33) mmol/L Sodium 130 L (135-145) mmol/L Potassium 4.4 4.5 (3.5-4.5) mmol/L Chloride 105 (101-111) mmol/L Carbon Dioxide 13 L (21-32) mmol/L Anion Gap 12.0 (6-13) BUN 12 (6-20) mg/dL Creatinine 0.5 L (0.6-1.3) mg/dL Estimated GFR (MDRD) 148 (>89) Glucose 114 H 127 H (74-104) mg/dL Lactic Acid (0.5-2.2) mmol/L Calcium 8.8 (8.5-10.3) mg/dL Phosphorus 3.1 (2.5-5.0) mg/dL Magnesium 1.5 L (1.7-2.3) mg/dL Iron 12 L (50-212) ug/dL TIBC 350 (250-450) ug/dL % Saturation 3 L (20-50) % Transferrin 250 (203-362) mg/dL Total Bilirubin (0.2-1.0) mg/dL AST (10-42) IU/L ALT (10-60) IU/L Alkaline Phosphatase (42-121) IU/L Total Protein (6.4-8.9) g/dL Albumin (3.2-5.5) g/dL Globulin (2.1-4.2) g/dL Albumin/Globulin Ratio (1.0-2.2) Lipase (11-82) U/L Urine Color Urine Clarity (CLEAR) Urine pH (5.0-7.5) PH Ur Specific [place] (1.002-1.030) Urine Protein (NEGATIVE) mg/dL Urine Glucose (UA) (NEGATIVE) mg/dL Urine Ketones (NEGATIVE) mg/dL Urine Occult Blood (NEGATIVE) Urine Nitrite (NEGATIVE) Urine Bilirubin (NEGATIVE) Urine Urobilinogen (NORMAL) E.U./dL Ur Leukocyte Esterase (NEGATIVE) Ur Microscopic Review Urine Culture Comments Urine HCG, Qual Nasal Screen MRSA (PCR) (NEGATIVE) Serum Ketones (NEGATIVE) 10/10/23 10/10/23 10/10/23 Range/Units 21:28 21:28 20:05 WBC (4.8-10.8) x10^3/uL RBC (4.20-5.40) 10^6/uL Hgb (12.0-16.0) g/dL Hct (37.0-47.0) % MCV (81.0-99.0) fL MCH (27.0-31.0) pg MCHC (32.0-36.0) g/dL RDW (12.0-15.0) % Plt Count (130-450) 10^3/uL Neut # (Auto) Lymph # (Auto) [place] # (Auto) Eos # (Auto) Baso # (Auto) Absolute Nucleated RBC Total Counted Band Neuts % (Manual) (0 - 10) % Abnorm Lymph % (Manual) % Nucleated RBC % Neutrophils # (Manual) (1.5-6.6) 10^3/uL Lymphocytes # (Manual) (1.5-3.5) 10^3/uL Monocytes # (Manual) (0.0-1.0) 10^3/uL Eosinophils # (Manual) (0-0.7) 10^3/uL Basophils # (Manual) (0-0.1) 10^3/uL Differential Comment Platelet Estimate (NORMAL) Platelet Morphology (NORMAL) RBC Morph Micro Appear (NORMAL) VBG pH (7.31-7.41) VBG pCO2 (41-51) mmHg VBG pO2 (25-47) mmHg VBG HCO3 (23-28) mmol/L VBG Total CO2 (24-29) mmol/L VBG O2 Saturation (60-80) % VBG Base Excess (-2 - +2) mmol/L Ionized Calcium (1.15-1.33) mmol/L Sodium 131 L (135-145) mmol/L Potassium 4.3 (3.5-4.5) mmol/L Chloride 104 (101-111) mmol/L Carbon Dioxide 12 L* (21-32) mmol/L Anion Gap 15.0 H (6-13) BUN 14 (6-20) mg/dL Creatinine 0.6 (0.6-1.3) mg/dL Estimated GFR (MDRD) 120 (>89) Glucose 121 H (74-104) mg/dL Lactic Acid (0.5-2.2) mmol/L Calcium 9.4 (8.5-10.3) mg/dL Phosphorus 3.1 (2.5-5.0) mg/dL Magnesium 1.6 L (1.7-2.3) mg/dL Iron (50-212) ug/dL TIBC (250-450) ug/dL % Saturation (20-50) % Transferrin (203-362) mg/dL Total Bilirubin (0.2-1.0) mg/dL AST (10-42) IU/L ALT (10-60) IU/L Alkaline Phosphatase (42-121) IU/L Total Protein (6.4-8.9) g/dL Albumin (3.2-5.5) g/dL Globulin (2.1-4.2) g/dL Albumin/Globulin Ratio (1.0-2.2) Lipase (11-82) U/L Urine Color Urine Clarity (CLEAR) Urine pH (5.0-7.5) PH Ur Specific [place] (1.002-1.030) Urine Protein (NEGATIVE) mg/dL Urine Glucose (UA) (NEGATIVE) mg/dL Urine Ketones (NEGATIVE) mg/dL Urine Occult Blood (NEGATIVE) Urine Nitrite (NEGATIVE) Urine Bilirubin (NEGATIVE) Urine Urobilinogen (NORMAL) E.U./dL Ur Leukocyte Esterase (NEGATIVE) Ur Microscopic Review Urine Culture Comments Urine HCG, Qual Nasal Screen MRSA (PCR) POSITIVE A* (NEGATIVE) Serum Ketones (NEGATIVE) 10/10/23 10/10/23 10/10/23 Range/Units 19:36 17:00 16:14 WBC (4.8-10.8) x10^3/uL RBC (4.20-5.40) 10^6/uL Hgb (12.0-16.0) g/dL Hct (37.0-47.0) % MCV (81.0-99.0) fL MCH (27.0-31.0) pg MCHC (32.0-36.0) g/dL RDW (12.0-15.0) % Plt Count (130-450) 10^3/uL Neut # (Auto) Lymph # (Auto) [place] # (Auto) Eos # (Auto) Baso # (Auto) Absolute Nucleated RBC Total Counted Band Neuts % (Manual) (0 - 10) % Abnorm Lymph % (Manual) % Nucleated RBC % Neutrophils # (Manual) (1.5-6.6) 10^3/uL Lymphocytes # (Manual) (1.5-3.5) 10^3/uL Monocytes # (Manual) (0.0-1.0) 10^3/uL Eosinophils # (Manual) (0-0.7) 10^3/uL Basophils # (Manual) (0-0.1) 10^3/uL Differential Comment Platelet Estimate (NORMAL) Platelet Morphology (NORMAL) RBC Morph Micro Appear (NORMAL) VBG pH 7.129 L* (7.31-7.41) VBG pCO2 33.2 L (41-51) mmHg VBG pO2 22.2 L (25-47) mmHg VBG HCO3 10.8 L (23-28) mmol/L VBG Total CO2 11.8 L (24-29) mmol/L VBG O2 Saturation 27.3 L (60-80) % VBG Base Excess -17.3 L (-2 - +2) mmol/L Ionized Calcium (1.15-1.33) mmol/L Sodium 130 L (135-145) mmol/L Potassium 4.4 (3.5-4.5) mmol/L Chloride 103 (101-111) mmol/L Carbon Dioxide 12 L* (21-32) mmol/L Anion Gap 15.0 H (6-13) BUN 14 (6-20) mg/dL Creatinine 0.7 (0.6-1.3) mg/dL Estimated GFR (MDRD) 100 (>89) Glucose 143 H (74-104) mg/dL Lactic Acid (0.5-2.2) mmol/L Calcium 9.4 (8.5-10.3) mg/dL Phosphorus (2.5-5.0) mg/dL Magnesium 1.7 (1.7-2.3) mg/dL Iron (50-212) ug/dL TIBC (250-450) ug/dL % Saturation (20-50) % Transferrin (203-362) mg/dL Total Bilirubin (0.2-1.0) mg/dL AST (10-42) IU/L ALT (10-60) IU/L Alkaline Phosphatase (42-121) IU/L Total Protein (6.4-8.9) g/dL Albumin (3.2-5.5) g/dL Globulin (2.1-4.2) g/dL Albumin/Globulin Ratio (1.0-2.2) Lipase (11-82) U/L Urine Color YELLOW Urine Clarity CLEAR (CLEAR) Urine pH 6.0 (5.0-7.5) PH Ur Specific [place] >=1.030 H (1.002-1.030) Urine Protein TRACE (NEGATIVE) mg/dL Urine Glucose (UA) 500 H (NEGATIVE) mg/dL Urine Ketones >=80 H (NEGATIVE) mg/dL Urine Occult Blood NEGATIVE (NEGATIVE) Urine Nitrite NEGATIVE (NEGATIVE) Urine Bilirubin NEGATIVE (NEGATIVE) Urine Urobilinogen 0.2 (NORMAL) (NORMAL) E.U./dL Ur Leukocyte Esterase NEGATIVE (NEGATIVE) Ur Microscopic Review NOT INDICATED Urine Culture Comments NOT INDICATED Urine HCG, Qual NEGATIVE Nasal Screen MRSA (PCR) (NEGATIVE) Serum Ketones (NEGATIVE) 10/10/23 10/10/23 10/10/23 Range/Units 16:14 16:14 16:14 WBC 17.5 H (4.8-10.8) x10^3/uL RBC 5.09 (4.20-5.40) 10^6/uL Hgb 11.1 L (12.0-16.0) g/dL Hct 39.0 (37.0-47.0) % MCV 76.6 L (81.0-99.0) fL MCH 21.8 L (27.0-31.0) pg MCHC 28.5 L (32.0-36.0) g/dL RDW 15.9 H (12.0-15.0) % Plt Count 251 (130-450) 10^3/uL Neut # (Auto) Not Reportable Lymph # (Auto) Not Reportable [place] # (Auto) Not Reportable Eos # (Auto) Not Reportable Baso # (Auto) Not Reportable Absolute Nucleated RBC Not Reportable Total Counted 100 Band Neuts % (Manual) 1 (0 - 10) % Abnorm Lymph % (Manual) 0 % Nucleated RBC % Not Reportable Neutrophils # (Manual) 15.4 H (1.5-6.6) 10^3/uL Lymphocytes # (Manual) 1.2 L (1.5-3.5) 10^3/uL Monocytes # (Manual) 0.9 (0.0-1.0) 10^3/uL Eosinophils # (Manual) 0.0 (0-0.7) 10^3/uL Basophils # (Manual) 0.0 (0-0.1) 10^3/uL Differential Comment MANUAL DIFFERENTIAL Platelet Estimate NORMAL (130-450,000) (NORMAL) Platelet Morphology 2+ GIANT PLATELETS (NORMAL) RBC Morph Micro Appear 1+ HYPOCHROMASIA (NORMAL) VBG pH (7.31-7.41) VBG pCO2 (41-51) mmHg VBG pO2 (25-47) mmHg VBG HCO3 (23-28) mmol/L VBG Total CO2 (24-29) mmol/L VBG O2 Saturation (60-80) % VBG Base Excess (-2 - +2) mmol/L Ionized Calcium (1.15-1.33) mmol/L Sodium 126 L (135-145) mmol/L Potassium 5.1 H (3.5-4.5) mmol/L Chloride 96 L (101-111) mmol/L Carbon Dioxide 11 L* (21-32) mmol/L Anion Gap 19.0 H (6-13) BUN 16 (6-20) mg/dL Creatinine 0.8 (0.6-1.3) mg/dL Estimated GFR (MDRD) 86 L (>89) Glucose 359 H (74-104) mg/dL Lactic Acid 2.6 H (0.5-2.2) mmol/L Calcium 9.6 (8.5-10.3) mg/dL Phosphorus (2.5-5.0) mg/dL Magnesium (1.7-2.3) mg/dL Iron (50-212) ug/dL TIBC (250-450) ug/dL % Saturation (20-50) % Transferrin (203-362) mg/dL Total Bilirubin 0.6 (0.2-1.0) mg/dL AST 12 (10-42) IU/L ALT 7 L (10-60) IU/L Alkaline Phosphatase 84 (42-121) IU/L Total Protein 8.9 (6.4-8.9) g/dL Albumin 5.1 (3.2-5.5) g/dL Globulin 3.8 (2.1-4.2) g/dL Albumin/Globulin Ratio 1.3 (1.0-2.2) Lipase < 10 L (11-82) U/L Urine Color Urine Clarity (CLEAR) Urine pH (5.0-7.5) PH Ur Specific [place] (1.002-1.030) Urine Protein (NEGATIVE) mg/dL Urine Glucose (UA) (NEGATIVE) mg/dL Urine Ketones (NEGATIVE) mg/dL Urine Occult Blood (NEGATIVE) Urine Nitrite (NEGATIVE) Urine Bilirubin (NEGATIVE) Urine Urobilinogen (NORMAL) E.U./dL Ur Leukocyte Esterase (NEGATIVE) Ur Microscopic Review Urine Culture Comments Urine HCG, Qual Nasal Screen MRSA (PCR) (NEGATIVE) Serum Ketones SMALL H (NEGATIVE) Assessment/Plan - Problem List (1) DKA (diabetic ketoacidoses) Impression: The patient presented in DKA yesterday to the ER. It appears that the cause was a URI and possibly gastroenteritis as well. She has been on the insulin drip overnight. Her glucose had dropped below 200 overnight and the IV fluids now contain D5 There have been no serum ketones checked since yesterday in the ER. Her labs today show continued pseudohyponatremia, consistent with high serum glucose levels (all labs were reviewed) Plan: Start checking serum ketones every 2 hours Continue with DKA protocol including IV insulin drip and checking glu levels. The insulin drip should continue until her serum ketones are negative Continue with IV fluids I will slowly advance her diet today Qualifiers: Diabetes mellitus type: type 1 (2) MRSA carrier Impression: Plan: She got nasal swabs and cleaning done (3) Iron deficiency anemia Impression: Plan: We will give 1 dose of IV iron dextran today Start the patient on oral iron, if she is not nauseated/vomiting Follow hemoglobin daily, transfuse if hemoglobin less than 7
[2023-10-11 08:02] LABS: KETONES, SERUM (ACETEST) SMALL (NEGATIVE)
[2023-10-11] MEDS: ENOXAPARIN 40 MG/0.4 ML SYRINGE SUBQ SCH (08:05)
[2023-10-11] MEDS: ethyl alcohoL 62% SWAB AMPULE NAS SCH ×2 (08:05→20:41)
[2023-10-11] MEDS: SODIUM CHLORIDE FLUSH 0.9% 10 ML SYRINGE IVP SCH ×2 (08:05→15:53)
[2023-10-11] MEDS: FAMOTIDINE 20 MG/2 ML VIAL IVP SCH ×2 (08:05→20:41)
[2023-10-11 08:13] LABS: BUN - BLOOD UREA NITROGEN 10 mg/dL (6-20); CALCIUM 8.3 mg/dL (8.5-10.3); CARBON DIOXIDE - CO2 17 mmol/L (21-32); CHLORIDE 106 mmol/L (101-111); CREATININE 0.6 mg/dL (0.6-1.3); GFR - MDRD 120 (>89); GLUCOSE 226 mg/dL (74-104); POTASSIUM 4.1 mmol/L (3.5-4.5); SODIUM 130 mmol/L (135-145)
[2023-10-11] MEDS: D5.45NS W/20 MEQ KCL 1,000 ML IV SCH ×2 (09:11→17:25)
[2023-10-11 09:19] LABS: GLUCOSE 218 mg/dL (74-104)
[2023-10-11 09:24] LABS: KETONES, SERUM (ACETEST) SMALL (NEGATIVE)
[2023-10-11 10:53] LABS: KETONES, SERUM (ACETEST) SMALL (NEGATIVE)
[2023-10-11 11:04] LABS: BUN - BLOOD UREA NITROGEN 9 mg/dL (6-20); CALCIUM 8.3 mg/dL (8.5-10.3); CARBON DIOXIDE - CO2 19 mmol/L (21-32); CHLORIDE 109 mmol/L (101-111); CREATININE 0.5 mg/dL (0.6-1.3); GFR - MDRD 148 (>89); GLUCOSE 137 mg/dL (74-104); POTASSIUM 3.7 mmol/L (3.5-4.5); SODIUM 133 mmol/L (135-145)
[2023-10-11] MEDS: POTASSIUM CHLOR 10 MEQ/100 ML 10 MEQ/100 ML BAG IV SCH ×4 (11:25→18:16)
[2023-10-11] MEDS ORDERED: IRON DEXTRAN 1,000 MG in SODIUM CHLORIDE 0.9% 250 ML IV SCH (12:00)
[2023-10-11] MEDS ORDERED: IRON DEXTRAN 1,000 MG in SODIUM CHLORIDE 0.9% 250 ML IV ONE (12:00)
[2023-10-11 12:04] LABS: ESTIMATED AVERAGE GLUCOSE 286 mg/dL (70-100); HEMOGLOBIN A1c% 11.6 % (4.27-6.07)
[2023-10-11 12:08] LABS: MAGNESIUM 1.7 mg/dL (1.7-2.3)
[2023-10-11] MEDS ORDERED: MAGNESIUM OXIDE 400 MG TABLET PO ONE (12:12)
[2023-10-11] MEDS: NEUTRA-PHOS 250 MG TABLET PO SCH ×2 (12:18→14:58)
[2023-10-11] MEDS: INSULIN REGULAR IN 0.9 % NS 100 UNIT/100 ML BAG IV SCH (14:30)
[2023-10-11 16:09] LABS: BUN - BLOOD UREA NITROGEN 6 mg/dL (6-20); CALCIUM 8.3 mg/dL (8.5-10.3); CARBON DIOXIDE - CO2 20 mmol/L (21-32); CHLORIDE 109 mmol/L (101-111); CREATININE 0.6 mg/dL (0.6-1.3); GFR - MDRD 120 (>89); GLUCOSE 242 mg/dL (74-104); POTASSIUM 3.8 mmol/L (3.5-4.5); SODIUM 135 mmol/L (135-145)
[2023-10-11 16:14] LABS: KETONES, SERUM (ACETEST) NEGATIVE (NEGATIVE)
--- NOTE | 2023-10-11 16:36 | PHARMACY PROGRESS NOTE ---
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 Such practice is discouraged except when the physician, in their clinical judgment, deems that a medical need exists for a medication without regard to previous use.
[2023-10-11] MEDS ORDERED: MAGNESIUM OXIDE 400 MG TABLET PO SCH (17:00)
[2023-10-11 20:10] LABS: CALCIUM 8.2 mg/dL (8.5-10.3); CREATININE 0.5 mg/dL (0.6-1.3); POTASSIUM 4.8 mmol/L (3.5-4.5)
[2023-10-11] MEDS: INSULIN LISPRO 300 UNIT/3 ML PEN SUBQ SCH (20:42)
[2023-10-11] MEDS ORDERED: INSULIN GLARGINE-YFGN 300 UNIT/3 ML PEN SUBQ SCH (21:00)
[2023-10-11 22:02] LABS: CALCIUM 8.3 mg/dL (8.5-10.3); CREATININE 0.5 mg/dL (0.6-1.3); POTASSIUM 4.2 mmol/L (3.5-4.5)
[2023-10-12] MEDS: SODIUM CHLORIDE FLUSH 0.9% 10 ML SYRINGE IVP SCH ×2 (01:02→08:26)
[2023-10-12] MEDS: D5.45NS W/20 MEQ KCL 1,000 ML IV SCH ×2 (01:02→09:39)
[2023-10-12 05:39] LABS: CALCIUM, IONIZED 1.12 mmol/L (1.15-1.33); VBG PH 7.303 (7.31-7.41)
[2023-10-12 05:41] LABS: MAGNESIUM 1.7 mg/dL (1.7-2.3); PHOSPHORUS 3.2 mg/dL (2.5-5.0)
[2023-10-12 05:48] LABS: CALCIUM 9.1 mg/dL (8.5-10.3); CREATININE 0.6 mg/dL (0.6-1.3); POTASSIUM 4.6 mmol/L (3.5-4.5)
[2023-10-12 05:57] LABS: BASOPHILS % (AUTO) 0.6 %; EOSINOPHILS % (AUTO) 0.2 %; HCT - HEMATOCRIT 33.3 % (37.0-47.0); HGB - HEMOGLOBIN 9.5 g/dL (12.0-16.0); LYMPHOCYTES # (AUTO) 1.6 10^3/uL (1.5-3.5); MEAN CORPUSCULAR HEMOGLOBIN 21.6 pg (27.0-31.0); MEAN CORPUSCULAR HGB CONC 28.5 g/dL (32.0-36.0); MEAN CORPUSCULAR VOLUME 75.9 fL (81.0-99.0); MONOCYTES # (AUTO) 0.4 10^3/uL (0.0-1.0); NEUTROPHILS # (AUTO) 3.4 10^3/uL (1.5-6.6); RED BLOOD COUNT 4.39 10^6/uL (4.20-5.40); RED CELL DISTRIBUTION WIDTH 16.6 % (12.0-15.0); WHITE BLOOD COUNT 5.4 x10^3/uL (4.8-10.8)
[2023-10-12 05:58] LABS: PLT - PLATELET COUNT 169 10^3/uL (130-450)
[2023-10-12] MEDS ORDERED: MAGNESIUM OXIDE 400 MG TABLET PO ONE (08:00)
[2023-10-12] MEDS: INSULIN LISPRO 300 UNIT/3 ML PEN SUBQ SCH (08:25)
[2023-10-12] MEDS: ENOXAPARIN 40 MG/0.4 ML SYRINGE SUBQ SCH (08:25)
[2023-10-12] MEDS: FAMOTIDINE 20 MG/2 ML VIAL IVP SCH (08:25)
[2023-10-12] MEDS: ethyl alcohoL 62% SWAB AMPULE NAS SCH (08:26)
[2023-10-12] MEDS ORDERED: INSULIN GLARGINE-YFGN 300 UNIT/3 ML PEN SUBQ ONE (08:29)
--- NOTE | 2023-10-12 08:35 | Discharge Plan ---
Discharge Plan Problem Reviewed?: Yes Disposition: Home, Self Care Condition: Fair Diet: Diabetic Activity Restrictions: Activity as Tolerated Shower Restrictions: No Driving Restrictions: No Health Concerns: You were hospitalized to manage and treat DKA. The DKA was probably caused by a viral illness you had, in addition to the recent changes in your Insulin dosing. You are being discharged home today. Please continue to eat a Diabetic diet and resume using your NovoLog Insulin via your pump, which works for you. Since that NovoLog was prescribed previously by your doctor and is ready for you to peanut picker at your pharmacy, I have not sent over a new prescription for that. 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 Plan of Treatment: As above. Care Goals: Improvement in symptoms and stabilization are the goals. Assessment: The patient understands and is agreeable with the plan. No Smoking: If you smoke, Please STOP! Call for help.
--- NOTE | 2023-10-12 08:39 | DISCHARGE SUMMARY ---
Discharge Summary Admit Date: 10/10/23 Discharge Date: 10/12/23 Discharging Provider: Dr Angelita Nicole Primary Care Provider: CASA Cochran Condition at Discharge: Good Discharge Disposition: 01 Home, Self Care - HPI History of Present Illness: 27 yo F with PMH of DM type 1 on insulin pump, multiple admits for DKA, Anxiety presented to the ER with c/o 1 day h/o N/V. Pt was first dx'd with DM type 1 after going into DKA in 2018. Her last hospitalization for DKA was in 04/2023. She has been seeing an Meat And Seafood Clerk. She did not do well on long-acting insulin previously, so has been managed on short-acting insulin alone via insulin pump. She was doing well on Novolog insulin and her Hgba1c was improving. About 2 months ago, her insurance changed her Novolog to Humalog. Since then, her BS have been up and down and difficult to control. Her Meat And Seafood Clerk has submitted a pre-auth for the Humalog, it has been approved and should be available at her pharmacy soon. About 2 weeks ago, pt began to have URI symptoms: coryza, H/A, Shortness of breath, wheezing. No cough/CP. About 1 week ago, she began to have intermittent loose stools with abdominal cramping, around 4x/day: no black or bloody stool. Then, last night, she began to have nausea and had vomiting every time she tried to eat or drink somethinx: non-bloody, not black. +Abdo cramps with vomiting. +Subj F/C. Her loose stools have resolved. Her abdo pain has resolved. In the ER, HR 105, WBC 17, CO2 11, AG 19, pH 7.12, BS [id number], HCG neg. Pt was given IVF and started on Insulin gtt in the ER. - HOSPITAL COURSE Hospital Course: (1) DKA (diabetic ketoacidoses) Her DKA was likely caused by a URI and possibly gastroenteritis as well. We also learned her usual Novolog Insulin was being substituted with Humalog Insulin recently, and this was not controlling her DM. Lg labs showed pseudohyponatremia, consistent with high glu levels. Here she was started on DKA protocol, iv Insulin drip, iv fluids and her serum ketones and electrolytes were closely monitored in the ICU. When ketones became neg, she was ordered to get Lantus Insulin BID and sliding scale coverage. She refused the long acting Insulin. Her N/V ceased and she had her diet advanced. At discharge, she said her usual Novolog Insulin was available at her pharmacy and that she intended to go directly to pick it up and being that insulin treatment via her pump. (2) MRSA carrier She got nasal swabs and cleaning done (3) Iron deficiency anemia Hgb was 11 at admission but dropped to 9.5 after iv fluids and her Iron panel was low. She got a dose of IV Iron Dextran. Consider starting the patient on oral iron, if she is not nauseated/vomiting - ALLERGIES Allergies/Adverse Reactions: Allergies Allergy/AdvReac Type Severity Reaction Status Date / Time No Known Drug Allergies Allergy Verified 10/10/23 15:56 - PHYSICAL EXAM AT DISCHARGE General Appearance: positive: No acute distress, Alert, Other (Disheveled. Thin female (BMI 19.4)) Eyes Bilateral: positive: Normal inspection, EOMI, Other (wearing glasses) ENT: positive: ENT inspection nml, No signs of dehydration Neck: positive: Nml inspection, No JVD Respiratory: positive: No respiratory distress, Breath sounds nml Cardiovascular: positive: Regular rate & rhythm, No murmur Abdomen: positive: Non-tender, Nml bowel sounds, No distention Skin: positive: Warm Extremities: positive: No pedal edema Neurologic/Psychiatric: positive: Oriented x3, CN's nml (2-12), Motor nml - LABS Result Diagrams: 10/12/23 04:39 10/12/23 04:39 - FOLLOW UP Follow Up: See PCP and Meat And Seafood Clerk in F/U. - TIME SPENT Time Spent in Discharge (Minutes): 40
[2023-10-12 09:11] VITALS: O2SAT 99
[2023-10-12 11:16] VITALS: BP 114/78
[2023-10-12] MEDS ORDERED: INSULIN LISPRO 300 UNIT/3 ML PEN SUBQ SCH (12:00)
== END 2023-10-12 12:01 | disposition home or self-care (01) | DRG 638 ==
LOC: EDUNIT# → ED 15:50 → ICU 19:28
PROVIDERS: ADMIT Internal Medicine; ATTEND Internal Medicine
DX: E10.10 Type 1 diabetes mellitus with ketoacidosis without coma (principal); E87.1 Hypo-osmolality and hyponatremia; Z96.41 Presence of insulin pump (external) (internal); Z22.322 Carrier or suspected carrier of Methicillin resistant Staphylococcus aureus; D50.9 Iron deficiency anemia, unspecified; F41.9 Anxiety disorder, unspecified; J06.9 Acute upper respiratory infection, unspecified; K52.9 Noninfective gastroenteritis and colitis, unspecified
CPT/HCPCS: 36415; 71045; 80048; 80053; 81003; 81025; 82009; 82330; 82728; 82803; 82947; 83036; 83540; 83605; 83690; 83735; 84100; 84132; 84466; 85025; 87040; 87150; 96360; 96361; 99284; 99285; A9270; J1650; J1750; J1815; 81001; 87086

== ENCOUNTER 2024-01-06 11:37 | Outpatient (CLI) | payer MEDICAID | END 2024-01-06 23:59 | disposition critical access hospital (66) | LOC: EMS 11:37 | DX: R11.2 Nausea with vomiting, unspecified (principal); M54.9 Dorsalgia, unspecified; E10.65 Type 1 diabetes mellitus with hyperglycemia; R39.89 Other symptoms and signs involving the genitourinary system | CPT/HCPCS: A0425; A0429; A0999 ==

== ENCOUNTER 2024-01-06 12:08 | Inpatient (IN) | payer MEDICAID ==
--- NOTE | 2024-01-06 12:16 | ED Physician Documentation ---
PD HPI NVD - Stated complaint Stated Complaint: N/V - Chief complaint Chief Complaint: Abd Pain - History obtained from History obtained from: Patient, EMS - Additonal information Additional information: 28-year-old woman with history of type 1 diabetes managed with an insulin pump. She has a history of DKA in the past and has been ill for a few days with some flank pain, foamy urine, fever to 102, and vomiting. She is not able to keep anything down. She denies diarrhea. She has mild abdominal cramps. When queried if it feels like DKA she vacillates and says I do not know. Her last blood sugar per her was 274. Prehospital IV attempts were not successful. PD PAST MEDICAL HISTORY - Past Medical History Past Medical History: Yes Cardiovascular: None Respiratory: None Neuro: None Endocrine/Autoimmune: Type 1 diabetes GI: None : None Psych: Anxiety Musculoskeletal: None Derm: None - Past Surgical History Past Surgical History: No - Allergies Allergies/Adverse Reactions: Allergies Allergy/AdvReac Type Severity Reaction Status Date / Time No Known Drug Allergies Allergy Verified 01/06/24 12:11 - Social History Does the pt smoke?: No Smoking Status: Never smoker Does the pt drink ETOH?: No Does the pt have substance abuse?: No - Immunizations Immunizations are current?: Yes - POLST Patient has POLST: No PD ED PE NORMAL - Vitals Vital signs reviewed: Yes (Tachycardic and tachypneic but not toxic appearing.) - General General: Alert and oriented X 3 - Cardiac Cardiac: Other (Tachycardic but regular without murmur) - Respiratory Respiratory: Clear bilaterally, Other (Tachypneic) - Abdomen Abdomen: Non tender - Back Back: No CVA TTP - Derm Derm: Normal color, Warm and dry, No rash - Neuro Neuro: Alert and oriented X 3, Normal speech Results - Vitals Vitals: Vital Signs - 24 hr 01/06/24 12:11 Temperature 36.8 C Heart Rate 82 Respiratory 16 Rate Blood Pressure 138/88 H O2 Saturation 98 Oxygen O2 Source Room air - Labs Labs: Laboratory Tests 01/06/24 01/06/24 01/06/24 12:21 12:21 12:21 WBC 10.8 RBC 5.82 H Hgb 16.6 H Hct 53.4 H MCV 91.8 MCH 28.5 MCHC 31.1 L RDW 16.3 H Plt Count 173 Neut # (Auto) 8.9 H Lymph # (Auto) 0.7 L [place] # (Auto) 0.9 Eos # (Auto) 0.0 Baso # (Auto) 0.1 Absolute Nucleated RBC 0.00 Nucleated RBC % 0.0 VBG pH 7.004 L* VBG pCO2 22.7 L VBG pO2 34.9 VBG HCO3 5.5 L VBG Total CO2 6.2 L VBG O2 Saturation 65.6 VBG Base Excess -24.3 L Sodium 125 L Potassium 4.5 Chloride 96 L Carbon Dioxide 5 L* Anion Gap 24.0 H BUN 9 Creatinine 1.0 Estimated GFR (MDRD) 66 L Glucose 351 H Calcium 9.2 Phosphorus 4.0 Magnesium 1.8 Total Bilirubin 0.3 AST 9 L ALT 7 L Alkaline Phosphatase 100 Total Protein 9.0 H Albumin 4.7 Globulin 4.3 H Albumin/Globulin Ratio 1.1 Nasal Adenovirus (PCR) Nasal B. parapertussis DNA (PCR) Nasal Coronavir 229E PCR Nasal Coronavir HKU1 PCR Nasal Coronavir NL63 PCR Nasal Coronavir OC43 PCR Nasal Enterovir/Rhinovir PCR Nasal Influenza B PCR Nasal Influenza A PCR Nasal Parainfluen 1 PCR Nasal Parainfluen 2 PCR Nasal Parainfluen 3 PCR Nasal Parainfluen 4 PCR Nasal RSV (PCR) Nasal B.pertussis DNA PCR Nasal C.pneumoniae (PCR) Ld Human Metapneumo PCR Nasal M.pneumoniae (PCR) Nasal SARS-CoV-2 (PCR) Serum Ketones SMALL H 01/06/24 12:30 WBC RBC Hgb Hct MCV MCH MCHC RDW Plt Count Neut # (Auto) Lymph # (Auto) [place] # (Auto) Eos # (Auto) Baso # (Auto) Absolute Nucleated RBC Nucleated RBC % VBG pH VBG pCO2 VBG pO2 VBG HCO3 VBG Total CO2 VBG O2 Saturation VBG Base Excess Sodium Potassium Chloride Carbon Dioxide Anion Gap BUN Creatinine Estimated GFR (MDRD) Glucose Calcium Phosphorus Magnesium Total Bilirubin AST ALT Alkaline Phosphatase Total Protein Albumin Globulin Albumin/Globulin Ratio Nasal Adenovirus (PCR) NOT DETECTED Nasal B. parapertussis DNA (PCR) NOT DETECTED Nasal Coronavir 229E PCR NOT DETECTED Nasal Coronavir HKU1 PCR NOT DETECTED Nasal Coronavir NL63 PCR NOT DETECTED Nasal Coronavir OC43 PCR NOT DETECTED Nasal Enterovir/Rhinovir PCR NOT DETECTED Nasal Influenza B PCR NOT DETECTED Nasal Influenza A PCR NOT DETECTED Nasal Parainfluen 1 PCR NOT DETECTED Nasal Parainfluen 2 PCR NOT DETECTED Nasal Parainfluen 3 PCR NOT DETECTED Nasal Parainfluen 4 PCR NOT DETECTED Nasal RSV (PCR) NOT DETECTED Nasal B.pertussis DNA PCR NOT DETECTED Nasal C.pneumoniae (PCR) NOT DETECTED Ld Human Metapneumo PCR NOT DETECTED Nasal M.pneumoniae (PCR) NOT DETECTED Nasal SARS-CoV-2 (PCR) DETECTED A Serum Ketones PD Medical Decision Making - ED course ED course: 28-year-old woman presents with vomiting and has a history of DKA. She is found to be in DKA today with signs of hemoconcentration on her CBC, significant metabolic acidosis with respiratory compensation on venous blood gas and CMP with confirmatory low carbon dioxide. Blood sugar at 351. She also has small serum ketones. An IV was started and she was given 1 L of normal saline wide open and then followed by twice maintenance rate. Initially she refused an insulin drip wanting to manage it with her pump but discussed with her that at her current basal rate of 1.2 units/h this would be insufficient to treat DKA and after discussion she was willing to accept an insulin drip albeit at a somewhat lower rate than his routine as she wanted to keep her pump running. Call the hospitalist for admission at 12:50 PM. - Critical Care Time(min): 35 Time Includes: Direct patient care, Review records, Reassess patient, Document care, Coordinate care, Medical consult Data interpretation: Labs, Pulse ox Procedures included in critical care time: Peripheral IV Departure - Departure Disposition: 66 [facility] DC/Xfer Clinical Impression: COVID-19 DKA (diabetic ketoacidoses) Qualifiers: Diabetes mellitus type: type 1 Diabetes mellitus complication detail: without coma Qualified Code(s): E10.10 - Type 1 diabetes mellitus with ketoacidosis without coma Condition: Serious Forms: PCP List
[2024-01-06 12:27] LABS: BASOPHILS # (AUTO) 0.1 10^3/uL (0.0-0.1); BASOPHILS % (AUTO) 0.6 %; HCT - HEMATOCRIT 53.4 % (37.0-47.0); HGB - HEMOGLOBIN 16.6 g/dL (12.0-16.0); LYMPHOCYTES # (AUTO) 0.7 10^3/uL (1.5-3.5); LYMPHOCYTES % (AUTO) 6.5 %; MEAN CORPUSCULAR HEMOGLOBIN 28.5 pg (27.0-31.0); MEAN CORPUSCULAR HGB CONC 31.1 g/dL (32.0-36.0); MEAN CORPUSCULAR VOLUME 91.8 fL (81.0-99.0); MONOCYTES # (AUTO) 0.9 10^3/uL (0.0-1.0); MONOCYTES % (AUTO) 8.7 %; NEUTROPHILS # (AUTO) 8.9 10^3/uL (1.5-6.6); NEUTROPHILS % (AUTO) 81.7 %; PLT - PLATELET COUNT 173 10^3/uL (130-450); RED BLOOD COUNT 5.82 10^6/uL (4.20-5.40); RED CELL DISTRIBUTION WIDTH 16.3 % (12.0-15.0); WHITE BLOOD COUNT 10.8 x10^3/uL (4.8-10.8)
[2024-01-06 12:32] LABS: VBG BASE EXCESS -24.3 mmol/L (-2 - +2); VBG HCO3 5.5 mmol/L (23-28); VBG OXYGEN SATURATION 65.6 % (60-80); VBG PCO2 22.7 mmHg (41-51); VBG PO2 34.9 mmHg (25-47); VBG TOTAL CO2 6.2 mmol/L (24-29)
[2024-01-06 12:34] LABS: KETONES, SERUM (ACETEST) SMALL (NEGATIVE); VBG PH 7.004 (7.31-7.41)
[2024-01-06 12:40] LABS: MAGNESIUM 1.8 mg/dL (1.7-2.3)
[2024-01-06 12:44] LABS: ALBUMIN 4.7 g/dL (3.2-5.5); ALBUMIN/GLOBULIN RATIO 1.1 (1.0-2.2); ALKALINE PHOSPHATASE 100 IU/L (42-121); ALT ALANINE AMINOTRANSFERASE 7 IU/L (10-60); AST ASPARTATE AMINOTRANSFERASE 9 IU/L (10-42); BILIRUBIN,TOTAL 0.3 mg/dL (0.2-1.0); BUN - BLOOD UREA NITROGEN 9 mg/dL (6-20); CALCIUM 9.2 mg/dL (8.5-10.3); CARBON DIOXIDE - CO2 5 mmol/L (21-32); CHLORIDE 96 mmol/L (101-111); GFR - MDRD 66 (>89); GLUCOSE 351 mg/dL (74-104); POTASSIUM 4.5 mmol/L (3.5-4.5); SODIUM 125 mmol/L (135-145)
[2024-01-06] MEDS: SODIUM CHLORIDE 0.9% 1,000 ML IV STA ×2 (12:48→13:06)
[2024-01-06] MEDS: INSULIN REGULAR IN 0.9 % NS 100 UNIT/100 ML BAG IV STA (13:15)
[2024-01-06 13:41] LABS: B. PARAPERTUSSIS- RESP PCR PAN NOT DETECTED; B. PERTUSSIS- RESP PCR PANEL NOT DETECTED; C. PNEUMONIAE- RESP PCR PANEL NOT DETECTED; CORONAVIRUS 229E-RESP PCR NOT DETECTED; CORONAVIRUS HKU1-RESP PCR NOT DETECTED; CORONAVIRUS NL63-RESP PCR NOT DETECTED; CORONAVIRUS OC43-RESP PCR NOT DETECTED; HUMAN METAPNEUMOVIRUS NOT DETECTED; INFLUENZA A- RESP PCR PANEL NOT DETECTED; INFLUENZA B - RESP PCR PANEL NOT DETECTED; M. PNEUMONIAE- RESP PCR PANEL NOT DETECTED; PARAINFLUENZA VIRUS 1 NOT DETECTED; PARAINFLUENZA VIRUS 2 NOT DETECTED; PARAINFLUENZA VIRUS 3 NOT DETECTED; PARAINFLUENZA VIRUS 4 NOT DETECTED; RHINOVIRUS/ENTEROVIRUS NOT DETECTED; RSV- RESP PCR PANEL NOT DETECTED
[2024-01-06 13:43] LABS: SARS-CoV-2 -RESP PCR PANEL DETECTED
[2024-01-06 14:32] LABS: BILIRUBIN,URINE NEGATIVE (NEGATIVE); GLUCOSE, URINE (UA) 250 mg/dL (NEGATIVE); KETONES,URINE (UA) >=80 mg/dL (NEGATIVE); LEUKOCYTE ESTERASE, URINE NEGATIVE (NEGATIVE); NITRITE,URINE NEGATIVE (NEGATIVE); OCCULT BLOOD,URINE TRACE-INTA (NEGATIVE); PH,URINE 5.5 PH (5.0-7.5); PROTEIN,URINE 100 mg/dL (NEGATIVE); UROBILINOGEN,URINE 0.2 (NORMAL) E.U./dL (NORMAL)
[2024-01-06 14:33] LABS: CLARITY,URINE HAZY (CLEAR); HCG UR QUAL NEGATIVE
[2024-01-06 14:36] LABS: BACTERIA,URINE Few /HPF (None Seen); CASTS, URINE 0-2 Granular Casts /LPF; RBC,URINE None Seen /HPF (0-5); SQUAMOUS EPITHELIAL CELL,UR MOD Squamous (<= Few)
--- NOTE | 2024-01-06 14:53 | HISTORY & PHYSICAL EXAMINATION ---
Chief Complaint - Chief Complaint Chief Complaint: N/V, fever History of Present Illness - Admitted From Admitted From:: ED - History Obtained From Records Reviewed: Yes History obtained from: ED provider and the patient - History of Present Illness HPI Comment/Other: This is a 28-year-old female with a history of type 1 diabetes and possible cognitive impairment (Records from April 2023 show she finished ninth grade). She has had episodes of DKA in the past. She presents now with a 2-3-day history of nausea and vomiting, no diarrhea, she is having fever to 102 and chills, her glucose level showed that it was running high. The patient has an insulin pump. In the ER she was found to be in DKA with VBG pH of 7.0, serum bicarb of 5, serum glucose of 351, serum sodium 125. She had no fever and normal VS in the ER. Other labs came back showing she is COVID-positive. She will be admitted to the ICU and a DKA protocol ordered. History - Past Medical History Cardiovascular: reports: None Respiratory: reports: None Neuro: reports: None Endocrine/Autoimmune: reports: Type 1 diabetes GI: reports: None : reports: None Psych: reports: Anxiety Musculoskeletal: reports: None Derm: reports: None MRSA Hx?: Yes - Family & Social History Living arrangement: At home Living Situation: With family - POLST Patient has POLST: No Meds/Allgy - Home Medications Home Medications: Ambulatory Orders Medication Instructions Recorded Confirmed Insulin Aspart [Novolog] 80 units SUBQ DAILY 01/06/24 01/06/24 - Allergies Allergies/Adverse Reactions: Allergies Allergy/AdvReac Type Severity Reaction Status Date / Time No Known Drug Allergies Allergy Verified 01/06/24 12:11 Review of Systems - Constitutional Constitutional: reports: Fatigue, Fever, Chills, Weakness, Poor appetite - Gastrointestinal Gastrointestinal: reports: Nausea, Vomiting - All Other Systems All Other Systems: reports: Reviewed and negative Exam - Vital Signs Reviewed Vital Signs: Yes Vital Signs: Vital Signs x48h Temp Pulse Resp BP Pulse Ox 01/06/24 12:11 36.8 C 82 16 138/88 H 98 - Physical Exam General Appearance: positive: No acute distress, Lethargic, Other (Appears ashen) Eyes Bilateral: positive: Normal inspection ENT: positive: Dry mucous membranes Neck: positive: Nml inspection, No JVD Respiratory: positive: No respiratory distress Cardiovascular: positive: Regular rate & rhythm Abdomen: positive: Non-tender Skin: positive: Warm, Dry Extremities: positive: No pedal edema Neurologic/Psychiatric: positive: Oriented x3, Motor nml, Other (Lethargic) Conclusion/Plan - Problem List (1) DKA (diabetic ketoacidoses) Conclusion/Plan: She had a fever and urinary frequency plus nausea & vomiting. She did not have a cough or hypoxia, but has tested positive for COVID. Perhaps her COVID mostly is a gastrointestinal component. Her blood work shows DKA Plan: Admit the patient into the ICU and begin treatment for DKA using the DKA protocol with an insulin drip and aggressive IV NS hydration. Follow her labs including serum ketones often and when ketones are negative then the insulin drip will be stopped. When serum glucose is below 200, I will add D5 to her IV NS N.p.o. except chips will be ordered and give iv antiemetics as needed. She will probably start on clear liquids tomorrow She personally requested that her Insulin pump be used to treat this DKA. This will not be allowed, since using an IV insulin drip plus unknown amount infusing from her own Insulin pump, will not make for safe treatment of her glu and electrolytes. This was explained to the patient. Qualifiers: Diabetes mellitus type: type 1 Diabetes mellitus complication detail: without coma Qualified Code(s): E10.10 - Type 1 diabetes mellitus with ketoacidosis without coma (2) COVID-19 Conclusion/Plan: This is likely the cause of what put her into DKA. She does not have a cough, and is not hypoxic. No chest x-ray was done in ER. Plan: She does not qualify to receive IV Decadron or IV remdesivir Will order droplet isolation Will obtain a chest x-ray (3) MRSA carrier Conclusion/Plan: Plan: Will order ethanol nasal wipes Contact precautions - Lab Results Fish Bones: 01/06/24 12:21 01/06/24 17:51 - Diagnostic Imaging Results Diagnostic Imaging Results: positive: Final report reviewed - Other Other Results/Comments: Attestation: The patient is expected to be hospitalized for greater than 2 midnights and is expected to be discharged or transferred to another facility within 96 hours: Yes.
[2024-01-06 15:11] LABS: VBG HCO3 3.7 mmol/L (23-28); VBG PCO2 13.3 mmHg (41-51); VBG PO2 211.6 mmHg (25-47); VBG TOTAL CO2 4.1 mmol/L (24-29)
[2024-01-06 15:12] LABS: VBG BASE EXCESS -24.5 mmol/L (-2 - +2)
[2024-01-06 15:17] LABS: VBG PH 7.061 (7.31-7.41)
[2024-01-06 15:25] LABS: MAGNESIUM 1.5 mg/dL (1.7-2.3)
[2024-01-06] MEDS: INSULIN REGULAR IN 0.9 % NS 100 UNIT/100 ML BAG IV SCH (15:25)
[2024-01-06] MEDS: SODIUM CHLORIDE 0.9% 1,000 ML IV SCH (15:35)
[2024-01-06 15:49] LABS: BUN - BLOOD UREA NITROGEN 8 mg/dL (6-20); CARBON DIOXIDE - CO2 2 mmol/L (21-32); CHLORIDE 108 mmol/L (101-111); CREATININE 0.7 mg/dL (0.6-1.3); GFR - MDRD 100 (>89); GLUCOSE 169 mg/dL (74-104); KETONES, SERUM (ACETEST) SMALL (NEGATIVE); POTASSIUM 3.6 mmol/L (3.5-4.5); SODIUM 131 mmol/L (135-145)
--- NOTE | 2024-01-06 16:00 | XRAY Report ---
PROCEDURE: Chest 1V INDICATIONS: COVID (+) TECHNIQUE: One view of the chest was acquired. COMPARISON: 10/10/2023 FINDINGS: Surgical changes and devices: None. Lungs and pleura: No pleural effusions or pneumothorax. Lungs are clear. Mediastinum: Mediastinal contours appear normal. Heart size is normal. Bones and chest wall: No suspicious bony lesions. Overlying soft tissues appear unremarkable. IMPRESSION: No acute cardiopulmonary process. No focal infiltrates are seen. Reviewed by: Aubrey Alas MD on 01/06/2024 2:59 PM [facility] Approved by: Aubrey Alas MD on 01/06/2024 2:59 PM [facility] Station ID: [id number]
[2024-01-06 16:37] LABS: MAGNESIUM 1.8 mg/dL (1.7-2.3)
[2024-01-06 16:42] LABS: BUN - BLOOD UREA NITROGEN 7 mg/dL (6-20); CALCIUM 8.5 mg/dL (8.5-10.3); CARBON DIOXIDE - CO2 5 mmol/L (21-32); CHLORIDE 107 mmol/L (101-111); CREATININE 0.8 mg/dL (0.6-1.3); GFR - MDRD 85 (>89); GLUCOSE 95 mg/dL (74-104); POTASSIUM 4.3 mmol/L (3.5-4.5); SODIUM 132 mmol/L (135-145)
[2024-01-06 16:59] LABS: KETONES, SERUM (ACETEST) SMALL (NEGATIVE)
[2024-01-06] MEDS: DEXTROSE 5% 1,000 ML IV SCH (17:10)
[2024-01-06] MEDS: SODIUM CHLORIDE FLUSH 0.9% 10 ML SYRINGE IVP SCH (17:20)
[2024-01-06 18:05] LABS: KETONES, SERUM (ACETEST) SMALL (NEGATIVE)
[2024-01-06 18:12] LABS: MAGNESIUM 1.6 mg/dL (1.7-2.3)
[2024-01-06 18:15] LABS: BUN - BLOOD UREA NITROGEN 7 mg/dL (6-20); CALCIUM 8.4 mg/dL (8.5-10.3); CARBON DIOXIDE - CO2 4 mmol/L (21-32); CHLORIDE 106 mmol/L (101-111); CREATININE 0.7 mg/dL (0.6-1.3); GFR - MDRD 100 (>89); GLUCOSE 93 mg/dL (74-104); POTASSIUM 3.9 mmol/L (3.5-4.5); SODIUM 130 mmol/L (135-145)
[2024-01-06] MEDS: POTASSIUM CHLOR 10 MEQ/100 ML 10 MEQ/100 ML BAG IV SCH (18:42)
[2024-01-06] MEDS: ONDANSETRON 4 MG/2 ML VIAL IVP PRN (19:08)
[2024-01-06 20:19] LABS: KETONES, SERUM (ACETEST) SMALL (NEGATIVE)
[2024-01-06] MEDS: PROCHLORPERAZINE 10 MG/2 ML VIAL IVP PRN (20:23)
[2024-01-06 20:24] LABS: MAGNESIUM 1.6 mg/dL (1.7-2.3); PHOSPHORUS 2.5 mg/dL (2.5-5.0)
[2024-01-06 20:29] LABS: BUN - BLOOD UREA NITROGEN 8 mg/dL (6-20); CALCIUM 8.4 mg/dL (8.5-10.3); CARBON DIOXIDE - CO2 3 mmol/L (21-32); CHLORIDE 101 mmol/L (101-111); CREATININE 0.7 mg/dL (0.6-1.3); GFR - MDRD 100 (>89); GLUCOSE 280 mg/dL (74-104); POTASSIUM 4.7 mmol/L (3.5-4.5); SODIUM 126 mmol/L (135-145)
[2024-01-06] MEDS: ethyl alcohoL 62% SWAB AMPULE NAS SCH (20:58)
[2024-01-06] MEDS: FAMOTIDINE 20 MG/2 ML VIAL IVP SCH (20:58)
[2024-01-06] MEDS: MAGNESIUM SULFATE 2 GRAM 2 GM/50 ML BAG IV ONE (21:50)
[2024-01-06] MEDS: LORazepam 0.5 MG TABLET PO ONE (22:07)
[2024-01-07] MEDS: DEXTROSE 5%-0.45% NACL 1,000 ML IV SCH (01:01)
[2024-01-07] MEDS: POTASSIUM CHLOR 10 MEQ/100 ML 10 MEQ/100 ML BAG IV ONE ×2 (01:52→02:54)
[2024-01-07 03:45] LABS: BASOPHILS # (AUTO) 0.1 10^3/uL (0.0-0.1); BASOPHILS % (AUTO) 0.9 %; HCT - HEMATOCRIT 49.2 % (37.0-47.0); HGB - HEMOGLOBIN 15.4 g/dL (12.0-16.0); LYMPHOCYTES # (AUTO) 1.1 10^3/uL (1.5-3.5); LYMPHOCYTES % (AUTO) 11.2 %; MEAN CORPUSCULAR HEMOGLOBIN 28.4 pg (27.0-31.0); MEAN CORPUSCULAR HGB CONC 31.3 g/dL (32.0-36.0); MEAN CORPUSCULAR VOLUME 90.6 fL (81.0-99.0); MONOCYTES % (AUTO) 10.3 %; NEUTROPHILS # (AUTO) 6.9 10^3/uL (1.5-6.6); NEUTROPHILS % (AUTO) 72.4 %; PLT - PLATELET COUNT 119 10^3/uL (130-450); RED BLOOD COUNT 5.43 10^6/uL (4.20-5.40); RED CELL DISTRIBUTION WIDTH 16.3 % (12.0-15.0); WHITE BLOOD COUNT 9.6 x10^3/uL (4.8-10.8)
[2024-01-07 04:02] LABS: CALCIUM, IONIZED 1.18 mmol/L (1.15-1.33)
[2024-01-07 04:03] LABS: VBG PH 7.063 (7.31-7.41)
[2024-01-07 04:04] LABS: KETONES, SERUM (ACETEST) LARGE (NEGATIVE)
[2024-01-07 04:06] LABS: PHOSPHORUS 2.4 mg/dL (2.5-5.0); TRIGLYCERIDES 203 mg/dL (48-352)
[2024-01-07 04:14] LABS: BUN - BLOOD UREA NITROGEN 8 mg/dL (6-20); CALCIUM 9.4 mg/dL (8.5-10.3); CARBON DIOXIDE - CO2 7 mmol/L (21-32); CHLORIDE 104 mmol/L (101-111); CREATININE 0.8 mg/dL (0.6-1.3); GFR - MDRD 85 (>89); GLUCOSE 213 mg/dL (74-104); POTASSIUM 4.4 mmol/L (3.5-4.5); SODIUM 129 mmol/L (135-145)
[2024-01-07 04:22] LABS: SLIDE REVIEW? Indicated
[2024-01-07 05:23] LABS: PLATELET ESTIMATE, MANUAL NORMAL (130-450,000) (NORMAL); PLATELET MORPHOLOGY NORMAL APPEARANCE (NORMAL)
[2024-01-07] MEDS: SODIUM BICARBONATE ABBOJECT 50 MEQ/50 ML SYRINGE IVP ONE (05:43)
[2024-01-07] MEDS: NEUTRA-PHOS 250 MG TABLET PO SCH ×2 (07:00→20:55)
--- NOTE | 2024-01-07 07:28 | PROVIDER PROGRESS NOTE ---
Subjective - Subjective Pt reports feeling: Improved (No more N/V, tolerated clear liquid diet) Objective - Vital Signs/Intake & Output Reviewed Vital Signs: Yes Vital Signs: Vital Signs Temp Pulse Resp BP Pulse Ox 01/07/24 07:00 104 H 19 112/74 98 01/07/24 06:00 108 H 20 112/93 H 92 01/07/24 05:00 100 18 121/79 98 01/07/24 04:00 36.9 C 102 H 20 118/82 H 99 Intake & Output: Intake & Output 01/04/24 01/05/24 01/06/24 01/07/24 23:59 23:59 23:59 23:59 Intake Total 2157.042 428.042 Output Total 800 1100 Balance 1357.042 -671.958 - Objective General Appearance: positive: No acute distress, Alert, Lethargic, Other (Appears pale) Eyes Bilateral: positive: Normal inspection, EOMI ENT: positive: No signs of dehydration Neck: positive: Nml inspection Respiratory: positive: No respiratory distress Cardiovascular: positive: Regular rate & rhythm Abdomen: positive: Non-tender, No distention Skin: positive: Warm, Dry Extremities: positive: Non-tender, Other (L hand and L lower arm swollen from iv sites imfiltrated) Neurologic/Psychiatric: positive: Oriented x3, CN's nml (2-12), Motor nml - Lab Results Fish Bones: 01/07/24 03:26 01/07/24 17:00 Other Labs: Lab Results x24hrs 01/07/24 01/07/24 01/07/24 Range/Units 06:53 05:58 05:58 WBC (4.8-10.8) x10^3/uL RBC (4.20-5.40) 10^6/uL Hgb (12.0-16.0) g/dL Hct (37.0-47.0) % MCV (81.0-99.0) fL MCH (27.0-31.0) pg MCHC (32.0-36.0) g/dL RDW (12.0-15.0) % Plt Count (130-450) 10^3/uL Neut # (Auto) (1.5-6.6) 10^3/uL Lymph # (Auto) (1.5-3.5) 10^3/uL [place] # (Auto) (0.0-1.0) 10^3/uL Eos # (Auto) (0.0-0.7) 10^3/uL Baso # (Auto) (0.0-0.1) 10^3/uL Absolute Nucleated RBC x10^3/uL Nucleated RBC % /100WBC Manual Slide Review Platelet Estimate (NORMAL) Platelet Morphology (NORMAL) VBG pH (7.31-7.41) VBG pCO2 (41-51) mmHg VBG pO2 (25-47) mmHg VBG HCO3 (23-28) mmol/L VBG Total CO2 (24-29) mmol/L VBG O2 Saturation (60-80) % VBG Base Excess (-2 - +2) mmol/L Ionized Calcium (1.15-1.33) mmol/L Sodium (135-145) mmol/L Potassium (3.5-4.5) mmol/L Chloride (101-111) mmol/L Carbon Dioxide (21-32) mmol/L Anion Gap (6-13) BUN (6-20) mg/dL Creatinine (0.6-1.3) mg/dL Estimated GFR (MDRD) (>89) Glucose (74-104) mg/dL POC Whole Bld Glucose 136 H 177 H (70 - 100) mg/dL Calcium (8.5-10.3) mg/dL Phosphorus (2.5-5.0) mg/dL Magnesium (1.7-2.3) mg/dL Total Bilirubin (0.2-1.0) mg/dL AST (10-42) IU/L ALT (10-60) IU/L Alkaline Phosphatase (42-121) IU/L Total Protein (6.4-8.9) g/dL Albumin (3.2-5.5) g/dL Globulin (2.1-4.2) g/dL Albumin/Globulin Ratio (1.0-2.2) Triglycerides (48-352) mg/dL Urine Color Urine Clarity (CLEAR) Urine pH (5.0-7.5) PH Ur Specific [place] (1.002-1.030) Urine Protein (NEGATIVE) mg/dL Urine Glucose (UA) (NEGATIVE) mg/dL Urine Ketones (NEGATIVE) mg/dL Urine Occult Blood (NEGATIVE) Urine Nitrite (NEGATIVE) Urine Bilirubin (NEGATIVE) Urine Urobilinogen (NORMAL) E.U./dL Ur Leukocyte Esterase (NEGATIVE) Urine RBC (0-5) /HPF Urine WBC (0-5) /HPF Ur Squamous Epith Cells (<= Few) Urine Bacteria (None Seen) /HPF Urine Casts /LPF Ur Microscopic Review Urine Culture Comments Urine HCG, Qual Nasal Adenovirus (PCR) Nasal B. parapertussis DNA (PCR) Nasal Coronavir 229E PCR Nasal Coronavir HKU1 PCR Nasal Coronavir NL63 PCR Nasal Coronavir OC43 PCR Nasal Enterovir/Rhinovir PCR Nasal Influenza B PCR Nasal Influenza A PCR Nasal Parainfluen 1 PCR Nasal Parainfluen 2 PCR Nasal Parainfluen 3 PCR Nasal Parainfluen 4 PCR Nasal RSV (PCR) Nasal Screen MRSA (PCR) (NEGATIVE) Nasal B.pertussis DNA PCR Nasal C.pneumoniae (PCR) Ld Human Metapneumo PCR Nasal M.pneumoniae (PCR) Nasal SARS-CoV-2 (PCR) Serum Ketones MODERATE H (NEGATIVE) 01/07/24 01/07/24 01/07/24 Range/Units 05:01 03:56 03:26 WBC (4.8-10.8) x10^3/uL RBC (4.20-5.40) 10^6/uL Hgb (12.0-16.0) g/dL Hct (37.0-47.0) % MCV (81.0-99.0) fL MCH (27.0-31.0) pg MCHC (32.0-36.0) g/dL RDW (12.0-15.0) % Plt Count (130-450) 10^3/uL Neut # (Auto) (1.5-6.6) 10^3/uL Lymph # (Auto) (1.5-3.5) 10^3/uL [place] # (Auto) (0.0-1.0) 10^3/uL Eos # (Auto) (0.0-0.7) 10^3/uL Baso # (Auto) (0.0-0.1) 10^3/uL Absolute Nucleated RBC x10^3/uL Nucleated RBC % /100WBC Manual Slide Review Platelet Estimate (NORMAL) Platelet Morphology (NORMAL) VBG pH (7.31-7.41) VBG pCO2 (41-51) mmHg VBG pO2 (25-47) mmHg VBG HCO3 (23-28) mmol/L VBG Total CO2 (24-29) mmol/L VBG O2 Saturation (60-80) % VBG Base Excess (-2 - +2) mmol/L Ionized Calcium (1.15-1.33) mmol/L Sodium (135-145) mmol/L Potassium 4.4 (3.5-4.5) mmol/L Chloride (101-111) mmol/L Carbon Dioxide (21-32) mmol/L Anion Gap (6-13) BUN (6-20) mg/dL Creatinine (0.6-1.3) mg/dL Estimated GFR (MDRD) (>89) Glucose (74-104) mg/dL POC Whole Bld Glucose 188 H 184 H (70 - 100) mg/dL Calcium (8.5-10.3) mg/dL Phosphorus (2.5-5.0) mg/dL Magnesium (1.7-2.3) mg/dL Total Bilirubin (0.2-1.0) mg/dL AST (10-42) IU/L ALT (10-60) IU/L Alkaline Phosphatase (42-121) IU/L Total Protein (6.4-8.9) g/dL Albumin (3.2-5.5) g/dL Globulin (2.1-4.2) g/dL Albumin/Globulin Ratio (1.0-2.2) Triglycerides (48-352) mg/dL Urine Color Urine Clarity (CLEAR) Urine pH (5.0-7.5) PH Ur Specific [place] (1.002-1.030) Urine Protein (NEGATIVE) mg/dL Urine Glucose (UA) (NEGATIVE) mg/dL Urine Ketones (NEGATIVE) mg/dL Urine Occult Blood (NEGATIVE) Urine Nitrite (NEGATIVE) Urine Bilirubin (NEGATIVE) Urine Urobilinogen (NORMAL) E.U./dL Ur Leukocyte Esterase (NEGATIVE) Urine RBC (0-5) /HPF Urine WBC (0-5) /HPF Ur Squamous Epith Cells (<= Few) Urine Bacteria (None Seen) /HPF Urine Casts /LPF Ur Microscopic Review Urine Culture Comments Urine HCG, Qual Nasal Adenovirus (PCR) Nasal B. parapertussis DNA (PCR) Nasal Coronavir 229E PCR Nasal Coronavir HKU1 PCR Nasal Coronavir NL63 PCR Nasal Coronavir OC43 PCR Nasal Enterovir/Rhinovir PCR Nasal Influenza B PCR Nasal Influenza A PCR Nasal Parainfluen 1 PCR Nasal Parainfluen 2 PCR Nasal Parainfluen 3 PCR Nasal Parainfluen 4 PCR Nasal RSV (PCR) Nasal Screen MRSA (PCR) (NEGATIVE) Nasal B.pertussis DNA PCR Nasal C.pneumoniae (PCR) Ld Human Metapneumo PCR Nasal M.pneumoniae (PCR) Nasal SARS-CoV-2 (PCR) Serum Ketones (NEGATIVE) 01/07/24 01/07/24 01/07/24 Range/Units 03:26 03:26 03:26 WBC 9.6 (4.8-10.8) x10^3/uL RBC 5.43 H (4.20-5.40) 10^6/uL Hgb 15.4 (12.0-16.0) g/dL Hct 49.2 H (37.0-47.0) % MCV 90.6 (81.0-99.0) fL MCH 28.4 (27.0-31.0) pg MCHC 31.3 L (32.0-36.0) g/dL RDW 16.3 H (12.0-15.0) % Plt Count 119 L (130-450) 10^3/uL Neut # (Auto) 6.9 H (1.5-6.6) 10^3/uL Lymph # (Auto) 1.1 L (1.5-3.5) 10^3/uL [place] # (Auto) 1.0 (0.0-1.0) 10^3/uL Eos # (Auto) 0.0 (0.0-0.7) 10^3/uL Baso # (Auto) 0.1 (0.0-0.1) 10^3/uL Absolute Nucleated RBC 0.00 x10^3/uL Nucleated RBC % 0.0 /100WBC Manual Slide Review Indicated Platelet Estimate NORMAL (130-450,000) (NORMAL) Platelet Morphology NORMAL APPEARANCE (NORMAL) VBG pH 7.063 L* (7.31-7.41) VBG pCO2 (41-51) mmHg VBG pO2 (25-47) mmHg VBG HCO3 (23-28) mmol/L VBG Total CO2 (24-29) mmol/L VBG O2 Saturation (60-80) % VBG Base Excess (-2 - +2) mmol/L Ionized Calcium 1.18 (1.15-1.33) mmol/L Sodium 129 L (135-145) mmol/L Potassium 4.4 (3.5-4.5) mmol/L Chloride 104 (101-111) mmol/L Carbon Dioxide 7 L* (21-32) mmol/L Anion Gap 18.0 H (6-13) BUN 8 (6-20) mg/dL Creatinine 0.8 (0.6-1.3) mg/dL Estimated GFR (MDRD) 85 L (>89) Glucose 213 H (74-104) mg/dL POC Whole Bld Glucose (70 - 100) mg/dL Calcium 9.4 (8.5-10.3) mg/dL Phosphorus 2.4 L (2.5-5.0) mg/dL Magnesium (1.7-2.3) mg/dL Total Bilirubin (0.2-1.0) mg/dL AST (10-42) IU/L ALT (10-60) IU/L Alkaline Phosphatase (42-121) IU/L Total Protein (6.4-8.9) g/dL Albumin (3.2-5.5) g/dL Globulin (2.1-4.2) g/dL Albumin/Globulin Ratio (1.0-2.2) Triglycerides 203 (48-352) mg/dL Urine Color Urine Clarity (CLEAR) Urine pH (5.0-7.5) PH Ur Specific [place] (1.002-1.030) Urine Protein (NEGATIVE) mg/dL Urine Glucose (UA) (NEGATIVE) mg/dL Urine Ketones (NEGATIVE) mg/dL Urine Occult Blood (NEGATIVE) Urine Nitrite (NEGATIVE) Urine Bilirubin (NEGATIVE) Urine Urobilinogen (NORMAL) E.U./dL Ur Leukocyte Esterase (NEGATIVE) Urine RBC (0-5) /HPF Urine WBC (0-5) /HPF Ur Squamous Epith Cells (<= Few) Urine Bacteria (None Seen) /HPF Urine Casts /LPF Ur Microscopic Review Urine Culture Comments Urine HCG, Qual Nasal Adenovirus (PCR) Nasal B. parapertussis DNA (PCR) Nasal Coronavir 229E PCR Nasal Coronavir HKU1 PCR Nasal Coronavir NL63 PCR Nasal Coronavir OC43 PCR Nasal Enterovir/Rhinovir PCR Nasal Influenza B PCR Nasal Influenza A PCR Nasal Parainfluen 1 PCR Nasal Parainfluen 2 PCR Nasal Parainfluen 3 PCR Nasal Parainfluen 4 PCR Nasal RSV (PCR) Nasal Screen MRSA (PCR) (NEGATIVE) Nasal B.pertussis DNA PCR Nasal C.pneumoniae (PCR) Ld Human Metapneumo PCR Nasal M.pneumoniae (PCR) Nasal SARS-CoV-2 (PCR) Serum Ketones LARGE H (NEGATIVE) 01/07/24 01/07/24 01/07/24 Range/Units 02:58 02:03 01:01 WBC (4.8-10.8) x10^3/uL RBC (4.20-5.40) 10^6/uL Hgb (12.0-16.0) g/dL Hct (37.0-47.0) % MCV (81.0-99.0) fL MCH (27.0-31.0) pg MCHC (32.0-36.0) g/dL RDW (12.0-15.0) % Plt Count (130-450) 10^3/uL Neut # (Auto) (1.5-6.6) 10^3/uL Lymph # (Auto) (1.5-3.5) 10^3/uL [place] # (Auto) (0.0-1.0) 10^3/uL Eos # (Auto) (0.0-0.7) 10^3/uL Baso # (Auto) (0.0-0.1) 10^3/uL Absolute Nucleated RBC x10^3/uL Nucleated RBC % /100WBC Manual Slide Review Platelet Estimate (NORMAL) Platelet Morphology (NORMAL) VBG pH (7.31-7.41) VBG pCO2 (41-51) mmHg VBG pO2 (25-47) mmHg VBG HCO3 (23-28) mmol/L VBG Total CO2 (24-29) mmol/L VBG O2 Saturation (60-80) % VBG Base Excess (-2 - +2) mmol/L Ionized Calcium (1.15-1.33) mmol/L Sodium (135-145) mmol/L Potassium (3.5-4.5) mmol/L Chloride (101-111) mmol/L Carbon Dioxide (21-32) mmol/L Anion Gap (6-13) BUN (6-20) mg/dL Creatinine (0.6-1.3) mg/dL Estimated GFR (MDRD) (>89) Glucose (74-104) mg/dL POC Whole Bld Glucose 219 H 213 H 241 H (70 - 100) mg/dL Calcium (8.5-10.3) mg/dL Phosphorus (2.5-5.0) mg/dL Magnesium (1.7-2.3) mg/dL Total Bilirubin (0.2-1.0) mg/dL AST (10-42) IU/L ALT (10-60) IU/L Alkaline Phosphatase (42-121) IU/L Total Protein (6.4-8.9) g/dL Albumin (3.2-5.5) g/dL Globulin (2.1-4.2) g/dL Albumin/Globulin Ratio (1.0-2.2) Triglycerides (48-352) mg/dL Urine Color Urine Clarity (CLEAR) Urine pH (5.0-7.5) PH Ur Specific [place] (1.002-1.030) Urine Protein (NEGATIVE) mg/dL Urine Glucose (UA) (NEGATIVE) mg/dL Urine Ketones (NEGATIVE) mg/dL Urine Occult Blood (NEGATIVE) Urine Nitrite (NEGATIVE) Urine Bilirubin (NEGATIVE) Urine Urobilinogen (NORMAL) E.U./dL Ur Leukocyte Esterase (NEGATIVE) Urine RBC (0-5) /HPF Urine WBC (0-5) /HPF Ur Squamous Epith Cells (<= Few) Urine Bacteria (None Seen) /HPF Urine Casts /LPF Ur Microscopic Review Urine Culture Comments Urine HCG, Qual Nasal Adenovirus (PCR) Nasal B. parapertussis DNA (PCR) Nasal Coronavir 229E PCR Nasal Coronavir HKU1 PCR Nasal Coronavir NL63 PCR Nasal Coronavir OC43 PCR Nasal Enterovir/Rhinovir PCR Nasal Influenza B PCR Nasal Influenza A PCR Nasal Parainfluen 1 PCR Nasal Parainfluen 2 PCR Nasal Parainfluen 3 PCR Nasal Parainfluen 4 PCR Nasal RSV (PCR) Nasal Screen MRSA (PCR) (NEGATIVE) Nasal B.pertussis DNA PCR Nasal C.pneumoniae (PCR) Ld Human Metapneumo PCR Nasal M.pneumoniae (PCR) Nasal SARS-CoV-2 (PCR) Serum Ketones (NEGATIVE) 01/07/24 01/07/24 01/07/24 Range/Units 00:57 00:57 00:57 WBC (4.8-10.8) x10^3/uL RBC (4.20-5.40) 10^6/uL Hgb (12.0-16.0) g/dL Hct (37.0-47.0) % MCV (81.0-99.0) fL MCH (27.0-31.0) pg MCHC (32.0-36.0) g/dL RDW (12.0-15.0) % Plt Count (130-450) 10^3/uL Neut # (Auto) (1.5-6.6) 10^3/uL Lymph # (Auto) (1.5-3.5) 10^3/uL [place] # (Auto) (0.0-1.0) 10^3/uL Eos # (Auto) (0.0-0.7) 10^3/uL Baso # (Auto) (0.0-0.1) 10^3/uL Absolute Nucleated RBC x10^3/uL Nucleated RBC % /100WBC Manual Slide Review Platelet Estimate (NORMAL) Platelet Morphology (NORMAL) VBG pH (7.31-7.41) VBG pCO2 (41-51) mmHg VBG pO2 (25-47) mmHg VBG HCO3 (23-28) mmol/L VBG Total CO2 (24-29) mmol/L VBG O2 Saturation (60-80) % VBG Base Excess (-2 - +2) mmol/L Ionized Calcium (1.15-1.33) mmol/L Sodium (135-145) mmol/L Potassium 4.4 (3.5-4.5) mmol/L Chloride (101-111) mmol/L Carbon Dioxide (21-32) mmol/L Anion Gap (6-13) BUN (6-20) mg/dL Creatinine (0.6-1.3) mg/dL Estimated GFR (MDRD) (>89) Glucose (74-104) mg/dL POC Whole Bld Glucose (70 - 100) mg/dL Calcium (8.5-10.3) mg/dL Phosphorus (2.5-5.0) mg/dL Magnesium 2.0 (1.7-2.3) mg/dL Total Bilirubin (0.2-1.0) mg/dL AST (10-42) IU/L ALT (10-60) IU/L Alkaline Phosphatase (42-121) IU/L Total Protein (6.4-8.9) g/dL Albumin (3.2-5.5) g/dL Globulin (2.1-4.2) g/dL Albumin/Globulin Ratio (1.0-2.2) Triglycerides (48-352) mg/dL Urine Color Urine Clarity (CLEAR) Urine pH (5.0-7.5) PH Ur Specific [place] (1.002-1.030) Urine Protein (NEGATIVE) mg/dL Urine Glucose (UA) (NEGATIVE) mg/dL Urine Ketones (NEGATIVE) mg/dL Urine Occult Blood (NEGATIVE) Urine Nitrite (NEGATIVE) Urine Bilirubin (NEGATIVE) Urine Urobilinogen (NORMAL) E.U./dL Ur Leukocyte Esterase (NEGATIVE) Urine RBC (0-5) /HPF Urine WBC (0-5) /HPF Ur Squamous Epith Cells (<= Few) Urine Bacteria (None Seen) /HPF Urine Casts /LPF Ur Microscopic Review Urine Culture Comments Urine HCG, Qual Nasal Adenovirus (PCR) Nasal B. parapertussis DNA (PCR) Nasal Coronavir 229E PCR Nasal Coronavir HKU1 PCR Nasal Coronavir NL63 PCR Nasal Coronavir OC43 PCR Nasal Enterovir/Rhinovir PCR Nasal Influenza B PCR Nasal Influenza A PCR Nasal Parainfluen 1 PCR Nasal Parainfluen 2 PCR Nasal Parainfluen 3 PCR Nasal Parainfluen 4 PCR Nasal RSV (PCR) Nasal Screen MRSA (PCR) (NEGATIVE) Nasal B.pertussis DNA PCR Nasal C.pneumoniae (PCR) Ld Human Metapneumo PCR Nasal M.pneumoniae (PCR) Nasal SARS-CoV-2 (PCR) Serum Ketones LARGE H (NEGATIVE) 01/07/24 01/06/24 01/06/24 Range/Units 00:05 23:02 21:57 WBC (4.8-10.8) x10^3/uL RBC (4.20-5.40) 10^6/uL Hgb (12.0-16.0) g/dL Hct (37.0-47.0) % MCV (81.0-99.0) fL MCH (27.0-31.0) pg MCHC (32.0-36.0) g/dL RDW (12.0-15.0) % Plt Count (130-450) 10^3/uL Neut # (Auto) (1.5-6.6) 10^3/uL Lymph # (Auto) (1.5-3.5) 10^3/uL [place] # (Auto) (0.0-1.0) 10^3/uL Eos # (Auto) (0.0-0.7) 10^3/uL Baso # (Auto) (0.0-0.1) 10^3/uL Absolute Nucleated RBC x10^3/uL Nucleated RBC % /100WBC Manual Slide Review Platelet Estimate (NORMAL) Platelet Morphology (NORMAL) VBG pH (7.31-7.41) VBG pCO2 (41-51) mmHg VBG pO2 (25-47) mmHg VBG HCO3 (23-28) mmol/L VBG Total CO2 (24-29) mmol/L VBG O2 Saturation (60-80) % VBG Base Excess (-2 - +2) mmol/L Ionized Calcium (1.15-1.33) mmol/L Sodium (135-145) mmol/L Potassium (3.5-4.5) mmol/L Chloride (101-111) mmol/L Carbon Dioxide (21-32) mmol/L Anion Gap (6-13) BUN (6-20) mg/dL Creatinine (0.6-1.3) mg/dL Estimated GFR (MDRD) (>89) Glucose (74-104) mg/dL POC Whole Bld Glucose 245 H 248 H 268 H (70 - 100) mg/dL Calcium (8.5-10.3) mg/dL Phosphorus (2.5-5.0) mg/dL Magnesium (1.7-2.3) mg/dL Total Bilirubin (0.2-1.0) mg/dL AST (10-42) IU/L ALT (10-60) IU/L Alkaline Phosphatase (42-121) IU/L Total Protein (6.4-8.9) g/dL Albumin (3.2-5.5) g/dL Globulin (2.1-4.2) g/dL Albumin/Globulin Ratio (1.0-2.2) Triglycerides (48-352) mg/dL Urine Color Urine Clarity (CLEAR) Urine pH (5.0-7.5) PH Ur Specific [place] (1.002-1.030) Urine Protein (NEGATIVE) mg/dL Urine Glucose (UA) (NEGATIVE) mg/dL Urine Ketones (NEGATIVE) mg/dL Urine Occult Blood (NEGATIVE) Urine Nitrite (NEGATIVE) Urine Bilirubin (NEGATIVE) Urine Urobilinogen (NORMAL) E.U./dL Ur Leukocyte Esterase (NEGATIVE) Urine RBC (0-5) /HPF Urine WBC (0-5) /HPF Ur Squamous Epith Cells (<= Few) Urine Bacteria (None Seen) /HPF Urine Casts /LPF Ur Microscopic Review Urine Culture Comments Urine HCG, Qual Nasal Adenovirus (PCR) Nasal B. parapertussis DNA (PCR) Nasal Coronavir 229E PCR Nasal Coronavir HKU1 PCR Nasal Coronavir NL63 PCR Nasal Coronavir OC43 PCR Nasal Enterovir/Rhinovir PCR Nasal Influenza B PCR Nasal Influenza A PCR Nasal Parainfluen 1 PCR Nasal Parainfluen 2 PCR Nasal Parainfluen 3 PCR Nasal Parainfluen 4 PCR Nasal RSV (PCR) Nasal Screen MRSA (PCR) (NEGATIVE) Nasal B.pertussis DNA PCR Nasal C.pneumoniae (PCR) Ld Human Metapneumo PCR Nasal M.pneumoniae (PCR) Nasal SARS-CoV-2 (PCR) Serum Ketones (NEGATIVE) 01/06/24 01/06/24 01/06/24 Range/Units 21:04 20:06 20:02 WBC (4.8-10.8) x10^3/uL RBC (4.20-5.40) 10^6/uL Hgb (12.0-16.0) g/dL Hct (37.0-47.0) % MCV (81.0-99.0) fL MCH (27.0-31.0) pg MCHC (32.0-36.0) g/dL RDW (12.0-15.0) % Plt Count (130-450) 10^3/uL Neut # (Auto) (1.5-6.6) 10^3/uL Lymph # (Auto) (1.5-3.5) 10^3/uL [place] # (Auto) (0.0-1.0) 10^3/uL Eos # (Auto) (0.0-0.7) 10^3/uL Baso # (Auto) (0.0-0.1) 10^3/uL Absolute Nucleated RBC x10^3/uL Nucleated RBC % /100WBC Manual Slide Review Platelet Estimate (NORMAL) Platelet Morphology (NORMAL) VBG pH (7.31-7.41) VBG pCO2 (41-51) mmHg VBG pO2 (25-47) mmHg VBG HCO3 (23-28) mmol/L VBG Total CO2 (24-29) mmol/L VBG O2 Saturation (60-80) % VBG Base Excess (-2 - +2) mmol/L Ionized Calcium (1.15-1.33) mmol/L Sodium 126 L (135-145) mmol/L Potassium 4.7 H (3.5-4.5) mmol/L Chloride 101 (101-111) mmol/L Carbon Dioxide 3 L* (21-32) mmol/L Anion Gap 22.0 H (6-13) BUN 8 (6-20) mg/dL Creatinine 0.7 (0.6-1.3) mg/dL Estimated GFR (MDRD) 100 (>89) Glucose 280 H (74-104) mg/dL POC Whole Bld Glucose 290 H 253 H (70 - 100) mg/dL Calcium 8.4 L (8.5-10.3) mg/dL Phosphorus 2.5 (2.5-5.0) mg/dL Magnesium 1.6 L (1.7-2.3) mg/dL Total Bilirubin (0.2-1.0) mg/dL AST (10-42) IU/L ALT (10-60) IU/L Alkaline Phosphatase (42-121) IU/L Total Protein (6.4-8.9) g/dL Albumin (3.2-5.5) g/dL Globulin (2.1-4.2) g/dL Albumin/Globulin Ratio (1.0-2.2) Triglycerides (48-352) mg/dL Urine Color Urine Clarity (CLEAR) Urine pH (5.0-7.5) PH Ur Specific [place] (1.002-1.030) Urine Protein (NEGATIVE) mg/dL Urine Glucose (UA) (NEGATIVE) mg/dL Urine Ketones (NEGATIVE) mg/dL Urine Occult Blood (NEGATIVE) Urine Nitrite (NEGATIVE) Urine Bilirubin (NEGATIVE) Urine Urobilinogen (NORMAL) E.U./dL Ur Leukocyte Esterase (NEGATIVE) Urine RBC (0-5) /HPF Urine WBC (0-5) /HPF Ur Squamous Epith Cells (<= Few) Urine Bacteria (None Seen) /HPF Urine Casts /LPF Ur Microscopic Review Urine Culture Comments Urine HCG, Qual Nasal Adenovirus (PCR) Nasal B. parapertussis DNA (PCR) Nasal Coronavir 229E PCR Nasal Coronavir HKU1 PCR Nasal Coronavir NL63 PCR Nasal Coronavir OC43 PCR Nasal Enterovir/Rhinovir PCR Nasal Influenza B PCR Nasal Influenza A PCR Nasal Parainfluen 1 PCR Nasal Parainfluen 2 PCR Nasal Parainfluen 3 PCR Nasal Parainfluen 4 PCR Nasal RSV (PCR) Nasal Screen MRSA (PCR) (NEGATIVE) Nasal B.pertussis DNA PCR Nasal C.pneumoniae (PCR) Ld Human Metapneumo PCR Nasal M.pneumoniae (PCR) Nasal SARS-CoV-2 (PCR) Serum Ketones SMALL H (NEGATIVE) 01/06/24 01/06/24 01/06/24 Range/Units 19:04 18:09 17:51 WBC (4.8-10.8) x10^3/uL RBC (4.20-5.40) 10^6/uL Hgb (12.0-16.0) g/dL Hct (37.0-47.0) % MCV (81.0-99.0) fL MCH (27.0-31.0) pg MCHC (32.0-36.0) g/dL RDW (12.0-15.0) % Plt Count (130-450) 10^3/uL Neut # (Auto) (1.5-6.6) 10^3/uL Lymph # (Auto) (1.5-3.5) 10^3/uL [place] # (Auto) (0.0-1.0) 10^3/uL Eos # (Auto) (0.0-0.7) 10^3/uL Baso # (Auto) (0.0-0.1) 10^3/uL Absolute Nucleated RBC x10^3/uL Nucleated RBC % /100WBC Manual Slide Review Platelet Estimate (NORMAL) Platelet Morphology (NORMAL) VBG pH (7.31-7.41) VBG pCO2 (41-51) mmHg VBG pO2 (25-47) mmHg VBG HCO3 (23-28) mmol/L VBG Total CO2 (24-29) mmol/L VBG O2 Saturation (60-80) % VBG Base Excess (-2 - +2) mmol/L Ionized Calcium (1.15-1.33) mmol/L Sodium 130 L (135-145) mmol/L Potassium 3.9 (3.5-4.5) mmol/L Chloride 106 (101-111) mmol/L Carbon Dioxide 4 L* (21-32) mmol/L Anion Gap 20.0 H (6-13) BUN 7 (6-20) mg/dL Creatinine 0.7 (0.6-1.3) mg/dL Estimated GFR (MDRD) 100 (>89) Glucose 93 (74-104) mg/dL POC Whole Bld Glucose 162 H 105 H (70 - 100) mg/dL Calcium 8.4 L (8.5-10.3) mg/dL Phosphorus (2.5-5.0) mg/dL Magnesium 1.6 L (1.7-2.3) mg/dL Total Bilirubin (0.2-1.0) mg/dL AST (10-42) IU/L ALT (10-60) IU/L Alkaline Phosphatase (42-121) IU/L Total Protein (6.4-8.9) g/dL Albumin (3.2-5.5) g/dL Globulin (2.1-4.2) g/dL Albumin/Globulin Ratio (1.0-2.2) Triglycerides (48-352) mg/dL Urine Color Urine Clarity (CLEAR) Urine pH (5.0-7.5) PH Ur Specific [place] (1.002-1.030) Urine Protein (NEGATIVE) mg/dL Urine Glucose (UA) (NEGATIVE) mg/dL Urine Ketones (NEGATIVE) mg/dL Urine Occult Blood (NEGATIVE) Urine Nitrite (NEGATIVE) Urine Bilirubin (NEGATIVE) Urine Urobilinogen (NORMAL) E.U./dL Ur Leukocyte Esterase (NEGATIVE) Urine RBC (0-5) /HPF Urine WBC (0-5) /HPF Ur Squamous Epith Cells (<= Few) Urine Bacteria (None Seen) /HPF Urine Casts /LPF Ur Microscopic Review Urine Culture Comments Urine HCG, Qual Nasal Adenovirus (PCR) Nasal B. parapertussis DNA (PCR) Nasal Coronavir 229E PCR Nasal Coronavir HKU1 PCR Nasal Coronavir NL63 PCR Nasal Coronavir OC43 PCR Nasal Enterovir/Rhinovir PCR Nasal Influenza B PCR Nasal Influenza A PCR Nasal Parainfluen 1 PCR Nasal Parainfluen 2 PCR Nasal Parainfluen 3 PCR Nasal Parainfluen 4 PCR Nasal RSV (PCR) Nasal Screen MRSA (PCR) (NEGATIVE) Nasal B.pertussis DNA PCR Nasal C.pneumoniae (PCR) Ld Human Metapneumo PCR Nasal M.pneumoniae (PCR) Nasal SARS-CoV-2 (PCR) Serum Ketones SMALL H (NEGATIVE) 01/06/24 01/06/24 01/06/24 Range/Units 17:06 16:10 16:00 WBC (4.8-10.8) x10^3/uL RBC (4.20-5.40) 10^6/uL Hgb (12.0-16.0) g/dL Hct (37.0-47.0) % MCV (81.0-99.0) fL MCH (27.0-31.0) pg MCHC (32.0-36.0) g/dL RDW (12.0-15.0) % Plt Count (130-450) 10^3/uL Neut # (Auto) (1.5-6.6) 10^3/uL Lymph # (Auto) (1.5-3.5) 10^3/uL [place] # (Auto) (0.0-1.0) 10^3/uL Eos # (Auto) (0.0-0.7) 10^3/uL Baso # (Auto) (0.0-0.1) 10^3/uL Absolute Nucleated RBC x10^3/uL Nucleated RBC % /100WBC Manual Slide Review Platelet Estimate (NORMAL) Platelet Morphology (NORMAL) VBG pH (7.31-7.41) VBG pCO2 (41-51) mmHg VBG pO2 (25-47) mmHg VBG HCO3 (23-28) mmol/L VBG Total CO2 (24-29) mmol/L VBG O2 Saturation (60-80) % VBG Base Excess (-2 - +2) mmol/L Ionized Calcium (1.15-1.33) mmol/L Sodium 132 L (135-145) mmol/L Potassium 4.3 (3.5-4.5) mmol/L Chloride 107 (101-111) mmol/L Carbon Dioxide 5 L* (21-32) mmol/L Anion Gap 20.0 H (6-13) BUN 7 (6-20) mg/dL Creatinine 0.8 (0.6-1.3) mg/dL Estimated GFR (MDRD) 85 L (>89) Glucose 95 (74-104) mg/dL POC Whole Bld Glucose 77 118 H (70 - 100) mg/dL Calcium 8.5 (8.5-10.3) mg/dL Phosphorus (2.5-5.0) mg/dL Magnesium 1.8 (1.7-2.3) mg/dL Total Bilirubin (0.2-1.0) mg/dL AST (10-42) IU/L ALT (10-60) IU/L Alkaline Phosphatase (42-121) IU/L Total Protein (6.4-8.9) g/dL Albumin (3.2-5.5) g/dL Globulin (2.1-4.2) g/dL Albumin/Globulin Ratio (1.0-2.2) Triglycerides (48-352) mg/dL Urine Color Urine Clarity (CLEAR) Urine pH (5.0-7.5) PH Ur Specific [place] (1.002-1.030) Urine Protein (NEGATIVE) mg/dL Urine Glucose (UA) (NEGATIVE) mg/dL Urine Ketones (NEGATIVE) mg/dL Urine Occult Blood (NEGATIVE) Urine Nitrite (NEGATIVE) Urine Bilirubin (NEGATIVE) Urine Urobilinogen (NORMAL) E.U./dL Ur Leukocyte Esterase (NEGATIVE) Urine RBC (0-5) /HPF Urine WBC (0-5) /HPF Ur Squamous Epith Cells (<= Few) Urine Bacteria (None Seen) /HPF Urine Casts /LPF Ur Microscopic Review Urine Culture Comments Urine HCG, Qual Nasal Adenovirus (PCR) Nasal B. parapertussis DNA (PCR) Nasal Coronavir 229E PCR Nasal Coronavir HKU1 PCR Nasal Coronavir NL63 PCR Nasal Coronavir OC43 PCR Nasal Enterovir/Rhinovir PCR Nasal Influenza B PCR Nasal Influenza A PCR Nasal Parainfluen 1 PCR Nasal Parainfluen 2 PCR Nasal Parainfluen 3 PCR Nasal Parainfluen 4 PCR Nasal RSV (PCR) Nasal Screen MRSA (PCR) (NEGATIVE) Nasal B.pertussis DNA PCR Nasal C.pneumoniae (PCR) Ld Human Metapneumo PCR Nasal M.pneumoniae (PCR) Nasal SARS-CoV-2 (PCR) Serum Ketones SMALL H (NEGATIVE) 01/06/24 01/06/24 01/06/24 Range/Units 15:23 15:15 15:02 WBC (4.8-10.8) x10^3/uL RBC (4.20-5.40) 10^6/uL Hgb (12.0-16.0) g/dL Hct (37.0-47.0) % MCV (81.0-99.0) fL MCH (27.0-31.0) pg MCHC (32.0-36.0) g/dL RDW (12.0-15.0) % Plt Count (130-450) 10^3/uL Neut # (Auto) (1.5-6.6) 10^3/uL Lymph # (Auto) (1.5-3.5) 10^3/uL [place] # (Auto) (0.0-1.0) 10^3/uL Eos # (Auto) (0.0-0.7) 10^3/uL Baso # (Auto) (0.0-0.1) 10^3/uL Absolute Nucleated RBC x10^3/uL Nucleated RBC % /100WBC Manual Slide Review Platelet Estimate (NORMAL) Platelet Morphology (NORMAL) VBG pH 7.061 L* (7.31-7.41) VBG pCO2 13.3 L (41-51) mmHg VBG pO2 211.6 H (25-47) mmHg VBG HCO3 3.7 L (23-28) mmol/L VBG Total CO2 4.1 L (24-29) mmol/L VBG O2 Saturation 99.0 H (60-80) % VBG Base Excess -24.5 L (-2 - +2) mmol/L Ionized Calcium (1.15-1.33) mmol/L Sodium (135-145) mmol/L Potassium (3.5-4.5) mmol/L Chloride (101-111) mmol/L Carbon Dioxide (21-32) mmol/L Anion Gap (6-13) BUN (6-20) mg/dL Creatinine (0.6-1.3) mg/dL Estimated GFR (MDRD) (>89) Glucose (74-104) mg/dL POC Whole Bld Glucose 151 H (70 - 100) mg/dL Calcium (8.5-10.3) mg/dL Phosphorus (2.5-5.0) mg/dL Magnesium (1.7-2.3) mg/dL Total Bilirubin (0.2-1.0) mg/dL AST (10-42) IU/L ALT (10-60) IU/L Alkaline Phosphatase (42-121) IU/L Total Protein (6.4-8.9) g/dL Albumin (3.2-5.5) g/dL Globulin (2.1-4.2) g/dL Albumin/Globulin Ratio (1.0-2.2) Triglycerides (48-352) mg/dL Urine Color Urine Clarity (CLEAR) Urine pH (5.0-7.5) PH Ur Specific [place] (1.002-1.030) Urine Protein (NEGATIVE) mg/dL Urine Glucose (UA) (NEGATIVE) mg/dL Urine Ketones (NEGATIVE) mg/dL Urine Occult Blood (NEGATIVE) Urine Nitrite (NEGATIVE) Urine Bilirubin (NEGATIVE) Urine Urobilinogen (NORMAL) E.U./dL Ur Leukocyte Esterase (NEGATIVE) Urine RBC (0-5) /HPF Urine WBC (0-5) /HPF Ur Squamous Epith Cells (<= Few) Urine Bacteria (None Seen) /HPF Urine Casts /LPF Ur Microscopic Review Urine Culture Comments Urine HCG, Qual Nasal Adenovirus (PCR) Nasal B. parapertussis DNA (PCR) Nasal Coronavir 229E PCR Nasal Coronavir HKU1 PCR Nasal Coronavir NL63 PCR Nasal Coronavir OC43 PCR Nasal Enterovir/Rhinovir PCR Nasal Influenza B PCR Nasal Influenza A PCR Nasal Parainfluen 1 PCR Nasal Parainfluen 2 PCR Nasal Parainfluen 3 PCR Nasal Parainfluen 4 PCR Nasal RSV (PCR) Nasal Screen MRSA (PCR) POSITIVE A* (NEGATIVE) Nasal B.pertussis DNA PCR Nasal C.pneumoniae (PCR) Ld Human Metapneumo PCR Nasal M.pneumoniae (PCR) Nasal SARS-CoV-2 (PCR) Serum Ketones (NEGATIVE) 02/24/24 02/24/24 02/24/24 Range/Units 15:02 14:25 12:30 WBC (4.8-10.8) x10^3/uL RBC (4.20-5.40) 10^6/uL Hgb (12.0-16.0) g/dL Hct (37.0-47.0) % MCV (81.0-99.0) fL MCH (27.0-31.0) pg MCHC (32.0-36.0) g/dL RDW (12.0-15.0) % Plt Count (130-450) 10^3/uL Neut # (Auto) (1.5-6.6) 10^3/uL Lymph # (Auto) (1.5-3.5) 10^3/uL [place] # (Auto) (0.0-1.0) 10^3/uL Eos # (Auto) (0.0-0.7) 10^3/uL Baso # (Auto) (0.0-0.1) 10^3/uL Absolute Nucleated RBC x10^3/uL Nucleated RBC % /100WBC Manual Slide Review Platelet Estimate (NORMAL) Platelet Morphology (NORMAL) VBG pH (7.31-7.41) VBG pCO2 (41-51) mmHg VBG pO2 (25-47) mmHg VBG HCO3 (23-28) mmol/L VBG Total CO2 (24-29) mmol/L VBG O2 Saturation (60-80) % VBG Base Excess (-2 - +2) mmol/L Ionized Calcium (1.15-1.33) mmol/L Sodium 131 L (135-145) mmol/L Potassium 3.6 (3.5-4.5) mmol/L Chloride 108 (101-111) mmol/L Carbon Dioxide 2 L* (21-32) mmol/L Anion Gap 21.0 H (6-13) BUN 8 (6-20) mg/dL Creatinine 0.7 (0.6-1.3) mg/dL Estimated GFR (MDRD) 100 (>89) Glucose 169 H (74-104) mg/dL POC Whole Bld Glucose (70 - 100) mg/dL Calcium 8.0 L (8.5-10.3) mg/dL Phosphorus (2.5-5.0) mg/dL Magnesium 1.5 L (1.7-2.3) mg/dL Total Bilirubin (0.2-1.0) mg/dL AST (10-42) IU/L ALT (10-60) IU/L Alkaline Phosphatase (42-121) IU/L Total Protein (6.4-8.9) g/dL Albumin (3.2-5.5) g/dL Globulin (2.1-4.2) g/dL Albumin/Globulin Ratio (1.0-2.2) Triglycerides (48-352) mg/dL Urine Color YELLOW Urine Clarity HAZY (CLEAR) Urine pH 5.5 (5.0-7.5) PH Ur Specific [place] >=1.030 H (1.002-1.030) Urine Protein 100 H (NEGATIVE) mg/dL Urine Glucose (UA) 250 H (NEGATIVE) mg/dL Urine Ketones >=80 H (NEGATIVE) mg/dL Urine Occult Blood TRACE-INTA (NEGATIVE) Urine Nitrite NEGATIVE (NEGATIVE) Urine Bilirubin NEGATIVE (NEGATIVE) Urine Urobilinogen 0.2 (NORMAL) (NORMAL) E.U./dL Ur Leukocyte Esterase NEGATIVE (NEGATIVE) Urine RBC None Seen (0-5) /HPF Urine WBC 4-5 (0-5) /HPF Ur Squamous Epith Cells MOD Squamous H (<= Few) Urine Bacteria Few (None Seen) /HPF Urine Casts 0-2 Granular Casts /LPF Ur Microscopic Review INDICATED Urine Culture Comments NOT INDICATED Urine HCG, Qual NEGATIVE Nasal Adenovirus (PCR) NOT DETECTED Nasal B. parapertussis DNA (PCR) NOT DETECTED Nasal Coronavir 229E PCR NOT DETECTED Nasal Coronavir HKU1 PCR NOT DETECTED Nasal Coronavir NL63 PCR NOT DETECTED Nasal Coronavir OC43 PCR NOT DETECTED Nasal Enterovir/Rhinovir PCR NOT DETECTED Nasal Influenza B PCR NOT DETECTED Nasal Influenza A PCR NOT DETECTED Nasal Parainfluen 1 PCR NOT DETECTED Nasal Parainfluen 2 PCR NOT DETECTED Nasal Parainfluen 3 PCR NOT DETECTED Nasal Parainfluen 4 PCR NOT DETECTED Nasal RSV (PCR) NOT DETECTED Nasal Screen MRSA (PCR) (NEGATIVE) Nasal B.pertussis DNA PCR NOT DETECTED Nasal C.pneumoniae (PCR) NOT DETECTED Ld Human Metapneumo PCR NOT DETECTED Nasal M.pneumoniae (PCR) NOT DETECTED Nasal SARS-CoV-2 (PCR) DETECTED A Serum Ketones SMALL H (NEGATIVE) 01/06/24 01/06/24 01/06/24 Range/Units 12:21 12:21 12:21 WBC 10.8 (4.8-10.8) x10^3/uL RBC 5.82 H (4.20-5.40) 10^6/uL Hgb 16.6 H (12.0-16.0) g/dL Hct 53.4 H (37.0-47.0) % MCV 91.8 (81.0-99.0) fL MCH 28.5 (27.0-31.0) pg MCHC 31.1 L (32.0-36.0) g/dL RDW 16.3 H (12.0-15.0) % Plt Count 173 (130-450) 10^3/uL Neut # (Auto) 8.9 H (1.5-6.6) 10^3/uL Lymph # (Auto) 0.7 L (1.5-3.5) 10^3/uL [place] # (Auto) 0.9 (0.0-1.0) 10^3/uL Eos # (Auto) 0.0 (0.0-0.7) 10^3/uL Baso # (Auto) 0.1 (0.0-0.1) 10^3/uL Absolute Nucleated RBC 0.00 x10^3/uL Nucleated RBC % 0.0 /100WBC Manual Slide Review Platelet Estimate (NORMAL) Platelet Morphology (NORMAL) VBG pH 7.004 L* (7.31-7.41) VBG pCO2 22.7 L (41-51) mmHg VBG pO2 34.9 (25-47) mmHg VBG HCO3 5.5 L (23-28) mmol/L VBG Total CO2 6.2 L (24-29) mmol/L VBG O2 Saturation 65.6 (60-80) % VBG Base Excess -24.3 L (-2 - +2) mmol/L Ionized Calcium (1.15-1.33) mmol/L Sodium 125 L (135-145) mmol/L Potassium 4.5 (3.5-4.5) mmol/L Chloride 96 L (101-111) mmol/L Carbon Dioxide 5 L* (21-32) mmol/L Anion Gap 24.0 H (6-13) BUN 9 (6-20) mg/dL Creatinine 1.0 (0.6-1.3) mg/dL Estimated GFR (MDRD) 66 L (>89) Glucose 351 H (74-104) mg/dL POC Whole Bld Glucose (70 - 100) mg/dL Calcium 9.2 (8.5-10.3) mg/dL Phosphorus 4.0 (2.5-5.0) mg/dL Magnesium 1.8 (1.7-2.3) mg/dL Total Bilirubin 0.3 (0.2-1.0) mg/dL AST 9 L (10-42) IU/L ALT 7 L (10-60) IU/L Alkaline Phosphatase 100 (42-121) IU/L Total Protein 9.0 H (6.4-8.9) g/dL Albumin 4.7 (3.2-5.5) g/dL Globulin 4.3 H (2.1-4.2) g/dL Albumin/Globulin Ratio 1.1 (1.0-2.2) Triglycerides (48-352) mg/dL Urine Color Urine Clarity (CLEAR) Urine pH (5.0-7.5) PH Ur Specific [place] (1.002-1.030) Urine Protein (NEGATIVE) mg/dL Urine Glucose (UA) (NEGATIVE) mg/dL Urine Ketones (NEGATIVE) mg/dL Urine Occult Blood (NEGATIVE) Urine Nitrite (NEGATIVE) Urine Bilirubin (NEGATIVE) Urine Urobilinogen (NORMAL) E.U./dL Ur Leukocyte Esterase (NEGATIVE) Urine RBC (0-5) /HPF Urine WBC (0-5) /HPF Ur Squamous Epith Cells (<= Few) Urine Bacteria (None Seen) /HPF Urine Casts /LPF Ur Microscopic Review Urine Culture Comments Urine HCG, Qual Nasal Adenovirus (PCR) Nasal B. parapertussis DNA (PCR) Nasal Coronavir 229E PCR Nasal Coronavir HKU1 PCR Nasal Coronavir NL63 PCR Nasal Coronavir OC43 PCR Nasal Enterovir/Rhinovir PCR Nasal Influenza B PCR Nasal Influenza A PCR Nasal Parainfluen 1 PCR Nasal Parainfluen 2 PCR Nasal Parainfluen 3 PCR Nasal Parainfluen 4 PCR Nasal RSV (PCR) Nasal Screen MRSA (PCR) (NEGATIVE) Nasal B.pertussis DNA PCR Nasal C.pneumoniae (PCR) Ld Human Metapneumo PCR Nasal M.pneumoniae (PCR) Nasal SARS-CoV-2 (PCR) Serum Ketones SMALL H (NEGATIVE) Assessment/Plan - Problem List (1) DKA (diabetic ketoacidoses) Impression: She had fever, N/V for 1 to 2 days and presented to the ER with DKA yesterday 01/06: venous pH 7.0, small ketones, and bicarb 5. Glu was 351, on her Insulin pump. She was started on DKA protocol in the ICU. Her ketones went up to large overnight and bicarb was as low as 2 after adm. This morning she is still in DKA with moderate ketones, venous pH still 7.0 (all labs were reviewed). Her glucoses have come down below 200 and she is now on a D5W iv drip separate from her IV NS drip Plan: Remain in ICU and continue treatment for DKA on DKA protocol on an insulin drip and aggressive IV NS hydration. Follow her labs including serum ketones often and when ketones are negative then the insulin drip will be stopped. Cont iv antiemetics as needed. I will start on clear liquids today She personally requested that her Insulin pump be used to treat this DKA. This will not be allowed, since using an IV insulin drip plus unknown amount infusing from her own Insulin pump, will not make for safe treatment of her glu and electrolytes. This was explained to the patient. Qualifiers: Diabetes mellitus type: type 1 Diabetes mellitus complication detail: without coma Qualified Code(s): E10.10 - Type 1 diabetes mellitus with ketoacidosis without coma (2) COVID-19 Conclusion/Plan: This is likely the cause of what put her into DKA. She had a fever and urinary frequency plus nausea & vomiting. She did not have a cough or hypoxia, but has tested positive for COVID. Perhaps her COVID mostly is a gastrointestinal component. No chest x-ray was done in ER. CXR done after adm showed no pulm disease Plan: She does not require IV Decadron or IV remdesivir Cont droplet and infectious isolation (3) MRSA carrier Conclusion/Plan: Plan: Conyt ethanol nasal wipes Contact precautions Qualifiers:
--- NOTE | 2024-01-07 07:35 | PHARMACY PROGRESS NOTE ---
- Best Possible Medication History Admit Date and Time: 01/06/24 1550 Processed by: Pharmacy Medications reviewed in ED?: Yes Medication History completed: Yes Patient Interview: Completed Secondary Source(s): Insurance records As the person ultimately responsible for medication therapy, providers are able to order a medication from an existing home medication list in [facility] via the "Reconcile Routine" prior to Confirmation of that medication by personal support worker. Such practice is discouraged except when the physician, in their clinical judgment, deems that a medical need exists for a medication without regard to previous use.
[2024-01-07] MEDS: ENOXAPARIN 40 MG/0.4 ML SYRINGE SUBQ SCH (08:33)
[2024-01-07] MEDS: polyethylene glycoL 3350 17 GM PACKET PO SCH (08:34)
[2024-01-07 10:59] LABS: ESTIMATED AVERAGE GLUCOSE 335 mg/dL (70-100); HEMOGLOBIN A1c% 13.3 % (4.27-6.07)
[2024-01-07 12:17] LABS: CREATININE 0.8 mg/dL (0.6-1.3); POTASSIUM 3.7 mmol/L (3.5-4.5)
[2024-01-07 13:00] LABS: MAGNESIUM 1.7 mg/dL (1.7-2.3); PHOSPHORUS 2.1 mg/dL (2.5-5.0)
[2024-01-07 13:26] LABS: VBG HCO3 5.3 mmol/L (23-28); VBG PCO2 15.3 mmHg (41-51); VBG PO2 90.2 mmHg (25-47); VBG TOTAL CO2 5.8 mmol/L (24-29)
[2024-01-07 13:27] LABS: VBG OXYGEN SATURATION 96.5 % (60-80)
[2024-01-07 13:29] LABS: VBG PH 7.158 (7.31-7.41)
[2024-01-07] MEDS: POTASSIUM CHLOR 10 MEQ/100 ML 10 MEQ/100 ML BAG IV SCH (15:33)
[2024-01-07 17:31] LABS: CREATININE 0.8 mg/dL (0.6-1.3); POTASSIUM 2.8 mmol/L (3.5-4.5)
[2024-01-07] MEDS: SODIUM CHLORIDE 0.9% 500 ML IV ONE (19:43)
--- NOTE | 2024-01-07 20:56 | CONSULTATION NOTE ---
Consultation Report: Called for assist with placement of PIV. Pt with only 22ga at R wrist infusing insulin. 2 PIV placed with US assist. 20 ga placed at L brachial v, proximal to elbow. Attempt x2. 20 ga IV placed at R AC attempt x1. Both IVs easily aspirate and flush easily with Jloop and cap. Patient tolerated without complaint.
--- NOTE | 2024-01-08 01:06 | ANESTHESIA PROCEDURE NOTE ---
Anesth Central Line Template - Central Line Central Line Preparation: Consent Obtained, Time out completed, Ultrasound used, Sterile prep and drape Central line location: Right IJ Central line type: Triple lumen Central line catheter tip site resides: Superior vena cava (SVC) Central line aftercare: Chlorhexidine disc placed, Secured, Placement confirmed, No pneumothorax, No complications, Bundle checklist complete, Pt tolerated well, Other (Secured at 17cm. Ports easily aspirate and flush with caps.)
--- NOTE | 2024-01-08 01:18 | XRAY Report ---
PROCEDURE: Chest for Line Placement INDICATIONS: CEntral line placement TECHNIQUE: One view of the chest was acquired. COMPARISON: None. FINDINGS: Surgical changes and devices: Right central venous catheter with tip projecting over the cavoatrial junction.. Lungs and pleura: No pleural effusions or pneumothorax. Lungs are clear. Mediastinum: Mediastinal contours appear normal. Heart size is normal. Bones and chest wall: No suspicious bony lesions. Overlying soft tissues appear unremarkable. IMPRESSION: No acute cardiopulmonary process. Right central venous catheter with tip projecting over the cavoatri al junction. Reviewed by: Ty Vásquez MD on 01/08/2024 1:17 AM PST Approved by: Ty Vásquez MD on 01/08/2024 1:17 AM PST Station ID: [id number]
[2024-01-08 01:30] LABS: VBG BASE EXCESS -13.6 mmol/L (-2 - +2); VBG HCO3 11.4 mmol/L (23-28); VBG OXYGEN SATURATION 91.9 % (60-80); VBG PCO2 25.1 mmHg (41-51); VBG PH 7.276 (7.31-7.41); VBG PO2 60.5 mmHg (25-47); VBG TOTAL CO2 12.2 mmol/L (24-29)
[2024-01-08 01:34] LABS: MAGNESIUM 1.5 mg/dL (1.7-2.3); POTASSIUM 3.3 mmol/L (3.5-4.5)
[2024-01-08] MEDS: POTASSIUM CHLOR 20 MEQ/100 ML 20 MEQ/100 ML BAG IV ONE ×3 (02:00→21:51)
[2024-01-08] MEDS: MAGNESIUM SULFATE 2 GRAM 2 GM/50 ML BAG IV ONE (02:15)
[2024-01-08 03:54] LABS: KETONES, SERUM (ACETEST) SMALL (NEGATIVE)
[2024-01-08 04:13] LABS: CARBON DIOXIDE - CO2 8 mmol/L (21-32)
[2024-01-08 04:14] LABS: BUN - BLOOD UREA NITROGEN 7 mg/dL (6-20); CALCIUM 8.2 mg/dL (8.5-10.3); CHLORIDE 103 mmol/L (101-111); CREATININE 0.7 mg/dL (0.6-1.3); GFR - MDRD 100 (>89); GLUCOSE 328 mg/dL (74-104); POTASSIUM 2.6 mmol/L (3.5-4.5); SODIUM 129 mmol/L (135-145)
[2024-01-08 04:49] LABS: PHOSPHORUS < 1.0 mg/dL (2.5-5.0)
[2024-01-08 05:17] LABS: VBG PCO2 28.6 mmHg (41-51); VBG PH 7.297 (7.31-7.41); VBG PO2 63.5 mmHg (25-47)
[2024-01-08 05:18] LABS: VBG BASE EXCESS -11.3 mmol/L (-2 - +2); VBG HCO3 13.7 mmol/L (23-28); VBG OXYGEN SATURATION 93.4 % (60-80); VBG TOTAL CO2 14.5 mmol/L (24-29)
[2024-01-08] MEDS: FLUTICASONE NASAL SPRAY NAS SCH (05:52)
[2024-01-08] MEDS: BENZONATATE 100 MG CAPSULE PO PRN (05:53)
[2024-01-08] MEDS: ACETAMINOPHEN 325 MG TABLET PO PRN (05:53)
[2024-01-08] MEDS: POTASSIUM CHLOR 20 MEQ/100 ML 20 MEQ/100 ML BAG IV SCH (06:11)
--- NOTE | 2024-01-08 08:34 | PROVIDER PROGRESS NOTE ---
Subjective - Subjective Pt reports feeling: No change Objective - Vital Signs/Intake & Output Reviewed Vital Signs: Yes Vital Signs: Vital Signs Pulse Resp BP Pulse Ox 01/08/24 07:00 114 H 21 120/65 100 01/08/24 06:00 131 H 18 137/97 H 100 01/08/24 05:00 119 H 17 126/79 100 Intake & Output: Intake & Output 01/05/24 01/06/24 01/07/24 01/08/24 23:59 23:59 23:59 23:59 Intake Total 2200.842 4437.187 1298.317 Output Total 800 3050 1300 Balance 8040.365 7037.187 -1.683 - Objective General Appearance: positive: Lethargic Eyes Bilateral: positive: Normal inspection ENT: positive: No signs of dehydration Neck: positive: Nml inspection Respiratory: positive: No respiratory distress Cardiovascular: positive: Regular rate & rhythm, Tachycardia Abdomen: positive: No distention Skin: positive: Warm, Dry Extremities: positive: No pedal edema - Lab Results Fish Bones: 01/07/24 03:26 01/08/24 16:50 Other Labs: Lab Results x24hrs 01/08/24 01/08/24 01/08/24 Range/Units 07:55 07:03 07:00 VBG pH (7.31-7.41) VBG pCO2 (41-51) mmHg VBG pO2 (25-47) mmHg VBG HCO3 (23-28) mmol/L VBG Total CO2 (24-29) mmol/L VBG O2 Saturation (60-80) % VBG Base Excess (-2 - +2) mmol/L Sodium (135-145) mmol/L Potassium (3.5-4.5) mmol/L Chloride (101-111) mmol/L Carbon Dioxide (21-32) mmol/L Anion Gap (6-13) BUN (6-20) mg/dL Creatinine (0.6-1.3) mg/dL Estimated GFR (MDRD) (>89) Glucose (74-104) mg/dL POC Whole Bld Glucose 296 H 247 H (70 - 100) mg/dL Estimat Average Glucose (70-100) mg/dL Hemoglobin A1c % (4.27-6.07) % Calcium (8.5-10.3) mg/dL Phosphorus (2.5-5.0) mg/dL Magnesium (1.7-2.3) mg/dL Serum Ketones MODERATE H (NEGATIVE) 01/08/24 01/08/24 01/08/24 Range/Units 06:02 04:58 04:49 VBG pH 7.297 L (7.31-7.41) VBG pCO2 28.6 L (41-51) mmHg VBG pO2 63.5 H (25-47) mmHg VBG HCO3 13.7 L (23-28) mmol/L VBG Total CO2 14.5 L (24-29) mmol/L VBG O2 Saturation 93.4 H (60-80) % VBG Base Excess -11.3 L (-2 - +2) mmol/L Sodium (135-145) mmol/L Potassium (3.5-4.5) mmol/L Chloride (101-111) mmol/L Carbon Dioxide (21-32) mmol/L Anion Gap (6-13) BUN (6-20) mg/dL Creatinine (0.6-1.3) mg/dL Estimated GFR (MDRD) (>89) Glucose (74-104) mg/dL POC Whole Bld Glucose 189 H 191 H (70 - 100) mg/dL Estimat Average Glucose (70-100) mg/dL Hemoglobin A1c % (4.27-6.07) % Calcium (8.5-10.3) mg/dL Phosphorus (2.5-5.0) mg/dL Magnesium (1.7-2.3) mg/dL Serum Ketones (NEGATIVE) 01/08/24 01/08/24 01/08/24 Range/Units 04:20 04:20 04:20 VBG pH (7.31-7.41) VBG pCO2 (41-51) mmHg VBG pO2 (25-47) mmHg VBG HCO3 (23-28) mmol/L VBG Total CO2 (24-29) mmol/L VBG O2 Saturation (60-80) % VBG Base Excess (-2 - +2) mmol/L Sodium (135-145) mmol/L Potassium 2.6 L (3.5-4.5) mmol/L Chloride (101-111) mmol/L Carbon Dioxide (21-32) mmol/L Anion Gap (6-13) BUN (6-20) mg/dL Creatinine (0.6-1.3) mg/dL Estimated GFR (MDRD) (>89) Glucose (74-104) mg/dL POC Whole Bld Glucose (70 - 100) mg/dL Estimat Average Glucose (70-100) mg/dL Hemoglobin A1c % (4.27-6.07) % Calcium (8.5-10.3) mg/dL Phosphorus < 1.0 L* (2.5-5.0) mg/dL Magnesium 2.0 (1.7-2.3) mg/dL Serum Ketones SMALL H (NEGATIVE) 01/08/24 01/08/24 01/08/24 Range/Units 04:00 03:22 03:15 VBG pH (7.31-7.41) VBG pCO2 (41-51) mmHg VBG pO2 (25-47) mmHg VBG HCO3 (23-28) mmol/L VBG Total CO2 (24-29) mmol/L VBG O2 Saturation (60-80) % VBG Base Excess (-2 - +2) mmol/L Sodium 129 L (135-145) mmol/L Potassium 2.6 L (3.5-4.5) mmol/L Chloride 103 (101-111) mmol/L Carbon Dioxide 8 L* (21-32) mmol/L Anion Gap 18.0 H (6-13) BUN 7 (6-20) mg/dL Creatinine 0.7 (0.6-1.3) mg/dL Estimated GFR (MDRD) 100 (>89) Glucose 328 H (74-104) mg/dL POC Whole Bld Glucose 287 H 318 H (70 - 100) mg/dL Estimat Average Glucose (70-100) mg/dL Hemoglobin A1c % (4.27-6.07) % Calcium 8.2 L (8.5-10.3) mg/dL Phosphorus (2.5-5.0) mg/dL Magnesium (1.7-2.3) mg/dL Serum Ketones SMALL H (NEGATIVE) 01/08/24 01/08/24 01/08/24 Range/Units 02:12 01:10 01:10 VBG pH (7.31-7.41) VBG pCO2 (41-51) mmHg VBG pO2 (25-47) mmHg VBG HCO3 (23-28) mmol/L VBG Total CO2 (24-29) mmol/L VBG O2 Saturation (60-80) % VBG Base Excess (-2 - +2) mmol/L Sodium (135-145) mmol/L Potassium 3.3 L (3.5-4.5) mmol/L Chloride (101-111) mmol/L Carbon Dioxide (21-32) mmol/L Anion Gap (6-13) BUN (6-20) mg/dL Creatinine (0.6-1.3) mg/dL Estimated GFR (MDRD) (>89) Glucose (74-104) mg/dL POC Whole Bld Glucose 309 H (70 - 100) mg/dL Estimat Average Glucose (70-100) mg/dL Hemoglobin A1c % (4.27-6.07) % Calcium (8.5-10.3) mg/dL Phosphorus (2.5-5.0) mg/dL Magnesium 1.5 L (1.7-2.3) mg/dL Serum Ketones SMALL H (NEGATIVE) 01/08/24 01/08/24 01/08/24 Range/Units 01:10 00:58 00:03 VBG pH 7.276 L (7.31-7.41) VBG pCO2 25.1 L (41-51) mmHg VBG pO2 60.5 H (25-47) mmHg VBG HCO3 11.4 L (23-28) mmol/L VBG Total CO2 12.2 L (24-29) mmol/L VBG O2 Saturation 91.9 H (60-80) % VBG Base Excess -13.6 L (-2 - +2) mmol/L Sodium (135-145) mmol/L Potassium (3.5-4.5) mmol/L Chloride (101-111) mmol/L Carbon Dioxide (21-32) mmol/L Anion Gap (6-13) BUN (6-20) mg/dL Creatinine (0.6-1.3) mg/dL Estimated GFR (MDRD) (>89) Glucose (74-104) mg/dL POC Whole Bld Glucose 274 H 231 H (70 - 100) mg/dL Estimat Average Glucose (70-100) mg/dL Hemoglobin A1c % (4.27-6.07) % Calcium (8.5-10.3) mg/dL Phosphorus (2.5-5.0) mg/dL Magnesium (1.7-2.3) mg/dL Serum Ketones (NEGATIVE) 01/07/24 01/07/24 01/07/24 Range/Units 23:16 22:02 21:07 VBG pH (7.31-7.41) VBG pCO2 (41-51) mmHg VBG pO2 (25-47) mmHg VBG HCO3 (23-28) mmol/L VBG Total CO2 (24-29) mmol/L VBG O2 Saturation (60-80) % VBG Base Excess (-2 - +2) mmol/L Sodium (135-145) mmol/L Potassium (3.5-4.5) mmol/L Chloride (101-111) mmol/L Carbon Dioxide (21-32) mmol/L Anion Gap (6-13) BUN (6-20) mg/dL Creatinine (0.6-1.3) mg/dL Estimated GFR (MDRD) (>89) Glucose (74-104) mg/dL POC Whole Bld Glucose 213 H 165 H 163 H (70 - 100) mg/dL Estimat Average Glucose (70-100) mg/dL Hemoglobin A1c % (4.27-6.07) % Calcium (8.5-10.3) mg/dL Phosphorus (2.5-5.0) mg/dL Magnesium (1.7-2.3) mg/dL Serum Ketones (NEGATIVE) 01/07/24 01/07/24 01/07/24 Range/Units 20:10 19:03 19:00 VBG pH (7.31-7.41) VBG pCO2 (41-51) mmHg VBG pO2 (25-47) mmHg VBG HCO3 (23-28) mmol/L VBG Total CO2 (24-29) mmol/L VBG O2 Saturation (60-80) % VBG Base Excess (-2 - +2) mmol/L Sodium (135-145) mmol/L Potassium (3.5-4.5) mmol/L Chloride (101-111) mmol/L Carbon Dioxide (21-32) mmol/L Anion Gap (6-13) BUN (6-20) mg/dL Creatinine (0.6-1.3) mg/dL Estimated GFR (MDRD) (>89) Glucose (74-104) mg/dL POC Whole Bld Glucose 155 H 225 H (70 - 100) mg/dL Estimat Average Glucose (70-100) mg/dL Hemoglobin A1c % (4.27-6.07) % Calcium (8.5-10.3) mg/dL Phosphorus (2.5-5.0) mg/dL Magnesium (1.7-2.3) mg/dL Serum Ketones SMALL H (NEGATIVE) 01/07/24 01/07/24 01/07/24 Range/Units 18:24 17:00 17:00 VBG pH (7.31-7.41) VBG pCO2 (41-51) mmHg VBG pO2 (25-47) mmHg VBG HCO3 (23-28) mmol/L VBG Total CO2 (24-29) mmol/L VBG O2 Saturation (60-80) % VBG Base Excess (-2 - +2) mmol/L Sodium 128 L (135-145) mmol/L Potassium 2.8 L (3.5-4.5) mmol/L Chloride 103 (101-111) mmol/L Carbon Dioxide 11 L* (21-32) mmol/L Anion Gap 14.0 H (6-13) BUN 9 (6-20) mg/dL Creatinine 0.8 (0.6-1.3) mg/dL Estimated GFR (MDRD) 85 L (>89) Glucose 233 H (74-104) mg/dL POC Whole Bld Glucose 190 H (70 - 100) mg/dL Estimat Average Glucose (70-100) mg/dL Hemoglobin A1c % (4.27-6.07) % Calcium 9.0 (8.5-10.3) mg/dL Phosphorus (2.5-5.0) mg/dL Magnesium (1.7-2.3) mg/dL Serum Ketones SMALL H (NEGATIVE) 01/07/24 01/07/24 01/07/24 Range/Units 16:15 15:01 14:55 VBG pH (7.31-7.41) VBG pCO2 (41-51) mmHg VBG pO2 (25-47) mmHg VBG HCO3 (23-28) mmol/L VBG Total CO2 (24-29) mmol/L VBG O2 Saturation (60-80) % VBG Base Excess (-2 - +2) mmol/L Sodium (135-145) mmol/L Potassium (3.5-4.5) mmol/L Chloride (101-111) mmol/L Carbon Dioxide (21-32) mmol/L Anion Gap (6-13) BUN (6-20) mg/dL Creatinine (0.6-1.3) mg/dL Estimated GFR (MDRD) (>89) Glucose (74-104) mg/dL POC Whole Bld Glucose 241 H 360 H (70 - 100) mg/dL Estimat Average Glucose (70-100) mg/dL Hemoglobin A1c % (4.27-6.07) % Calcium (8.5-10.3) mg/dL Phosphorus (2.5-5.0) mg/dL Magnesium (1.7-2.3) mg/dL Serum Ketones SMALL H (NEGATIVE) 01/07/24 01/07/24 01/07/24 Range/Units 14:07 13:10 13:10 VBG pH 7.158 L* (7.31-7.41) VBG pCO2 15.3 L (41-51) mmHg VBG pO2 90.2 H (25-47) mmHg VBG HCO3 5.3 L (23-28) mmol/L VBG Total CO2 5.8 L (24-29) mmol/L VBG O2 Saturation 96.5 H (60-80) % VBG Base Excess -21.0 L (-2 - +2) mmol/L Sodium (135-145) mmol/L Potassium (3.5-4.5) mmol/L Chloride (101-111) mmol/L Carbon Dioxide (21-32) mmol/L Anion Gap (6-13) BUN (6-20) mg/dL Creatinine (0.6-1.3) mg/dL Estimated GFR (MDRD) (>89) Glucose (74-104) mg/dL POC Whole Bld Glucose 393 H (70 - 100) mg/dL Estimat Average Glucose (70-100) mg/dL Hemoglobin A1c % (4.27-6.07) % Calcium (8.5-10.3) mg/dL Phosphorus (2.5-5.0) mg/dL Magnesium (1.7-2.3) mg/dL Serum Ketones MODERATE H (NEGATIVE) 01/07/24 01/07/24 01/07/24 Range/Units 13:04 12:06 11:40 VBG pH (7.31-7.41) VBG pCO2 (41-51) mmHg VBG pO2 (25-47) mmHg VBG HCO3 (23-28) mmol/L VBG Total CO2 (24-29) mmol/L VBG O2 Saturation (60-80) % VBG Base Excess (-2 - +2) mmol/L Sodium (135-145) mmol/L Potassium (3.5-4.5) mmol/L Chloride (101-111) mmol/L Carbon Dioxide (21-32) mmol/L Anion Gap (6-13) BUN (6-20) mg/dL Creatinine (0.6-1.3) mg/dL Estimated GFR (MDRD) (>89) Glucose (74-104) mg/dL POC Whole Bld Glucose 349 H 236 H (70 - 100) mg/dL Estimat Average Glucose (70-100) mg/dL Hemoglobin A1c % (4.27-6.07) % Calcium (8.5-10.3) mg/dL Phosphorus 2.1 L (2.5-5.0) mg/dL Magnesium 1.7 (1.7-2.3) mg/dL Serum Ketones (NEGATIVE) 01/07/24 01/07/24 01/07/24 Range/Units 11:40 11:40 11:07 VBG pH (7.31-7.41) VBG pCO2 (41-51) mmHg VBG pO2 (25-47) mmHg VBG HCO3 (23-28) mmol/L VBG Total CO2 (24-29) mmol/L VBG O2 Saturation (60-80) % VBG Base Excess (-2 - +2) mmol/L Sodium 129 L (135-145) mmol/L Potassium 3.7 (3.5-4.5) mmol/L Chloride 100 L (101-111) mmol/L Carbon Dioxide 7 L* (21-32) mmol/L Anion Gap 22.0 H (6-13) BUN 10 (6-20) mg/dL Creatinine 0.8 (0.6-1.3) mg/dL Estimated GFR (MDRD) 85 L (>89) Glucose 308 H (74-104) mg/dL POC Whole Bld Glucose 232 H (70 - 100) mg/dL Estimat Average Glucose (70-100) mg/dL Hemoglobin A1c % (4.27-6.07) % Calcium 9.0 (8.5-10.3) mg/dL Phosphorus (2.5-5.0) mg/dL Magnesium (1.7-2.3) mg/dL Serum Ketones SMALL H (NEGATIVE) 01/07/24 01/07/24 01/07/24 Range/Units 10:00 09:17 08:59 VBG pH (7.31-7.41) VBG pCO2 (41-51) mmHg VBG pO2 (25-47) mmHg VBG HCO3 (23-28) mmol/L VBG Total CO2 (24-29) mmol/L VBG O2 Saturation (60-80) % VBG Base Excess (-2 - +2) mmol/L Sodium (135-145) mmol/L Potassium (3.5-4.5) mmol/L Chloride (101-111) mmol/L Carbon Dioxide (21-32) mmol/L Anion Gap (6-13) BUN (6-20) mg/dL Creatinine (0.6-1.3) mg/dL Estimated GFR (MDRD) (>89) Glucose (74-104) mg/dL POC Whole Bld Glucose 196 H 127 H (70 - 100) mg/dL Estimat Average Glucose (70-100) mg/dL Hemoglobin A1c % (4.27-6.07) % Calcium (8.5-10.3) mg/dL Phosphorus (2.5-5.0) mg/dL Magnesium (1.7-2.3) mg/dL Serum Ketones SMALL H (NEGATIVE) 01/07/24 Range/Units 03:26 VBG pH (7.31-7.41) VBG pCO2 (41-51) mmHg VBG pO2 (25-47) mmHg VBG HCO3 (23-28) mmol/L VBG Total CO2 (24-29) mmol/L VBG O2 Saturation (60-80) % VBG Base Excess (-2 - +2) mmol/L Sodium (135-145) mmol/L Potassium (3.5-4.5) mmol/L Chloride (101-111) mmol/L Carbon Dioxide (21-32) mmol/L Anion Gap (6-13) BUN (6-20) mg/dL Creatinine (0.6-1.3) mg/dL Estimated GFR (MDRD) (>89) Glucose (74-104) mg/dL POC Whole Bld Glucose (70 - 100) mg/dL Estimat Average Glucose 335 H (70-100) mg/dL Hemoglobin A1c % 13.3 H (4.27-6.07) % Calcium (8.5-10.3) mg/dL Phosphorus (2.5-5.0) mg/dL Magnesium (1.7-2.3) mg/dL Serum Ketones (NEGATIVE) Assessment/Plan - Problem List (1) DKA (diabetic ketoacidoses) Impression: She had fever, N/V for 1 to 2 days and presented to the ER with DKA on 01/06: venous pH 7.0, small ketones, and bicarb 5. Glu was 351, on her Insulin pump. She was started on DKA protocol in the ICU. Her ketones went up to large and bicarb was as low as 2 Yesterday she was still in DKA with moderate ketones, venous pH still 7.0 Today she is still in DKA with moderate ketones and venous pH 7.2 after getting sodium Bicarb overnite (all labs were reviewed). Her glucoses have come down below 200 and she is now on a D5W iv drip separate from her IV NS drip Plan: Remain in ICU and continue treatment for DKA on DKA protocol on an insulin drip and aggressive IV NS hydration. Follow her labs including serum ketones often, and when ketones are negative then the insulin drip will be stopped. Cont iv antiemetics as needed. Cont clear liquids which she tolerates She personally requested that her Insulin pump be used to treat this DKA. This will not be allowed, since using an IV insulin drip plus unknown amount infusing from her own Insulin pump, will not make for safe treatment of her glu and electrolytes. This was explained to the patient. Qualifiers: Diabetes mellitus type: type 1 Diabetes mellitus complication detail: without coma Qualified Code(s): E10.10 - Type 1 diabetes mellitus with ketoacidosis without coma (2) Tachycardia Her HR has been elevated since admission ~110, and is even higher with any mvm she does in bed. Today HR 140-150 I suspect this is from volume depletion and from N/V causing her distress, since she has no fever, no pain, no anemia, or Hx of heart disease Plan: Will increase present iv fluids NS to 175 cc/hr and give a 500 cc saline bolus on top of that I will give her a one-time Lopressor 2.5 mg IV push today Will check her iron panel and replace if low Will check her TSH to R/O hyperthyroidism Obtain an Echo to evaluate chamber sizes (but today is Monday and we have no cardiac cath technician here till Monday) (3) Hypokalemia From IV Insulin pusing serum K intracellular Plan: Give K replacement and hold Insulin drip until K is 3.3 (as per DKA protocol) (4) Hypomagnesemia Conclusion/Plan: Likely related to inadequate replacement Plan: Will give Mg rider (5) COVID-19 Conclusion/Plan: This is likely the cause of what put her into DKA. She did have a fever and urinary frequency plus nausea & vomiting. She did not have a cough or hypoxia, but has tested positive for COVID. Perhaps her COVID mostly is a gastrointestinal component. No chest x-ray was done in ER. CXR done after adm showed no pulm disease She still had nausea this morning and needed both Zofran and Compazine given Plan: Continue Pepcid IV twice daily for stress ulcer prophylaxis Continue as needed antiemetics, Zoifran and Compazine and will consider adding Reglan 30 min pre-meals for poss diabetic gastroparesis She does not require IV Decadron or IV Remdesivir since she is not hypoxic Cont droplet and infectious isolation (6) MRSA carrier Conclusion/Plan: Plan: Cont ethanol nasal wipes Contact precautions Qualifiers:
[2024-01-08] MEDS: METOPROLOL 5 MG/5 ML VIAL IVP STA (08:53)
[2024-01-08] MEDS: SODIUM CHLORIDE 0.9% 500 ML IV ONE ×2 (08:59→17:47)
[2024-01-08] MEDS ORDERED: FLUTICASONE NASAL SPRAY NAS SCH (09:00)
[2024-01-08] MEDS: POTASSIUM PHOSPHATE 15 MMOL in SODIUM CHLORIDE 0.9% 250 ML IV SCH (09:14)
[2024-01-08] MEDS: SODIUM CHLORIDE 0.9% 1,000 ML IV SCH (12:27)
[2024-01-08] MEDS: INSULIN REGULAR HUMAN 100 UNIT in SODIUM CHLORIDE 0.9% 100ML 99 ML IV SCH (13:06)
[2024-01-08 13:23] LABS: CALCIUM 7.8 mg/dL (8.5-10.3); CREATININE 0.6 mg/dL (0.6-1.3); POTASSIUM 3.1 mmol/L (3.5-4.5)
[2024-01-08] MEDS: DEXTROSE 5%-0.45% NACL 1,000 ML IV SCH (13:41)
[2024-01-08 14:12] LABS: VBG BASE EXCESS -13.7 mmol/L (-2 - +2); VBG HCO3 12.4 mmol/L (23-28); VBG PCO2 30.3 mmHg (41-51); VBG PH 7.231 (7.31-7.41); VBG PO2 68.9 mmHg (25-47); VBG TOTAL CO2 13.4 mmol/L (24-29)
[2024-01-08 15:12] LABS: KETONES, SERUM (ACETEST) SMALL (NEGATIVE)
[2024-01-08 15:36] LABS: BUN - BLOOD UREA NITROGEN 3 mg/dL (6-20); CALCIUM 7.8 mg/dL (8.5-10.3); CARBON DIOXIDE - CO2 16 mmol/L (21-32); CHLORIDE 111 mmol/L (101-111); CREATININE 0.6 mg/dL (0.6-1.3); GFR - MDRD 119 (>89); GLUCOSE 145 mg/dL (74-104); POTASSIUM 3.4 mmol/L (3.5-4.5); SODIUM 134 mmol/L (135-145)
[2024-01-08] MEDS: BENZOCAINE/MENTHOL LOZENGE MM PRN (15:47)
[2024-01-08] MEDS: PHENOL THROAT SPRAY 177 ML MM PRN (15:47)
[2024-01-08 17:12] LABS: MAGNESIUM 1.4 mg/dL (1.7-2.3); POTASSIUM 3.6 mmol/L (3.5-4.5)
[2024-01-08] MEDS: MAGNESIUM SULFATE 2 GRAM 2 GM/50 ML BAG IV SCH (17:34)
[2024-01-08] MEDS: METOCLOPRAMIDE 10 MG/2 ML VIAL IVP STA (17:55)
[2024-01-08] MEDS: INSULIN LISPRO 300 UNIT/3 ML PEN SUBQ SCH (20:54)
[2024-01-08] MEDS: SODIUM CHLORIDE FLUSH 0.9% 10 ML SYRINGE IVP PRN (20:55)
[2024-01-08 21:19] LABS: CALCIUM 7.3 mg/dL (8.5-10.3); CREATININE 0.5 mg/dL (0.6-1.3); POTASSIUM 3.8 mmol/L (3.5-4.5)
[2024-01-09] MEDS: POTASSIUM CHLOR 20 MEQ/100 ML 20 MEQ/100 ML BAG IV SCH ×2 (00:10→10:26)
[2024-01-09 03:43] LABS: KETONES, SERUM (ACETEST) SMALL (NEGATIVE)
[2024-01-09 03:51] LABS: % IRON SATURATION 83 % (20-50); BUN - BLOOD UREA NITROGEN 2 mg/dL (6-20); CALCIUM 7.9 mg/dL (8.5-10.3); CARBON DIOXIDE - CO2 16 mmol/L (21-32); CHLORIDE 103 mmol/L (101-111); CREATININE 0.5 mg/dL (0.6-1.3); GFR - MDRD 147 (>89); GLUCOSE 304 mg/dL (74-104); IRON 128 ug/dL (50-212); POTASSIUM 4.4 mmol/L (3.5-4.5); SODIUM 132 mmol/L (135-145); TOTAL IRON BINDING CAPACITY 154 ug/dL (250-450); TRANSFERRIN 110 mg/dL (203-362)
[2024-01-09 05:56] LABS: KETONES, SERUM (ACETEST) SMALL (NEGATIVE)
[2024-01-09 05:57] LABS: CALCIUM, IONIZED 1.1 mmol/L (1.15-1.33); VBG PH 7.286 (7.31-7.41)
[2024-01-09 06:05] LABS: MAGNESIUM 1.7 mg/dL (1.7-2.3); PHOSPHORUS 2.5 mg/dL (2.5-5.0)
[2024-01-09] MEDS: CALCIUM GLUC 1,000MG/50ML-NACL 1,000 MG/50 ML BAG IV ONE (06:49)
[2024-01-09] MEDS: MAGNESIUM SULFATE 2 GRAM 2 GM/50 ML BAG IV ONE ×2 (06:49→15:35)
[2024-01-09] MEDS: METOCLOPRAMIDE 10 MG/2 ML VIAL IVP SCH (06:57)
--- NOTE | 2024-01-09 08:08 | PROVIDER PROGRESS NOTE ---
Assessment/Plan - Problem List (1) DKA (diabetic ketoacidoses) Qualifiers: Qualified Code(s): E10.10 - Type 1 diabetes mellitus with ketoacidosis without coma Assessment/Plan: She had fever, N/V for 1 to 2 days and presented to the ER with DKA on 01/06: venous pH 7.0, small ketones, and bicarb 5. Glu was 351, on her Insulin pump. She was started on DKA protocol in the ICU. Her ketones went up to large and bicarb was as low as 2 Continue insulin drip but at a rate of 2-3 units/h. Initiate sliding scale insulin. Aggressive fluid hydration with lactated Ringer's. Continue to monitor basic metabolic panel closely. Qualifiers: Diabetes mellitus type: type 1 Diabetes mellitus complication detail: without coma Qualified Code(s): E10.10 - Type 1 diabetes mellitus with ketoacidosis without coma (2) Tachycardia Resolving. Continue to monitor. (3) Hypokalemia Continue to monitor and place potassium as needed. (4) Hypomagnesemia Conclusion/Plan: Continue to monitor and replace magnesium as needed. (5) COVID-19 Conclusion/Plan: Supportive treatment.Patient continues to do well from a respiratory standpoint is on room air. (6) MRSA carrier Conclusion/Plan: Plan: Cont ethanol nasal wipes Contact precautions - Current Meds Current Meds: Current Medications Generic Name Dose Route Start Last Admin Trade Name Freq PRN Reason Stop Dose Admin Acetaminophen 650 mg 01/08/24 05:14 01/08/24 15:40 Acetaminophen 325 Mg Tablet PO 650 mg Q4HR PRN Administration Pain or Fever > 38C (100.4F) Alcohol 1 amp 01/06/24 21:00 01/09/24 07:55 Ethyl Alcohol 62% Swab Ampule ARVIN 1 amp BID SUZANNA Administration Enoxaparin Sodium 40 mg 01/07/24 09:00 01/09/24 07:55 Enoxaparin 40 Mg/0.4 Ml Syringe SUBQ 40 mg DAILY SUZANNA Administration Famotidine 20 mg 01/06/24 21:00 01/09/24 07:55 Famotidine 20 Mg/2 Ml Vial IVP 20 mg BID SUZANNA Administration Fluticasone Propionate 1 sprays 01/08/24 06:00 01/09/24 07:56 Fluticasone Nasal [place] ARVIN 1 spr DAILY SUZANNA Administration Insulin Human Regular 100 unit 100 mls @ 22 mls/hr 01/08/24 13:00 01/09/24 06:43 / Sodium Chloride IV 17.3 unit/hr .Q4H33M SUZANNA 17.3 mls/hr Titration Protocol 22 UNIT/HR Dextrose/Sodium Chloride 1,000 mls @ 50 mls/hr 01/08/24 12:20 01/08/24 21:55 D5.45ns IV 50 mls/hr .Q20H SUZANNA Infusion Sodium Chloride 1,000 mls @ 175 mls/hr 01/08/24 12:21 01/09/24 03:00 Normal Saline 0.9% IV 175 mls/hr .Q5H43M SUZANNA Administration Insulin Human Lispro 1 - 5 unit 01/08/24 21:00 01/08/24 20:54 Insulin Lispro 300 Unit/3 Ml Pen SUBQ 3 unit 0800,1200,1700,2100 SUZANNA Administration Protocol Metoclopramide HCl 5 mg 01/09/24 07:00 01/09/24 06:57 Metoclopramide 10 Mg/2 Ml Vial IVP 5 mg AC SUZANNA Administration Ondansetron HCl 4 mg 01/06/24 14:44 01/08/24 07:43 Ondansetron 4 Mg/2 Ml Vial IVP 4 mg Q6HR PRN Administration Nausea / Vomiting Phenol/Menthol 2 sprays 01/08/24 15:32 01/08/24 15:47 Phenol Throat [place] 177 Ml MM 2 sprays Q2HR PRN Administration Throat Pain Polyethylene Glycol 17 gm 01/07/24 09:00 01/09/24 07:57 Polyethylene Glycol 3350 17 Gm Packet PO Not Given DAILY SUZANNA Prochlorperazine Edisylate 10 mg 01/06/24 14:44 01/08/24 08:53 Prochlorperazine 10 Mg/2 Ml Vial IVP 10 mg Q6HR PRN Administration Nausea / Vomiting Sodium Chloride 10 ml 01/06/24 17:00 01/09/24 07:57 Sodium Chloride Flush 0.9% 10 Ml Syringe IVP 10 ml 0100,0900,1700 SUZANNA Administration Sodium Chloride 10 ml 01/06/24 14:44 01/09/24 08:01 Sodium Chloride Flush 0.9% 10 Ml Syringe IVP 30 ml PRN PRN Administration NEEDED PER PROVIDER ORDERS Throat Lozenges 1 lozenge 01/08/24 15:32 01/08/24 15:47 Benzocaine/Menthol Lozenge MM 1 lozenge Q2HR PRN Administration Throat pain - Lab Result Fish Bone Diagrams: 01/07/24 03:26 01/09/24 22:36 - Additional Planning My Orders: My Active Orders 01/09/24 10:00 BMP - BASIC METABOLIC PANEL [CHEM] Timed CALCIUM, IONIZED ([facility]) [BG] Timed MAGNESIUM [CHEM] Timed Subjective - Subjective Patient Reports: Other (Alert. Wants to initiate a diet. She denies shortness of breath, chest pain and abdominal pain. She denies nausea and vomiting.) Objective Vital Signs: Vital Signs - 24 hr 01/08/24 01/08/24 01/08/24 08:53 09:00 09:20 Temperature Heart Rate [ 112 H 117 H Monitoring electrodes] Respiratory 25 H Rate Blood Pressure 132/64 H Blood Pressure [Left Brachial artery] Blood Pressure 107/61 115/59 L [Right Brachial artery] O2 Saturation 100 01/08/24 01/08/24 01/08/24 09:34 10:00 10:04 Temperature 37.0 C Heart Rate [ 116 H 114 H Monitoring electrodes] Respiratory 20 Rate Blood Pressure Blood Pressure [Left Brachial artery] Blood Pressure 108/59 L 118/65 [Right Brachial artery] O2 Saturation 99 01/08/24 01/08/24 01/08/24 11:00 12:00 13:00 Temperature 36.9 C Heart Rate [ 118 H 128 H 118 H Monitoring electrodes] Respiratory 20 19 23 Rate Blood Pressure Blood Pressure [Left Brachial artery] Blood Pressure 120/66 113/58 L 116/65 [Right Brachial artery] O2 Saturation 98 98 97 01/08/24 01/08/24 01/08/24 14:00 15:00 16:00 Temperature 37.1 C Heart Rate [ 117 H 119 H 115 H Monitoring electrodes] Respiratory 18 16 23 Rate Blood Pressure Blood Pressure [Left Brachial artery] Blood Pressure 130/72 123/79 120/66 [Right Brachial artery] O2 Saturation 99 99 100 01/08/24 01/08/24 01/08/24 17:00 18:00 19:00 Temperature Heart Rate [ 107 H 102 H 106 H Monitoring electrodes] Respiratory 24 17 23 Rate Blood Pressure Blood Pressure [Left Brachial artery] Blood Pressure 122/67 113/66 119/68 [Right Brachial artery] O2 Saturation 97 100 100 01/08/24 01/08/24 01/08/24 20:00 21:00 22:00 Temperature 37.0 C Heart Rate [ 103 H 96 91 Monitoring electrodes] Respiratory 21 17 21 Rate Blood Pressure Blood Pressure [Left Brachial artery] Blood Pressure 111/61 123/72 127/75 [Right Brachial artery] O2 Saturation 97 100 98 01/08/24 01/09/24 01/09/24 23:00 00:00 01:00 Temperature 37 C Heart Rate [ 97 100 99 Monitoring electrodes] Respiratory 22 21 22 Rate Blood Pressure Blood Pressure [Left Brachial artery] Blood Pressure 118/74 116/72 123/70 [Right Brachial artery] O2 Saturation 97 98 100 01/09/24 01/09/24 01/09/24 02:00 03:00 04:00 Temperature 36.8 C Heart Rate [ 96 99 102 H Monitoring electrodes] Respiratory 24 20 22 Rate Blood Pressure Blood Pressure 123/72 118/68 120/72 [Left Brachial artery] Blood Pressure [Right Brachial artery] O2 Saturation 100 100 96 01/09/24 01/09/24 01/09/24 05:00 06:00 07:00 Temperature 37.4 C Heart Rate [ 103 H 103 H 117 H Monitoring electrodes] Respiratory 26 H 23 21 Rate Blood Pressure Blood Pressure 116/68 121/71 125/84 H [Left Brachial artery] Blood Pressure [Right Brachial artery] O2 Saturation 100 100 98 01/09/24 07:59 Temperature 37.1 C Heart Rate [ 114 H Monitoring electrodes] Respiratory 19 Rate Blood Pressure Blood Pressure 129/94 H [Left Brachial artery] Blood Pressure [Right Brachial artery] O2 Saturation 100 Oxygen O2 Source Room air I&O (Last 24 Hrs): Intake and Output Totals x24h 01/07/24 01/08/24 01/09/24 23:59 23:59 23:59 Intake Total 4437.187 6127.000 1566.665 Output Total 3050 5300 1900 Balance 1387.187 827.000 -333.335 General: Alert, Oriented x3, No acute distress Lymphatic: no adenopathy Cardiovascular: Regular rate, Normal S1, Normal S2 Respiratory: Chest non-tender, No respiratory distress, Breath sounds nml Abdomen: Normal bowel sounds, Soft, No tenderness Extremities: No cyanosis, No edema Skin: No rashes - Results Results: Laboratory Results WBC 9.6 x10^3/uL (4.8-10.8) 01/07/24 03: RBC 5.43 10^6/uL (4.20-5.40) H 01/07/24 03:26 Hgb 15.4 g/dL (12.0-16.0) 01/07/24 03:26 Hct 49.2 % (37.0-47.0) H 01/07/24 03:26 MCV 90.6 fL (81.0-99.0) 01/07/24 03: MCH 28.4 pg (27.0-31.0) 01/07/24 03: MCHC 31.3 g/dL (32.0-36.0) L 01/07/24 03: RDW 16.3 % (12.0-15.0) H 01/07/24 03:26 Plt Count 119 10^3/uL (130-450) L 01/07/24 03:26 Neut # (Auto) 6.9 10^3/uL (1.5-6.6) H 01/07/24 03:26 Lymph # (Auto) 1.1 10^3/uL (1.5-3.5) L 01/07/24 03:26 [place] # (Auto) 1.0 10^3/uL (0.0-1.0) 01/07/24 03: Eos # (Auto) 0.0 10^3/uL (0.0-0.7) 01/07/24 03: Baso # (Auto) 0.1 10^3/uL (0.0-0.1) 01/07/24 03: Absolute Nucleated RBC 0.00 x10^3/uL 01/07/24 03: Nucleated RBC % 0.0 /100WBC 01/07/24 03: Manual Slide Review Indicated 01/07/24 03: Platelet Estimate NORMAL (130-450,000) (NORMAL) 01/07/24 03: Platelet Morphology NORMAL APPEARANCE (NORMAL) 01/07/24 03: VBG pH 7.286 (7.31-7.41) L 01/09/24 05:30 VBG pCO2 30.3 mmHg (41-51) L 01/08/24 13:35 VBG pO2 68.9 mmHg (25-47) H 01/08/24 13:35 VBG HCO3 12.4 mmol/L (23-28) L 01/08/24 13:35 VBG Total CO2 13.4 mmol/L (24-29) L 01/08/24 13:35 VBG O2 Saturation 94.0 % (60-80) H 01/08/24 13:35 VBG Base Excess -13.7 mmol/L (-2 - +2) L 01/08/24 13:35 Ionized Calcium 1.10 mmol/L (1.15-1.33) L 01/09/24 05:30 Sodium 132 mmol/L (135-145) L 01/09/24 03:05 Potassium 4.4 mmol/L (3.5-4.5) 01/09/24 03:05 Potassium Cancelled 01/09/24 03:05 Chloride 103 mmol/L (101-111) 01/09/24 03:05 Carbon Dioxide 16 mmol/L (21-32) L 01/09/24 03:05 Anion Gap 13.0 (6-13) 01/09/24 03:05 BUN 2 mg/dL (6-20) L 01/09/24 03:05 Creatinine 0.5 mg/dL (0.6-1.3) L 01/09/24 03:05 Estimated GFR (MDRD) 147 (>89) 01/09/24 03:05 Glucose 304 mg/dL (74-104) H 01/09/24 03:05 POC Whole Bld Glucose 180 mg/dL (70 - 100) H 01/09/24 07:52 Estimat Average Glucose 335 mg/dL (70-100) H 01/07/24 03:26 Hemoglobin A1c % 13.3 % (4.27-6.07) H 01/07/24 03:26 Calcium 7.9 mg/dL (8.5-10.3) L 01/09/24 03:05 Phosphorus 2.5 mg/dL (2.5-5.0) 01/09/24 05:30 Magnesium 1.7 mg/dL (1.7-2.3) 01/09/24 05:30 Iron 128 ug/dL (50-212) 01/09/24 03:05 TIBC 154 ug/dL (250-450) L 01/09/24 03:05 % Saturation 83 % (20-50) H 01/09/24 03:05 Transferrin 110 mg/dL (203-362) L 01/09/24 03:05 Total Bilirubin 0.3 mg/dL (0.2-1.0) 01/06/24 12:21 AST 9 IU/L (10-42) L 01/06/24 12:21 ALT 7 IU/L (10-60) L 01/06/24 12:21 Alkaline Phosphatase 100 IU/L (42-121) 01/06/24 12:21 Total Protein 9.0 g/dL (6.4-8.9) H 01/06/24 12:21 Albumin 4.7 g/dL (3.2-5.5) 01/06/24 12:21 Globulin 4.3 g/dL (2.1-4.2) H 01/06/24 12:21 Albumin/Globulin Ratio 1.1 (1.0-2.2) 01/06/24 12:21 Triglycerides 203 mg/dL (48-352) 01/07/24 03:26 Urine Color YELLOW 01/06/24 14:25 Urine Clarity HAZY (CLEAR) 01/06/24 14:25 Urine pH 5.5 PH (5.0-7.5) 01/06/24 14:25 Ur Specific [place] >=1.030 (1.002-1.030) H 01/06/24 14:25 Urine Protein 100 mg/dL (NEGATIVE) H 01/06/24 14:25 Urine Glucose (UA) 250 mg/dL (NEGATIVE) H 01/06/24 14:25 Urine Ketones >=80 mg/dL (NEGATIVE) H 01/06/24 14:25 Urine Occult Blood TRACE-INTA (NEGATIVE) 01/06/24 14:25 Urine Nitrite NEGATIVE (NEGATIVE) 01/06/24 14:25 Urine Bilirubin NEGATIVE (NEGATIVE) 01/06/24 14:25 Urine Urobilinogen 0.2 (NORMAL) E.U./dL (NORMAL) 01/06/24 14:25 Ur Leukocyte Esterase NEGATIVE (NEGATIVE) 01/06/24 14:25 Urine RBC None Seen /HPF (0-5) 01/06/24 14:25 Urine WBC 4-5 /HPF (0-5) 01/06/24 14:25 Ur Squamous Epith Cells MOD Squamous (<= Few) H 01/06/24 14:25 Urine Bacteria Few /HPF (None Seen) 01/06/24 14:25 Urine Casts 0-2 Granular Casts /LPF 01/06/24 14:25 Ur Microscopic Review INDICATED 01/06/24 14:25 Urine Culture Comments NOT INDICATED 01/06/24 14:25 Urine HCG, Qual NEGATIVE 01/06/24 14:25 Nasal Adenovirus (PCR) NOT DETECTED 01/06/24 12:30 Nasal B. parapertussis DNA (PCR) NOT DETECTED 01/06/24 12:30 Nasal Coronavir 229E PCR NOT DETECTED 01/06/24 12:30 Nasal Coronavir HKU1 PCR NOT DETECTED 01/06/24 12:30 Nasal Coronavir NL63 PCR NOT DETECTED 01/06/24 12:30 Nasal Coronavir OC43 PCR NOT DETECTED 01/06/24 12:30 Nasal Enterovir/Rhinovir PCR NOT DETECTED 01/06/24 12:30 Nasal Influenza B PCR NOT DETECTED 01/06/24 12:30 Nasal Influenza A PCR NOT DETECTED 01/06/24 12:30 Nasal Parainfluen 1 PCR NOT DETECTED 01/06/24 12:30 Nasal Parainfluen 2 PCR NOT DETECTED 01/06/24 12:30 Nasal Parainfluen 3 PCR NOT DETECTED 01/06/24 12:30 Nasal Parainfluen 4 PCR NOT DETECTED 01/06/24 12:30 Nasal RSV (PCR) NOT DETECTED 01/06/24 12:30 Nasal Screen MRSA (PCR) POSITIVE (NEGATIVE) A* 01/06/24 15:15 Nasal B.pertussis DNA PCR NOT DETECTED 01/06/24 12:30 Nasal C.pneumoniae (PCR) NOT DETECTED 01/06/24 12:30 Arvin Human Metapneumo PCR NOT DETECTED 01/06/24 12:30 Nasal M.pneumoniae (PCR) NOT DETECTED 01/06/24 12:30 Nasal SARS-CoV-2 (PCR) DETECTED A 01/06/24 12:30 Serum Ketones SMALL (NEGATIVE) H 01/09/24 05:30
[2024-01-09] MEDS: SODIUM PHOSPHATE 15 MMOL in SODIUM CHLORIDE 0.9% 250 ML IV ONE (08:10)
[2024-01-09 10:03] LABS: CALCIUM, IONIZED 1.09 mmol/L (1.15-1.33); VBG PH 7.339 (7.31-7.41)
[2024-01-09] MEDS: CALCIUM CARBONATE CHEW 500 MG TABLET PO SCH ×2 (10:13→20:24)
[2024-01-09 10:16] LABS: CALCIUM 7.8 mg/dL (8.5-10.3); CREATININE 0.5 mg/dL (0.6-1.3); POTASSIUM 2.7 mmol/L (3.5-4.5)
[2024-01-09] MEDS: LACTATED RINGERS 1,000 ML IV ONE ×2 (11:32→16:16)
[2024-01-09] MEDS: POTASSIUM CHLORIDE 20 MEQ/15 ML UDC PO SCH (11:51)
[2024-01-09 14:46] LABS: KETONES, SERUM (ACETEST) SMALL (NEGATIVE)
[2024-01-09 14:55] LABS: BUN - BLOOD UREA NITROGEN 3 mg/dL (6-20); CALCIUM 7.5 mg/dL (8.5-10.3); CARBON DIOXIDE - CO2 18 mmol/L (21-32); CHLORIDE 101 mmol/L (101-111); CREATININE 0.6 mg/dL (0.6-1.3); GFR - MDRD 119 (>89); GLUCOSE 456 mg/dL (74-104); MAGNESIUM 1.6 mg/dL (1.7-2.3); PHOSPHORUS 3.1 mg/dL (2.5-5.0); POTASSIUM 5.2 mmol/L (3.5-4.5); SODIUM 130 mmol/L (135-145)
[2024-01-09] MEDS: POTASSIUM CHLORIDE INJ 40 MEQ in LACTATED RINGERS 1,000 ML IV SCH (15:09)
[2024-01-09] MEDS: INSULIN LISPRO 300 UNIT/3 ML PEN SUBQ SCH (17:08)
[2024-01-09 18:48] LABS: CALCIUM, IONIZED 1.06 mmol/L (1.15-1.33); VBG PH 7.404 (7.31-7.41)
[2024-01-09 19:19] LABS: CALCIUM 7.7 mg/dL (8.5-10.3); CREATININE 0.6 mg/dL (0.6-1.3); POTASSIUM 3.7 mmol/L (3.5-4.5)
[2024-01-09] MEDS: POTASSIUM CHLOR 20 MEQ/100 ML 20 MEQ/100 ML BAG IV ONE ×2 (20:21→23:13)
[2024-01-09 23:18] LABS: MAGNESIUM 1.9 mg/dL (1.7-2.3); PHOSPHORUS 2.4 mg/dL (2.5-5.0)
[2024-01-10] MEDS: NEUTRA-PHOS 250 MG TABLET PO SCH ×2 (00:42→08:11)
[2024-01-10 04:44] LABS: CALCIUM, IONIZED 1.05 mmol/L (1.15-1.33); VBG PH 7.46 (7.31-7.41)
[2024-01-10 04:53] LABS: CALCIUM 8.2 mg/dL (8.5-10.3); CREATININE 0.4 mg/dL (0.6-1.3); MAGNESIUM 1.7 mg/dL (1.7-2.3); PHOSPHORUS 3.7 mg/dL (2.5-5.0); POTASSIUM 3.7 mmol/L (3.5-4.5)
[2024-01-10] MEDS: POTASSIUM CHLORIDE 20 MEQ/15 ML UDC PO ONE ×2 (06:27→17:58)
[2024-01-10] MEDS: MAGNESIUM OXIDE 400 MG TABLET PO ONE ×2 (06:27→11:10)
[2024-01-10] MEDS: CALCIUM GLUC 1,000MG/50ML-NACL 1,000 MG/50 ML BAG IV ONE (06:28)
[2024-01-10] MEDS: NOVOLOG SUBQ SCH (08:14)
[2024-01-10 09:42] LABS: CALCIUM, IONIZED 1.08 mmol/L (1.15-1.33); VBG PH 7.444 (7.31-7.41)
[2024-01-10 10:00] LABS: MAGNESIUM 1.6 mg/dL (1.7-2.3); PHOSPHORUS 2.6 mg/dL (2.5-5.0); POTASSIUM 3.6 mmol/L (3.5-4.5)
[2024-01-10] MEDS: CALCIUM CARBONATE CHEW 500 MG TABLET PO SCH (11:09)
[2024-01-10 15:52] LABS: CALCIUM 8.6 mg/dL (8.5-10.3); CREATININE 0.8 mg/dL (0.6-1.3); MAGNESIUM 1.6 mg/dL (1.7-2.3); PHOSPHORUS 3.5 mg/dL (2.5-5.0)
--- NOTE | 2024-01-10 17:31 | PROVIDER PROGRESS NOTE ---
Assessment/Plan - Problem List (1) DKA (diabetic ketoacidoses) Qualifiers: Qualified Code(s): E10.10 - Type 1 diabetes mellitus with ketoacidosis without coma Assessment/Plan: She had fever, N/V for 1 to 2 days and presented to the ER with DKA on 01/06: venous pH 7.0, small ketones, and bicarb 5. Glu was 351, on her Insulin pump. She was started on DKA protocol in the ICU. Her ketones went up to large and bicarb was as low as 2 Insulin drip has been transitioned to her insulin pump. Continue sliding scale insulin as needed. IV fluid has been discontinued. Continue to monitor basic metabolic panel intermittently. Transfer to medical floor. Patient's clinical condition has overall improved, however, she continues to require hospitalization given her high glucose checks that require coverage with sliding scale insulin. Qualifiers: Diabetes mellitus type: type 1 Diabetes mellitus complication detail: without coma Qualified Code(s): E10.10 - Type 1 diabetes mellitus with ketoacidosis without coma (2) Tachycardia Resolving. Continue to monitor. (3) Hypokalemia Continue to monitor and place potassium as needed. (4) Hypomagnesemia Conclusion/Plan: Continue to monitor and replace magnesium as needed. (5) COVID-19 Conclusion/Plan: Supportive treatment.Patient continues to do well from a respiratory standpoint is on room air. (6) MRSA carrier Conclusion/Plan: Plan: Cont ethanol nasal wipes Contact precautions - Current Meds Current Meds: Current Medications Generic Name Dose Route Start Last Admin Trade Name Freq PRN Reason Stop Dose Admin Acetaminophen 650 mg 01/08/24 05:14 01/08/24 15:40 Acetaminophen 325 Mg Tablet PO 650 mg Q4HR PRN Administration Pain or Fever > 38C (100.4F) Alcohol 1 amp 01/06/24 21:00 01/10/24 08:12 Ethyl Alcohol 62% Swab Ampule ARVIN 1 amp BID SUZANNA Administration Enoxaparin Sodium 40 mg 01/07/24 09:00 01/10/24 08:12 Enoxaparin 40 Mg/0.4 Ml Syringe SUBQ 40 mg DAILY SUZANNA Administration Fluticasone Propionate 1 sprays 01/08/24 06:00 01/10/24 08:13 Fluticasone Nasal [place] ARVIN Not Given DAILY SUZANNA Insulin Human Lispro 1 - 9 unit 01/09/24 17:00 01/10/24 17:28 Insulin Lispro 300 Unit/3 Ml Pen SUBQ Not Given 0800,1200,1700,2100 [facility] Protocol Metoclopramide HCl 5 mg 01/09/24 07:00 01/10/24 15:06 Metoclopramide 10 Mg/2 Ml Vial IVP Not Given AC [facility] Ondansetron HCl 4 mg 01/06/24 14:44 01/08/24 07:43 Ondansetron 4 Mg/2 Ml Vial IVP 4 mg Q6HR PRN Administration Nausea / Vomiting Patient Own Med ( 1 each 01/10/24 09:00 01/10/24 08:14 Novolog) SUBQ Not Given DAILY [facility] Phenol/Menthol 2 sprays 01/08/24 15:32 01/08/24 15:47 Phenol Throat [place] 177 Ml MM 2 sprays Q2HR PRN Administration Throat Pain Polyethylene Glycol 17 gm 01/07/24 09:00 01/10/24 08:14 Polyethylene Glycol 3350 17 Gm Packet PO Not Given DAILY SUZANNA Potassium Chloride 40 meq 01/09/24 11:00 01/10/24 11:21 Potassium Chloride 20 Meq/15 Ml Udc PO 40 meq DAILYWM SUZANNA Administration Prochlorperazine Edisylate 10 mg 01/06/24 14:44 01/08/24 08:53 Prochlorperazine 10 Mg/2 Ml Vial IVP 10 mg Q6HR PRN Administration Nausea / Vomiting Sodium Chloride 10 ml 01/06/24 17:00 01/10/24 17:28 Sodium Chloride Flush 0.9% 10 Ml Syringe IVP 10 ml 0100,0900,1700 SUZANNA Administration Sodium Chloride 10 ml 01/06/24 14:44 01/10/24 04:31 Sodium Chloride Flush 0.9% 10 Ml Syringe IVP 30 ml PRN PRN Administration NEEDED PER PROVIDER ORDERS Throat Lozenges 1 lozenge 01/08/24 15:32 01/08/24 15:47 Benzocaine/Menthol Lozenge MM 1 lozenge Q2HR PRN Administration Throat pain - Lab Result Fish Bone Diagrams: 01/07/24 03:26 01/10/24 15:21 - Additional Planning My Orders: My Active Orders 01/09/24 17:00 Insulin Lispro [Humalog Kwikpen U-100] 1 - 9 unit SUBQ 0800,1200,1700,2100 01/10/24 09:00 Patient Own Med 1 each SUBQ DAILY 01/10/24 17:25 Admit \ Transfer \ Status [RC] .ONCE 01/10/24 17:27 Central Line Discontinuation [RC] .ONCE 01/10/24 21:00 Famotidine [Pepcid] 20 mg PO BID Subjective - Subjective Patient Reports: Other (Alert. Denies chest pain, abdomina pain, dyspnea. No other complaints at this time.) Objective Vital Signs: Vital Signs - 24 hr 01/09/24 01/09/24 01/09/24 18:00 18:53 20:00 Temperature 36.4 C L Heart Rate [ 102 H 112 H 93 Monitoring electrodes] Respiratory 17 19 20 Rate Blood Pressure 119/71 117/83 H 121/76 [Left Brachial artery] O2 Saturation 98 98 99 01/09/24 01/09/24 01/09/24 21:00 22:00 23:00 Temperature Heart Rate [ 90 94 100 Monitoring electrodes] Respiratory 24 17 16 Rate Blood Pressure 121/77 118/74 111/81 H [Left Brachial artery] O2 Saturation 100 99 98 01/10/24 01/10/24 01/10/24 00:00 01:00 02:00 Temperature 37.2 C Heart Rate [ 100 89 88 Monitoring electrodes] Respiratory 18 21 21 Rate Blood Pressure 112/72 114/78 115/77 [Left Brachial artery] O2 Saturation 97 99 100 01/10/24 01/10/24 01/10/24 03:00 04:00 05:00 Temperature 37.2 C Heart Rate [ 87 89 85 Monitoring electrodes] Respiratory 22 18 18 Rate Blood Pressure 120/70 124/72 121/83 H [Left Brachial artery] O2 Saturation 100 100 100 01/10/24 01/10/24 01/10/24 06:00 07:00 08:00 Temperature 37.6 C Heart Rate [ 84 89 88 Monitoring electrodes] Respiratory 22 20 14 Rate Blood Pressure 121/75 124/79 120/73 [Left Brachial artery] O2 Saturation 98 100 99 01/10/24 01/10/24 01/10/24 08:59 10:00 11:00 Temperature Heart Rate [ 94 79 98 Monitoring electrodes] Respiratory 16 20 19 Rate Blood Pressure 125/85 H 117/70 119/78 [Left Brachial artery] O2 Saturation 95 100 97 01/10/24 01/10/24 12:00 13:00 Temperature 37.1 C Heart Rate [ 98 96 Monitoring electrodes] Respiratory 23 23 Rate Blood Pressure 120/82 H 129/90 H [Left Brachial artery] O2 Saturation 100 96 Oxygen O2 Source Room air I&O (Last 24 Hrs): Intake and Output Totals x24h 01/08/24 01/09/24 01/10/24 23:59 23:59 23:59 Intake Total 6127.000 81172.323 3195.883 Output Total 5300 8000 3950 Balance 704.957 8986.323 -754.117 General: Alert, Oriented x3, No acute distress Neck: Supple, No JVD Neuro: Non Focal Cardiovascular: Regular rate, Normal S1, Normal S2 Respiratory: Other (Good air exchange in all lung pulido no wheezing no crackles.) Abdomen: Normal bowel sounds, Soft, No tenderness Extremities: No cyanosis, No edema Skin: No rashes - Results Results: Laboratory Results WBC 9.6 x10^3/uL (4.8-10.8) 01/07/24 03:26 RBC 5.43 10^6/uL (4.20-5.40) H 01/07/24 03:26 Hgb 15.4 g/dL (12.0-16.0) 01/07/24 03:26 Hct 49.2 % (37.0-47.0) H 01/07/24 03:26 MCV 90.6 fL (81.0-99.0) 01/07/24 03:26 MCH 28.4 pg (27.0-31.0) 01/07/24 03:26 MCHC 31.3 g/dL (32.0-36.0) L 01/07/24 03:26 RDW 16.3 % (12.0-15.0) H 01/07/24 03:26 Plt Count 119 10^3/uL (130-450) L 01/07/24 03:26 Neut # (Auto) 6.9 10^3/uL (1.5-6.6) H 01/07/24 03:26 Lymph # (Auto) 1.1 10^3/uL (1.5-3.5) L 01/07/24 03:26 [place] # (Auto) 1.0 10^3/uL (0.0-1.0) 01/07/24 03:26 Eos # (Auto) 0.0 10^3/uL (0.0-0.7) 01/07/24 03:26 Baso # (Auto) 0.1 10^3/uL (0.0-0.1) 01/07/24 03: Absolute Nucleated RBC 0.00 x10^3/uL 01/07/24 03: Nucleated RBC % 0.0 /100WBC 01/07/24 03:26 Manual Slide Review Indicated 01/07/24 03: Platelet Estimate NORMAL (130-450,000) (NORMAL) 01/07/24 03: Platelet Morphology NORMAL APPEARANCE (NORMAL) 01/07/24 03:26 VBG pH 7.444 (7.31-7.41) H 01/10/24 09:25 VBG pCO2 30.3 mmHg (41-51) L 01/08/24 13:35 VBG pO2 68.9 mmHg (25-47) H 01/08/24 13:35 VBG HCO3 12.4 mmol/L (23-28) L 01/08/24 13:35 VBG Total CO2 13.4 mmol/L (24-29) L 01/08/24 13:35 VBG O2 Saturation 94.0 % (60-80) H 01/08/24 13:35 VBG Base Excess -13.7 mmol/L (-2 - +2) L 01/08/24 13:35 Ionized Calcium 1.08 mmol/L (1.15-1.33) L 01/10/24 09:25 Sodium 134 mmol/L (135-145) L 01/10/24 15:21 Potassium 4.0 mmol/L (3.5-4.5) 01/10/24 15:21 Chloride 98 mmol/L (101-111) L 01/10/24 15:21 Carbon Dioxide 30 mmol/L (21-32) 01/10/24 15:21 Anion Gap 6.0 (6-13) 01/10/24 15:21 BUN 3 mg/dL (6-20) L 01/10/24 15:21 Creatinine 0.8 mg/dL (0.6-1.3) 01/10/24 15:21 Estimated GFR (MDRD) 85 (>89) L 01/10/24 15:21 Glucose 284 mg/dL (74-104) H 01/10/24 15:21 POC Whole Bld Glucose 247 mg/dL (70 - 100) H 01/10/24 17:26 Estimat Average Glucose 335 mg/dL (70-100) H 01/07/24 03:26 Hemoglobin A1c % 13.3 % (4.27-6.07) H 01/07/24 03:26 Calcium 8.6 mg/dL (8.5-10.3) 01/10/24 15:21 Phosphorus 3.5 mg/dL (2.5-5.0) 01/10/24 15:21 Magnesium 1.6 mg/dL (1.7-2.3) L 01/10/24 15:21 Iron 128 ug/dL (50-212) 01/09/24 03:05 TIBC 154 ug/dL (250-450) L 01/09/24 03:05 % Saturation 83 % (20-50) H 01/09/24 03:05 Transferrin 110 mg/dL (203-362) L 01/09/24 03:05 Total Bilirubin 0.3 mg/dL (0.2-1.0) 01/06/24 12:21 AST 9 IU/L (10-42) L 01/06/24 12:21 ALT 7 IU/L (10-60) L 01/06/24 12:21 Alkaline Phosphatase 100 IU/L (42-121) 01/06/24 12:21 Total Protein 9.0 g/dL (6.4-8.9) H 01/06/24 12:21 Albumin 4.7 g/dL (3.2-5.5) 01/06/24 12:21 Globulin 4.3 g/dL (2.1-4.2) H 01/06/24 12:21 Albumin/Globulin Ratio 1.1 (1.0-2.2) 01/06/24 12:21 Triglycerides 203 mg/dL (48-352) 01/07/24 03:26 Urine Color YELLOW 01/06/24 14:25 Urine Clarity HAZY (CLEAR) 01/06/24 14:25 Urine pH 5.5 PH (5.0-7.5) 01/06/24 14:25 Ur Specific [place] >=1.030 (1.002-1.030) H 01/06/24 14:25 Urine Protein 100 mg/dL (NEGATIVE) H 01/06/24 14:25 Urine Glucose (UA) 250 mg/dL (NEGATIVE) H 01/06/24 14:25 Urine Ketones >=80 mg/dL (NEGATIVE) H 01/06/24 14:25 Urine Occult Blood TRACE-INTA (NEGATIVE) 01/06/24 14:25 Urine Nitrite NEGATIVE (NEGATIVE) 01/06/24 14:25 Urine Bilirubin NEGATIVE (NEGATIVE) 01/06/24 14:25 Urine Urobilinogen 0.2 (NORMAL) E.U./dL (NORMAL) 01/06/24 14:25 Ur Leukocyte Esterase NEGATIVE (NEGATIVE) 01/06/24 14:25 Urine RBC None Seen /HPF (0-5) 01/06/24 14:25 Urine WBC 4-5 /HPF (0-5) 01/06/24 14:25 Ur Squamous Epith Cells MOD Squamous (<= Few) H 01/06/24 14:25 Urine Bacteria Few /HPF (None Seen) 01/06/24 14:25 Urine Casts 0-2 Granular Casts /LPF 01/06/24 14:25 Ur Microscopic Review INDICATED 01/06/24 14:25 Urine Culture Comments NOT INDICATED 01/06/24 14:25 Urine HCG, Qual NEGATIVE 01/06/24 14:25 Nasal Adenovirus (PCR) NOT DETECTED 01/06/24 12:30 Nasal B. parapertussis DNA (PCR) NOT DETECTED 01/06/24 12:30 Nasal Coronavir 229E PCR NOT DETECTED 01/06/24 12:30 Nasal Coronavir HKU1 PCR NOT DETECTED 01/06/24 12:30 Nasal Coronavir NL63 PCR NOT DETECTED 01/06/24 12:30 Nasal Coronavir OC43 PCR NOT DETECTED 01/06/24 12:30 Nasal Enterovir/Rhinovir PCR NOT DETECTED 01/06/24 12:30 Nasal Influenza B PCR NOT DETECTED 01/06/24 12:30 Nasal Influenza A PCR NOT DETECTED 01/06/24 12:30 Nasal Parainfluen 1 PCR NOT DETECTED 01/06/24 12:30 Nasal Parainfluen 2 PCR NOT DETECTED 01/06/24 12:30 Nasal Parainfluen 3 PCR NOT DETECTED 01/06/24 12:30 Nasal Parainfluen 4 PCR NOT DETECTED 01/06/24 12:30 Nasal RSV (PCR) NOT DETECTED 01/06/24 12:30 Nasal Screen MRSA (PCR) POSITIVE (NEGATIVE) A* 01/06/24 15:15 Nasal B.pertussis DNA PCR NOT DETECTED 01/06/24 12:30 Nasal C.pneumoniae (PCR) NOT DETECTED 01/06/24 12:30 Arvin Human Metapneumo PCR NOT DETECTED 01/06/24 12:30 Nasal M.pneumoniae (PCR) NOT DETECTED 01/06/24 12:30 Nasal SARS-CoV-2 (PCR) DETECTED A 01/06/24 12:30 Serum Ketones SMALL (NEGATIVE) H 01/09/24 14:32
[2024-01-10] MEDS: MAGNESIUM OXIDE 400 MG TABLET PO SCH (17:58)
[2024-01-10] MEDS: FAMOTIDINE 20 MG TABLET PO SCH (21:28)
[2024-01-11 05:23] LABS: CALCIUM 8.4 mg/dL (8.5-10.3); CREATININE 0.5 mg/dL (0.6-1.3); MAGNESIUM 1.8 mg/dL (1.7-2.3); PHOSPHORUS 3.9 mg/dL (2.5-5.0); POTASSIUM 4.6 mmol/L (3.5-4.5)
--- NOTE | 2024-01-11 11:36 | Discharge Plan ---
Discharge Plan Problem Reviewed?: Yes Disposition: Home, Self Care Condition: Serious Diet: Regular Activity Restrictions: Activity as Tolerated Shower Restrictions: No Driving Restrictions: No Weight Bearing: Full Weight Instruction Topics: Diabetic Ketoacidosis Health Concerns: History of Present Illness: Per Dr. Nicole's history and physical: This is a 28-year-old female with a history of type 1 diabetes and possible cognitive impairment (Records from April 2023 show she finished ninth grade). She has had episodes of DKA in the past. She presents now with a 2-3-day history of nausea and vomiting, no diarrhea, she is having fever to 102 and chills, her glucose level showed that it was running high. The patient has an insulin pump. In the ER she was found to be in DKA with VBG pH of 7.0, serum bicarb of 5, serum glucose of 351, serum sodium 125. She had no fever and normal VS in the ER. Other labs came back showing she is COVID-positive. She will be admitted to the ICU and a DKA protocol ordered. History of Present Illness: Marnie Avila was admitted to the intensive care unit and treated with an insulin drip and fluid hydration until her anion gap had resolved and she cleared her serum ketones. She was transition to her insulin pump and her blood sugars have remained in the 200-325 range. Patient reports that her blood sugars have been in this range for some time. This is consistent with her hemoglobin A1c which is 13. She was diagnosed with COVID-19 infection during her hospitalization and her COVID-19 infection may have resulted in her episode of diabetic ketoacidosis. Patient appears to be asymptomatic from her COVID-19 infection and is on room air and has no significant respiratory complaints. Patient is now stable for discharge to home. Plan of Treatment: 1. Continue all medications as prescribed. 2. Patient was instructed to follow her serum glucose closely and to seek medical care in the emergency room if she develops nausea and vomiting related to a elevated glucose, or develops altered mental status. 3. Patient to follow-up with her vp construction to adjust her insulin pump for improved glucose control. Care Goals: 1. Patient's A1c is currently 13 and goal would be to decrease her A1c to the 68 range. Assessment: Marnie Avila is a 28-year-old woman with type 1 diabetes mellitus and is on an insulin pump for serum glucose control. She was admitted with diabetic ketoacidosis which is now resolved. Her serum glucose is poorly controlled at baseline and it is recommended that she follow-up with her vp construction to adjust her medications for her type 1 diabetes mellitus. No Smoking: If you smoke, Please STOP! Call for help. Follow-up with: RUTH TORREZ DO [Physician No Access] -
--- NOTE | 2024-01-11 11:36 | DISCHARGE SUMMARY ---
Discharge Summary Admit Date: 01/06/24 Discharge Date: 01/11/24 Discharging Provider: Azael Spicer MD Code Status: Attempt Resuscitation Condition at Discharge: Serious Discharge Disposition: 01 Home, Self Care Discharge Facility Name: [facility] - DIAGNOSES Admission Diagnoses: (1) DKA (diabetic ketoacidoses) (2) COVID-19 (3) MRSA carrier Discharge Diagnoses with Status of Each Condition: (1) Diabetes Mellitus Type 1 (2) Tachycardia (3) Hypokalemia (4) Hypomagnesemia (5) COVID-19 (6) MRSA carrier - HPI History of Present Illness: Per Dr. Nicole's history and physical: This is a 28-year-old female with a history of type 1 diabetes and possible cognitive impairment (Records from April 2023 show she finished ninth grade). She has had episodes of DKA in the past. She presents now with a 2-3-day history of nausea and vomiting, no diarrhea, she is having fever to 102 and chills, her glucose level showed that it was running high. The patient has an insulin pump. In the ER she was found to be in DKA with VBG pH of 7.0, serum bicarb of 5, serum glucose of 351, serum sodium 125. She had no fever and normal VS in the ER. Other labs came back showing she is COVID-positive. She will be admitted to the ICU and a DKA protocol ordered. - HOSPITAL COURSE Hospital Course: Marnie Avila was admitted to the intensive care unit and treated with an insulin drip and fluid hydration until her anion gap had resolved and she cleared her serum ketones. She was transition to her insulin pump and her blood sugars have remained in the 200-325 range. Patient reports that her blood sugars have been in this range for some time. This is consistent with her hemoglobin A1c which is 13. She was diagnosed with COVID-19 infection during her hospitalization and her COVID-19 infection may have resulted in her episode of diabetic ketoacidosis. Patient appears to be asymptomatic from her COVID-19 infection and is on room air and has no significant respiratory complaints. Patient is now stable for discharge to home. - ALLERGIES Allergies/Adverse Reactions: Allergies Allergy/AdvReac Type Severity Reaction Status Date / Time No Known Drug Allergies Allergy Verified 01/06/24 12:11 - MEDICATIONS Home Medications: Ambulatory Orders Medication Instructions Recorded Confirmed Insulin Aspart [Novolog] 80 units SUBQ DAILY 01/06/24 01/06/24 - PHYSICAL EXAM AT DISCHARGE General Appearance: positive: No acute distress, Alert Eyes Bilateral: positive: Normal inspection, PERRL ENT: positive: ENT inspection nml Neck: positive: Nml inspection, No JVD, Trachea midline Respiratory: positive: Chest non-tender, No respiratory distress, Breath sounds nml Cardiovascular: positive: Regular rate & rhythm, No murmur, No gallop Abdomen: positive: Non-tender, No organomegaly, Nml bowel sounds Skin: positive: No rash Extremities: positive: No pedal edema Neurologic/Psychiatric: positive: Oriented x3, CN's nml (2-12), Motor nml - LABS Result Diagrams: 01/07/24 03:26 01/11/24 04:38 - QUALITY (Female Hip Fx Only) Was patient sent home on osteoporosis medication?: No (n/a) - FOLLOW UP Follow Up: Please follow-up with your environmental engineering manager Dr. Kendell Harvey. - TIME SPENT Time Spent in Discharge (Minutes): 35
[2024-01-11 12:21] VITALS: BP 136/81; O2SAT 98
== END 2024-01-11 15:57 | disposition home or self-care (01) | DRG 637 ==
LOC: ED 12:08 → ICU 14:44 → OBSVTOIN 15:50
PROVIDERS: ADMIT Internal Medicine; ATTEND Internal Medicine
PROC: 8E0ZXY6 Isolation (ICD-10-PCS; 2024-01-06)
PROC: 05HY33Z Insertion of Infusion Device into Upper Vein, Percutaneous Approach (ICD-10-PCS; 2024-01-07)
PROC: 02HV33Z Insertion of Infusion Device into Superior Vena Cava, Percutaneous Approach (ICD-10-PCS; principal; 2024-01-08)
DX: E10.10 Type 1 diabetes mellitus with ketoacidosis without coma (principal); U07.1 COVID-19; E86.9 Volume depletion, unspecified; E87.6 Hypokalemia; T38.3X5A Adverse effect of insulin and oral hypoglycemic [antidiabetic] drugs, initial encounter; E83.42 Hypomagnesemia; R00.0 Tachycardia, unspecified; Z96.41 Presence of insulin pump (external) (internal); Z79.4 Long term (current) use of insulin; Z22.322 Carrier or suspected carrier of Methicillin resistant Staphylococcus aureus; Y92.239 Unspecified place in hospital as the place of occurrence of the external cause
CPT/HCPCS: 36415; 71045; 80048; 80053; 81001; 81025; 82009; 82330; 82803; 83036; 83540; 83735; 84100; 84132; 84466; 84478; 85025; 87150; 87633; 93307; 96360; 99285; 99291; A9270; G0378; J1650; J1815; J2765; J7120; 81003; 82947; 87086

== ENCOUNTER 2024-04-11 08:00 | Outpatient (CLI) | payer MEDICAID | END 2024-04-11 23:59 | disposition home or self-care (01) | LOC: LAB.WCP 08:00 | PROVIDERS: ATTEND Family Medicine | DX: L02.411 Cutaneous abscess of right axilla (principal) | CPT/HCPCS: 87070; 87181; 87205 ==

== ENCOUNTER 2024-07-24 09:59 | Emergency (ER) | payer MEDICAID ==
--- NOTE | 2024-07-24 10:14 | ED Physician Documentation ---
PD HPI SKIN - Stated complaint Stated Complaint: BACK END PX - Chief complaint Chief Complaint: Wound - History obtained from History obtained from: Patient - Additional information Additional information: 28-year-old woman with type 1 diabetes presents for the evaluation of about 4 to 5 days of a painful abscess on the right buttock. She says she has had a similar one in a similar spot before but maybe not the exact same spot. Blood sugars have been running in the 300s. PD PAST MEDICAL HISTORY - Past Medical History Cardiovascular: None Respiratory: None Neuro: None Endocrine/Autoimmune: Type 1 diabetes GI: None : None Psych: Anxiety Musculoskeletal: None Derm: None - Past Surgical History Past Surgical History: No - Present Medications Home Medications: Ambulatory Orders Medication Instructions Recorded Confirmed Insulin Aspart [Novolog] 80 units SUBQ DAILY 01/06/24 07/24/24 Sulfamethox/Trimeth 800/160 1 each PO BID #14 tablet 07/24/24 [Bactrim Ds 800/160] cephALEXin [Keflex] 500 mg PO Q6H #28 cap 07/24/24 - Allergies Allergies/Adverse Reactions: Allergies Allergy/AdvReac Type Severity Reaction Status Date / Time No Known Drug Allergies Allergy Verified 01/06/24 12:11 - Social History Does the pt smoke?: No Smoking Status: Never smoker Does the pt drink ETOH?: No Does the pt have substance abuse?: No - Immunizations Immunizations are current?: Yes - POLST Patient has POLST: No PD ED PE NORMAL - Vitals Vital signs reviewed: Yes - General General: Alert and oriented X 3, No acute distress - Cardiac Cardiac: Other (Moderate resting tachycardia) - Abdomen Abdomen: Non tender - Extremities Extremities: Other (There is a very large necrotic but not draining abscess with surrounding cellulitis to the left inferior buttock.) - Neuro Neuro: Alert and oriented X 3, Normal speech Results - Vitals Vitals: Vital Signs - 24 hr 07/24/24 07/24/24 07/24/24 10:08 11:15 11:24 Temperature 37.1 C 36.7 C 36.5 C Heart Rate 130 H 82 89 Respiratory 18 18 20 Rate Blood Pressure 129/95 H 136/94 H 116/84 H O2 Saturation 96 100 100 If not protocol 3 : Oxygen Flow, liters/minute 07/24/24 07/24/24 11:34 11:45 Temperature 36.6 C Heart Rate 90 85 Respiratory 20 20 Rate Blood Pressure 119/81 H O2 Saturation 100 If not protocol 3 : Oxygen Flow, liters/minute Oxygen O2 Source Nasal cannula - Labs Labs: Laboratory Tests 07/24/24 07/24/24 07/24/24 10:45 10:45 10:45 WBC 8.9 RBC 4.78 Hgb 13.7 Hct 42.6 MCV 89.1 MCH 28.7 MCHC 32.2 RDW 13.1 Plt Count 146 MPV 14.0 H Neut # (Auto) Not Reportable Lymph # (Auto) Not Reportable [place] # (Auto) Not Reportable Eos # (Auto) Not Reportable Baso # (Auto) Not Reportable Absolute Nucleated RBC Not Reportable Total Counted 100 Band Neuts % (Manual) 2 Reactive Lymphs % (Man) 8 Abnorm Lymph % (Manual) 0 Nucleated RBC % Not Reportable Neutrophils # (Manual) 6.9 H Lymphocytes # (Manual) 1.2 L Monocytes # (Manual) 0.8 Eosinophils # (Manual) 0.0 Basophils # (Manual) 0.0 Differential Comment MANUAL DIFFERENTIAL Manual Slide Review Indicated Platelet Morphology RARE GIANT PLATELETS RBC Morph Micro Appear 1+ ANISOCYTOSIS Sodium 131 L Potassium 4.0 Chloride 94 L Carbon Dioxide 21 Anion Gap 16.0 H BUN 10 Creatinine 0.6 Estimated GFR (MDRD) 119 Glucose 433 H Lactic Acid 0.8 Calcium 9.3 Procedures - Abscess I&D (location) Left buttock Preparation: Lidocaine 1%, With epi Incision: Incised with scalpel, Purulent drainage, Loculations broken, Packed, Culture obtained Other: Pt tolerated well - Procedural sedation Sedation prep: Informed consent, Time out completed, PE performed, ASA 2 - mild disease, ET CO2 monitor, RT present Sedation Medications: propofol (50mg IVP x 3=total 150mg IVP) Mallampati classification: I Patient status during sedation: Responds to tactile Time in sedation (Minutes): 15 PD Medical Decision Making - ED course ED course: 28-year-old with uncontrolled diabetes has a large buttock abscess. It is not a pilonidal it is far too inferior for that. Given the size she was offered sedation for incision and drainage which she readily excepted and incision and drainage was done without issue. She was given some clindamycin here thinking she might get admitted but with a normal white count it was not necessary and she wanted to go home anyway. She was counseled on wound care. Departure - Departure Disposition: Home, Self Care Clinical Impression: Abscess Uncontrolled type 1 diabetes mellitus Qualifiers: Glycemic state: with hyperglycemia Qualified Code(s): E10.65 - Type 1 diabetes mellitus with hyperglycemia Condition: Good Record reviewed to determine appropriate education?: Yes Instructions: ED Abscess IandD Prescriptions: Sulfamethox/Trimeth 800/160 [Bactrim Ds 800/160] 1 each PO BID #14 tablet cephALEXin [Keflex] 500 mg PO Q6H #28 cap Comments: I [facility] [place]. Do your best to control your blood sugars. Plan a follow-up with your primary care physician in 2 to 3 days for wound check and you should remove the packing in approximately 2 days, best done in the shower. We are performing a wound culture, the results should be done in 48-72 hours. If antibiotic change is necessary we will call you. Return if worse in the meantime, especially if you develop increased pain, fevers, cannot keep down the medication. Otherwise follow-up with your physician in approximately 2-3 days. Forms: PCP List
[2024-07-24] MEDS: HYDROmorphone 1 MG/ML CARPUJECT IVP STA (10:50)
[2024-07-24] MEDS: SODIUM CHLORIDE 0.9% 1,000 ML IV STA (10:51)
[2024-07-24] MEDS: CLINDAMYCIN 900 MG/50 ML 900 MG/50 ML BAG IV ONE (10:51)
[2024-07-24 10:55] LABS: BASOPHILS % (AUTO) 0.3 %; EOSINOPHILS % (AUTO) 0.1 %; HCT - HEMATOCRIT 42.6 % (37.0-47.0); HGB - HEMOGLOBIN 13.7 g/dL (12.0-16.0); LYMPHOCYTES % (AUTO) 10.8 %; MEAN CORPUSCULAR HEMOGLOBIN 28.7 pg (27.0-31.0); MEAN CORPUSCULAR HGB CONC 32.2 g/dL (32.0-36.0); MEAN CORPUSCULAR VOLUME 89.1 fL (81.0-99.0); MONOCYTES % (AUTO) 5.7 %; NEUTROPHILS % (AUTO) 82.9 %; PLT - PLATELET COUNT 146 10^3/uL (130-450); RED BLOOD COUNT 4.78 10^6/uL (4.20-5.40); RED CELL DISTRIBUTION WIDTH 13.1 % (12.0-15.0); WHITE BLOOD COUNT 8.9 x10^3/uL (4.8-10.8)
[2024-07-24 11:01] LABS: SLIDE REVIEW? Indicated
[2024-07-24 11:07] LABS: CALCIUM 9.3 mg/dL (8.5-10.3); CREATININE 0.6 mg/dL (0.6-1.3)
[2024-07-24 11:08] LABS: ABNORMAL LYMPHS % (MANUAL) 0 %
[2024-07-24 11:20] LABS: BAND NEUTROPHILS % (MANUAL) 2 %; DIFFERENTIAL COMMENT MANUAL DIFFERENTIAL; LYMPHOCYTES # (MANUAL) 1.2 10^3/uL (1.5-3.5); LYMPHOCYTES % (MANUAL) 5 %; MONOCYTES # (MANUAL) 0.8 10^3/uL (0.0-1.0); NEUTROPHILS # (MANUAL) 6.9 10^3/uL (1.5-6.6); PLATELET MORPHOLOGY RARE GIANT PLATELETS (NORMAL); RBC MORPHOLOGY (MULTIPLE) 1+ ANISOCYTOSIS (NORMAL); REACTIVE LYMPHS % (MANUAL) 8 %
[2024-07-24] MEDS ORDERED: ONDANSETRON 4 MG/2 ML VIAL ONE (11:20)
[2024-07-24] MEDS: ONDANSETRON 4 MG/2 ML VIAL IVP STA (11:21)
[2024-07-24 11:24] VITALS: O2SAT 100
[2024-07-24] MEDS: PROPOFOL 200 MG/20 ML VIAL IVP STA (11:38)
[2024-07-24] MEDS: LIDOCAINE 1%-EPI 1:100000 20 ML MDV SUBQ STA (11:40)
[2024-07-24] MEDS: INSULIN REGULAR, HUMAN 300 UNIT/3 ML PEN IVP STA (11:42)
[2024-07-24 12:19] VITALS: BP 128/82
== END 2024-07-24 12:15 | disposition home or self-care (01) ==
LOC: ED 09:59
DX: L02.31 Cutaneous abscess of buttock (principal); E10.65 Type 1 diabetes mellitus with hyperglycemia; Z79.4 Long term (current) use of insulin
CPT/HCPCS: 10061; 36415; 80048; 83605; 85025; 87040; 87070; 87205; 96365; 96375; 99152; 99284; 99285; J1170

== ENCOUNTER 2025-03-15 10:53 | Inpatient (IN) ==
[2025-03-15 11:26] LABS: BASOPHILS # (AUTO) 0.1 10^3/uL (0.0-0.1); BASOPHILS % (AUTO) 0.5 %; EOSINOPHILS % (AUTO) 0.2 %; HCT - HEMATOCRIT 42.6 % (37.0-47.0); HGB - HEMOGLOBIN 13.1 g/dL (12.0-16.0); LYMPHOCYTES # (AUTO) 1.2 10^3/uL (1.5-3.5); LYMPHOCYTES % (AUTO) 11.8 %; MEAN CORPUSCULAR HEMOGLOBIN 26.1 pg (27.0-31.0); MEAN CORPUSCULAR HGB CONC 30.8 g/dL (32.0-36.0); MEAN PLATELET VOLUME 12.2 fL (7.9-10.8); MONOCYTES # (AUTO) 0.6 10^3/uL (0.0-1.0); MONOCYTES % (AUTO) 5.7 %; NEUTROPHILS % (AUTO) 80.9 %; PLT - PLATELET COUNT 220 10^3/uL (130-450); RED BLOOD COUNT 5.01 10^6/uL (4.20-5.40); RED CELL DISTRIBUTION WIDTH 16.6 % (12.0-15.0); WHITE BLOOD COUNT 9.9 x10^3/uL (4.8-10.8)
--- OUTSIDE RECORDS SUMMARY | 2025-03-15 11:31 | EXTERNAL MEDICAL SUMMARY RPT | Continuity of Care Document ---
Author Organization [facility] Address [address] [place] [id number] Phone Problems date description facility 2024-12-17 13:28 Cutaneous abscess, unspecified [facility] 2024-12-17 13:28 Unspecified abdominal pain [facility] 2025-03-07 12:54 Pilonidal cyst without abscess [facility] 2025-03-07 13:36 Pilonidal cyst without abscess [facility] Results/Labs test date facility value unit notes Result panel 1 NUCLEATED RED BLOOD CELLS AUTO 2025-03-06 11:34 [facility] 0.0 /100wbc (missing) EOSINOPHILS # (AUTO) 2025-03-06 11:34 [facility] 0.0 10 3/ul (missing) NRBC ABSOLUTE COUNT (AUTO) 2025-03-06 11:34 [facility] 0.00 x10 3/ul (missing) BASOPHILS # (AUTO) 2025-03-06 11:34 [facility] 0.1 10 3/ul (missing) BILIRUBIN,TOTAL 2025-03-06 11:34 [facility] 0.3 mg /dl As of May 2023 testing method has changed, this may include reference ranges. CREATININE 2025-03-06 11:34 [facility] 0.8 mg/dl As of May 2023 testing method has changed, this may include reference ranges. ALBUMIN/GLOBULIN RATIO 2025-03-06 11:34 [facility] 0.9 (missing) (missing) MONOCYTES # (AUTO) 2025-03-06 11:34 [facility] 0.9 10 3/ul (missing) LACTIC ACID, VENOUS 2025-03-06 11:34 [facility] 0.9 mmol/l N As of May 2023 testing method has changed, this may include reference ranges. LYMPHOCYTES # (AUTO) 2025-03-06 11:34 [facility] 1.4 10 3/ul (missing) LIPASE 2025-03-06 11:34 [facility] 10 u/l As of May 2023 testing method has changed, this may include reference ranges. CHLORIDE 2025-03-06 11:34 [facility] 100 mmol/l As of May 2023 testing method has changed, this may include reference ranges. HGB - HEMOGLOBIN 2025-03-06 11:34 [facility] 11.7 g /dl (missing) SODIUM 2025-03-06 11:34 [facility] 131 mmol/l (missing) RED CELL DISTRIBUTION WIDTH 2025-03-06 11:34 [facility] 15.0 % (missing) PLT - PLATELET COUNT 2025-03-06 11:34 [facility] 175 10 3/ul (missing) ANION GAP 2025-03-06 11:34 [facility] 22.0 (missing ) (missing) MEAN CORPUSCULAR HEMOGLOBIN 2025-03-06 11:34 [facility] 26.2 pg (missing) MEAN CORPUSCULAR HGB CONC 2025-03-06 11:34 [facility] 30.0 g/dl (missing) GLUCOSE 2025-03-06 11:34 [facility] 343 mg/dl As of May 2023 testing method has changed, this may include reference ranges. HCT - HEMATOCRIT 2025-03-06 11:34 [facility] 39.0 % (missing) POTASSIUM 2025-03-06 11:34 [email or web address] 4.0 mmol/l As of May 2023 testing method has changed, this may include reference ranges. ALBUMIN 2025-03-06 11:34 [facility] 4.2 g/dl As of May 2023 testing method has changed, this may include reference ranges. RED BLOOD COUNT 2025-03-06 11:34 [facility] 4.47 10 6/ul (missing) GLOBULIN 2025-03-06 11:34 [facility] 4.7 g/dl (missing) ALT ALANINE AMINOTRANSFERASE 2025-03-06 11:34 [facility] 7 iu/l As of May 2023 testing method has changed, this may include reference ranges. NEUTROPHILS # (AUTO) 2025-03-06 11:34 [facility] 7.2 10 3/ul (missing) AST ASPARTATE AMINOTRANSFERASE 2025-03-06 11:34 [facility] 8 [facility]u/l As of May 2023 testing method has changed, this may include reference ranges. BUN - BLOOD UREA NITROGEN 2025-03-06 11:34 [facility] 8 mg/dl As of May testing method has changed, this may include reference ranges. CALCIUM 2025-03-06 11:34 [facility] 8.8 mg/dl As of May 2023 testing method has changed, this may include reference ranges. TOTAL PROTEIN 2025-03-06 11:34 [facility] 8.9 g/dl As of May 2023 testing method has changed, this may include reference ranges. GFR - MDRD 2025-03-06 11:34 [facility] (odalis rosenthal) Social History date description facility
[2025-03-15] MEDS: SODIUM CHLORIDE 0.9% 1,000 ML IV STA (11:45)
[2025-03-15 11:57] LABS: ALBUMIN 4.3 g/dL (3.2-5.5); ALBUMIN/GLOBULIN RATIO 0.9 (1.0-2.2); BILIRUBIN,TOTAL 0.3 mg/dL (0.2-1.0); CALCIUM 8.5 mg/dL (8.5-10.3); CREATININE 0.8 mg/dL (0.6-1.3); POTASSIUM 3.9 mmol/L (3.5-4.5)
[2025-03-15 11:59] LABS: VBG PCO2 14.1 mmHg (41-51)
[2025-03-15 12:00] LABS: VBG BASE EXCESS -24.7 mmol/L (-2 - +2); VBG TOTAL CO2 5.1 mmol/L (24-29)
[2025-03-15 12:02] LABS: VBG PH 7.127 (7.31-7.41)
--- NOTE | 2025-03-15 12:35 | ED Physician Documentation ---
History of Present Illness Stated complaint Stated Complaint: DIABETIC ISSUE Chief complaint Chief Complaint: General History obtained from History obtained from: Patient History of Present Illness Timing: Prior to arrival Additonal information Additional information: Patient is a 29-year-old female presenting to the emergency department with past medical history of type 1 diabetes diagnosed in 2018. She presents with malaise fatigue nausea symptoms going on for about 2 weeks now. She was seen here in the ED on the and diagnosed with DKA and pilonidal cyst of the right buttocks. She notes she was given Bactrim to go home with but continues to have drainage from this wound. She has no fevers but generalized fatigue and severe pain to her right buttocks. She has completed the Bactrim -1-day but has been compliant with the antibiotics. She has an insulin pump that helps to monitor her blood sugars. She has been Having trouble keeping her blood sugars under control she notes it has been high ever since being diagnosed with a pilonidal cyst. Meds/Allgy Home Medications Ambulatory Orders Medication Instructions Recorded Confirmed insulin aspart U-100 100 unit/mL 80 units subcut DAILY 01/06/24 03/07/25 subcutaneous solution (Novolog U-100 Insulin aspart) blood sugar diagnostic (True 09/25/24 03/07/25 Metrix Glucose Test Strip) insulin pump controller [Omnipod 09/26/24 03/07/25 DASH PDM Kit (Gen 4)] gauze bandage 4" X 4" (Gauze Pad) #100 ea 03/07/25 mupirocin 2 % topical ointment 1 applic topical TID #15 grams 03/07/25 ([facility]) sulfamethoxazole 800 1 tab PO BID #20 tabs 03/07/25 mg-trimethoprim 160 mg tablet (Bactrim DS) Allergies Allergies Allergy/AdvReac Type Severity Reaction Status Date / Time caffeine AdvReac Unknown unknown Verified 03/15/25 10:58 detergent AdvReac Unknown Unknown Uncoded 03/15/25 10:58 [facility] Active Problems All Active Problems (Updated 03/15/25 @ 16:23 by Edward Aranda MD) Chronic recurrent pilonidal cyst without abscess (Acute) Dental infection (Acute) Infected pilonidal cyst (Acute) DKA (diabetic ketoacidosis) (Acute) Cellulitis of abdominal wall (Acute) Type 1 diabetes mellitus (Acute) Fatigue (Acute) Tachycardia (Acute) Vulvar lesion (Acute) Generalized anxiety disorder (Acute 08/19/16) Iron deficiency anemia (Acute 04/10/18) Pancytopenia (Acute 02/13/18) 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 (Acute 02/14/18) Internal hemorrhoid (Acute 04/02/24) Diabetes mellitus type 1, uncontrolled, insulin dependent (Acute 04/02/24) Depression, major, recurrent, moderate (Acute 08/19/16) Vaginal candidiasis (Chronic) MRSA carrier (Chronic) Protein calorie malnutrition (Chronic) Peripheral neuropathy (Chronic) Medical History Medical History History of diabetes with ketoacidosis History of diabetes mellitus Surgical History Surgical History No pertinent past surgical history Social History Social History (Updated 09/26/24 @ 10:15 by Peri Silva) Smoking Status: Never smoker If you are a former smoker, when did you quit? (Date/Year): No Number of Years Smoked: 0 How many cigarettes a day do you smoke? (20 cigarettes=1 Pk): 0 Second hand tobacco smoke exposure: No Do you dip or chew tobacco?: No Do you vape?: No Patient requests smoking cessation consult: No Initiate information on smoking cessation: No Living arrangement: At home Living Condition: With family More Information: Lives with parents Relationship: Physical Activity: None Level: Dependent Do you feel safe in your home environment?: Yes Suffered physical, verbal, emotional, or financial abuse?: No History of Abuse: No ETOH Use: None Substance Use: denies use Are you sexually active?: No Occupation: unemployed Retired: No Service: No Are you following a diet prescribed by a doctor: No Are you following a special diet: No POLST Patient has POLST: No Exam Exam Vital Signs: Vital Signs x48h Pulse Resp BP Pulse Ox 03/15/25 17:00 102 H 20 127/81 99 03/15/25 15:00 99 16 127/85 99 03/15/25 13:40 101 H 16 140/94 H 100 Constitutional Patient appears fatigued but ANO x 3 answering questions appropriately. HENMT normocephalic and head/scalp atraumatic Eyes PERRL, EOMs intact bilaterally and conjunctivae normal Results Vitals Vitals: Vital Signs - 24 hr 03/15/25 10:52 03/15/25 11:58 03/15/25 13:40 Temperature 36.8 C Temperature Source Temporal Artery Scan Pulse Rate 108 H 97 101 H Respiratory Rate 20 23 16 Blood Pressure 162/96 H 162/96 H 140/94 H O2 Saturation 100 99 100 O2 Source Room air Room air Room air Pain Intensity 6 3 03/15/25 15:00 03/15/25 17:00 Temperature Temperature Source Pulse Rate 99 102 H Respiratory Rate 16 20 Blood Pressure 127/85 127/81 O2 Saturation 99 99 O2 Source Room air Room air Pain Intensity Oxygen O2 Source Room air Labs Labs: Laboratory Tests 03/15/25 03/15/25 03/15/25 11:15 11:34 12:52 WBC 9.9 RBC 5.01 Hgb 13.1 Hct 42.6 MCV 85.0 MCH 26.1 L MCHC 30.8 L RDW 16.6 H Plt Count 220 MPV 12.2 H Neut # (Auto) 8.0 H Lymph # (Auto) 1.2 L [place] # (Auto) 0.6 Eos # (Auto) 0.0 Baso # (Auto) 0.1 Absolute Nucleated RBC 0.00 Nucleated RBC % 0.0 VBG pH 7.127 L* VBG pCO2 14.1 L VBG pO2 63.0 H VBG HCO3 4.7 L VBG Total CO2 5.1 L VBG O2 Saturation 86.0 H VBG Base Excess -24.7 L Sodium 128 L Potassium 3.9 Chloride 103 Carbon Dioxide 6 L* Anion Gap 19.0 H BUN 8 Creatinine 0.8 Estimated GFR (MDRD) 85 L Glucose 414 H 321 H POC Whole Bld Glucose Lactic Acid Calcium 8.5 Phosphorus Magnesium 2.0 1.9 Total Bilirubin 0.3 AST 11 ALT 9 L Alkaline Phosphatase 106 Total Protein 9.0 H Albumin 4.3 Globulin 4.7 H Albumin/Globulin Ratio 0.9 L Lipase 22 Beta HCG, Quant < 0.6 Serum Ketones MODERATE H 03/15/25 03/15/25 03/15/25 13:10 13:56 14:10 WBC RBC Hgb Hct MCV MCH MCHC RDW Plt Count MPV Neut # (Auto) Lymph # (Auto) [place] # (Auto) Eos # (Auto) Baso # (Auto) Absolute Nucleated RBC Nucleated RBC % VBG pH VBG pCO2 VBG pO2 VBG HCO3 VBG Total CO2 VBG O2 Saturation VBG Base Excess Sodium Potassium Chloride Carbon Dioxide Anion Gap BUN Creatinine Estimated GFR (MDRD) Glucose 254 H POC Whole Bld Glucose 292 228 Lactic Acid Calcium Phosphorus Magnesium 1.9 Total Bilirubin AST ALT Alkaline Phosphatase Total Protein Albumin Globulin Albumin/Globulin Ratio Lipase Beta HCG, Quant Serum Ketones 03/15/25 03/15/25 03/15/25 15:13 15:35 16:12 WBC RBC Hgb Hct MCV MCH MCHC RDW Plt Count MPV Neut # (Auto) Lymph # (Auto) [place] # (Auto) Eos # (Auto) Baso # (Auto) Absolute Nucleated RBC Nucleated RBC % VBG pH 7.193 L* VBG pCO2 15.1 L VBG pO2 57.1 H VBG HCO3 5.9 L VBG Total CO2 6.3 L VBG O2 Saturation 84.0 H VBG Base Excess -22.5 L Sodium 132 L Potassium 3.3 L Chloride 111 Carbon Dioxide 7 L* Anion Gap 14.0 H BUN 6 Creatinine 0.6 Estimated GFR (MDRD) 118 Glucose 251 H POC Whole Bld Glucose 234 226 Lactic Acid Calcium 7.9 L Phosphorus 1.4 L Magnesium 1.9 Total Bilirubin AST ALT Alkaline Phosphatase Total Protein Albumin Globulin Albumin/Globulin Ratio Lipase Beta HCG, Quant Serum Ketones 03/15/25 03/15/25 16:43 17:52 WBC RBC Hgb Hct MCV MCH MCHC RDW Plt Count MPV Neut # (Auto) Lymph # (Auto) [place] # (Auto) Eos # (Auto) Baso # (Auto) Absolute Nucleated RBC Nucleated RBC % VBG pH VBG pCO2 VBG pO2 VBG HCO3 VBG Total CO2 VBG O2 Saturation VBG Base Excess Sodium Potassium Chloride Carbon Dioxide Anion Gap BUN Creatinine Estimated GFR (MDRD) Glucose 213 H 240 H POC Whole Bld Glucose Lactic Acid 1.3 Calcium Phosphorus Magnesium Total Bilirubin AST ALT Alkaline Phosphatase Total Protein Albumin Globulin Albumin/Globulin Ratio Lipase Beta HCG, Quant Serum Ketones PD Medical Decision Making ED course Complexity details: reviewed old records and reviewed results ED course: Patient is a 29-year-old female presenting to the emergency department with history of type 1 diabetes she notes. Persistent nausea and fatigue for the past few days. She has an insulin pump and blood sugars have been running rising to the 400s. She was seen here 1 week ago for DKA and discharged from the ER after her gap closed. She at that time had a pilonidal cyst that was drained and was given Bactrim. No cultures were done at that time. Vitals here in the ED show mild tachycardia but she is afebrile. She reports persistent green drainage from the pilonidal cyst. She has been compliant with antibiotics no fevers or chills. Labs here in the ED show no significant leukocytosis. CMP is remarkable for blood sugars in the 400s with an anion gap of 19 and bicarb of 6. Patient was started on IV normal saline with 1 bolus given here in the ED. test is negative. Patient was sent for CT abdomen pelvis for concerns for worsening abscess of the pilonidal cyst given induration on examination. Her labs show acidosis at 4.1 with moderate ketones in the serum. Magnesium within normal range.Insulin drip started here in the ED. Will monitor blood sugars hourly and BMP every [address] abdomen shows no acute abscess only inf lammation around pilonidal cyst area. That being said she was given l ciprofloxacin and Flagyl here in the ED prior to CT scan to cover for possible abscess.Discussed case with Dr. Leon for ICU admission patient will remain here in the ED as no beds in ICU. . Patient's blood sugar did downtrend to less than 250 after IV insulin started. BMP cued for every 2 hours with hourly glucose monitoring in place. Patient was started on D5 NS here in the ED which she is tolerating well she is on sips of fluid. Repeat BMP shows some mild hypokalemia insulin drip held and IV potassium ordered by Dr. Jones who accepts patient to the floor as anion gap is improving. Discharge Plan Discharge Patient Disposition: [facility] DC/Xfer Condition: Good Clinical Impression: DKA (diabetic ketoacidosis) Qualifiers: Diabetes mellitus type: type 1 Diabetes mellitus complication detail: without coma Qualified Code(s): E10.10 - Type 1 diabetes mellitus with ketoacidosis without coma Type 1 diabetes mellitus Qualifiers: Diabetes mellitus complication status: with other specified complication Qualified Code(s): E10.69 - Type 1 diabetes mellitus with other specified complication Interventions: ED Admission Assessment Last Done: 03/15/25 19:34
[2025-03-15] MEDS ORDERED: INSULIN REGULAR, HUMAN 300 UNIT/3 ML PEN IVP STA (12:45)
[2025-03-15] MEDS ORDERED: iohexoL-300 100 ML VIAL ONE (12:51)
[2025-03-15] MEDS: POTASSIUM CHLOR 10 MEQ/100 ML 10 MEQ/100 ML BAG IV STA (12:55)
[2025-03-15] MEDS: INSULIN REGULAR IN 0.9 % NS 100 UNIT/100 ML BAG IV STA (13:05)
--- NOTE | 2025-03-15 13:24 | CT Report ---
PROCEDURE: CT Abdomen/Pelvis W INDICATIONS: concer for perirectal abscess, extending deeper CONTRAST: omni 300, 100 TECHNIQUE: After the administration of intravenous contrast, a CT scan of the abdomen and pelvis was performed. Images were recorded and evaluated at appropriate window settings. Reformats: coronal and sagittal. F or radiation dose reduction, the following was used: automated exposure control, adjustment of mA and /or kV according to patient size. COMPARISON: None. FINDINGS: Image quality: Diagnostic. Lower chest: Unremarkable. Liver: No solid mass. Gallbladder: Biliary tree: No intrahepatic or extrahepatic dilation, accounting for age. Spleen: No splenomegaly. Pancreas: No pancreatic ductal dilation. Adrenals: No adrenal nodule. Kidneys and ureters: No hydronephrosis. No renal cystic lesion which requires follow up. No solid mas s. Stomach, bowel and peritoneum: No gastric or small bowel dilation. No abnormal wall thickening. No pa thologic free fluid. Normal appendix Lymph nodes: No central or retroperitoneal adenopathy. Vessels: No infrarenal aortic aneurysm. Patent portal vein. PELVIS Reproductive organs: Unremarkable. Bladder: No abnormal wall thickening. Pelvic lymph nodes: No pelvic adenopathy by size criteria. Bones: No aggressive osseous abnormality. Other: No significant ventral or inguinal hernia. Within the perineum there is mild soft tissue edema without organized fluid collection to the left an d posterior of the anus. IMPRESSION: Perirectal edema without abscess identified Reviewed by: Azael Velasquez MD on 03/15/2025 12:22 PM [facility] Approved by: Azael Velasquez MD on 03/15/2025 12:22 PM [facility] Station ID: [id number]
[2025-03-15 13:25] LABS: MAGNESIUM 1.9 mg/dL (1.7-2.3)
[2025-03-15] MEDS: INSULIN REGULAR, HUMAN 300 UNIT/3 ML PEN IVP STA (13:42)
[2025-03-15] MEDS: SODIUM CHLORIDE 0.9% 1,000 ML IV SCH (13:59)
[2025-03-15] MEDS: metroNIDAZOLE 500 MG/100 ML 500 MG/100 ML BAG IV ONE (14:00)
[2025-03-15] MEDS: CIPROFLOXACIN 400 MG/200 ML 400 MG/200 ML BAG IV STA (14:15)
[2025-03-15 14:20] LABS: MAGNESIUM 1.9 mg/dL (1.7-2.3)
[2025-03-15] MEDS: DEXTROSE 5%-0.9% NACL 1,000 ML IV SCH (14:20)
[2025-03-15 15:47] LABS: VBG BASE EXCESS -22.5 mmol/L (-2 - +2); VBG PCO2 15.1 mmHg (41-51); VBG PO2 57.1 mmHg (25-47); VBG TOTAL CO2 6.3 mmol/L (24-29)
[2025-03-15 15:49] LABS: VBG PH 7.193 (7.31-7.41)
[2025-03-15 15:59] LABS: MAGNESIUM 1.9 mg/dL (1.7-2.3); PHOSPHORUS 1.4 mg/dL (2.5-5.0)
--- NOTE | 2025-03-15 16:19 | HISTORY & PHYSICAL EXAMINATION ---
Chief Complaint Chief Complaint Chief Complaint: "I'm concerned I'm in DKA" History of Present Illness Admitted From Admitted From:: Home History Obtained From Records Reviewed: Yes History obtained from: Patient Exam Limitations: None History of Present Illness HPI Comment/Other: Patient is a 28-year-old female with history of type 1 diabetes mellitus currently using an insulin pump who presents for feeling unwell. She was just here on 03/06, and at that time, she did not incision and drainage performed on her pilonidal cyst. She was discharged home on Bactrim. Patient states that she finished her entire bottle except for 2 pills. She felt as if they were not doing much. She endorses some ongoing drainage from the pilonidal cyst area, which she describes as ranging in color from clear to yellow to red. She also endorses some shortness of breath, as well as weakness with even minimal activity. She also has some nausea, but no episodes of emesis. She denies any fevers or chills. She is not currently in any pain. She does have a history of recurrent abscesses, and previous MRSA infections as well. In the emergency room, she was tachycardic with heart rate in the 101 range, breathing between 16 and 20/min, oxygen saturation of 100% on room air, with a blood pressure of 140/94. Lab work showed a normal white count of 9.9. Her VBG showed a pH of 7.127, her potassium was initially 3.9, her bicarb was 6, and anion gap was 19. Her glucose was 414, and she had moderate serum ketones. CT abdomen/pelvis with contrast was completed which showed perirectal edema without abscess. She was admitted for DKA. Meds/Allgy Home Medications Ambulatory Orders Medication Instructions Recorded Confirmed insulin aspart U-100 100 unit/mL 80 units subcut DAILY 01/06/24 03/07/25 subcutaneous solution (Novolog U-100 Insulin aspart) blood sugar diagnostic (True 09/25/24 03/07/25 Metrix Glucose Test Strip) insulin pump controller [Omnipod 09/26/24 03/07/25 DASH PDM Kit (Gen 4)] gauze bandage 4" X 4" (Gauze Pad) #100 ea 03/07/25 mupirocin 2 % topical ointment 1 applic topical TID #15 grams 03/07/25 ([facility]) sulfamethoxazole 800 1 tab PO BID #20 tabs 03/07/25 mg-trimethoprim 160 mg tablet (Bactrim DS) Allergies Allergies Allergy/AdvReac Type Severity Reaction Status Date / Time caffeine AdvReac Unknown unknown Verified 03/15/25 10:58 detergent AdvReac Unknown Unknown Uncoded 03/15/25 10:58 PFSH Active Problems All Active Problems (Updated 03/15/25 @ 16:23 by Edward Aranda MD) Chronic recurrent pilonidal cyst without abscess (Acute) Dental infection (Acute) Infected pilonidal cyst (Acute) DKA (diabetic ketoacidosis) (Acute) Cellulitis of abdominal wall (Acute) Type 1 diabetes mellitus (Acute) Fatigue (Acute) Tachycardia (Acute) Vulvar lesion (Acute) Generalized anxiety disorder (Acute 08/19/16) Iron deficiency anemia (Acute 04/10/18) Pancytopenia (Acute 02/13/18) prison (current) use of insulin (Acute 02/14/18) Internal hemorrhoid (Acute 04/02/24) Diabetes mellitus type 1, uncontrolled, insulin dependent (Acute 04/02/24) Depression, major, recurrent, moderate (Acute 08/19/16) Vaginal candidiasis (Chronic) MRSA carrier (Chronic) Protein calorie malnutrition (Chronic) Peripheral neuropathy (Chronic) Medical History Medical History History of diabetes with ketoacidosis History of diabetes mellitus Surgical History Surgical History No pertinent past surgical history Social History Social History (Updated 09/26/24 @ 10:15 by Peri Silva) Smoking Status: Never smoker If you are a former smoker, when did you quit? (Date/Year): No Number of Years Smoked: 0 How many cigarettes a day do you smoke? (20 cigarettes=1 Pk): 0 Second hand tobacco smoke exposure: No Do you dip or chew tobacco?: No Do you vape?: No Patient requests smoking cessation consult: No Initiate information on smoking cessation: No Living arrangement: At home Living Condition: With family More Information: Lives with parents Relationship: Physical Activity: None Level: Dependent Do you feel safe in your home environment?: Yes Suffered physical, verbal, emotional, or financial abuse?: No History of Abuse: No ETOH Use: None Substance Use: denies use Are you sexually active?: No Occupation: unemployed Retired: No Service: No Are you following a diet prescribed by a doctor: No Are you following a special diet: No POLST Patient has POLST: No Review of Systems Constitutional Reports: Fatigue, Malaise, Weakness and Diaphoresis; Denies: Fever or Chills Eyes Denies: Pain, Irritation, Blurry vision, Floaters or Field loss Ears, nose, mouth, and throat Reports: Ear pain, Mouth pain, Bleeding gums, Dental pain and Dental decay; Denies: Nasal pain, Nasal discharge, Nasal congestion, Neck pain or Throat swelling Cardiovascular Denies: Irregular heart rate, chest pain, palpitations, edema, swelling of feet/ankles or shortness of breath with exertion Respiratory Denies: Shortness of breath, Cough, Sputum production, Wheezing, Apnea or Snoring Gastrointestinal Denies: Abdominal pain, Nausea, Vomiting, Poor appetite, Bile emesis, Heartburn or Diarrhea Genitourinary Denies: Painful urination, Urinary frequency, Urinary urgency or Urinary incontinence Musculoskeletal Denies: Back pain, Neck pain, Extremity pain or Extremity swelling Integumentary/Breast Denies: Rash, Itching, Dryness or Skin pain Neurological Reports: General weakness; Denies: Headache, Weakness in extremities, Numbness in extremities or Dizziness Psychiatric Reports: Depression; Denies: Anxiety, Mood swings, Panic attacks or Change in sleep pattern Endocrine Reports: Fatigue; Denies: Excessive urination, Excessive thirst or Polyphagia Hematologic/Lymphatic Denies: Anemia, Easy bruising, Petechiae, Easy bleeding or Blood clots Allergic/Immunologic Denies: Hives, Throat swelling or Wheezing Prior Level of Functionality: Independent of activities of daily living. Exam Exam Vital Signs: Vital Signs x48h Temp Pulse Resp BP Pulse Ox 03/15/25 13:40 101 H 16 140/94 H 100 03/15/25 11:58 97 23 162/96 H 99 03/15/25 10:52 98.2 F 108 H 20 162/96 H 100 Constitutional normal general appearance, distress noted (mild), abnormal body habitus (underweight) and alert HENMT normocephalic, head/scalp atraumatic, external ears normal, TMs normal bilaterally, oral mucous membranes normal, dentition abnormal (tenderness), (caries) and (abscess) and gingiva abnormal (erythema), (edema) and (bleeding) Eyes EOMs intact bilaterally, conjunctivae normal, no scleral icterus and no papilledema Neck/C-Spine visual inspection normal and trachea midline Lymph no lymphadenopathy noted Chest inspection of chest normal Respiratory breath sounds equal bilaterally, normal respiratory effort, clear to auscultation bilaterally, no wheezes, no rales, no retractions and no use of accessory muscles Cardiovascular normal heart rate noted, regular rhythm noted, no gallop, no rub and no murmur Gastrointestinal abdomen normal to inspection, abdomen soft to palpation, nontender to palpation and normoactive bowel sounds Genitourinary no CVA tenderness, bladder normal to palpation and external appearance normal Pilonidal cyst I&D site with good granulation tissue, no active drainage noted, no fluctuance or abscess noted Back/Pelvis spine normal to inspection, no thoracic spine tenderness and no lumbar spine tenderness Extremities normal to inspection, normal to palpation, no tenderness and full ROM Neurology no movement abnormality noted, no focal motor deficit noted, no sensory deficits noted, speech normal and coordination normal Psychiatry mental status grossly normal, oriented x3, thought process normal, cooperative and affect abnormality noted (flat) Skin skin color normal, no rash and no lesions Conclusion/Plan Problem List (1) DKA (diabetic ketoacidoses): Plan: Patient presented with high anion gap metabolic acidosis, patient's pH is 7.17 on VBG, bicarb of 6, and sugars elevated to 292. Continue aggressive IV fluid rehydration; patient currently receiving D5.9 normal saline. Continue aggressive potassium replacement. Continue to trend BMPs every 2 hours, glucose every one hour. Once anion gap is closed, and bicarb is greater than 18 on 2 subsequent BMPs, will transition the patient to long-acting insulin. Continue strict NPO status. Qualifiers: Qualified Code(s): E10.10 - Type 1 diabetes mellitus with ketoacidosis without coma (2) High anion gap metabolic acidosis: Plan: Likely due to ketoacidosis. Lactic acid also ordered, pending. (3) Hyperosmolar hyponatremia: Plan: Hyperosmolar hyponatremia due to hyperglycemia. Corrected sodium within normal limits. Continue to monitor closely. (4) Depression, major, recurrent, moderate: Plan: Not on any home medications. (5) Type 1 diabetes mellitus: Plan: Continue diabetes education. Patient does have an insulin pump in place. Qualifiers: Diabetes mellitus complication status: with other specified complication Qualified Code(s): E10.69 - Type 1 diabetes mellitus with other specified complication (6) Chronic recurrent pilonidal cyst without abscess: Plan: Patient with chronic recurrent pilonidal cyst. Last time she was here, 03/07/2025, incision and drainage was completed and patient was discharged on Bactrim. At this time, she endorses some ongoing drainage. Abdomen/pelvis CT was completed which shows perirectal edema without abscess. Received a dose of Flagyl and Cipro, not continued. Continue to monitor pilonidal cyst site, reassess need for antibiotics. Lab Results Lab results reviewed: Yes 03/15/25 11:15 03/15/25 13:56 Core Measures Anticipated LOS I expect patient to be DC'd or transferred within 96 hours.: Yes DVT/VTE - Prophylaxis VTE/DVT Device ordered at admit?: Yes VTE/DVT Prophylaxis med ordered at admit?: Yes Stroke - Rehab Assessment Rehab services assessment to be ordered?: No Not Ordered - Medical Reason: Not indicated AMI - Statin at Admit Aspirin Prescribed on Admit: No Not Ordered - Medical Reason: Not indicated
[2025-03-15] MEDS: iohexoL-300 100 ML VIAL IVP ONE (16:23)
[2025-03-15 16:32] LABS: CALCIUM 7.9 mg/dL (8.5-10.3); CREATININE 0.6 mg/dL (0.6-1.3); POTASSIUM 3.3 mmol/L (3.5-4.5)
[2025-03-15] MEDS: POTASSIUM CHLOR 10 MEQ/100 ML 10 MEQ/100 ML BAG IV SCH (17:39)
--- OUTSIDE RECORDS SUMMARY | 2025-03-15 18:39 | EXTERNAL MEDICAL SUMMARY RPT | Continuity of Care Document ---
Author Organization [facility] Address [address] [place] [id number] Phone Problems date description facility 2024-12-17 13:28 [...] 1.4 10 3/ul (missing) LIPASE 2025-03-06 11:34 [facility] 10 u/l As of May 2023 testing method has changed, this may include reference ranges. CHLORIDE 2025-03-06 11:34 [facility] 100 mmol/l As of May 2023 testing method has changed, this may include reference ranges. HGB - HEMOGLOBIN 2025-03-06 11:34 [facility] 11.7 g /dl (missing) SODIUM 2025-03-06 11:34 [facility] 131 mmol/l (missing) RED CELL DISTRIBUTION WIDTH 2025-03-06 11:34 [facility] 15.0 % (missing) PLT - PLATELET COUNT 2025-03-06 11:34 [facility] 175 10 3/ul (missing) ANION GAP 2025-03-06 11:34 [facility] 22.0 (missing ) (missing) MEAN CORPUSCULAR HEMOGLOBIN 2025-03-06 11:34 [facility] 26.2 pg (missing) MEAN CORPUSCULAR HGB CONC 2025-03-06 11:34 [facility] 30.0 g/dl (missing) GLUCOSE 2025-03-06 11:34 [facility] 343 mg/dl As of May 2023 testing method has changed, this may include reference ranges. HCT - HEMATOCRIT 2025-03-06 11:34 [facility] 39.0 % (missing) POTASSIUM 2025-03-06 11:34 [facility] 4.0 mmol/l As of May 2023 testing method has changed, this may include reference ranges. ALBUMIN 2025-03-06 11:34 [facility] 4.2 g/dl As of May 2023 testing method has changed, this may include reference ranges. RED BLOOD COUNT 2025-03-06 11:34 [facility] 4.47 10 6/ul (missing) GLOBULIN 2025-03-06 11:34 [facility] 4.7 g/dl (missing) ALT ALANINE AMINOTRANSFERASE 2025-03-06 11:34 [facility] 7 iu/l As of May 2023 testing method has changed, this may include reference ranges. NEUTROPHILS # (AUTO) 2025-03-06 11:34 [facility] 7.2 10 3/ul (missing) AST ASPARTATE AMINOTRANSFERASE 2025-03-06 11:34 [facility] 8 iu/l As of May 2023 testing method has changed, this may include reference ranges. BUN - BLOOD UREA NITROGEN 2025-03-06 11:34 [facility] 8 mg/dl As of May testing method has changed, this may include reference ranges. CALCIUM 2025-03-06 11:34 [facility] 8.8 mg/dl As of May 2023 testing method has changed, this may include reference ranges. TOTAL PROTEIN 2025-03-06 11:34 [facility] 8.9 g/dl As of May 2023 testing method has changed, this may include reference ranges. GFR - MDRD 2025-03-06 11:34 [facility] 85 (odalis rosenthal) Social History date description facility
[2025-03-15] MEDS ORDERED: PROCHLORPERAZINE 10 MG/2 ML VIAL IVP PRN (19:57)
[2025-03-15] MEDS ORDERED: HYDROmorphone 0.5 MG/0.5 ML SYRINGE IVP PRN (19:57)
[2025-03-15] MEDS ORDERED: ONDANSETRON 4 MG/2 ML VIAL IVP PRN (19:57)
[2025-03-15 21:14] LABS: MAGNESIUM 2.1 mg/dL (1.7-2.3); PHOSPHORUS 1.9 mg/dL (2.5-5.0)
[2025-03-15 21:23] LABS: BILIRUBIN,URINE NEGATIVE (NEGATIVE); GLUCOSE, URINE (UA) >=1000 mg/dL (NEGATIVE); KETONES,URINE (UA) >=80 mg/dL (NEGATIVE); LEUKOCYTE ESTERASE, URINE NEGATIVE (NEGATIVE); NITRITE,URINE NEGATIVE (NEGATIVE); OCCULT BLOOD,URINE TRACE-LYSE (NEGATIVE); PROTEIN,URINE 30 mg/dL (NEGATIVE); UROBILINOGEN,URINE 0.2 (NORMAL) E.U./dL (NORMAL)
[2025-03-15 21:25] LABS: CALCIUM 8.2 mg/dL (8.5-10.3); CREATININE 0.7 mg/dL (0.6-1.3)
[2025-03-15 21:26] LABS: CLARITY,URINE CLEAR (CLEAR)
[2025-03-15 21:27] LABS: HCG UR QUAL NEGATIVE
[2025-03-15] MEDS: INSULIN REGULAR IN 0.9 % NS 100 UNIT/100 ML BAG IV SCH (21:36)
[2025-03-15 21:39] LABS: BACTERIA,URINE Few /HPF (None Seen); RBC,URINE 0-5 /HPF (0-5); SQUAMOUS EPITHELIAL CELL,UR FEW Squamous (<= Few)
[2025-03-15] MEDS: NEUTRA-PHOS 250 MG TABLET PO SCH (22:15)
[2025-03-15 22:25] LABS: CALCIUM, IONIZED 1.17 mmol/L (1.09-1.30)
[2025-03-15 22:27] LABS: VBG PH 6.963 (7.31-7.41)
[2025-03-15 22:51] LABS: CALCIUM 8.4 mg/dL (8.5-10.3); CREATININE 0.7 mg/dL (0.6-1.3)
[2025-03-15] MEDS: POTASSIUM CHLOR 10 MEQ/100 ML 10 MEQ/100 ML BAG IV ONE (23:11)
[2025-03-16] MEDS: POTASSIUM CHLOR 10 MEQ/100 ML 10 MEQ/100 ML BAG IV ONE ×5 (00:16→06:44)
[2025-03-16 00:41] LABS: CALCIUM 8.5 mg/dL (8.5-10.3); CREATININE 0.7 mg/dL (0.6-1.3); POTASSIUM 3.4 mmol/L (3.5-4.5)
[2025-03-16 02:34] LABS: MAGNESIUM 1.9 mg/dL (1.7-2.3)
[2025-03-16 02:40] LABS: PHOSPHORUS 1.7 mg/dL (2.5-5.0)
[2025-03-16 04:52] LABS: BASOPHILS # (AUTO) 0.1 10^3/uL (0.0-0.1); BASOPHILS % (AUTO) 0.5 %; HCT - HEMATOCRIT 43.8 % (37.0-47.0); HGB - HEMOGLOBIN 13.1 g/dL (12.0-16.0); LYMPHOCYTES # (AUTO) 1.8 10^3/uL (1.5-3.5); LYMPHOCYTES % (AUTO) 11.7 %; MEAN CORPUSCULAR HEMOGLOBIN 26.1 pg (27.0-31.0); MEAN CORPUSCULAR HGB CONC 29.9 g/dL (32.0-36.0); MEAN CORPUSCULAR VOLUME 87.3 fL (81.0-99.0); MEAN PLATELET VOLUME 12.6 fL (7.9-10.8); MONOCYTES # (AUTO) 1.1 10^3/uL (0.0-1.0); NEUTROPHILS % (AUTO) 78.7 %; PLT - PLATELET COUNT 250 10^3/uL (130-450); RED BLOOD COUNT 5.02 10^6/uL (4.20-5.40); RED CELL DISTRIBUTION WIDTH 17.3 % (12.0-15.0); WHITE BLOOD COUNT 15.2 x10^3/uL (4.8-10.8)
[2025-03-16 05:07] LABS: CALCIUM, IONIZED 1.22 mmol/L (1.09-1.30)
[2025-03-16 05:09] LABS: VBG PH 7.043 (7.31-7.41)
[2025-03-16 05:10] LABS: CALCIUM 8.6 mg/dL (8.5-10.3); POTASSIUM 4.1 mmol/L (3.5-4.5)
[2025-03-16 05:12] LABS: CREATININE 0.7 mg/dL (0.6-1.3)
[2025-03-16] MEDS: NEUTRA-PHOS 250 MG TABLET PO SCH (05:44)
[2025-03-16] MEDS: POTASSIUM CHLOR 20 MEQ/100 ML 20 MEQ/100 ML BAG IV ONE (07:47)
[2025-03-16 09:34] LABS: MAGNESIUM 1.6 mg/dL (1.7-2.3); PHOSPHORUS 1.1 mg/dL (2.5-5.0)
[2025-03-16 09:42] LABS: CALCIUM 7.9 mg/dL (8.5-10.3); CREATININE 0.6 mg/dL (0.6-1.3); POTASSIUM 2.9 mmol/L (3.5-4.5)
[2025-03-16] MEDS: POTASSIUM CHLOR 10 MEQ/100 ML 10 MEQ/100 ML BAG IV SCH ×4 (10:01→22:16)
[2025-03-16] MEDS: MAGNESIUM SULFATE 2 GRAM 2 GM/50 ML BAG IV ONE (10:06)
[2025-03-16] MEDS: POTASSIUM PHOSPHATE 21 MMOL in SODIUM CHLORIDE 0.9% 250 ML IV ONE (10:11)
[2025-03-16 14:53] LABS: MAGNESIUM 2.2 mg/dL (1.7-2.3); PHOSPHORUS 3.5 mg/dL (2.5-5.0)
[2025-03-16 14:57] LABS: CALCIUM 8.1 mg/dL (8.5-10.3); CREATININE 0.7 mg/dL (0.6-1.3); POTASSIUM 4.3 mmol/L (3.5-4.5)
--- NOTE | 2025-03-16 16:15 | PHARMACY PROGRESS NOTE ---
Best Possible Medication History Admit Date and Time: 03/15/25 [id number] Home Medications Medication Instructions Recorded Confirmed Type insulin aspart U-100 100 unit/mL 80 units subcut DAILY 01/06/24 03/16/25 History subcutaneous solution (Novolog U-100 Insulin aspart) blood sugar diagnostic (True 09/25/24 03/07/25 History Metrix Glucose Test Strip) insulin pump controller [Omnipod 09/26/24 03/07/25 History DASH PDM Kit (Gen 4)] gauze bandage 4" X 4" (Gauze Pad) #100 ea 03/07/25 Rx Processed by: Pharmacy Medications reviewed in ED?: No Medication History completed: Yes Patient Interview: Completed Secondary Source(s): Insurance records [facility] Statement: As the person ultimately responsible for medication therapy, providers are able to order a medication from an existing home medication list in [facility] via the "Reconcile Routine" prior to Confirmation of that medication by sales support representative. Such practice is discouraged except when the physician, in their clinical judgment, deems that a medical need exists for a medication without regard to previous use.
[2025-03-16 17:38] LABS: CALCIUM 7.8 mg/dL (8.5-10.3); CREATININE 0.6 mg/dL (0.6-1.3)
--- NOTE | 2025-03-16 18:00 | PROVIDER PROGRESS NOTE ---
Subjective Prog Note Date Prog Note Date: 03/16/25 Prog Note Time: 17:52 Subjective Pt reports feeling: Improved Subjective: Remains in the ICU. She is on an insulin drip. I have had to start and stop her insulin drip depending on her potassium. When I stop her drip she immediately has a high glucose. But we have to stop to supplement the potassium, phosphorus and then we resumed the drip. She states that she is compliant with her medications and diet. She feels like these Bartholin's gland cyst have really affected her body and that is why the DKA. Nausea still present but no emesis. No abdominal pain. Current Medications Current Medications Current Medications: Current Medications Generic Name Dose Route Start Last Admin Trade Name Freq PRN Reason Stop Dose Admin Hydromorphone HCl 0.5 mg 03/15/25 19:57 Hydromorphone 0.5 Mg/0.5 Ml Syringe IVP Q2H PRN Severe Pain (Level 7-10) Dextrose/Sodium Chloride 1,000 mls @ 125 mls/hr 03/15/25 15:00 03/16/25 16:04 D5ns IV 125 mls/hr .Q8H SUZANNA Administration Insulin Human Regular 100 unit in 100 mls @ 5.489 mls/hr 03/15/25 21:00 03/16/25 15:13 Myxredlin 100 Unit/100 Ml Bag IV 0.34 unit/kg/hr .[id number] SUZANNA 18.5 mls/hr Titration Protocol 0.1 UNIT/KG/HR Potassium Chloride 10 meq in 100 mls @ 100 mls/hr 03/16/25 18:00 Potassium Chloride IV 03/16/25 21:59 Q1H SUZANNA Protocol Ondansetron HCl 4 mg 03/15/25 19:57 Ondansetron 4 Mg/2 Ml Vial IVP Q4HR PRN Nausea / Vomiting Prochlorperazine Edisylate 10 mg 03/15/25 19:57 Prochlorperazine 10 Mg/2 Ml Vial IVP Q6HR PRN Nausea / Vomiting Objective Vital Signs/Intake & Output Reviewed Vital Signs: Yes Vital Signs: Vital Signs Temp Pulse Resp BP Pulse Ox 03/16/25 17:00 113 H 20 122/68 99 03/16/25 16:00 36.6 C 117 H 24 123/79 100 03/16/25 15:00 117 H 25 H 147/84 H 99 03/16/25 14:00 114 H 20 130/67 98 Intake & Output: Intake & Output 03/13/25 03/14/25 03/15/25 03/16/25 23:59 23:59 23:59 23:59 Intake Total 2723 / 2723 5075 / 5075 Output Total 900 / 900 3950 / 3950 Balance 1823 / 1823 1125 / 1125 Weight (kg) 53 kg Objective General Appearance: positive No acute distress, Alert and Other (Thin female. Accesses her glucose on her continuous glucose monitor and shows them to me on her phone.) ENT: positive No signs of dehydration (Mucosa pink and moist but she keeps on licking her lips because she feels so dry. Nonstop licking of lips.) Neck: positive No JVD; negative Stiff neck Respiratory: positive Chest non-tender, No respiratory distress and Breath sounds nml Cardiovascular: positive Regular rate & rhythm, No murmur, No gallop and Tachycardia (The lowest she has been is 107, and as high as 120.); negative Systolic murmur Abdomen: positive Nml bowel sounds and Tenderness (Mild in the mid abdomen. With palpation. No rebound or guarding) Skin: positive Color nml, Warm, Dry and Pallor Extremities: positive Non-tender, Full ROM and Nml appearance Neurologic/Psychiatric: positive Oriented x3, CN's nml (2-12) and Motor nml Lab Results 03/16/25 04:47 03/16/25 17:12 Other Labs: Lab Results x24hrs 03/16/25 03/16/25 03/16/25 Range/Units 17:12 17:07 15:59 WBC (4.8-10.8) x10^3/uL RBC (4.20-5.40) 10^6/uL Hgb (12.0-16.0) g/dL Hct (37.0-47.0) % MCV (81.0-99.0) fL MCH (27.0-31.0) pg MCHC (32.0-36.0) g/dL RDW (12.0-15.0) % Plt Count (130-450) 10^3/uL MPV (7.9-10.8) fL Neut # (Auto) (1.5-6.6) 10^3/uL Lymph # (Auto) (1.5-3.5) 10^3/uL [place] # (Auto) (0.0-1.0) 10^3/uL Eos # (Auto) (0.0-0.7) 10^3/uL Baso # (Auto) (0.0-0.1) 10^3/uL Absolute Nucleated RBC x10^3/uL Nucleated RBC % /100WBC VBG pH (7.31-7.41) Ionized Calcium (1.09-1.30) mmol/L Sodium 132 L (135-145) mmol/L Potassium 3.0 L (3.5-4.5) mmol/L Chloride 113 H (101-111) mmol/L Carbon Dioxide 8 L* (21-32) mmol/L Anion Gap 11.0 (6-13) BUN 6 (6-20) mg/dL Creatinine 0.6 (0.6-1.3) mg/dL Estimated GFR (MDRD) 118 (>89) Glucose 243 H (74-104) mg/dL POC Whole Bld Glucose 220 335 (70-100) mg/dL Calcium 7.8 L (8.5-10.3) mg/dL Phosphorus (2.5-5.0) mg/dL Magnesium (1.7-2.3) mg/dL Urine Color Urine Clarity (CLEAR) Urine pH (5.0-7.5) PH Ur Specific [place] (1.002-1.030) Urine Protein (NEGATIVE) mg/dL Urine Glucose (UA) (NEGATIVE) mg/dL Urine Ketones (NEGATIVE) mg/dL Urine Occult Blood (NEGATIVE) Urine Nitrite (NEGATIVE) Urine Bilirubin (NEGATIVE) Urine Urobilinogen (NORMAL) E.U./dL Ur Leukocyte Esterase (NEGATIVE) Urine RBC (0-5) /HPF Urine WBC (0-5) /HPF Ur Squamous Epith Cells (<= Few) Urine Bacteria (None Seen) /HPF Ur Microscopic Review Urine Culture Comments Urine HCG, Qual Nasal Screen MRSA (PCR) (NEGATIVE) 03/16/25 03/16/25 03/16/25 Range/Units 15:10 14:27 14:25 WBC (4.8-10.8) x10^3/uL RBC (4.20-5.40) 10^6/uL Hgb (12.0-16.0) g/dL Hct (37.0-47.0) % MCV (81.0-99.0) fL MCH (27.0-31.0) pg MCHC (32.0-36.0) g/dL RDW (12.0-15.0) % Plt Count (130-450) 10^3/uL MPV (7.9-10.8) fL Neut # (Auto) (1.5-6.6) 10^3/uL Lymph # (Auto) (1.5-3.5) 10^3/uL [place] # (Auto) (0.0-1.0) 10^3/uL Eos # (Auto) (0.0-0.7) 10^3/uL Baso # (Auto) (0.0-0.1) 10^3/uL Absolute Nucleated RBC x10^3/uL Nucleated RBC % /100WBC VBG pH (7.31-7.41) Ionized Calcium (1.09-1.30) mmol/L Sodium 130 L (135-145) mmol/L Potassium 4.3 (3.5-4.5) mmol/L Chloride 107 (101-111) mmol/L Carbon Dioxide 5 L* (21-32) mmol/L Anion Gap 18.0 H (6-13) BUN 6 (6-20) mg/dL Creatinine 0.7 (0.6-1.3) mg/dL Estimated GFR (MDRD) 99 (>89) Glucose 497 H (74-104) mg/dL POC Whole Bld Glucose 405 470 (70-100) mg/dL Calcium 8.1 L (8.5-10.3) mg/dL Phosphorus 3.5 (2.5-5.0) mg/dL Magnesium 2.2 (1.7-2.3) mg/dL Urine Color Urine Clarity (CLEAR) Urine pH (5.0-7.5) PH Ur Specific [place] (1.002-1.030) Urine Protein (NEGATIVE) mg/dL Urine Glucose (UA) (NEGATIVE) mg/dL Urine Ketones (NEGATIVE) mg/dL Urine Occult Blood (NEGATIVE) Urine Nitrite (NEGATIVE) Urine Bilirubin (NEGATIVE) Urine Urobilinogen (NORMAL) E.U./dL Ur Leukocyte Esterase (NEGATIVE) Urine RBC (0-5) /HPF Urine WBC (0-5) /HPF Ur Squamous Epith Cells (<= Few) Urine Bacteria (None Seen) /HPF Ur Microscopic Review Urine Culture Comments Urine HCG, Qual Nasal Screen MRSA (PCR) (NEGATIVE) 03/16/25 03/16/25 03/16/25 Range/Units 13:18 11:00 09:58 WBC (4.8-10.8) x10^3/uL RBC (4.20-5.40) 10^6/uL Hgb (12.0-16.0) g/dL Hct (37.0-47.0) % MCV (81.0-99.0) fL MCH (27.0-31.0) pg MCHC (32.0-36.0) g/dL RDW (12.0-15.0) % Plt Count (130-450) 10^3/uL MPV (7.9-10.8) fL Neut # (Auto) (1.5-6.6) 10^3/uL Lymph # (Auto) (1.5-3.5) 10^3/uL [place] # (Auto) (0.0-1.0) 10^3/uL Eos # (Auto) (0.0-0.7) 10^3/uL Baso # (Auto) (0.0-0.1) 10^3/uL Absolute Nucleated RBC x10^3/uL Nucleated RBC % /100WBC VBG pH (7.31-7.41) Ionized Calcium (1.09-1.30) mmol/L Sodium (135-145) mmol/L Potassium (3.5-4.5) mmol/L Chloride (101-111) mmol/L Carbon Dioxide (21-32) mmol/L Anion Gap (6-13) BUN (6-20) mg/dL Creatinine (0.6-1.3) mg/dL Estimated GFR (MDRD) (>89) Glucose (74-104) mg/dL POC Whole Bld Glucose 366 283 261 (70-100) mg/dL Calcium (8.5-10.3) mg/dL Phosphorus (2.5-5.0) mg/dL Magnesium (1.7-2.3) mg/dL Urine Color Urine Clarity (CLEAR) Urine pH (5.0-7.5) PH Ur Specific [place] (1.002-1.030) Urine Protein (NEGATIVE) mg/dL Urine Glucose (UA) (NEGATIVE) mg/dL Urine Ketones (NEGATIVE) mg/dL Urine Occult Blood (NEGATIVE) Urine Nitrite (NEGATIVE) Urine Bilirubin (NEGATIVE) Urine Urobilinogen (NORMAL) E.U./dL Ur Leukocyte Esterase (NEGATIVE) Urine RBC (0-5) /HPF Urine WBC (0-5) /HPF Ur Squamous Epith Cells (<= Few) Urine Bacteria (None Seen) /HPF Ur Microscopic Review Urine Culture Comments Urine HCG, Qual Nasal Screen MRSA (PCR) (NEGATIVE) 03/16/25 03/16/25 03/16/25 Range/Units 09:16 09:01 07:57 WBC (4.8-10.8) x10^3/uL RBC (4.20-5.40) 10^6/uL Hgb (12.0-16.0) g/dL Hct (37.0-47.0) % MCV (81.0-99.0) fL MCH (27.0-31.0) pg MCHC (32.0-36.0) g/dL RDW (12.0-15.0) % Plt Count (130-450) 10^3/uL MPV (7.9-10.8) fL Neut # (Auto) (1.5-6.6) 10^3/uL Lymph # (Auto) (1.5-3.5) 10^3/uL [place] # (Auto) (0.0-1.0) 10^3/uL Eos # (Auto) (0.0-0.7) 10^3/uL Baso # (Auto) (0.0-0.1) 10^3/uL Absolute Nucleated RBC x10^3/uL Nucleated RBC % /100WBC VBG pH (7.31-7.41) Ionized Calcium (1.09-1.30) mmol/L Sodium 134 L (135-145) mmol/L Potassium 2.9 L (3.5-4.5) mmol/L Chloride 115 H (101-111) mmol/L Carbon Dioxide 9 L* (21-32) mmol/L Anion Gap 10.0 (6-13) BUN 3 L (6-20) mg/dL Creatinine 0.6 (0.6-1.3) mg/dL Estimated GFR (MDRD) 118 (>89) Glucose 265 H (74-104) mg/dL POC Whole Bld Glucose 236 213 (70-100) mg/dL Calcium 7.9 L (8.5-10.3) mg/dL Phosphorus 1.1 L (2.5-5.0) mg/dL Magnesium 1.6 L (1.7-2.3) mg/dL Urine Color Urine Clarity (CLEAR) Urine pH (5.0-7.5) PH Ur Specific [place] (1.002-1.030) Urine Protein (NEGATIVE) mg/dL Urine Glucose (UA) (NEGATIVE) mg/dL Urine Ketones (NEGATIVE) mg/dL Urine Occult Blood (NEGATIVE) Urine Nitrite (NEGATIVE) Urine Bilirubin (NEGATIVE) Urine Urobilinogen (NORMAL) E.U./dL Ur Leukocyte Esterase (NEGATIVE) Urine RBC (0-5) /HPF Urine WBC (0-5) /HPF Ur Squamous Epith Cells (<= Few) Urine Bacteria (None Seen) /HPF Ur Microscopic Review Urine Culture Comments Urine HCG, Qual Nasal Screen MRSA (PCR) (NEGATIVE) 03/16/25 03/16/25 03/16/25 Range/Units 06:57 06:01 04:47 WBC 15.2 H (4.8-10.8) x10^3/uL RBC 5.02 (4.20-5.40) 10^6/uL Hgb 13.1 (12.0-16.0) g/dL Hct 43.8 (37.0-47.0) % MCV 87.3 (81.0-99.0) fL MCH 26.1 L (27.0-31.0) pg MCHC 29.9 L (32.0-36.0) g/dL RDW 17.3 H (12.0-15.0) % Plt Count 250 (130-450) 10^3/uL MPV 12.6 H (7.9-10.8) fL Neut # (Auto) 12.0 H (1.5-6.6) 10^3/uL Lymph # (Auto) 1.8 (1.5-3.5) 10^3/uL [place] # (Auto) 1.1 H (0.0-1.0) 10^3/uL Eos # (Auto) 0.0 (0.0-0.7) 10^3/uL Baso # (Auto) 0.1 (0.0-0.1) 10^3/uL Absolute Nucleated RBC 0.00 x10^3/uL Nucleated RBC % 0.0 /100WBC VBG pH 7.043 L* (7.31-7.41) Ionized Calcium 1.22 (1.09-1.30) mmol/L Sodium 131 L (135-145) mmol/L Potassium 4.1 (3.5-4.5) mmol/L Chloride 109 (101-111) mmol/L Carbon Dioxide 4 L* (21-32) mmol/L Anion Gap 18.0 H (6-13) BUN 5 L (6-20) mg/dL Creatinine 0.7 (0.6-1.3) mg/dL Estimated GFR (MDRD) 99 (>89) Glucose 316 H (74-104) mg/dL POC Whole Bld Glucose 239 291 (70-100) mg/dL Calcium 8.6 (8.5-10.3) mg/dL Phosphorus 2.0 L (2.5-5.0) mg/dL Magnesium 2.0 (1.7-2.3) mg/dL Urine Color Urine Clarity (CLEAR) Urine pH (5.0-7.5) PH Ur Specific [place] (1.002-1.030) Urine Protein (NEGATIVE) mg/dL Urine Glucose (UA) (NEGATIVE) mg/dL Urine Ketones (NEGATIVE) mg/dL Urine Occult Blood (NEGATIVE) Urine Nitrite (NEGATIVE) Urine Bilirubin (NEGATIVE) Urine Urobilinogen (NORMAL) E.U./dL Ur Leukocyte Esterase (NEGATIVE) Urine RBC (0-5) /HPF Urine WBC (0-5) /HPF Ur Squamous Epith Cells (<= Few) Urine Bacteria (None Seen) /HPF Ur Microscopic Review Urine Culture Comments Urine HCG, Qual Nasal Screen MRSA (PCR) (NEGATIVE) 03/16/25 03/16/25 03/16/25 Range/Units 04:45 03:00 02:15 WBC (4.8-10.8) x10^3/uL RBC (4.20-5.40) 10^6/uL Hgb (12.0-16.0) g/dL Hct (37.0-47.0) % MCV (81.0-99.0) fL MCH (27.0-31.0) pg MCHC (32.0-36.0) g/dL RDW (12.0-15.0) % Plt Count (130-450) 10^3/uL MPV (7.9-10.8) fL Neut # (Auto) (1.5-6.6) 10^3/uL Lymph # (Auto) (1.5-3.5) 10^3/uL [place] # (Auto) (0.0-1.0) 10^3/uL Eos # (Auto) (0.0-0.7) 10^3/uL Baso # (Auto) (0.0-0.1) 10^3/uL Absolute Nucleated RBC x10^3/uL Nucleated RBC % /100WBC VBG pH (7.31-7.41) Ionized Calcium (1.09-1.30) mmol/L Sodium (135-145) mmol/L Potassium (3.5-4.5) mmol/L Chloride (101-111) mmol/L Carbon Dioxide (21-32) mmol/L Anion Gap (6-13) BUN (6-20) mg/dL Creatinine (0.6-1.3) mg/dL Estimated GFR (MDRD) (>89) Glucose (74-104) mg/dL POC Whole Bld Glucose 308 241 (70-100) mg/dL Calcium (8.5-10.3) mg/dL Phosphorus 1.7 L (2.5-5.0) mg/dL Magnesium 1.9 (1.7-2.3) mg/dL Urine Color Urine Clarity (CLEAR) Urine pH (5.0-7.5) PH Ur Specific [place] (1.002-1.030) Urine Protein (NEGATIVE) mg/dL Urine Glucose (UA) (NEGATIVE) mg/dL Urine Ketones (NEGATIVE) mg/dL Urine Occult Blood (NEGATIVE) Urine Nitrite (NEGATIVE) Urine Bilirubin (NEGATIVE) Urine Urobilinogen (NORMAL) E.U./dL Ur Leukocyte Esterase (NEGATIVE) Urine RBC (0-5) /HPF Urine WBC (0-5) /HPF Ur Squamous Epith Cells (<= Few) Urine Bacteria (None Seen) /HPF Ur Microscopic Review Urine Culture Comments Urine HCG, Qual Nasal Screen MRSA (PCR) (NEGATIVE) 03/16/25 03/16/25 03/15/25 Range/Units 01:06 00:15 23:59 WBC (4.8-10.8) x10^3/uL RBC (4.20-5.40) 10^6/uL Hgb (12.0-16.0) g/dL Hct (37.0-47.0) % MCV (81.0-99.0) fL MCH (27.0-31.0) pg MCHC (32.0-36.0) g/dL RDW (12.0-15.0) % Plt Count (130-450) 10^3/uL MPV (7.9-10.8) fL Neut # (Auto) (1.5-6.6) 10^3/uL Lymph # (Auto) (1.5-3.5) 10^3/uL [place] # (Auto) (0.0-1.0) 10^3/uL Eos # (Auto) (0.0-0.7) 10^3/uL Baso # (Auto) (0.0-0.1) 10^3/uL Absolute Nucleated RBC x10^3/uL Nucleated RBC % /100WBC VBG pH (7.31-7.41) Ionized Calcium (1.09-1.30) mmol/L Sodium 133 L (135-145) mmol/L Potassium 3.4 L (3.5-4.5) mmol/L Chloride 110 (101-111) mmol/L Carbon Dioxide 6 L* (21-32) mmol/L Anion Gap 17.0 H (6-13) BUN 6 (6-20) mg/dL Creatinine 0.7 (0.6-1.3) mg/dL Estimated GFR (MDRD) 99 (>89) Glucose 242 H (74-104) mg/dL POC Whole Bld Glucose 238 224 (70-100) mg/dL Calcium 8.5 (8.5-10.3) mg/dL Phosphorus (2.5-5.0) mg/dL Magnesium (1.7-2.3) mg/dL Urine Color Urine Clarity (CLEAR) Urine pH (5.0-7.5) PH Ur Specific [place] (1.002-1.030) Urine Protein (NEGATIVE) mg/dL Urine Glucose (UA) (NEGATIVE) mg/dL Urine Ketones (NEGATIVE) mg/dL Urine Occult Blood (NEGATIVE) Urine Nitrite (NEGATIVE) Urine Bilirubin (NEGATIVE) Urine Urobilinogen (NORMAL) E.U./dL Ur Leukocyte Esterase (NEGATIVE) Urine RBC (0-5) /HPF Urine WBC (0-5) /HPF Ur Squamous Epith Cells (<= Few) Urine Bacteria (None Seen) /HPF Ur Microscopic Review Urine Culture Comments Urine HCG, Qual Nasal Screen MRSA (PCR) (NEGATIVE) 03/15/25 03/15/25 03/15/25 Range/Units 23:14 22:17 21:56 WBC (4.8-10.8) x10^3/uL RBC (4.20-5.40) 10^6/uL Hgb (12.0-16.0) g/dL Hct (37.0-47.0) % MCV (81.0-99.0) fL MCH (27.0-31.0) pg MCHC (32.0-36.0) g/dL RDW (12.0-15.0) % Plt Count (130-450) 10^3/uL MPV (7.9-10.8) fL Neut # (Auto) (1.5-6.6) 10^3/uL Lymph # (Auto) (1.5-3.5) 10^3/uL [place] # (Auto) (0.0-1.0) 10^3/uL Eos # (Auto) (0.0-0.7) 10^3/uL Baso # (Auto) (0.0-0.1) 10^3/uL Absolute Nucleated RBC x10^3/uL Nucleated RBC % /100WBC VBG pH 6.963 L* (7.31-7.41) Ionized Calcium 1.17 (1.09-1.30) mmol/L Sodium 131 L (135-145) mmol/L Potassium 4.0 (3.5-4.5) mmol/L Chloride 108 (101-111) mmol/L Carbon Dioxide 5 L* (21-32) mmol/L Anion Gap 18.0 H (6-13) BUN 7 (6-20) mg/dL Creatinine 0.7 (0.6-1.3) mg/dL Estimated GFR (MDRD) 99 (>89) Glucose 336 H (74-104) mg/dL POC Whole Bld Glucose 257 335 (70-100) mg/dL Calcium 8.4 L (8.5-10.3) mg/dL Phosphorus 2.0 L (2.5-5.0) mg/dL Magnesium 2.0 (1.7-2.3) mg/dL Urine Color Urine Clarity (CLEAR) Urine pH (5.0-7.5) PH Ur Specific [place] (1.002-1.030) Urine Protein (NEGATIVE) mg/dL Urine Glucose (UA) (NEGATIVE) mg/dL Urine Ketones (NEGATIVE) mg/dL Urine Occult Blood (NEGATIVE) Urine Nitrite (NEGATIVE) Urine Bilirubin (NEGATIVE) Urine Urobilinogen (NORMAL) E.U./dL Ur Leukocyte Esterase (NEGATIVE) Urine RBC (0-5) /HPF Urine WBC (0-5) /HPF Ur Squamous Epith Cells (<= Few) Urine Bacteria (None Seen) /HPF Ur Microscopic Review Urine Culture Comments Urine HCG, Qual Nasal Screen MRSA (PCR) (NEGATIVE) 03/15/25 03/15/25 03/15/25 Range/Units 21:08 21:06 20:51 WBC (4.8-10.8) x10^3/uL RBC (4.20-5.40) 10^6/uL Hgb (12.0-16.0) g/dL Hct (37.0-47.0) % MCV (81.0-99.0) fL MCH (27.0-31.0) pg MCHC (32.0-36.0) g/dL RDW (12.0-15.0) % Plt Count (130-450) 10^3/uL MPV (7.9-10.8) fL Neut # (Auto) (1.5-6.6) 10^3/uL Lymph # (Auto) (1.5-3.5) 10^3/uL [place] # (Auto) (0.0-1.0) 10^3/uL Eos # (Auto) (0.0-0.7) 10^3/uL Baso # (Auto) (0.0-0.1) 10^3/uL Absolute Nucleated RBC x10^3/uL Nucleated RBC % /100WBC VBG pH (7.31-7.41) Ionized Calcium (1.09-1.30) mmol/L Sodium 130 L (135-145) mmol/L Potassium 4.0 (3.5-4.5) mmol/L Chloride 110 (101-111) mmol/L Carbon Dioxide 2 L* (21-32) mmol/L Anion Gap 18.0 H (6-13) BUN 7 (6-20) mg/dL Creatinine 0.7 (0.6-1.3) mg/dL Estimated GFR (MDRD) 99 (>89) Glucose 330 H (74-104) mg/dL POC Whole Bld Glucose 315 (70-100) mg/dL Calcium 8.2 L (8.5-10.3) mg/dL Phosphorus 1.9 L (2.5-5.0) mg/dL Magnesium 2.1 (1.7-2.3) mg/dL Urine Color YELLOW Urine Clarity CLEAR (CLEAR) Urine pH 6.0 (5.0-7.5) PH Ur Specific [place] >=1.030 H (1.002-1.030) Urine Protein 30 H (NEGATIVE) mg/dL Urine Glucose (UA) >=1000 H (NEGATIVE) mg/dL Urine Ketones >=80 H (NEGATIVE) mg/dL Urine Occult Blood TRACE-LYSE (NEGATIVE) Urine Nitrite NEGATIVE (NEGATIVE) Urine Bilirubin NEGATIVE (NEGATIVE) Urine Urobilinogen 0.2 (NORMAL) (NORMAL) E.U./dL Ur Leukocyte Esterase NEGATIVE (NEGATIVE) Urine RBC 0-5 (0-5) /HPF Urine WBC 4-5 (0-5) /HPF Ur Squamous Epith Cells FEW Squamous (<= Few) Urine Bacteria Few (None Seen) /HPF Ur Microscopic Review INDICATED Urine Culture Comments NOT INDICATED Urine HCG, Qual NEGATIVE Nasal Screen MRSA (PCR) (NEGATIVE) 03/15/25 03/15/25 03/15/25 Range/Units 20:15 20:14 19:05 WBC (4.8-10.8) x10^3/uL RBC (4.20-5.40) 10^6/uL Hgb (12.0-16.0) g/dL Hct (37.0-47.0) % MCV (81.0-99.0) fL MCH (27.0-31.0) pg MCHC (32.0-36.0) g/dL RDW (12.0-15.0) % Plt Count (130-450) 10^3/uL MPV (7.9-10.8) fL Neut # (Auto) (1.5-6.6) 10^3/uL Lymph # (Auto) (1.5-3.5) 10^3/uL [place] # (Auto) (0.0-1.0) 10^3/uL Eos # (Auto) (0.0-0.7) 10^3/uL Baso # (Auto) (0.0-0.1) 10^3/uL Absolute Nucleated RBC x10^3/uL Nucleated RBC % /100WBC VBG pH (7.31-7.41) Ionized Calcium (1.09-1.30) mmol/L Sodium (135-145) mmol/L Potassium (3.5-4.5) mmol/L Chloride (101-111) mmol/L Carbon Dioxide (21-32) mmol/L Anion Gap (6-13) BUN (6-20) mg/dL Creatinine (0.6-1.3) mg/dL Estimated GFR (MDRD) (>89) Glucose (74-104) mg/dL POC Whole Bld Glucose 337 274 (70-100) mg/dL Calcium (8.5-10.3) mg/dL Phosphorus (2.5-5.0) mg/dL Magnesium (1.7-2.3) mg/dL Urine Color Urine Clarity (CLEAR) Urine pH (5.0-7.5) PH Ur Specific [place] (1.002-1.030) Urine Protein (NEGATIVE) mg/dL Urine Glucose (UA) (NEGATIVE) mg/dL Urine Ketones (NEGATIVE) mg/dL Urine Occult Blood (NEGATIVE) Urine Nitrite (NEGATIVE) Urine Bilirubin (NEGATIVE) Urine Urobilinogen (NORMAL) E.U./dL Ur Leukocyte Esterase (NEGATIVE) Urine RBC (0-5) /HPF Urine WBC (0-5) /HPF Ur Squamous Epith Cells (<= Few) Urine Bacteria (None Seen) /HPF Ur Microscopic Review Urine Culture Comments Urine HCG, Qual Nasal Screen MRSA (PCR) NEGATIVE (NEGATIVE) 03/15/25 Range/Units 17:52 WBC (4.8-10.8) x10^3/uL RBC (4.20-5.40) 10^6/uL Hgb (12.0-16.0) g/dL Hct (37.0-47.0) % MCV (81.0-99.0) fL MCH (27.0-31.0) pg MCHC (32.0-36.0) g/dL RDW (12.0-15.0) % Plt Count (130-450) 10^3/uL MPV (7.9-10.8) fL Neut # (Auto) (1.5-6.6) 10^3/uL Lymph # (Auto) (1.5-3.5) 10^3/uL [place] # (Auto) (0.0-1.0) 10^3/uL Eos # (Auto) (0.0-0.7) 10^3/uL Baso # (Auto) (0.0-0.1) 10^3/uL Absolute Nucleated RBC x10^3/uL Nucleated RBC % /100WBC VBG pH (7.31-7.41) Ionized Calcium (1.09-1.30) mmol/L Sodium (135-145) mmol/L Potassium (3.5-4.5) mmol/L Chloride (101-111) mmol/L Carbon Dioxide (21-32) mmol/L Anion Gap (6-13) BUN (6-20) mg/dL Creatinine (0.6-1.3) mg/dL Estimated GFR (MDRD) (>89) Glucose 240 H (74-104) mg/dL POC Whole Bld Glucose (70-100) mg/dL Calcium (8.5-10.3) mg/dL Phosphorus (2.5-5.0) mg/dL Magnesium (1.7-2.3) mg/dL Urine Color Urine Clarity (CLEAR) Urine pH (5.0-7.5) PH Ur Specific [place] (1.002-1.030) Urine Protein (NEGATIVE) mg/dL Urine Glucose (UA) (NEGATIVE) mg/dL Urine Ketones (NEGATIVE) mg/dL Urine Occult Blood (NEGATIVE) Urine Nitrite (NEGATIVE) Urine Bilirubin (NEGATIVE) Urine Urobilinogen (NORMAL) E.U./dL Ur Leukocyte Esterase (NEGATIVE) Urine RBC (0-5) /HPF Urine WBC (0-5) /HPF Ur Squamous Epith Cells (<= Few) Urine Bacteria (None Seen) /HPF Ur Microscopic Review Urine Culture Comments Urine HCG, Qual Nasal Screen MRSA (PCR) (NEGATIVE) Assessment/Plan Problem List (1) DKA (diabetic ketoacidoses): Impression: She feels it is due to the infected pilonidal cyst even though exam of the infected area shows good response to antibiotics. She is on a glucose pump, and continuous glucose monitoring so she feels her compliance is good. Hyperkalemia is a barrier to getting good control right now since we have to stop her pump when her potassium gets too low. We are currently supplementing potassium magnesium and phosphorus and resuming her pump. I hope to have her switched over to just her regular dosing today but will have to delay this. She will remain another midnight as we try to control her glucose. She is on insulin drip, with frequent electrolyte checks and supplementation. Qualifiers: Qualified Code(s): E10.10 - Type 1 diabetes mellitus with ketoacidosis without coma (2) High anion gap metabolic acidosis: Impression: It has resolved as of this afternoon. On admission her anion gap was 19. It was 10 this morning and was normal. But we had to stop the drip and her anion gap went back up to 18 this afternoon. As of 5 PM she is 11 and normal. Will continue to monitor. (3) Hyperosmolar hyponatremia: Impression: Improved. Sodium 128 on admission. She has come up to 132 today with treatment. (4) Depression, major, recurrent, moderate: Impression: Stable. No suicidal ideation. She is not on any home medications for this. (5) Type 1 diabetes mellitus: Impression: In the outpatient setting she is on continuous glucose monitoring with insulin pump. That we will resume at discharge. Qualifiers: Diabetes mellitus complication status: with other specified complication Qualified Code(s): E10.69 - Type 1 diabetes mellitus with other specified complication (6) Chronic recurrent pilonidal cyst without abscess: Impression: Exam does not really show any infection. While she does have drainage there is no surrounding cellulitis or tenderness. White cell count is more elevated today at 15.2 and it was 9.9 yesterday. Her home medication was Bactrim to treat this. Her culture in July for this was beta-hemolytic strep. Here the wound culture is being done but pending. The swab was in the lab. She received ciprofloxacin in the ER. Metronidazole in the ER. Those have been held. However, if she spikes a temperature tonight, I will have the nurses call telehealth for Zosyn.
[2025-03-16 19:40] LABS: CREATININE 0.8 mg/dL (0.6-1.3); POTASSIUM 3.8 mmol/L (3.5-4.5)
[2025-03-16 19:44] LABS: PHOSPHORUS 1.8 mg/dL (2.5-5.0)
[2025-03-16 21:42] LABS: CALCIUM 7.6 mg/dL (8.5-10.3); CREATININE 0.7 mg/dL (0.6-1.3); POTASSIUM 3.2 mmol/L (3.5-4.5)
[2025-03-16 23:36] LABS: CALCIUM 7.3 mg/dL (8.5-10.3); CREATININE 0.6 mg/dL (0.6-1.3); POTASSIUM 4.2 mmol/L (3.5-4.5)
[2025-03-17 04:36] LABS: BASOPHILS % (AUTO) 0.3 %; EOSINOPHILS % (AUTO) 0.2 %; HCT - HEMATOCRIT 30.9 % (37.0-47.0); HGB - HEMOGLOBIN 9.9 g/dL (12.0-16.0); LYMPHOCYTES # (AUTO) 1.6 10^3/uL (1.5-3.5); LYMPHOCYTES % (AUTO) 13.9 %; MEAN CORPUSCULAR HEMOGLOBIN 26.5 pg (27.0-31.0); MEAN CORPUSCULAR VOLUME 82.6 fL (81.0-99.0); MEAN PLATELET VOLUME 12.3 fL (7.9-10.8); MONOCYTES % (AUTO) 8.5 %; NEUTROPHILS # (AUTO) 8.8 10^3/uL (1.5-6.6); NEUTROPHILS % (AUTO) 76.7 %; PLT - PLATELET COUNT 200 10^3/uL (130-450); RED BLOOD COUNT 3.74 10^6/uL (4.20-5.40); RED CELL DISTRIBUTION WIDTH 16.9 % (12.0-15.0); WHITE BLOOD COUNT 11.5 x10^3/uL (4.8-10.8)
[2025-03-17 04:42] LABS: CALCIUM, IONIZED 1.16 mmol/L (1.09-1.30); VBG PH 7.336 (7.31-7.41)
[2025-03-17 04:52] LABS: MAGNESIUM 1.6 mg/dL (1.7-2.3)
[2025-03-17] MEDS: MAGNESIUM SULFATE 2 GRAM 2 GM/50 ML BAG IV ONE (05:34)
[2025-03-17 05:59] LABS: CALCIUM 7.5 mg/dL (8.5-10.3); CREATININE 0.5 mg/dL (0.6-1.3)
[2025-03-17] MEDS: POTASSIUM CHLOR 10 MEQ/100 ML 10 MEQ/100 ML BAG IV SCH (06:38)
[2025-03-17] MEDS: SODIUM PHOSPHATE 21 MMOL in SODIUM CHLORIDE 0.9% 250 ML IV ONE (07:52)
[2025-03-17 10:11] LABS: CALCIUM 7.4 mg/dL (8.5-10.3); CREATININE 0.5 mg/dL (0.6-1.3)
--- NOTE | 2025-03-17 10:42 | CONSULTATION NOTE ---
Referring Provider Name of Referring Provider:: Nayan Consult Date: 03/17/25 Chief Complaint Chief Complaint Chief Complaint: Pilonidal cyst infection History of Present Illness History of Present Illness HPI Comment/Other: 29 year old female with a chronic pilonidal cyst that has become infected. She was seen in the ED 3 days ago and admitted with DKA. I am asked to evaluateb her regarding her pilonidal infection. Marnie tells me that she has been on a suppressive dose of Bactrim in the past but last week the pilonidal abscess became larger and spontaneously ruptured. Simultaneously her DKA worsened and she was admitted to our ICU. She is not currently on antibiotics. She tells me that she has ongoing purulence from the abscess that stains her clothes. 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 (Date/Year): n/a Number of Years Smoked: 0 How many cigarettes a day do you smoke? (20 cigarettes=1 Pk): 0 Second hand tobacco smoke exposure: No Do you dip or chew tobacco?: No Do you vape?: No Patient requests smoking cessation consult: No Initiate information on smoking cessation: No Living arrangement: At home Living Condition: With family More Information: Lives with parents Relationship: Physical Activity: None Level: Independent Do you feel safe in your home environment?: Yes Suffered physical, verbal, emotional, or financial abuse?: No History of Abuse: No ETOH Use: None Substance Use: denies use Are you sexually active?: No Occupation: unemployed Retired: No Service: No Are you following a diet prescribed by a doctor: No Are you following a special diet: No POLST Patient has POLST: No Meds/Allgy Home Medications Ambulatory Orders Medication Instructions Recorded Confirmed insulin aspart U-100 100 unit/mL 80 units subcut DAILY 01/06/24 03/16/25 subcutaneous solution (Novolog U-100 Insulin aspart) blood sugar diagnostic (True 09/25/24 03/07/25 Metrix Glucose Test Strip) insulin pump controller [Omnipod 09/26/24 03/07/25 DASH PDM Kit (Gen 4)] gauze bandage 4" X 4" (Gauze Pad) #100 ea 03/07/25 Allergies Allergies Allergy/AdvReac Type Severity Reaction Status Date / Time caffeine AdvReac Unknown unknown Verified 03/15/25 10:58 detergent AdvReac Unknown Unknown Uncoded 03/15/25 10:58 Results Lab Results Lab results reviewed: Yes 03/17/25 04:29 03/17/25 09:20 Other Lab Results: Lab Results x24hrs 03/17/25 03/17/25 03/17/25 Range/Units 09:20 08:59 08:00 WBC (4.8-10.8) x10^3/uL RBC (4.20-5.40) 10^6/uL Hgb (12.0-16.0) g/dL Hct (37.0-47.0) % MCV (81.0-99.0) fL MCH (27.0-31.0) pg MCHC (32.0-36.0) g/dL RDW (12.0-15.0) % Plt Count (130-450) 10^3/uL MPV (7.9-10.8) fL Neut # (Auto) (1.5-6.6) 10^3/uL Lymph # (Auto) (1.5-3.5) 10^3/uL [place] # (Auto) (0.0-1.0) 10^3/uL Eos # (Auto) (0.0-0.7) 10^3/uL Baso # (Auto) (0.0-0.1) 10^3/uL Absolute Nucleated RBC x10^3/uL Nucleated RBC % /100WBC VBG pH (7.31-7.41) Ionized Calcium (1.09-1.30) mmol/L Sodium 130 L (135-145) mmol/L Potassium 4.0 (3.5-4.5) mmol/L Chloride 106 (101-111) mmol/L Carbon Dioxide 12 L* (21-32) mmol/L Anion Gap 12.0 (6-13) BUN 4 L (6-20) mg/dL Creatinine 0.5 L (0.6-1.3) mg/dL Estimated GFR (MDRD) 146 (>89) Glucose 358 H (74-104) mg/dL POC Whole Bld Glucose 320 254 (70-100) mg/dL Calcium 7.4 L (8.5-10.3) mg/dL Phosphorus (2.5-5.0) mg/dL Magnesium 2.3 (1.7-2.3) mg/dL 03/17/25 03/17/25 03/17/25 Range/Units 07:02 06:03 04:43 WBC (4.8-10.8) x10^3/uL RBC (4.20-5.40) 10^6/uL Hgb (12.0-16.0) g/dL Hct (37.0-47.0) % MCV (81.0-99.0) fL MCH (27.0-31.0) pg MCHC (32.0-36.0) g/dL RDW (12.0-15.0) % Plt Count (130-450) 10^3/uL MPV (7.9-10.8) fL Neut # (Auto) (1.5-6.6) 10^3/uL Lymph # (Auto) (1.5-3.5) 10^3/uL [place] # (Auto) (0.0-1.0) 10^3/uL Eos # (Auto) (0.0-0.7) 10^3/uL Baso # (Auto) (0.0-0.1) 10^3/uL Absolute Nucleated RBC x10^3/uL Nucleated RBC % /100WBC VBG pH (7.31-7.41) Ionized Calcium (1.09-1.30) mmol/L Sodium (135-145) mmol/L Potassium (3.5-4.5) mmol/L Chloride (101-111) mmol/L Carbon Dioxide (21-32) mmol/L Anion Gap (6-13) BUN (6-20) mg/dL Creatinine (0.6-1.3) mg/dL Estimated GFR (MDRD) (>89) Glucose (74-104) mg/dL POC Whole Bld Glucose 215 217 83 (70-100) mg/dL Calcium (8.5-10.3) mg/dL Phosphorus (2.5-5.0) mg/dL Magnesium (1.7-2.3) mg/dL 03/17/25 03/17/25 03/17/25 Range/Units 04:29 04:05 03:09 WBC 11.5 H (4.8-10.8) x10^3/uL RBC 3.74 L (4.20-5.40) 10^6/uL Hgb 9.9 L (12.0-16.0) g/dL Hct 30.9 L (37.0-47.0) % MCV 82.6 (81.0-99.0) fL MCH 26.5 L (27.0-31.0) pg MCHC 32.0 (32.0-36.0) g/dL RDW 16.9 H (12.0-15.0) % Plt Count 200 (130-450) 10^3/uL MPV 12.3 H (7.9-10.8) fL Neut # (Auto) 8.8 H (1.5-6.6) 10^3/uL Lymph # (Auto) 1.6 (1.5-3.5) 10^3/uL [place] # (Auto) 1.0 (0.0-1.0) 10^3/uL Eos # (Auto) 0.0 (0.0-0.7) 10^3/uL Baso # (Auto) 0.0 (0.0-0.1) 10^3/uL Absolute Nucleated RBC 0.00 x10^3/uL Nucleated RBC % 0.0 /100WBC VBG pH 7.336 (7.31-7.41) Ionized Calcium 1.16 (1.09-1.30) mmol/L Sodium 133 L (135-145) mmol/L Potassium 3.0 L (3.5-4.5) mmol/L Chloride 113 H (101-111) mmol/L Carbon Dioxide 13 L (21-32) mmol/L Anion Gap 7.0 (6-13) BUN 4 L (6-20) mg/dL Creatinine 0.5 L (0.6-1.3) mg/dL Estimated GFR (MDRD) 146 (>89) Glucose 83 (74-104) mg/dL POC Whole Bld Glucose 111 138 (70-100) mg/dL Calcium 7.5 L (8.5-10.3) mg/dL Phosphorus 1.0 L* (2.5-5.0) mg/dL Magnesium 1.6 L (1.7-2.3) mg/dL 03/17/25 03/17/25 03/17/25 Range/Units 02:13 01:09 00:07 WBC (4.8-10.8) x10^3/uL RBC (4.20-5.40) 10^6/uL Hgb (12.0-16.0) g/dL Hct (37.0-47.0) % MCV (81.0-99.0) fL MCH (27.0-31.0) pg MCHC (32.0-36.0) g/dL RDW (12.0-15.0) % Plt Count (130-450) 10^3/uL MPV (7.9-10.8) fL Neut # (Auto) (1.5-6.6) 10^3/uL Lymph # (Auto) (1.5-3.5) 10^3/uL [place] # (Auto) (0.0-1.0) 10^3/uL Eos # (Auto) (0.0-0.7) 10^3/uL Baso # (Auto) (0.0-0.1) 10^3/uL Absolute Nucleated RBC x10^3/uL Nucleated RBC % /100WBC VBG pH (7.31-7.41) Ionized Calcium (1.09-1.30) mmol/L Sodium (135-145) mmol/L Potassium (3.5-4.5) mmol/L Chloride (101-111) mmol/L Carbon Dioxide (21-32) mmol/L Anion Gap (6-13) BUN (6-20) mg/dL Creatinine (0.6-1.3) mg/dL Estimated GFR (MDRD) (>89) Glucose (74-104) mg/dL POC Whole Bld Glucose 164 212 177 (70-100) mg/dL Calcium (8.5-10.3) mg/dL Phosphorus (2.5-5.0) mg/dL Magnesium (1.7-2.3) mg/dL 03/16/25 03/16/25 03/16/25 Range/Units 23:09 22:59 22:04 WBC (4.8-10.8) x10^3/uL RBC (4.20-5.40) 10^6/uL Hgb (12.0-16.0) g/dL Hct (37.0-47.0) % MCV (81.0-99.0) fL MCH (27.0-31.0) pg MCHC (32.0-36.0) g/dL RDW (12.0-15.0) % Plt Count (130-450) 10^3/uL MPV (7.9-10.8) fL Neut # (Auto) (1.5-6.6) 10^3/uL Lymph # (Auto) (1.5-3.5) 10^3/uL [place] # (Auto) (0.0-1.0) 10^3/uL Eos # (Auto) (0.0-0.7) 10^3/uL Baso # (Auto) (0.0-0.1) 10^3/uL Absolute Nucleated RBC x10^3/uL Nucleated RBC % /100WBC VBG pH (7.31-7.41) Ionized Calcium (1.09-1.30) mmol/L Sodium 132 L (135-145) mmol/L Potassium 4.2 (3.5-4.5) mmol/L Chloride 112 H (101-111) mmol/L Carbon Dioxide 10 L* (21-32) mmol/L Anion Gap 10.0 (6-13) BUN 6 (6-20) mg/dL Creatinine 0.6 (0.6-1.3) mg/dL Estimated GFR (MDRD) 118 (>89) Glucose 157 H (74-104) mg/dL POC Whole Bld Glucose 133 129 (70-100) mg/dL Calcium 7.3 L (8.5-10.3) mg/dL Phosphorus (2.5-5.0) mg/dL Magnesium (1.7-2.3) mg/dL 03/16/25 03/16/25 03/16/25 Range/Units 21:13 20:01 19:02 WBC (4.8-10.8) x10^3/uL RBC (4.20-5.40) 10^6/uL Hgb (12.0-16.0) g/dL Hct (37.0-47.0) % MCV (81.0-99.0) fL MCH (27.0-31.0) pg MCHC (32.0-36.0) g/dL RDW (12.0-15.0) % Plt Count (130-450) 10^3/uL MPV (7.9-10.8) fL Neut # (Auto) (1.5-6.6) 10^3/uL Lymph # (Auto) (1.5-3.5) 10^3/uL [place] # (Auto) (0.0-1.0) 10^3/uL Eos # (Auto) (0.0-0.7) 10^3/uL Baso # (Auto) (0.0-0.1) 10^3/uL Absolute Nucleated RBC x10^3/uL Nucleated RBC % /100WBC VBG pH (7.31-7.41) Ionized Calcium (1.09-1.30) mmol/L Sodium 132 L (135-145) mmol/L Potassium 3.2 L (3.5-4.5) mmol/L Chloride 114 H (101-111) mmol/L Carbon Dioxide 10 L* (21-32) mmol/L Anion Gap 8.0 (6-13) BUN 6 (6-20) mg/dL Creatinine 0.7 (0.6-1.3) mg/dL Estimated GFR (MDRD) 99 (>89) Glucose 194 H (74-104) mg/dL POC Whole Bld Glucose 175 253 250 (70-100) mg/dL Calcium 7.6 L (8.5-10.3) mg/dL Phosphorus (2.5-5.0) mg/dL Magnesium (1.7-2.3) mg/dL 03/16/25 03/16/25 03/16/25 Range/Units 19:00 18:02 17:12 WBC (4.8-10.8) x10^3/uL RBC (4.20-5.40) 10^6/uL Hgb (12.0-16.0) g/dL Hct (37.0-47.0) % MCV (81.0-99.0) fL MCH (27.0-31.0) pg MCHC (32.0-36.0) g/dL RDW (12.0-15.0) % Plt Count (130-450) 10^3/uL MPV (7.9-10.8) fL Neut # (Auto) (1.5-6.6) 10^3/uL Lymph # (Auto) (1.5-3.5) 10^3/uL [place] # (Auto) (0.0-1.0) 10^3/uL Eos # (Auto) (0.0-0.7) 10^3/uL Baso # (Auto) (0.0-0.1) 10^3/uL Absolute Nucleated RBC x10^3/uL Nucleated RBC % /100WBC VBG pH (7.31-7.41) Ionized Calcium (1.09-1.30) mmol/L Sodium 130 L 132 L (135-145) mmol/L Potassium 3.8 3.0 L (3.5-4.5) mmol/L Chloride 109 113 H (101-111) mmol/L Carbon Dioxide 9 L* 8 L* (21-32) mmol/L Anion Gap 12.0 11.0 (6-13) BUN 7 6 (6-20) mg/dL Creatinine 0.8 0.6 (0.6-1.3) mg/dL Estimated GFR (MDRD) 85 L 118 (>89) Glucose 269 H 243 H (74-104) mg/dL POC Whole Bld Glucose 253 (70-100) mg/dL Calcium 8.0 L 7.8 L (8.5-10.3) mg/dL Phosphorus 1.8 L (2.5-5.0) mg/dL Magnesium 2.0 (1.7-2.3) mg/dL 03/16/25 03/16/25 03/16/25 Range/Units 17:07 15:59 15:10 WBC (4.8-10.8) x10^3/uL RBC (4.20-5.40) 10^6/uL Hgb (12.0-16.0) g/dL Hct (37.0-47.0) % MCV (81.0-99.0) fL MCH (27.0-31.0) pg MCHC (32.0-36.0) g/dL RDW (12.0-15.0) % Plt Count (130-450) 10^3/uL MPV (7.9-10.8) fL Neut # (Auto) (1.5-6.6) 10^3/uL Lymph # (Auto) (1.5-3.5) 10^3/uL [place] # (Auto) (0.0-1.0) 10^3/uL Eos # (Auto) (0.0-0.7) 10^3/uL Baso # (Auto) (0.0-0.1) 10^3/uL Absolute Nucleated RBC x10^3/uL Nucleated RBC % /100WBC VBG pH (7.31-7.41) Ionized Calcium (1.09-1.30) mmol/L Sodium (135-145) mmol/L Potassium (3.5-4.5) mmol/L Chloride (101-111) mmol/L Carbon Dioxide (21-32) mmol/L Anion Gap (6-13) BUN (6-20) mg/dL Creatinine (0.6-1.3) mg/dL Estimated GFR (MDRD) (>89) Glucose (74-104) mg/dL POC Whole Bld Glucose 220 335 405 (70-100) mg/dL Calcium (8.5-10.3) mg/dL Phosphorus (2.5-5.0) mg/dL Magnesium (1.7-2.3) mg/dL 03/16/25 03/16/25 03/16/25 Range/Units 14:27 14:25 13:18 WBC (4.8-10.8) x10^3/uL RBC (4.20-5.40) 10^6/uL Hgb (12.0-16.0) g/dL Hct (37.0-47.0) % MCV (81.0-99.0) fL MCH (27.0-31.0) pg MCHC (32.0-36.0) g/dL RDW (12.0-15.0) % Plt Count (130-450) 10^3/uL MPV (7.9-10.8) fL Neut # (Auto) (1.5-6.6) 10^3/uL Lymph # (Auto) (1.5-3.5) 10^3/uL [place] # (Auto) (0.0-1.0) 10^3/uL Eos # (Auto) (0.0-0.7) 10^3/uL Baso # (Auto) (0.0-0.1) 10^3/uL Absolute Nucleated RBC x10^3/uL Nucleated RBC % /100WBC VBG pH (7.31-7.41) Ionized Calcium (1.09-1.30) mmol/L Sodium 130 L (135-145) mmol/L Potassium 4.3 (3.5-4.5) mmol/L Chloride 107 (101-111) mmol/L Carbon Dioxide 5 L* (21-32) mmol/L Anion Gap 18.0 H (6-13) BUN 6 (6-20) mg/dL Creatinine 0.7 (0.6-1.3) mg/dL Estimated GFR (MDRD) 99 (>89) Glucose 497 H (74-104) mg/dL POC Whole Bld Glucose 470 366 (70-100) mg/dL Calcium 8.1 L (8.5-10.3) mg/dL Phosphorus 3.5 (2.5-5.0) mg/dL Magnesium 2.2 (1.7-2.3) mg/dL 03/16/25 Range/Units 11:00 WBC (4.8-10.8) x10^3/uL RBC (4.20-5.40) 10^6/uL Hgb (12.0-16.0) g/dL Hct (37.0-47.0) % MCV (81.0-99.0) fL MCH (27.0-31.0) pg MCHC (32.0-36.0) g/dL RDW (12.0-15.0) % Plt Count (130-450) 10^3/uL MPV (7.9-10.8) fL Neut # (Auto) (1.5-6.6) 10^3/uL Lymph # (Auto) (1.5-3.5) 10^3/uL [place] # (Auto) (0.0-1.0) 10^3/uL Eos # (Auto) (0.0-0.7) 10^3/uL Baso # (Auto) (0.0-0.1) 10^3/uL Absolute Nucleated RBC x10^3/uL Nucleated RBC % /100WBC VBG pH (7.31-7.41) Ionized Calcium (1.09-1.30) mmol/L Sodium (135-145) mmol/L Potassium (3.5-4.5) mmol/L Chloride (101-111) mmol/L Carbon Dioxide (21-32) mmol/L Anion Gap (6-13) BUN (6-20) mg/dL Creatinine (0.6-1.3) mg/dL Estimated GFR (MDRD) (>89) Glucose (74-104) mg/dL POC Whole Bld Glucose 283 (70-100) mg/dL Calcium (8.5-10.3) mg/dL Phosphorus (2.5-5.0) mg/dL Magnesium (1.7-2.3) mg/dL Diagnostic Imaging Results Diagnostic Imaging Results Comments: CT abd/pelvis 03/15/25 - No deep abscess identified Review of Systems Status of ROS: 10 or more systems reviewed and unremarkable except as noted in history and below Integumentary/Breast Reports: Other (Purulent drainage slight bleeding from lower gluteal cleft. ) Exam Exam Vital Signs: Vital Signs x48h Temp Pulse Resp BP Pulse Ox 03/17/25 10:00 110 H 16 130/73 98 03/17/25 09:00 37.0 C 102 H 24 125/77 100 03/17/25 08:00 106 H 21 127/78 98 03/17/25 07:00 107 H 21 117/59 L 96 03/17/25 06:00 108 H 23 126/63 98 03/17/25 05:00 114 H 21 118/59 L 99 03/17/25 04:00 108 H 22 127/76 03/17/25 03:00 106 H 21 121/75 In the right lateral decubitus position, the buttocks is examined with a company manager in the room. In the lower aspect of the gluteal cleft are two openings draining pus; the larger one about 5-6 mm in diameter and the lower one 1-2 mm in diameter. The skin surrounding this area is erythematous and tender to palpation. I used a culture swab to explore the cavity and it is quite small permitting egress of only the tip of the swab. Cultures were obtained. Conclusion/Plan Problem List (1) DKA (diabetic ketoacidoses): Qualifiers: Qualified Code(s): E10.10 - Type 1 diabetes mellitus with ketoacidosis without coma (2) High anion gap metabolic acidosis: (3) Hyperosmolar hyponatremia: (4) Depression, major, recurrent, moderate: (5) Type 1 diabetes mellitus: Qualifiers: Diabetes mellitus complication status: with other specified complication Qualified Code(s): E10.69 - Type 1 diabetes mellitus with other specified complication (6) Infected pilonidal cyst: Plan: The wound is open and draining. Plan 1) IV Ceftriaxone/Flagyl 2) Cultures of wound - done 3) Local wound care 4)As the wound is currently open and draining, operative intervention is not indicated at this time Lab Results Lab results reviewed: Yes 03/17/25 04:29 03/17/25 09:20
[2025-03-17] MEDS: cefTRIAXone 1 GM in SODIUM CHLORIDE 0.9% MINIBAG 100 ML IV SCH (10:51)
[2025-03-17] MEDS: INSULIN GLARGINE-YFGN 300 UNIT/3 ML PEN SUBQ SCH (10:51)
[2025-03-17 11:04] LABS: ESTIMATED AVERAGE GLUCOSE 390 mg/dL (70-100); HEMOGLOBIN A1c% 15.2 % (4.27-6.07)
[2025-03-17] MEDS: POTASSIUM CHLORIDE INJ 40 MEQ in DEXTROSE 5%-0.45% NACL 980 ML IV SCH (11:04)
[2025-03-17] MEDS: metroNIDAZOLE 500 MG/100 ML 500 MG/100 ML BAG IV SCH (14:01)
[2025-03-17 14:37] LABS: MAGNESIUM 1.9 mg/dL (1.7-2.3); PHOSPHORUS 2.2 mg/dL (2.5-5.0); POTASSIUM 3.5 mmol/L (3.5-4.5)
[2025-03-17] MEDS: NEUTRA-PHOS 250 MG TABLET PO SCH (15:14)
[2025-03-17] MEDS: POTASSIUM CHLORIDE 20 MEQ/15 ML UDC PO SCH (15:14)
--- NOTE | 2025-03-17 15:39 | PROVIDER PROGRESS NOTE ---
Subjective Prog Note Date Prog Note Date: 03/17/25 Prog Note Time: 15:37 Subjective Subjective: We have been having problems controlling her glucose on an insulin drip. We have to keep on stopping the drip because she is still hypokalemic. She has been needing [id number] 40 meq K riders and her potassium is not responding. So we resume the drip only to stop it to supplement K. She understands what we are doing. It is frustrating because her sugar will be 83 and then 3 hours later be up to 280. But at least the DKA part has resolved. Her main concern is her pilonidal cyst. They continue to drain, become painful, and have blood on her underwear. She does not want to leave until those have been addressed. She feels that the pilonidal cyst contributed to glucose being uncontrolled. Current Medications Current Medications Current Medications: Current Medications Generic Name Dose Route Start Last Admin Trade Name Freq PRN Reason Stop Dose Admin Hydromorphone HCl 0.5 mg 03/15/25 19:57 Hydromorphone 0.5 Mg/0.5 Ml Syringe IVP Q2H PRN Severe Pain (Level 7-10) Ceftriaxone Sodium 1 gm/ 100 mls @ 200 mls/hr 03/17/25 11:00 03/17/25 11:21 Sodium Chloride IV Infused DAILY SUZANNA Infusion Metronidazole 500 mg in 100 mls @ 100 mls/hr 03/17/25 14:00 03/17/25 15:03 Flagyl 500 Mg/100 Ml IV 03/22/25 13:59 Infused Q8HR SUZANNA Infusion Insulin Glargine-yfgn 20 unit 03/17/25 11:00 03/17/25 10:51 Insulin Glargine-Yfgn 300 Unit/3 Ml Pen SUBQ 20 unit DAILY SUZANNA Administration Insulin Human Lispro 1 - 5 unit 03/17/25 17:00 03/17/25 16:59 Insulin Lispro 300 Unit/3 Ml Pen SUBQ 2 unit 0800,1200,1700,2100 SUZANNA Administration Protocol Ondansetron HCl 4 mg 03/15/25 19:57 Ondansetron 4 Mg/2 Ml Vial IVP Q4HR PRN Nausea / Vomiting Prochlorperazine Edisylate 10 mg 03/15/25 19:57 Prochlorperazine 10 Mg/2 Ml Vial IVP Q6HR PRN Nausea / Vomiting Objective Vital Signs/Intake & Output Reviewed Vital Signs: Yes Vital Signs: Vital Signs Temp Pulse Resp BP Pulse Ox 03/17/25 18:00 93 20 119/70 98 03/17/25 17:00 110 H 22 128/88 98 03/17/25 16:00 36.9 C 03/17/25 16:00 100 20 126/70 99 03/17/25 15:00 109 H 20 129/71 98 Intake & Output: Intake & Output 03/14/25 03/15/25 03/16/25 03/17/25 23:59 23:59 23:59 23:59 Intake Total 2723 / 2723 5898 / 5898 4330 / 4330 Output Total 900 / 900 5150 / 5150 2800 / 2800 Balance 1823 / 1823 748 / 748 1530 / 1530 Weight (kg) 53 kg Objective General Appearance: positive No acute distress, Alert and Other (Although she is alert, she has a very muted affect. Almost withdrawn affect. Monotonic speech.) ENT: positive Pharynx nml and No signs of dehydration Neck: negative Stiff neck Respiratory: positive Chest non-tender, No respiratory distress and Breath sounds nml Cardiovascular: positive Regular rate & rhythm and No murmur Abdomen: positive Non-tender, No organomegaly and Nml bowel sounds Skin: positive Dry, Pallor and Other (Her pilonidal cyst does not appear infected. It is draining.) Extremities: positive Non-tender, Full ROM and Nml appearance Neurologic/Psychiatric: positive Oriented x3, CN's nml (2-12) and Motor nml Lab Results 03/17/25 04:29 03/17/25 14:15 Other Labs: Lab Results x24hrs 03/17/25 03/17/25 03/17/25 Range/Units 16:55 14:56 14:15 WBC (4.8-10.8) x10^3/uL RBC (4.20-5.40) 10^6/uL Hgb (12.0-16.0) g/dL Hct (37.0-47.0) % MCV (81.0-99.0) fL MCH (27.0-31.0) pg MCHC (32.0-36.0) g/dL RDW (12.0-15.0) % Plt Count (130-450) 10^3/uL MPV (7.9-10.8) fL Neut # (Auto) (1.5-6.6) 10^3/uL Lymph # (Auto) (1.5-3.5) 10^3/uL [place] # (Auto) (0.0-1.0) 10^3/uL Eos # (Auto) (0.0-0.7) 10^3/uL Baso # (Auto) (0.0-0.1) 10^3/uL Absolute Nucleated RBC x10^3/uL Nucleated RBC % /100WBC VBG pH (7.31-7.41) Ionized Calcium (1.09-1.30) mmol/L Sodium (135-145) mmol/L Potassium 3.5 (3.5-4.5) mmol/L Chloride (101-111) mmol/L Carbon Dioxide (21-32) mmol/L Anion Gap (6-13) BUN (6-20) mg/dL Creatinine (0.6-1.3) mg/dL Estimated GFR (MDRD) (>89) Glucose (74-104) mg/dL POC Whole Bld Glucose 187 219 (70-100) mg/dL Estimat Average Glucose (70-100) mg/dL Hemoglobin A1c % (4.27-6.07) % Serum Osmolality (275-295) mOsmol/kg Calcium (8.5-10.3) mg/dL Phosphorus 2.2 L (2.5-5.0) mg/dL Magnesium 1.9 (1.7-2.3) mg/dL 03/17/25 03/17/25 03/17/25 Range/Units 14:00 13:00 11:55 WBC (4.8-10.8) x10^3/uL RBC (4.20-5.40) 10^6/uL Hgb (12.0-16.0) g/dL Hct (37.0-47.0) % MCV (81.0-99.0) fL MCH (27.0-31.0) pg MCHC (32.0-36.0) g/dL RDW (12.0-15.0) % Plt Count (130-450) 10^3/uL MPV (7.9-10.8) fL Neut # (Auto) (1.5-6.6) 10^3/uL Lymph # (Auto) (1.5-3.5) 10^3/uL [place] # (Auto) (0.0-1.0) 10^3/uL Eos # (Auto) (0.0-0.7) 10^3/uL Baso # (Auto) (0.0-0.1) 10^3/uL Absolute Nucleated RBC x10^3/uL Nucleated RBC % /100WBC VBG pH (7.31-7.41) Ionized Calcium (1.09-1.30) mmol/L Sodium (135-145) mmol/L Potassium (3.5-4.5) mmol/L Chloride (101-111) mmol/L Carbon Dioxide (21-32) mmol/L Anion Gap (6-13) BUN (6-20) mg/dL Creatinine (0.6-1.3) mg/dL Estimated GFR (MDRD) (>89) Glucose (74-104) mg/dL POC Whole Bld Glucose 244 229 229 (70-100) mg/dL Estimat Average Glucose (70-100) mg/dL Hemoglobin A1c % (4.27-6.07) % Serum Osmolality (275-295) mOsmol/kg Calcium (8.5-10.3) mg/dL Phosphorus (2.5-5.0) mg/dL Magnesium (1.7-2.3) mg/dL 03/17/25 03/17/25 03/17/25 Range/Units 10:54 09:20 08:59 WBC (4.8-10.8) x10^3/uL RBC (4.20-5.40) 10^6/uL Hgb (12.0-16.0) g/dL Hct (37.0-47.0) % MCV (81.0-99.0) fL MCH (27.0-31.0) pg MCHC (32.0-36.0) g/dL RDW (12.0-15.0) % Plt Count (130-450) 10^3/uL MPV (7.9-10.8) fL Neut # (Auto) (1.5-6.6) 10^3/uL Lymph # (Auto) (1.5-3.5) 10^3/uL [place] # (Auto) (0.0-1.0) 10^3/uL Eos # (Auto) (0.0-0.7) 10^3/uL Baso # (Auto) (0.0-0.1) 10^3/uL Absolute Nucleated RBC x10^3/uL Nucleated RBC % /100WBC VBG pH (7.31-7.41) Ionized Calcium (1.09-1.30) mmol/L Sodium 130 L (135-145) mmol/L Potassium 4.0 (3.5-4.5) mmol/L Chloride 106 (101-111) mmol/L Carbon Dioxide 12 L* (21-32) mmol/L Anion Gap 12.0 (6-13) BUN 4 L (6-20) mg/dL Creatinine 0.5 L (0.6-1.3) mg/dL Estimated GFR (MDRD) 146 (>89) Glucose 358 H (74-104) mg/dL POC Whole Bld Glucose 316 320 (70-100) mg/dL Estimat Average Glucose (70-100) mg/dL Hemoglobin A1c % (4.27-6.07) % Serum Osmolality (275-295) mOsmol/kg Calcium 7.4 L (8.5-10.3) mg/dL Phosphorus (2.5-5.0) mg/dL Magnesium 2.3 (1.7-2.3) mg/dL 03/17/25 03/17/25 03/17/25 Range/Units 08:00 07:02 06:03 WBC (4.8-10.8) x10^3/uL RBC (4.20-5.40) 10^6/uL Hgb (12.0-16.0) g/dL Hct (37.0-47.0) % MCV (81.0-99.0) fL MCH (27.0-31.0) pg MCHC (32.0-36.0) g/dL RDW (12.0-15.0) % Plt Count (130-450) 10^3/uL MPV (7.9-10.8) fL Neut # (Auto) (1.5-6.6) 10^3/uL Lymph # (Auto) (1.5-3.5) 10^3/uL [place] # (Auto) (0.0-1.0) 10^3/uL Eos # (Auto) (0.0-0.7) 10^3/uL Baso # (Auto) (0.0-0.1) 10^3/uL Absolute Nucleated RBC x10^3/uL Nucleated RBC % /100WBC VBG pH (7.31-7.41) Ionized Calcium (1.09-1.30) mmol/L Sodium (135-145) mmol/L Potassium (3.5-4.5) mmol/L Chloride (101-111) mmol/L Carbon Dioxide (21-32) mmol/L Anion Gap (6-13) BUN (6-20) mg/dL Creatinine (0.6-1.3) mg/dL Estimated GFR (MDRD) (>89) Glucose (74-104) mg/dL POC Whole Bld Glucose 254 215 217 (70-100) mg/dL Estimat Average Glucose (70-100) mg/dL Hemoglobin A1c % (4.27-6.07) % Serum Osmolality (275-295) mOsmol/kg Calcium (8.5-10.3) mg/dL Phosphorus (2.5-5.0) mg/dL Magnesium (1.7-2.3) mg/dL 03/17/25 03/17/25 03/17/25 Range/Units 04:43 04:29 04:05 WBC 11.5 H (4.8-10.8) x10^3/uL RBC 3.74 L (4.20-5.40) 10^6/uL Hgb 9.9 L (12.0-16.0) g/dL Hct 30.9 L (37.0-47.0) % MCV 82.6 (81.0-99.0) fL MCH 26.5 L (27.0-31.0) pg MCHC 32.0 (32.0-36.0) g/dL RDW 16.9 H (12.0-15.0) % Plt Count 200 (130-450) 10^3/uL MPV 12.3 H (7.9-10.8) fL Neut # (Auto) 8.8 H (1.5-6.6) 10^3/uL Lymph # (Auto) 1.6 (1.5-3.5) 10^3/uL [place] # (Auto) 1.0 (0.0-1.0) 10^3/uL Eos # (Auto) 0.0 (0.0-0.7) 10^3/uL Baso # (Auto) 0.0 (0.0-0.1) 10^3/uL Absolute Nucleated RBC 0.00 x10^3/uL Nucleated RBC % 0.0 /100WBC VBG pH 7.336 (7.31-7.41) Ionized Calcium 1.16 (1.09-1.30) mmol/L Sodium 133 L (135-145) mmol/L Potassium 3.0 L (3.5-4.5) mmol/L Chloride 113 H (101-111) mmol/L Carbon Dioxide 13 L (21-32) mmol/L Anion Gap 7.0 (6-13) BUN 4 L (6-20) mg/dL Creatinine 0.5 L (0.6-1.3) mg/dL Estimated GFR (MDRD) 146 (>89) Glucose 83 (74-104) mg/dL POC Whole Bld Glucose 83 111 (70-100) mg/dL Estimat Average Glucose 390 H (70-100) mg/dL Hemoglobin A1c % 15.2 H (4.27-6.07) % Serum Osmolality (275-295) mOsmol/kg Calcium 7.5 L (8.5-10.3) mg/dL Phosphorus 1.0 L* (2.5-5.0) mg/dL Magnesium 1.6 L (1.7-2.3) mg/dL 03/17/25 03/17/25 03/17/25 Range/Units 03:09 02:13 01:09 WBC (4.8-10.8) x10^3/uL RBC (4.20-5.40) 10^6/uL Hgb (12.0-16.0) g/dL Hct (37.0-47.0) % MCV (81.0-99.0) fL MCH (27.0-31.0) pg MCHC (32.0-36.0) g/dL RDW (12.0-15.0) % Plt Count (130-450) 10^3/uL MPV (7.9-10.8) fL Neut # (Auto) (1.5-6.6) 10^3/uL Lymph # (Auto) (1.5-3.5) 10^3/uL [place] # (Auto) (0.0-1.0) 10^3/uL Eos # (Auto) (0.0-0.7) 10^3/uL Baso # (Auto) (0.0-0.1) 10^3/uL Absolute Nucleated RBC x10^3/uL Nucleated RBC % /100WBC VBG pH (7.31-7.41) Ionized Calcium (1.09-1.30) mmol/L Sodium (135-145) mmol/L Potassium (3.5-4.5) mmol/L Chloride (101-111) mmol/L Carbon Dioxide (21-32) mmol/L Anion Gap (6-13) BUN (6-20) mg/dL Creatinine (0.6-1.3) mg/dL Estimated GFR (MDRD) (>89) Glucose (74-104) mg/dL POC Whole Bld Glucose 138 164 212 (70-100) mg/dL Estimat Average Glucose (70-100) mg/dL Hemoglobin A1c % (4.27-6.07) % Serum Osmolality (275-295) mOsmol/kg Calcium (8.5-10.3) mg/dL Phosphorus (2.5-5.0) mg/dL Magnesium (1.7-2.3) mg/dL 03/17/25 03/16/25 03/16/25 Range/Units 00:07 23:09 22:59 WBC (4.8-10.8) x10^3/uL RBC (4.20-5.40) 10^6/uL Hgb (12.0-16.0) g/dL Hct (37.0-47.0) % MCV (81.0-99.0) fL MCH (27.0-31.0) pg MCHC (32.0-36.0) g/dL RDW (12.0-15.0) % Plt Count (130-450) 10^3/uL MPV (7.9-10.8) fL Neut # (Auto) (1.5-6.6) 10^3/uL Lymph # (Auto) (1.5-3.5) 10^3/uL [place] # (Auto) (0.0-1.0) 10^3/uL Eos # (Auto) (0.0-0.7) 10^3/uL Baso # (Auto) (0.0-0.1) 10^3/uL Absolute Nucleated RBC x10^3/uL Nucleated RBC % /100WBC VBG pH (7.31-7.41) Ionized Calcium (1.09-1.30) mmol/L Sodium 132 L (135-145) mmol/L Potassium 4.2 (3.5-4.5) mmol/L Chloride 112 H (101-111) mmol/L Carbon Dioxide 10 L* (21-32) mmol/L Anion Gap 10.0 (6-13) BUN 6 (6-20) mg/dL Creatinine 0.6 (0.6-1.3) mg/dL Estimated GFR (MDRD) 118 (>89) Glucose 157 H (74-104) mg/dL POC Whole Bld Glucose 177 133 (70-100) mg/dL Estimat Average Glucose (70-100) mg/dL Hemoglobin A1c % (4.27-6.07) % Serum Osmolality (275-295) mOsmol/kg Calcium 7.3 L (8.5-10.3) mg/dL Phosphorus (2.5-5.0) mg/dL Magnesium (1.7-2.3) mg/dL 03/16/25 03/16/25 03/16/25 Range/Units 22:04 21:13 20:01 WBC (4.8-10.8) x10^3/uL RBC (4.20-5.40) 10^6/uL Hgb (12.0-16.0) g/dL Hct (37.0-47.0) % MCV (81.0-99.0) fL MCH (27.0-31.0) pg MCHC (32.0-36.0) g/dL RDW (12.0-15.0) % Plt Count (130-450) 10^3/uL MPV (7.9-10.8) fL Neut # (Auto) (1.5-6.6) 10^3/uL Lymph # (Auto) (1.5-3.5) 10^3/uL [place] # (Auto) (0.0-1.0) 10^3/uL Eos # (Auto) (0.0-0.7) 10^3/uL Baso # (Auto) (0.0-0.1) 10^3/uL Absolute Nucleated RBC x10^3/uL Nucleated RBC % /100WBC VBG pH (7.31-7.41) Ionized Calcium (1.09-1.30) mmol/L Sodium 132 L (135-145) mmol/L Potassium 3.2 L (3.5-4.5) mmol/L Chloride 114 H (101-111) mmol/L Carbon Dioxide 10 L* (21-32) mmol/L Anion Gap 8.0 (6-13) BUN 6 (6-20) mg/dL Creatinine 0.7 (0.6-1.3) mg/dL Estimated GFR (MDRD) 99 (>89) Glucose 194 H (74-104) mg/dL POC Whole Bld Glucose 129 175 253 (70-100) mg/dL Estimat Average Glucose (70-100) mg/dL Hemoglobin A1c % (4.27-6.07) % Serum Osmolality (275-295) mOsmol/kg Calcium 7.6 L (8.5-10.3) mg/dL Phosphorus (2.5-5.0) mg/dL Magnesium (1.7-2.3) mg/dL 03/16/25 03/16/25 03/15/25 Range/Units 19:02 19:00 15:35 WBC (4.8-10.8) x10^3/uL RBC (4.20-5.40) 10^6/uL Hgb (12.0-16.0) g/dL Hct (37.0-47.0) % MCV (81.0-99.0) fL MCH (27.0-31.0) pg MCHC (32.0-36.0) g/dL RDW (12.0-15.0) % Plt Count (130-450) 10^3/uL MPV (7.9-10.8) fL Neut # (Auto) (1.5-6.6) 10^3/uL Lymph # (Auto) (1.5-3.5) 10^3/uL [place] # (Auto) (0.0-1.0) 10^3/uL Eos # (Auto) (0.0-0.7) 10^3/uL Baso # (Auto) (0.0-0.1) 10^3/uL Absolute Nucleated RBC x10^3/uL Nucleated RBC % /100WBC VBG pH (7.31-7.41) Ionized Calcium (1.09-1.30) mmol/L Sodium 130 L (135-145) mmol/L Potassium 3.8 (3.5-4.5) mmol/L Chloride 109 (101-111) mmol/L Carbon Dioxide 9 L* (21-32) mmol/L Anion Gap 12.0 (6-13) BUN 7 (6-20) mg/dL Creatinine 0.8 (0.6-1.3) mg/dL Estimated GFR (MDRD) 85 L (>89) Glucose 269 H (74-104) mg/dL POC Whole Bld Glucose 250 (70-100) mg/dL Estimat Average Glucose (70-100) mg/dL Hemoglobin A1c % (4.27-6.07) % Serum Osmolality 297 H (275-295) mOsmol/kg Calcium 8.0 L (8.5-10.3) mg/dL Phosphorus 1.8 L (2.5-5.0) mg/dL Magnesium 2.0 (1.7-2.3) mg/dL Assessment/Plan Problem List (1) DKA (diabetic ketoacidoses): Impression: She feels her lack of control is due to the infected pilonidal cyst even though exam of the infected area shows good response to antibiotics. She does have bartholin's glands as well that were infected. She is on a glucose pump, and continuous glucose monitoring so she feels her compliance is good at home. Hyperkalemia continues to be a barrier to getting good control right now since we have to stop her pump when her potassium gets too low. Her AG has closed for a day now. Mag is stable. So I am going to stop the drip and add lantus, lispro PLUS her pump until I can stop our additive insulin and she can remain controlled on her own pump. Qualifiers: Qualified Code(s): E10.10 - Type 1 diabetes mellitus with ketoacidosis without coma (2) High anion gap metabolic acidosis: Impression: Resolved 03/16 afternoon. On admission her anion gap was 19. It was 10 in the morning yesterday, but we had to stop the drip and her anion gap went back up to 18 by the afternoon. Then noormal (3) Hyperosmolar hyponatremia: Impression: Improved. Sodium 128 on admission. She has come up to 132 today with treatment. (4) Depression, major, recurrent, moderate: Impression: Stable. No suicidal ideation. She is not on any home medications for this. (5) Type 1 diabetes mellitus: Impression: In the outpatient setting she is on continuous glucose monitoring with insulin pump. That we will resume at discharge. Qualifiers: Diabetes mellitus complication status: with other specified complication Qualified Code(s): E10.69 - Type 1 diabetes mellitus with other specified complication (6) Chronic recurrent pilonidal cyst without abscess: Impression: Exam does not really show any infection. While she does have drainage there is no surrounding cellulitis or tenderness. White cell count is more elevated yesterday at 15.2 and it is 11.5 today. Her home medication was Bactrim to treat this. Her culture in July for this was beta-hemolytic strep. With this wound culture done March 15, there is no growth to date. The patient states that she really feels this is the problem of why her DKA occurred. So I have asked general surgery to see her and assess if there needs to be any incision and debridement. Dr. López and I have discussed the case and he will see her today.
[2025-03-17] MEDS: INSULIN LISPRO 300 UNIT/3 ML PEN SUBQ SCH (16:59)
[2025-03-17] MEDS: IBUPROFEN 600 MG TABLET PO PRN (20:58)
[2025-03-18 04:57] LABS: BASOPHILS % (AUTO) 0.5 %; EOSINOPHILS % (AUTO) 0.5 %; HCT - HEMATOCRIT 29.3 % (37.0-47.0); HGB - HEMOGLOBIN 9.5 g/dL (12.0-16.0); LYMPHOCYTES # (AUTO) 1.6 10^3/uL (1.5-3.5); LYMPHOCYTES % (AUTO) 24.5 %; MEAN CORPUSCULAR HEMOGLOBIN 26.7 pg (27.0-31.0); MEAN CORPUSCULAR HGB CONC 32.4 g/dL (32.0-36.0); MEAN CORPUSCULAR VOLUME 82.3 fL (81.0-99.0); MEAN PLATELET VOLUME 12.7 fL (7.9-10.8); MONOCYTES # (AUTO) 0.7 10^3/uL (0.0-1.0); MONOCYTES % (AUTO) 10.3 %; NEUTROPHILS # (AUTO) 4.2 10^3/uL (1.5-6.6); NEUTROPHILS % (AUTO) 63.7 %; PLT - PLATELET COUNT 172 10^3/uL (130-450); RED BLOOD COUNT 3.56 10^6/uL (4.20-5.40); RED CELL DISTRIBUTION WIDTH 17.2 % (12.0-15.0); WHITE BLOOD COUNT 6.5 x10^3/uL (4.8-10.8)
[2025-03-18 05:05] LABS: VBG PH 7.442 (7.31-7.41)
[2025-03-18 05:14] LABS: CALCIUM 7.6 mg/dL (8.5-10.3); CREATININE 0.5 mg/dL (0.6-1.3); MAGNESIUM 1.9 mg/dL (1.7-2.3); PHOSPHORUS 2.6 mg/dL (2.5-5.0); POTASSIUM 3.5 mmol/L (3.5-4.5)
[2025-03-18] MEDS: POTASSIUM CHLORIDE 20 MEQ/15 ML UDC PO SCH (06:00)
[2025-03-18] MEDS: CALCIUM CARBONATE CHEW 500 MG TABLET PO SCH (06:01)
--- NOTE | 2025-03-18 06:54 | PROVIDER PROGRESS NOTE ---
Progress Note Progress Note Progress Note: General Surgery Progress Note S: Feels better; less pain near the lower gluteal cleft abscess O: VSS, afeb; The purulent drainage has stopped. The superficial abscess seems to have resolved. Only granulation tissue is now present at the base of the wounds. The cellulitis is also less. WBC 6.5; Glu 155 A: Superficial pilonidal abscess - resolving P: Continue IV antibiotics for 24-48 hours. Continue local wound care. Awaiting culture results to determine oral antibiotics to use. Bao López MD, FACS General Surgery Service
--- NOTE | 2025-03-18 09:38 | PROVIDER PROGRESS NOTE ---
Subjective Subjective Subjective: Today, patient states that she feels little better. She has less nausea. She denies any fevers, chills. She does state that she is hungry, and has an appetite. She states there has been less drainage from her pilonidal cyst overnight. Current Medications Current Medications Current Medications: Current Medications Generic Name Dose Route Start Last Admin Trade Name Freq PRN Reason Stop Dose Admin Calcium Carbonate/Glycine 1,250 mg 03/18/25 06:00 03/18/25 06:01 Calcium Carbonate Chew 500 Mg Tablet PO 03/18/25 10:01 1,250 mg Q4H SUZANNA Administration Protocol Hydromorphone HCl 0.5 mg 03/15/25 19:57 Hydromorphone 0.5 Mg/0.5 Ml Syringe IVP Q2H PRN Severe Pain (Level 7-10) Ceftriaxone Sodium 1 gm/ 100 mls @ 200 mls/hr 03/17/25 11:00 03/18/25 08:36 Sodium Chloride IV Infused DAILY SUZANNA Infusion Metronidazole 500 mg in 100 mls @ 100 mls/hr 03/17/25 14:00 03/18/25 07:26 Flagyl 500 Mg/100 Ml IV 03/22/25 13:59 Infused Q8HR SUZANNA Infusion Ibuprofen 600 mg 03/17/25 20:36 03/17/25 20:58 Ibuprofen 600 Mg Tablet PO 600 mg Q6HR PRN Administration PAIN 5-7 Insulin Glargine-yfgn 20 unit 03/17/25 11:00 03/18/25 08:05 Insulin Glargine-Yfgn 300 Unit/3 Ml Pen SUBQ 20 unit DAILY SUZANNA Administration Insulin Human Lispro 1 - 9 unit 03/18/25 12:00 Insulin Lispro 300 Unit/3 Ml Pen SUBQ 0800,1200,1700,2100 SUZANNA Protocol Ondansetron HCl 4 mg 03/15/25 19:57 Ondansetron 4 Mg/2 Ml Vial IVP Q4HR PRN Nausea / Vomiting Prochlorperazine Edisylate 10 mg 03/15/25 19:57 Prochlorperazine 10 Mg/2 Ml Vial IVP Q6HR PRN Nausea / Vomiting Objective Vital Signs/Intake & Output Reviewed Vital Signs: Yes Vital Signs: Vital Signs x48h Temp Pulse Resp BP Pulse Ox 03/18/25 09:00 102 H 20 124/76 98 03/18/25 08:00 98.1 F 100 23 121/78 97 03/18/25 07:00 90 20 116/73 98 03/18/25 06:00 98.4 F 94 21 127/77 97 03/18/25 05:00 84 15 121/75 98 03/18/25 04:00 83 20 113/76 98 03/18/25 03:00 90 15 122/73 98 03/18/25 02:00 90 22 126/81 97 Intake & Output: Intake & Output 03/15/25 03/16/25 03/17/25 03/18/25 23:59 23:59 23:59 23:59 Intake Total 2723 / 2723 5898 / 5898 4670 / 4670 840 / 840 Output Total 900 / 900 5150 / 5150 3500 / 3500 275 / 275 Balance 1823 / 1823 748 / 748 1170 / 1170 565 / 565 Weight (kg) 53 kg Objective General Appearance: positive No acute distress and Anxious Eyes Bilateral: positive Normal inspection, PERRL and EOMI ENT: positive ENT inspection nml, Pharynx nml and No signs of dehydration Neck: positive Nml inspection, Thyroid nml and Trachea midline Respiratory: positive Chest non-tender, No respiratory distress and Breath sounds nml; negative Wheezes, Rales or Rhonchi Cardiovascular: positive No murmur and Tachycardia; negative Bradycardia or Systolic murmur Abdomen: positive Non-tender and No distention; negative Guarding, Rebound, Hepatomegaly, Splenomegaly or Mass Skin: positive Color nml, No rash, Dry and Pallor Extremities: positive Non-tender, Full ROM, Nml appearance and No pedal edema Neurologic/Psychiatric: positive Oriented x3 and Mood/affect nml Lab Results 03/18/25 04:42 03/18/25 04:42 Other Labs: Lab Results x24hrs 03/18/25 03/18/25 03/17/25 Range/Units 07:51 04:42 20:49 WBC 6.5 (4.8-10.8) x10^3/uL RBC 3.56 L (4.20-5.40) 10^6/uL Hgb 9.5 L (12.0-16.0) g/dL Hct 29.3 L (37.0-47.0) % MCV 82.3 (81.0-99.0) fL MCH 26.7 L (27.0-31.0) pg MCHC 32.4 (32.0-36.0) g/dL RDW 17.2 H (12.0-15.0) % Plt Count 172 (130-450) 10^3/uL MPV 12.7 H (7.9-10.8) fL Neut # (Auto) 4.2 (1.5-6.6) 10^3/uL Lymph # (Auto) 1.6 (1.5-3.5) 10^3/uL Prentiss # (Auto) 0.7 (0.0-1.0) 10^3/uL Eos # (Auto) 0.0 (0.0-0.7) 10^3/uL Baso # (Auto) 0.0 (0.0-0.1) 10^3/uL Absolute Nucleated RBC 0.00 x10^3/uL Nucleated RBC % 0.0 /100WBC VBG pH 7.442 H (7.31-7.41) Ionized Calcium 1.10 (1.09-1.30) mmol/L Sodium 134 L (135-145) mmol/L Potassium 3.5 (3.5-4.5) mmol/L Chloride 105 (101-111) mmol/L Carbon Dioxide 23 (21-32) mmol/L Anion Gap 6.0 (6-13) BUN 5 L (6-20) mg/dL Creatinine 0.5 L (0.6-1.3) mg/dL Estimated GFR (MDRD) 146 (>89) Glucose 155 H (74-104) mg/dL POC Whole Bld Glucose 195 213 (70-100) mg/dL Estimat Average Glucose (70-100) mg/dL Hemoglobin A1c % (4.27-6.07) % Serum Osmolality (275-295) mOsmol/kg Calcium 7.6 L (8.5-10.3) mg/dL Phosphorus 2.6 (2.5-5.0) mg/dL Magnesium 1.9 (1.7-2.3) mg/dL 03/17/25 03/17/25 03/17/25 Range/Units 16:55 14:56 14:15 WBC (4.8-10.8) x10^3/uL RBC (4.20-5.40) 10^6/uL Hgb (12.0-16.0) g/dL Hct (37.0-47.0) % MCV (81.0-99.0) fL MCH (27.0-31.0) pg MCHC (32.0-36.0) g/dL RDW (12.0-15.0) % Plt Count (130-450) 10^3/uL MPV (7.9-10.8) fL Neut # (Auto) (1.5-6.6) 10^3/uL Lymph # (Auto) (1.5-3.5) 10^3/uL Prentiss # (Auto) (0.0-1.0) 10^3/uL Eos # (Auto) (0.0-0.7) 10^3/uL Baso # (Auto) (0.0-0.1) 10^3/uL Absolute Nucleated RBC x10^3/uL Nucleated RBC % /100WBC VBG pH (7.31-7.41) Ionized Calcium (1.09-1.30) mmol/L Sodium (135-145) mmol/L Potassium 3.5 (3.5-4.5) mmol/L Chloride (101-111) mmol/L Carbon Dioxide (21-32) mmol/L Anion Gap (6-13) BUN (6-20) mg/dL Creatinine (0.6-1.3) mg/dL Estimated GFR (MDRD) (>89) Glucose (74-104) mg/dL POC Whole Bld Glucose 187 219 (70-100) mg/dL Estimat Average Glucose (70-100) mg/dL Hemoglobin A1c % (4.27-6.07) % Serum Osmolality (275-295) mOsmol/kg Calcium (8.5-10.3) mg/dL Phosphorus 2.2 L (2.5-5.0) mg/dL Magnesium 1.9 (1.7-2.3) mg/dL 03/17/25 03/17/25 03/17/25 Range/Units 14:00 13:00 11:55 WBC (4.8-10.8) x10^3/uL RBC (4.20-5.40) 10^6/uL Hgb (12.0-16.0) g/dL Hct (37.0-47.0) % MCV (81.0-99.0) fL MCH (27.0-31.0) pg MCHC (32.0-36.0) g/dL RDW (12.0-15.0) % Plt Count (130-450) 10^3/uL MPV (7.9-10.8) fL Neut # (Auto) (1.5-6.6) 10^3/uL Lymph # (Auto) (1.5-3.5) 10^3/uL Prentiss # (Auto) (0.0-1.0) 10^3/uL Eos # (Auto) (0.0-0.7) 10^3/uL Baso # (Auto) (0.0-0.1) 10^3/uL Absolute Nucleated RBC x10^3/uL Nucleated RBC % /100WBC VBG pH (7.31-7.41) Ionized Calcium (1.09-1.30) mmol/L Sodium (135-145) mmol/L Potassium (3.5-4.5) mmol/L Chloride (101-111) mmol/L Carbon Dioxide (21-32) mmol/L Anion Gap (6-13) BUN (6-20) mg/dL Creatinine (0.6-1.3) mg/dL Estimated GFR (MDRD) (>89) Glucose (74-104) mg/dL POC Whole Bld Glucose 244 229 229 (70-100) mg/dL Estimat Average Glucose (70-100) mg/dL Hemoglobin A1c % (4.27-6.07) % Serum Osmolality (275-295) mOsmol/kg Calcium (8.5-10.3) mg/dL Phosphorus (2.5-5.0) mg/dL Magnesium (1.7-2.3) mg/dL 03/17/25 03/17/25 03/17/25 Range/Units 10:54 09:20 04:29 WBC (4.8-10.8) x10^3/uL RBC (4.20-5.40) 10^6/uL Hgb (12.0-16.0) g/dL Hct (37.0-47.0) % MCV (81.0-99.0) fL MCH (27.0-31.0) pg MCHC (32.0-36.0) g/dL RDW (12.0-15.0) % Plt Count (130-450) 10^3/uL MPV (7.9-10.8) fL Neut # (Auto) (1.5-6.6) 10^3/uL Lymph # (Auto) (1.5-3.5) 10^3/uL Prentiss # (Auto) (0.0-1.0) 10^3/uL Eos # (Auto) (0.0-0.7) 10^3/uL Baso # (Auto) (0.0-0.1) 10^3/uL Absolute Nucleated RBC x10^3/uL Nucleated RBC % /100WBC VBG pH (7.31-7.41) Ionized Calcium (1.09-1.30) mmol/L Sodium 130 L (135-145) mmol/L Potassium 4.0 (3.5-4.5) mmol/L Chloride 106 (101-111) mmol/L Carbon Dioxide 12 L* (21-32) mmol/L Anion Gap 12.0 (6-13) BUN 4 L (6-20) mg/dL Creatinine 0.5 L (0.6-1.3) mg/dL Estimated GFR (MDRD) 146 (>89) Glucose 358 H (74-104) mg/dL POC Whole Bld Glucose 316 (70-100) mg/dL Estimat Average Glucose 390 H (70-100) mg/dL Hemoglobin A1c % 15.2 H (4.27-6.07) % Serum Osmolality (275-295) mOsmol/kg Calcium 7.4 L (8.5-10.3) mg/dL Phosphorus (2.5-5.0) mg/dL Magnesium 2.3 (1.7-2.3) mg/dL 03/15/25 Range/Units 15:35 WBC (4.8-10.8) x10^3/uL RBC (4.20-5.40) 10^6/uL Hgb (12.0-16.0) g/dL Hct (37.0-47.0) % MCV (81.0-99.0) fL MCH (27.0-31.0) pg MCHC (32.0-36.0) g/dL RDW (12.0-15.0) % Plt Count (130-450) 10^3/uL MPV (7.9-10.8) fL Neut # (Auto) (1.5-6.6) 10^3/uL Lymph # (Auto) (1.5-3.5) 10^3/uL Prentiss # (Auto) (0.0-1.0) 10^3/uL Eos # (Auto) (0.0-0.7) 10^3/uL Baso # (Auto) (0.0-0.1) 10^3/uL Absolute Nucleated RBC x10^3/uL Nucleated RBC % /100WBC VBG pH (7.31-7.41) Ionized Calcium (1.09-1.30) mmol/L Sodium (135-145) mmol/L Potassium (3.5-4.5) mmol/L Chloride (101-111) mmol/L Carbon Dioxide (21-32) mmol/L Anion Gap (6-13) BUN (6-20) mg/dL Creatinine (0.6-1.3) mg/dL Estimated GFR (MDRD) (>89) Glucose (74-104) mg/dL POC Whole Bld Glucose (70-100) mg/dL Estimat Average Glucose (70-100) mg/dL Hemoglobin A1c % (4.27-6.07) % Serum Osmolality 297 H (275-295) mOsmol/kg Calcium (8.5-10.3) mg/dL Phosphorus (2.5-5.0) mg/dL Magnesium (1.7-2.3) mg/dL Assessment/Plan Problem List (1) Chronic recurrent pilonidal cyst without abscess: Impression: General Surgery consulted for recurrent pilonidal abscess. Recommend continue IV antibiotics for 24 to 48 hours, and awaiting culture to determine oral antibiotics to de-escalate to on discharge. Continue Rocephin and Flagyl. (2) DKA (diabetic ketoacidoses): Impression: Resolved. Patient does not have insulin pods for her pump here so we currently have her on high dose sliding scale, Lantus 20 units nightly, 5 units wtih meals. Qualifiers: Qualified Code(s): E10.10 - Type 1 diabetes mellitus with ketoacidosis without coma (3) High anion gap metabolic acidosis: Impression: Resolved, now that DKA is resolved. (4) Hyperosmolar hyponatremia: Impression: Corrected sodium is within normal limits. (5) Depression, major, recurrent, moderate: Impression: Reccomend continued and close follow up with PCP. (6) Dental infection: Impression: No obvious abscesses noted. CT completed last admission shows bilateral dental disease, advised extensively to follow-up with the dentist in the outpatient setting. (7) Uncontrolled type 1 diabetes mellitus: Impression: Patient usually uses an insulin pump. Continue sliding scale and long-acting insulin at this time. Qualifiers: Glycemic state: with hyperglycemia Qualified Code(s): E10.65 - Type 1 diabetes mellitus with hyperglycemia
[2025-03-18] MEDS: INSULIN LISPRO 300 UNIT/3 ML PEN SUBQ SCH ×2 (11:56)
[2025-03-18] MEDS ORDERED: INSULIN LISPRO 300 UNIT/3 ML PEN SUBQ SCH (12:00)
[2025-03-19 05:45] LABS: HCT - HEMATOCRIT 30.5 % (37.0-47.0); HGB - HEMOGLOBIN 9.9 g/dL (12.0-16.0); MEAN CORPUSCULAR HEMOGLOBIN 26.5 pg (27.0-31.0); MEAN CORPUSCULAR HGB CONC 32.5 g/dL (32.0-36.0); MEAN CORPUSCULAR VOLUME 81.6 fL (81.0-99.0); MEAN PLATELET VOLUME 13.3 fL (7.9-10.8); RED BLOOD COUNT 3.74 10^6/uL (4.20-5.40); RED CELL DISTRIBUTION WIDTH 17.5 % (12.0-15.0); WHITE BLOOD COUNT 3.9 x10^3/uL (4.8-10.8)
[2025-03-19 06:00] LABS: CALCIUM 7.5 mg/dL (8.5-10.3); CREATININE 0.4 mg/dL (0.6-1.3); MAGNESIUM 1.8 mg/dL (1.7-2.3); POTASSIUM 3.9 mmol/L (3.5-4.5)
[2025-03-19 07:31] VITALS: BP 121/78; TEMP 97.9; O2SAT 99
--- NOTE | 2025-03-19 07:38 | ED Physician Documentation ---
ED Addendum Addendum Addendum: Care of this patient overnight was supervised by myself after sign out from Dr Howell. The patient remained on DKA protocol with serial labs, through the night her metabolic abnormalities continued to trend towards normal, she remained hemodynamically stable. No beds available for admission. Care was passed to the oncoming provicer with the anticipation that she would likely be discharged from the Emergency Department once her metabolic panel had normalized. Discharge Plan Discharge Patient Disposition: [facility] DC/Xfer Condition: Good Clinical Impression: DKA (diabetic ketoacidosis) Qualifiers: Diabetes mellitus type: type 1 Diabetes mellitus complication detail: without coma Qualified Code(s): E10.10 - Type 1 diabetes mellitus with ketoacidosis without coma Type 1 diabetes mellitus Qualifiers: Diabetes mellitus complication status: with other specified complication Qualified Code(s): E10.69 - Type 1 diabetes mellitus with other specified complication Interventions: ED Admission Assessment Last Done: 03/15/25 19:34
--- NOTE | 2025-03-19 10:08 | Discharge Summary ---
Discharge Summary Admit Date: 03/15/25 Discharge Date: 03/19/25 Discharging Provider: Dr. Edward Aranda Primary Care Provider: Isabelle Cochran Code Status: Attempt Resuscitation Discharge Facility Name: Home, self care DIAGNOSES Admission Diagnoses: TKA Hide yet metabolic acidosis Hyperosmolar hyponatremia Depression, major Type 1 diabetes mellitus Chronic recurrent pilonidal cyst without abscess Discharge Diagnoses with Status of Each Condition: Chronic recurrent pilonidal cyst without abscessGeneral Surgery consulted, no repeat incision and drainage completed. However, Rocephin and Flagyl recommended for a 24 to 48-hour duration. We have now de-escalated her to Augmentin to be taken for 5 additional days on discharge. DKAresolved. Continue home insulin pump on discharge. Plan gap metabolic acidosisresolved. Hyperosmolar hyponatremiaresolved. Major depressioncontinue to follow-up with PCP in the outpatient setting. Uncontrolled type 1 diabetes mellituspatient usually uses insulin pump. Continue this in the outpatient setting. 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 HPI History of Present Illness: Patient is a 28-year-old female with history of type 1 diabetes mellitus currently using an insulin pump who presents for feeling unwell. She was just here on 03/06, and at that time, she did not incision and drainage performed on her pilonidal cyst. She was discharged home on Bactrim. Patient states that she finished her entire bottle except for 2 pills. She felt as if they were not doing much. She endorses some ongoing drainage from the pilonidal cyst area, which she describes as ranging in color from clear to yellow to red. She also endorses some shortness of breath, as well as weakness with even minimal activity. She also has some nausea, but no episodes of emesis. She denies any fevers or chills. She is not currently in any pain. She does have a history of recurrent abscesses, and previous MRSA infections as well. In the emergency room, she was tachycardic with heart rate in the 101 range, breathing between 16 and 20/min, oxygen saturation of 100% on room air, with a blood pressure of 140/94. Lab work showed a normal white count of 9.9. Her VBG showed a pH of 7.127, her potassium was initially 3.9, her bicarb was 6, and anion gap was 19. Her glucose was 414, and she had moderate serum ketones. CT abdomen/pelvis with contrast was completed which showed perirectal edema without abscess. She was admitted for DKA. CONSULTS | PROCEDURES Consultations: General surgery Procedures: CT abd/pelvis HOSPITAL COURSE Hospital Course: Patient is a 29 year-old female with a history of type 1 diabetes mellitus who presented for DKA. She was transitioned off of the DKA pathway and onto subcu insulin. During her stay here, she was noted to have a recurrent pilonidal cyst. It was draining clear fluid. General surgery was consulted, they did recommend 48 hours of IV antibiotics. This was completed with Rocephin and Flagyl. She will continue Augmentin on discharge for 5 additional days. She needs close follow-up with her primary care provider for management of her diabetes, as well as with her instructional paraprofessional. ALLERGIES Allergies Allergy/AdvReac Type Severity Reaction Status Date / Time caffeine AdvReac Unknown unknown Verified 03/15/25 10:58 detergent AdvReac Unknown Unknown Uncoded 03/15/25 10:58 MEDICATIONS Ambulatory Orders Medication Instructions Recorded Confirmed insulin aspart U-100 100 unit/mL 80 units subcut DAILY 01/06/24 03/16/25 subcutaneous solution (Novolog U-100 Insulin aspart) blood sugar diagnostic (True 09/25/24 03/07/25 Metrix Glucose Test Strip) insulin pump controller [Omnipod 09/26/24 03/07/25 DASH PDM Kit (Gen 4)] gauze bandage 4" X 4" (Gauze Pad) #100 ea 03/07/25 amoxicillin 875 mg-potassium 1 tab PO BID 5 days #10 t abs 03/19/25 clavulanate 125 mg tablet PHYSICAL EXAM AT DISCHARGE Vital Signs: Vital Signs x48h Temp Pulse Resp BP Pulse Ox 03/19/25 07:20 97.9 F 89 16 121/78 99 General Appearance: positive No acute distress and Alert; negative Anxious Eyes Bilateral: positive Normal inspection, PERRL and EOMI ENT: positive ENT inspection nml, Pharynx nml and No signs of dehydration Neck: positive Nml inspection, Thyroid nml, No JVD and Trachea midline Respiratory: positive Chest non-tender and No respiratory distress; negative Wheezes, Rales or Rhonchi Cardiovascular: positive Regular rate & rhythm, No murmur and No gallop Peripheral Pulses: positive 2+ Abdomen: positive Non-tender, No organomegaly, Nml bowel sounds and No distention; negative Guarding, Hepatomegaly or Splenomegaly Back: positive Nml inspection; negative CVA tenderness (R) or CVA tenderness (L) Skin: positive Color nml, No rash, Warm and Dry Extremities: positive Non-tender, Full ROM, Nml appearance and No pedal edema Neurologic/Psychiatric: positive Oriented x3, Motor nml, Sensation nml and Mood/affect nml LABS 03/19/25 05:31 03/19/25 05:31 DIAGNOSTIC IMAGING Diagnostic Imaging Results: Final report reviewed Discharge Plan Discharge Patient Disposition: Home, Self Care Condition: Good Prescriptions: New amoxicillin-pot clavulanate 875-125 mg tablet 1 tab PO BID 5 Days Qty: 10 0RF Continued insulin aspart U-100 [Novolog U-100 Insulin aspart] 100 UNIT/ML solution 80 units subcut DAILY Rx Instructions: VIA INSULIN PUMP. 09/17: per pt, current basal rate of 5 units/hr with correctional insulin of 1 unit per 11g of carbs (DME) gauze bandage [Gauze Pad] 4 X 4 " bandage See Rx Instructions .Route Qty: 100 0RF Rx Instructions: As directed (DME) True Metrix Glucose Test Strip Strip See Rx Instructions .Route Rx Instructions: As directed (DME) insulin pump controller [Omnipod DASH PDM Kit (Gen 4)] See Rx Instructions .Route Rx Instructions: As directed Activity Restrictions: Activity as Tolerated Diet: Diabetic Health Concerns: You came in because you were in diabetic ketoacidosis. We believe that this was related to your pilonidal cyst. We had you evaluated by general surgeon, who did not think you needed a repeat drainage. However, we did place you on IV antibiotics, and I will be discharging you home with 5 more days of antibiotics. Please follow-up closely with your primary care provider for a few things: 1. Your A1c is very high. We need to work on further diabetic education, and working on controlling your sugars. 2. I would also follow-up with your primary care provider about your iron levels and get these rechecked. 3. Finally, I would discuss your mental health, and possible treatment options for your depression. We are glad you are feeling better, thanks for letting us take care of you. Print Language: Hebrew Patient Instructions: Pilonidal Cyst Stand Alone Forms: PCP List
== END 2025-03-19 12:57 | disposition home or self-care (01) | DRG 638 ==
LOC: ED 10:53 → MS2 18:34 → ICU 18:46 → MS2 03-18 13:47
PROVIDERS: ADMIT Internal Medicine; ATTEND Internal Medicine
DX: E87.1 Hypo-osmolality and hyponatremia; E10.69 Type 1 diabetes mellitus with other specified complication; Z96.41 Presence of insulin pump (external) (internal); F32.9 Major depressive disorder, single episode, unspecified; Z86.14 Personal history of Methicillin resistant Staphylococcus aureus infection; E87.6 Hypokalemia; K08.89 Other specified disorders of teeth and supporting structures; L05.91 Pilonidal cyst without abscess; E10.10 Type 1 diabetes mellitus with ketoacidosis without coma